=== PATIENT | male | born 1935 | race Caucasian/White ===

== ENCOUNTER → 2016-06-22 | Outpatient (CLI) | payer BC ==
[~2016-06-22] MED LIST: ANT25 PO; ASPI81TA28 PO; CRD200 PO; LEVO50TA6 PO; LPR25 PO; LPT10 PO; LPT40 PO; MOML PO; TPRSR/25 PO; WARF2TAB PO; WARF2TAB8 PO; WARF3TAB6 PO
== END | disposition home or self-care (01) ==
LOC: C.LAB1850 09:39
PROVIDERS: ATTEND Radiology Radiation Oncology
DX: Z85.46 Personal history of malignant neoplasm of prostate (principal)

== ENCOUNTER → 2016-10-23 | Outpatient (CLI) | payer BC ==
[2016-10-23 13:49] LABS: HEMATOCRIT 44.1 % (42-52); MEAN CELL VOLUME 91.9 fL (80-100); MEAN CORPUSCULAR HEMOGLOBIN 30.4 pg (25-34); MEAN CORPUSCULAR HGB CONC 33.1 g/dl (32-36); MEAN PLATELET VOLUME 12.3 fL (7.4-10.4); WHITE BLOOD COUNT 10.38 K/uL (4.8-10.8)
[2016-10-23 14:02] LABS: ALT/SGPT 23 U/L (12-78); AST/SGOT 21 U/L (15-37); BLOOD UREA NITROGEN 22 mg/dl (7-18); BUN/CREATININE RATIO 20.3 (10-20); CALCIUM 8.8 mg/dl (8.5-10.1); CARBON DIOXIDE 23 mmol/L (21-32); CHLORIDE 111 mmol/L (98-107); GLUCOSE 98 mg/dl (70-99); POTASSIUM 4.5 mmol/L (3.5-5.1); SODIUM 143 mmol/L (136-145)
[2016-10-23 14:07] LABS: PLATELET COUNT 68 K/uL (130-400); PLT ESTIMATE DECREASED
== END | disposition home or self-care (01) ==
LOC: C.LAB1850 11:39
PROVIDERS: ATTEND Physician Assistant
DX: I25.10 Atherosclerotic heart disease of native coronary artery without angina pectoris (principal); I82.402 Acute embolism and thrombosis of unspecified deep veins of left lower extremity

== ENCOUNTER → 2016-10-26 | Outpatient (CLI) | payer BC ==
[2016-10-26 09:50] LABS: HEMATOCRIT 47.6 % (42-52); MEAN CELL VOLUME 91.9 fL (80-100); MEAN CORPUSCULAR HEMOGLOBIN 28.2 pg (25-34); MEAN CORPUSCULAR HGB CONC 30.7 g/dl (32-36); RED BLOOD COUNT 5.18 M/uL (4.7-6.1); WHITE BLOOD COUNT 8.95 K/uL (4.8-10.8)
[2016-10-26 10:18] LABS: MEAN PLATELET VOLUME 11.9 fL (7.4-10.4); PLATELET COUNT 83 K/uL (130-400)
[2016-10-26 10:19] LABS: BASO % 0.3 %; BASO ABS # 0.03 K/uL (0-0.2); COMPLETE YES; EOS % 2.1 %; IG% 0.2 %; LYMPH % 25.4 %; LYMPH ABS # 2.27 K/uL (1.2-3.4); MONO % 9.8 %; NEUT % 62.2 %
== END | disposition home or self-care (01) ==
LOC: C.LAB1850 08:18
PROVIDERS: ATTEND Internal Medicine
DX: D69.6 Thrombocytopenia, unspecified (principal)

== ENCOUNTER 2016-11-18 14:08 | Emergency (ER) | payer BC ==
[~2016-11-18] VITALS: Ht 170.2 cm; Wt 80.0 kg
[~2016-11-18 14:08] MED LIST changes: -ASPI81TA28 PO; -LEVO50TA6 PO; -LPT40 PO; -TPRSR/25 PO; -WARF2TAB8 PO; -WARF3TAB6 PO
[2016-11-18 14:10] VITALS: Ht 170.2 cm; Wt 80.0 kg
[2016-11-18 14:57] LABS: HEMATOCRIT 46.3 % (42-52); MEAN CELL VOLUME 90.6 fL (80-100); MEAN CORPUSCULAR HEMOGLOBIN 29.5 pg (25-34); MEAN CORPUSCULAR HGB CONC 32.6 g/dl (32-36); RED BLOOD COUNT 5.11 M/uL (4.7-6.1); WHITE BLOOD COUNT 11.77 K/uL (4.8-10.8)
[2016-11-18 15:05] LABS: INR 2.1 (0.9-1.1); PARTIAL THROMBOPLASTIN RATIO 1.3; PROTHROMBIN TIME (PATIENT) 23.2 SECONDS (9.0-12.0)
[2016-11-18 15:15] LABS: BUN/CREATININE RATIO 22.7 (10-20); CALCIUM 9.2 mg/dl (8.5-10.1); CREATININE 1.2 mg/dl (0.60-1.40); POTASSIUM 4.3 mmol/L (3.5-5.1)
[2016-11-18 15:21] LABS: BASO % 0.1 %; BASO ABS # 0.01 K/uL (0-0.2); COMPLETE YES; EOS % 0.8 %; IG% 0.3 %; LYMPH % 13.4 %; LYMPH ABS # 1.58 K/uL (1.2-3.4); MEAN PLATELET VOLUME 10.8 fL (7.4-10.4); MONO % 5.8 %; NEUT % 79.6 %; PLATELET COUNT 84 K/uL (130-400); PLT ESTIMATE DECREASED
--- NOTE | 2016-11-18 16:11 | EMERGENCY ROOM VISIT NOTE ---
ED Visit Note First contact with patient: 14:14 I have personally evaluated this patient examined her and reviewed the pertinent labs and data. I have discussed the case with William Ward, the physician assistant superintendent and agree with the plan. Please refer to the PA note. This patient suffered mechanical fall he is right flank pain. There is no bruising he is on Coumadin. His INR was 2.1. He looks great and the pain is worse with movement and he has no shortness breath or chest pain. Given the fact he is on Coumadin. A CAT scan of his head as well as abdomen and pelvis. These are pending at this point. He will likely be a little be discharged to home and will see has significant injuries. Trevon will follow-up on these reports.
--- NOTE | 2016-11-18 16:41 | DIAGNOSTIC IMAGING REPORT ---
CT SCAN OF THE BRAIN WITHOUT IV CONTRAST CLINICAL HISTORY: Fall. Head injury. COMPARISON STUDY: CT of the brain dated 09/15/2014. TECHNIQUE: Unenhanced axial CT scan of the brain is performed from the vertex to the skull base. CT DOSE: 614.27 mGy.cm FINDINGS: Brain parenchyma: There are age-related involutional changes noting mild subcortical and periventricular microangiopathic change. There is no hemorrhage, mass effect, or evidence of acute territorial ischemia by CT criteria. Adam-white matter is preserved. No extra-axial fluid collection is seen. Ventricles, sulci, cisterns: Prominent secondary to involutional change. Intracranial vasculature: There is atherosclerotic calcification of the cavernous carotid and vertebral arteries. Calvarium: The skeletal structures are osteopenic. There is no depressed calvarial fracture. Sinuses and mastoids: The visualized paranasal sinuses are clear. The mastoid air cells are well pneumatized. Orbits: The bony orbits are grossly intact. There are bilateral ocular lens implants. IMPRESSION: There is no hemorrhage, mass effect, or evidence of acute territorial ischemia by CT criteria. Electronically signed by: Clark Dawkins M.D. 11/18/2016 4:40 PM Dictated Date/Time: 11/18/2016 4:38 PM
[2016-11-18] MEDS ORDERED: OPTIRAY 320 IV PRN (16:45)
--- NOTE | 2016-11-18 16:51 | DIAGNOSTIC IMAGING REPORT ---
CT SCAN OF THE ABDOMEN AND PELVIS WITH IV CONTRAST CLINICAL HISTORY: Fall. Right flank pain. COMPARISON STUDY: Abdominal ultrasound dated 09/15/2014. TECHNIQUE: Following the IV administration of 115 cc of Optiray 320, CT scan of the abdomen and pelvis is performed from the lung bases to the proximal femora. Images are reviewed in the axial, sagittal, and coronal planes. IV contrast was administered without complication. Automated dose control exposure was utilized. The examination is modestly degraded by motion artifact. CT DOSE: 426.73 mGy.cm FINDINGS: Lung bases: Midline sternotomy wires are noted. The heart is enlarged and without pericardial effusion. The coronary arteries are densely calcified. The lung bases are clear noting dependent atelectasis. There is a moderate hiatal hernia. Liver: The contrast-enhanced liver is normal in size, contour, and attenuation. There is no intrahepatic biliary ductal dilatation. The hepatic veins and portal veins are patent. Gallbladder: Unremarkable. Spleen: Normal in size and attenuation. Pancreas: Moderately atrophic and grossly unremarkable. Adrenal glands: Unremarkable. Kidneys: The contrast enhanced kidneys are atrophic and without hydronephrosis. The kidneys enhance symmetrically. Abdominal vasculature: There is advanced atherosclerotic calcification of the abdominal aorta. An infrarenal abdominal aortic aneurysm measures 3.5 x 3.6 cm (AP times transverse). Bowel: There is no bowel obstruction. The cecum is located in the right upper quadrant. There is moderate colonic diverticulosis without CT evidence of acute diverticulitis. Fecal retention is noted in the right colon. The appendix is well-visualized and normal. Peritoneum/retroperitoneum: There is no intraperitoneal free air or abdominal ascites. No retroperitoneal hemorrhage is seen. Lymphadenopathy: None. Pelvic viscera: The prostate gland is diminutive and heterogeneous. Brachytherapy seeds are noted. The bladder is normal as visualized. Skeletal structures: The skeletal structures are osteopenic. There is moderate to advanced lumbosacral spondylosis. No lytic or blastic lesions are seen. There are acute nondistracted right lateral 9th , 10th, and 11th rib fractures. Minimal overlying soft tissue contusion is noted. IMPRESSION: 1. There are no evidence of solid organ injury in the abdomen or pelvis. 2. There are acute nondistracted right lateral 9th through 11th rib fractures. 3. No acute infectious or inflammatory findings are seen in the abdomen or pelvis. 4. There is a 3.5 x 3.6 cm infrarenal abdominal aortic aneurysm. 5. Cardiomegaly. 6. Moderate colonic diverticulosis without CT evidence of acute diverticulitis. 7. Additional findings as above. Electronically signed by: Clark Dawkins M.D. 11/18/2016 4:49 PM Dictated Date/Time: 11/18/2016 4:40 PM
--- NOTE | 2016-11-18 17:29 | DIAGNOSTIC IMAGING REPORT ---
TWO VIEW CHEST CLINICAL HISTORY: Right-sided rib fractures. Fall. FINDINGS: PA and lateral chest radiographs are compared to study dated 09/15/2014 and correlated with chest CT dated 03/11/2012 as well as abdominal CT dated 11/18/2016. The PA view is degraded by patient rotation. The patient is status post midline sternotomy. The heart is enlarged and there is atherosclerotic calcification of the thoracic aorta. The pulmonary vasculature is noncongested. Chronic interstitial thickening is unchanged. No airspace consolidation or large pleural effusion is identified. There is minimal bibasilar atelectasis. There is no pneumothorax. The skeletal structures are osteopenic. Degenerative changes noted throughout the thoracic spine. The bony thorax is intact as visualized. IMPRESSION: 1. Cardiomegaly with no acute cardiopulmonary abnormality. No pneumothorax is identified. 2. Nondistracted right-sided rib fractures seen by CT were not apparent by chest x-ray. Electronically signed by: Clark Dawkins M.D. 11/18/2016 5:28 PM Dictated Date/Time: 11/18/2016 5:26 PM
[2016-11-18 17:50] VITALS: BP 154/87; PULSE 73; O2SAT 98
--- NOTE | 2016-11-18 17:59 | EMERGENCY ROOM VISIT NOTE ---
History First contact with patient: 14:14 Chief Complaint: BACK PAIN Stated Complaint: BACK PAIN FROM A FALL History of Present Illness The patient is a 81 year old white male who presents to the Emergency Room with his daughter, with complaints of right flank and back pain after falling from a chair today. Patient states he was standing on a chair attempting to get something off of the wall using a broom. He lost his balance and fell backwards , landing on his buttock and back. Since then he has had flank and right-sided back pain. He has been ambulatory. There was no loss of consciousness. He denies striking his head. This was a mechanical fall. He had no weakness at the time of the fall. No treatment yet. He does take Coumadin due to history of PE. He denies any extremity discomfort. Review of Systems REVIEW OF SYSTEM: HEENT: No dizziness, visual problems, hearing loss, or tinnitus. There is no difficulty swallowing and no oral lesions are present. PULMONARY: No cough, shortness of breath, sputum production or hemoptysis. History of PE. CARDIOVASCULAR: No chest pain, palpitations, shortness of breath or peripheral edema. GASTROINTESTINAL: No diarrhea, constipation, nausea, vomiting, or abdominal pain. GENITOURINARY: No dysuria, frequency, urgency or nocturia. NEUROLOGIC: No weakness, muscle tenderness, epilepsy or history of neurological problems. MUSCULOSKELETAL: No history of joint tenderness/swelling. Positive history of arthritis and arthralgias. SKIN: No rashes or lesions. PSYCHIATRIC: No history of depression or mental illness. ENDOCRINE: No history of diabetes, thyroid disorders, or abnormal hair growth. Past Medical/Surgical History Medical Problems: (1) CAD (coronary artery disease) (2) Gout (3) History of - pulmonary embolus (4) Hypothyroid (5) Prostate cancer Surgical Problems: (1) Hx of CABG (2) S/P radiation therapy Family History Heart disease Significant for heart disease, hypertension, gallbladder disease, and lung disease. Parents are . Social History Smoking Status: Former Smoker Smokeless Tobacco Use: No Alcohol Use: none Drug Use: none Marital Status: Housing Status: lives with family Occupation Status: retired Current/Historical Medications Scheduled Aspirin (Aspirin Ec), 81 MG PO DAILY Atorvastatin (Atorvastatin Calcium), 10 MG PO DAILY Levothyroxine Sodium (Levothyroxine Sodium), 50 MCG PO DAILY Metoprolol Tartrate (Lopressor), 12.5 MG PO DAILY Warfarin Sod (Jantoven), 3 MG PO UD Warfarin Sodium (Coumadin), 2 MG PO UD Allergies Coded Allergies: No Known Allergies (Verified , 08/27/14) Physical Exam Vital Signs Date Time Temp Pulse Resp B/P (MAP) Pulse Ox O2 Delivery O2 Flow Rate FiO2 11/18/16 16:05 61 17 127/71 98 Room Air 11/18/16 14:10 71 19 140/76 98 Room Air Physical Exam Gen.: Frail, elderly white male, in no acute distress. Sitting on a bed. Alert and oriented. Skin:Warm and dry with good turgor. No rashes or lesions. No ecchymosis or erythema. The patient is not diaphoretic. No abrasions. HEENT: Normocephalic atraumatic. Eyes PERRLA, EOMI. No conjunctiva or scleral injection. Ears left hearing aid is in place. Nares patent bilaterally without turbinate enlargement. No significant drainage. No epistaxis. Oropharynx without erythema or exudate. Uvula midline, oral mucosa moist. No lesions present.Dentures are present. Heart: Heart RRR. No MGR. Peripheral pulses are 2+. Lungs: Clear to auscultation. No crackles rhonchi or wheezing. Good air movement. The patient is able to take a deep breath but this does cause pain in the right flank. Abdomen: Abdomen was inspected, auscultated, and palpated. Bowel sounds present x 4. Soft, nontender to palpation. No hepato-splenomegaly. No masses noted. He has right-sided CVA tenderness. Musculoskeletal: Intact motor function to the upper and lower extremities. He is able to raise his arms overhead. No pain with internal or external rotation of his hips. Intact motor function to the knees and ankles. Spine evaluation reveals no pain with palpation over the cervical spine, thoracic spine, or lumbar spine. He does have discomfort with palpation over the right ribs laterally. No palpable crepitus or deformity. Neurologic: Gross sensation is intact across the upper and lower extremities by soft touch. Medical Decision & Procedures ER Provider Diagnostic Interpretation: CT scan imaging of his head was obtained today. This was read by radiology as unremarkable. CT scan imaging of the abdomen and pelvis with IV contrast was also obtained. No solid organ injury. No hematoma or blood collection. He does have nondisplaced ninth through 11th rib fractures on the right. Chest x-ray obtained today was read by radiology as negative for pneumothorax. Laboratory Results 11/18/16 14:47 Red Blood Count 5.11, Mean Corpuscular Volume 90.6, Mean Corpuscular Hemoglobin 29.5, Mean Corpuscular Hemoglobin Concent 32.6, Mean Platelet Volume 10.8, Neutrophils (%) (Auto) 79.6, Lymphocytes (%) (Auto) 13.4, Monocytes (%) (Auto) 5.8, Eosinophils (%) (Auto) 0.8, Basophils (%) (Auto) 0.1, Neutrophils # (Auto) 9.37, Lymphocytes # (Auto) 1.58, Monocytes # (Auto) 0.68, Eosinophils # (Auto) 0.10, Basophils # (Auto) 0.01 11/18/16 14:47 Test 11/18/16 14:47 White Blood Count 11.77 K/uL (4.8-10.8) Red Blood Count 5.11 M/uL (4.7-6.1) Hemoglobin 15.1 g/dL (14.0-18.0) Hematocrit 46.3 % (42-52) Mean Corpuscular Volume 90.6 fL (80-100) Mean Corpuscular Hemoglobin 29.5 pg (25-34) Mean Corpuscular Hemoglobin Concent 32.6 g/dl (32-36) Platelet Count 84 K/uL (130-400) Mean Platelet Volume 10.8 fL (7.4-10.4) Neutrophils (%) (Auto) 79.6 % Lymphocytes (%) (Auto) 13.4 % Monocytes (%) (Auto) 5.8 % Eosinophils (%) (Auto) 0.8 % Basophils (%) (Auto) 0.1 % Neutrophils # (Auto) 9.37 K/uL (1.4-6.5) Lymphocytes # (Auto) 1.58 K/uL (1.2-3.4) Monocytes # (Auto) 0.68 K/uL (0.11-0.59) Eosinophils # (Auto) 0.10 K/uL (0-0.5) Basophils # (Auto) 0.01 K/uL (0-0.2) RDW Standard Deviation 44.0 fL (36.4-46.3) RDW Coefficient of Variation 13.4 % (11.5-14.5) Immature Granulocyte % (Auto) 0.3 % Immature Granulocyte # (Auto) 0.03 K/uL (0.00-0.02) Platelet Estimate DECREASED Prothrombin Time 23.2 SECONDS (9.0-12.0) Prothromb Time International Ratio 2.1 (0.9-1.1) Activated Partial Thromboplast Time 34.1 SECONDS (21.0-31.0) Partial Thromboplastin Ratio 1.3 Anion Gap 9.0 mmol/L (3-11) Est Creatinine Clear Calc Drug Dose 47.3 ml/min Estimated GFR () 64.4 Estimated GFR (Non- 55.6 BUN/Creatinine Ratio 22.7 (10-20) Calcium Level 9.2 mg/dl (8.5-10.1) CBC, PRP, and PT/INR were obtained. INR is elevated at 2.1. CBC and PRP are unremarkable. ED Course Patient and his daughter were educated regarding today's findings. Conservative care measures were discussed. IV was established. Labs were obtained. CT scan imaging of the head and abdomen/pelvis were obtained. Chest x-ray was also obtained. He may use Tylenol every 6 hours as needed for discomfort. Ice intermittently to any sore areas as needed. Practice deep breaths several times per day to prevent pneumonia. He may continue on his Coumadin. Follow-up with his PCP or return to the ED for any other concerns. Also return to the ED for any acute changes. Patient was seen in conjunction with Dr. Payne, who also evaluated the patient and concurred with today's diagnosis and treatment plan. Medical Decision Possibility of kidney fracture, retroperitoneal hematoma, intracranial injury, long bone fracture, rib fracture, pneumothorax, and solid organ injury were considered among others. Impression Primary Impression: Fall from chair, initial encounter Additional Impression: Multiple fractures of ribs of right side Departure Information Dispostion Home / Self-Care Forms HOME CARE DOCUMENTATION FORM, TYLENOL USE, IMPORTANT VISIT INFORMATION Patient Instructions My [facility] [employer] Additional Instructions Tylenol every 6 hours as needed for discomfort Ice intermittently to any sore areas as needed, 3 days, then use moist heat Practice deep breaths several times per day to prevent pneumonia Follow-up with your PCP as needed Return to the ED for any acute changes or worsening of symptoms Problem Qualifiers Additional Impression: Multiple fractures of ribs of right side Encounter type: initial encounter Fracture type: closed Qualified Codes: S22.41XA - Multiple fractures of ribs, right side, initial encounter for closed fracture
[2016-12-30] MEDS ORDERED: LEVO50TA6 PO (11:41)
[2016-12-30] MEDS ORDERED: ASPI81TA28 PO (13:59)
[2016-12-30] MEDS ORDERED: WARF3TAB6 PO (16:10)
== END 2016-11-18 17:56 | disposition home or self-care (01) ==
LOC: C.EDB 14:09 → C.EDC 17:56
DX: S22.41XA Multiple fractures of ribs, right side, initial encounter for closed fracture (principal); W07.XXXA Fall from chair, initial encounter; I25.10 Atherosclerotic heart disease of native coronary artery without angina pectoris; E03.9 Hypothyroidism, unspecified; M10.9 Gout, unspecified; Z85.46 Personal history of malignant neoplasm of prostate; Z86.711 Personal history of pulmonary embolism; Z95.1 Presence of aortocoronary bypass graft; Z92.3 Personal history of irradiation; Z79.01 Long term (current) use of anticoagulants; Z79.82 Long term (current) use of aspirin; Z79.899 Other long term (current) drug therapy; Z87.891 Personal history of nicotine dependence; Z82.49 Family history of ischemic heart disease and other diseases of the circulatory system; Z83.79 Family history of other diseases of the digestive system

== ENCOUNTER → 2016-12-21 | Outpatient (CLI) | payer BC ==
[~2016-12-21] MED LIST changes: -ANT25 PO; +ASPI81TA28 PO; -CRD200 PO; +LEVO50TA6 PO; +LPT40 PO; -MOML PO; +TPRSR/25 PO; +WARF2TAB8 PO; +WARF3TAB6 PO
== END | disposition home or self-care (01) ==
LOC: C.LAB1850 13:58
PROVIDERS: ATTEND Radiology Radiation Oncology
DX: Z85.46 Personal history of malignant neoplasm of prostate (principal)

== ENCOUNTER 2016-12-30 16:36 | Emergency (ER) | payer BC ==
[~2016-12-30 16:36] MED LIST changes: -LPT40 PO; -TPRSR/25 PO; -WARF2TAB8 PO
[2016-12-30 16:37] VITALS: BP 98/59; PULSE 82; TEMP 36.5; O2SAT 98; Ht 170.2 cm
[2016-12-30] MEDS ORDERED: ACETAMINOPHEN 500 MG TAB PO STA (16:48)
--- NOTE | 2016-12-30 17:25 | DIAGNOSTIC IMAGING REPORT ---
RIGHT ANKLE MIN 3 VIEWS ROUTINE CLINICAL HISTORY: Right ankle and foot pain following twisting injury. COMPARISON: Right foot radiograph November 02, 2012. FINDINGS: Alignment of the right ankle is anatomic. Talar dome is intact. There is mild lateral ankle soft tissue swelling. Extensive vascular calcification is present. There is mild plantar calcaneal spurring. IMPRESSION: 1. No acute fracture or dislocation of the right ankle. 2. Mild lateral ankle soft tissue swelling. Electronically signed by: Frandy Fenton M.D. 12/30/2016 5:24 PM Dictated Date/Time: 12/30/2016 5:22 PM
--- NOTE | 2016-12-30 17:27 | DIAGNOSTIC IMAGING REPORT ---
RIGHT FOOT MIN 3 VIEWS ROUTINE CLINICAL HISTORY: Right ankle and foot pain following injury. COMPARISON: Right foot radiographs November 02, 2012. FINDINGS: Tarsometatarsal joints are intact. No acute fracture is identified. There is mild plantar calcaneal spurring and extensive vascular calcification. Moderate arthritis is noted within several articulations of the right foot. IMPRESSION: No acute fracture or dislocation of the right foot. Electronically signed by: Frandy Fenton M.D. 12/30/2016 5:26 PM Dictated Date/Time: 12/30/2016 5:24 PM
[2016-12-30] MEDS ORDERED: WARF2TAB8 PO (17:28)
[2016-12-30] MEDS ORDERED: LPT40 PO (17:28)
[2016-12-30] MEDS ORDERED: TPRSR/25 PO (17:28)
--- NOTE | 2016-12-30 17:37 | EMERGENCY ROOM VISIT NOTE ---
ED Visit Note First contact with patient: 16:47 Staff note: I have reviewed the Patients chart and have discussed this case with my PA. I generally agree with the ED note and findings.
--- NOTE | 2016-12-30 17:39 | EMERGENCY ROOM VISIT NOTE ---
History First contact with patient: 16:44 Chief Complaint: ANKLE PAIN Stated Complaint: SORE RT ANKLE, INJURY History of Present Illness The patient is a 81 year old male who presents to the Emergency Room with complaints of right ankle and foot pain after he slipped on a short step and twisted his ankle and foot. This injury happened at approximately 1:30 PM, or 3 -1/2 hours ago. Weightbearing worsens the patient's pain to an 8 out of 10. He denies any other injuries from this fall, including head injury, neck pain, back pain, hip pain or knee pain. The patient denies any paresthesias or numbness of the right foot or toes. Review of Systems 10 system review was performed and was negative except for pertinent positives and negatives as indicated in history of present illness Past Medical/Surgical History Medical Problems: (1) CAD (coronary artery disease) (2) Gout (3) History of - pulmonary embolus (4) Hypothyroid (5) Prostate cancer Surgical Problems: (1) Hx of CABG (2) S/P radiation therapy Family History Heart disease Social History Smoking Status: Former Smoker Alcohol Use: none Drug Use: none Marital Status: Housing Status: lives with family Occupation Status: retired Current/Historical Medications Scheduled Aspirin (Aspirin Ec), 81 MG PO DAILY Atorvastatin (Atorvastatin Calcium), 40 MG PO HS Levothyroxine Sodium (Levothyroxine Sodium), 50 MCG PO DAILY Metoprolol Succinate (Metoprolol Succinate ER), 25 MG PO DAILY Warfarin Sod (Jantoven), 3 MG PO UD Warfarin Sod (Jantoven), 2 MG PO UD Physical Exam Vital Signs Date Time Temp Pulse Resp B/P (MAP) Pulse Ox O2 Delivery O2 Flow Rate FiO2 12/30/16 16:37 36.5 82 17 98/59 98 Room Air Physical Exam CONSTITUTIONAL: Healthy and well nourished. Alert and oriented X 3 with positive affect. She does not appear in any acute distress. HEENT: Normocephalic, atraumatic. Pupils equal, round and reactive. NECK: Full active range of motion without discomfort. MUSCULOSKELETAL: Examination shows edema of the ankle and foot region, with ecchymosis over the medial aspect of the ankle and dorsal forefoot. The patient has tenderness to palpation mostly over the medial malleolus and distal metatarsal region. He has no significant discomfort to palpation over the lateral malleolus, Achilles tendon or calcaneus. Capillary refill is less than 2 seconds. Negative anterior draw. INTEGUMENTARY: No rash or other significant dermatologic conditions noted. NEUROLOGIC: Right foot and toes are sensory intact. Medical Decision & Procedures ER Provider Diagnostic Interpretation: My interpretation of right ankle and foot x-rays does not show any acute fractures or dislocations. Radiologist reports were also reviewed. Medications Administered Medications (Trade) Dose Ordered Sig/Lisa Route Start Time Stop Time Status Last Admin Dose Admin Acetaminophen (Tylenol Tab) 1,000 mg NOW STAT PO 12/30/16 16:48 12/30/16 16:50 DC 12/30/16 16:59 1,000 MG ED Course Patient history and physical exam were performed. Nurse's notes were reviewed. Vital signs were reviewed. Blood pressure is 98/59. The patient is not tachycardic, and O2 saturation is 98% on room air. X-rays of the right ankle and foot were normal. An ankle gel splint was applied. The patient was encouraged to intermittently apply ice and elevate the ankle for swelling and pain. Tylenol as needed for additional pain relief. As encouraged to follow- up with his family doctor if symptoms are not improving within the next week. The patient was happy with plan of care, voiced understanding of all discharge instructions, and rated his pain a 4 out of 10 at the conclusion of my exam. The patient was also seen and examined by Dr. Barrera, ED attending physician, who agrees with workup and plan of care. Medical Decision Medication Reconcilliation Current Medication List: was personally reviewed by in Blood Pressure Screening Patient's blood pressure: Normal blood pressure Impression Primary Impression: Right ankle sprain Departure Information Referrals Pro,Curtis Fagan M.D. (PCP) Patient Instructions My [facility]
== END 2016-12-30 17:56 | disposition home or self-care (01) ==
LOC: C.EDB 16:37 → C.EDD 17:56
DX: S93.401A Sprain of unspecified ligament of right ankle, initial encounter (principal); W01.0XXA Fall on same level from slipping, tripping and stumbling without subsequent striking against object, initial encounter; I25.10 Atherosclerotic heart disease of native coronary artery without angina pectoris; E03.9 Hypothyroidism, unspecified; Z82.49 Family history of ischemic heart disease and other diseases of the circulatory system; Z87.891 Personal history of nicotine dependence; Z79.82 Long term (current) use of aspirin; Z79.01 Long term (current) use of anticoagulants

== ENCOUNTER → 2017-06-05 | Outpatient (CLI) | payer BC ==
[~2017-06-05] MED LIST changes: -LPR25 PO; -LPT10 PO; +LPT40 PO; +TPRSR/25 PO; -WARF2TAB PO; +WARF2TAB8 PO
[2017-06-05 12:44] LABS: INR 2.1 (0.9-1.1)
== END | disposition home or self-care (01) ==
LOC: C.LAB1850 10:40
PROVIDERS: ATTEND Internal Medicine
DX: Z51.81 Encounter for therapeutic drug level monitoring (principal); Z79.01 Long term (current) use of anticoagulants

== ENCOUNTER → 2017-06-24 | Outpatient (CLI) | payer BC ==
--- NOTE | 2017-07-10 16:11 | CODING QUERY NO DIAGNOSIS ---
: 1935 Valid Physician Order Needed A valid physician order must be submitted in order to properly bill for the service(s) provided, including date of service(s), valid diagnosis, and physician signature. If these tests are done on a recurring basis the original physician order must be submitted in order to code and bill for the service(s) provided. Please fax us the original, signed physician order so that we may expedite billing to [phone] DOS 06/24/2017 * Prostate Specific Antigen (no lab order received) Thank you Megan Ha [facility] Information Management
== END | disposition home or self-care (01) ==
LOC: C.LAB1850 10:51
PROVIDERS: ATTEND Radiology Radiation Oncology
DX: Z85.46 Personal history of malignant neoplasm of prostate (principal); Z51.81 Encounter for therapeutic drug level monitoring; Z79.01 Long term (current) use of anticoagulants; D69.6 Thrombocytopenia, unspecified

== ENCOUNTER → 2017-07-02 | Outpatient (CLI) | payer BC ==
--- NOTE | 2017-07-02 18:07 | DIAGNOSTIC IMAGING REPORT ---
L HIP UNILATERAL 2 VIEWS CLINICAL HISTORY: 81 years-old Male presenting with Z91.81 History of fallM25.552 Left hip [id number]. TECHNIQUE: Frontal and frog-leg lateral views of the left hip were obtained. COMPARISON: 04/17/2014. FINDINGS: Left hip joint congruent. No advanced degenerative change. No femoral neck fracture. Visualized portion of the bony pelvis within normal limits. Brachytherapy seeds noted in the prostate. Atherosclerosis. IMPRESSION: No acute osseous injury of the left hip. Electronically signed by: Noah Castillo M.D. 07/02/2017 6:05 PM Dictated Date/Time: 07/02/2017 6:04 PM
== END | disposition home or self-care (01) ==
LOC: C.RAD 17:25
PROVIDERS: ATTEND Internal Medicine
DX: M25.552 Pain in left hip (principal); Z91.81 History of falling

== ENCOUNTER → 2017-07-15 | Outpatient (CLI) | payer BC ==
[2017-07-15 14:39] LABS: INR 1.5 (0.9-1.1)
== END | disposition home or self-care (01) ==
LOC: C.LAB1850 13:48
PROVIDERS: ATTEND Internal Medicine
DX: Z79.01 Long term (current) use of anticoagulants (principal)

== ENCOUNTER 2017-10-25 18:03 | Inpatient (IN) | payer BC, OTHER ==
[~2017-10-25] VITALS: Ht 172.7 cm; Wt 75.6 kg
[~2017-10-25 18:03] MED LIST changes: +MECL-91 PO
[2017-10-25] MEDS ORDERED: SODIUM CHLORIDE 0.9% 1000ML 1,000 ML IV STA (18:20)
[2017-10-25] MEDS ORDERED: SODIUM CHLORIDE 0.9% 500ML 500 ML IV STA (18:20)
[2017-10-25 18:42] LABS: BASO % 0.1 %; BASO ABS # 0.02 K/uL (0-0.2); EOS % 0.1 %; EOS ABS # 0.02 K/uL (0-0.5); HEMATOCRIT 44.3 % (42-52); HEMOGLOBIN 15.2 g/dL (14.0-18.0); IG# 0.08 K/uL (0.00-0.02); LYMPH % 3.5 %; LYMPH ABS # 0.54 K/uL (1.2-3.4); MEAN CORPUSCULAR HEMOGLOBIN 29.2 pg (25-34); MEAN CORPUSCULAR HGB CONC 34.3 g/dl (32-36); MEAN PLATELET VOLUME 11.4 fL (7.4-10.4); MONO % 3.7 %; MONO ABS # 0.56 K/uL (0.11-0.59); NEUT % 92.1 %; NEUT ABS # 14.07 K/uL (1.4-6.5); PLATELET COUNT 147 K/uL (130-400); RED CELL DISTRIBUTION WIDTH CV 13.9 % (11.5-14.5); RED CELL DISTRIBUTION WIDTH SD 43.1 fL (36.4-46.3); WHITE BLOOD COUNT 15.29 K/uL (4.8-10.8)
[2017-10-25] MEDS ORDERED: ANT25 PO (18:46)
[2017-10-25] MEDS ORDERED: TRIA37.5 PO (18:46)
--- NOTE | 2017-10-25 18:58 | DIAGNOSTIC IMAGING REPORT ---
CHEST ONE VIEW PORTABLE HISTORY: 81 years-old Male EVALUATE WEAKNESS acute weakness COMPARISON: Chest radiograph 10/20/2017 TECHNIQUE: Portable AP view of the chest FINDINGS: Prior median sternotomy. Cardiac silhouette is mildly enlarged. Atherosclerosis of the aorta. Surgical clips project over the left lung apex. Improved aeration of the bilateral lungs without pneumothorax. Mild blunting of the costophrenic angles suggests trace effusions. Minimal subsegmental left basilar opacities suggest atelectasis. Degenerative changes of the shoulders and spine. IMPRESSION: 1. Cardiomegaly with improved aeration of the bilateral lungs. 2. Suspected trace pleural effusions with subsegmental left basilar opacities suggesting atelectasis. The above report was generated using voice recognition software. It may contain grammatical, syntax or spelling errors. Electronically signed by: Isaiah Wilks M.D. 10/25/2017 6:57 PM Dictated Date/Time: 10/25/2017 6:55 PM
[2017-10-25 19:02] LABS: INR 2.3 (0.9-1.1)
[2017-10-25 19:12] LABS: ALBUMIN 2.8 gm/dl (3.4-5.0); CALCIUM 9.2 mg/dl (8.5-10.1); CKMB 3.5 ng/ml (0.5-3.6); CREATININE 1.08 mg/dl (0.60-1.40); POTASSIUM 3.9 mmol/L (3.5-5.1); TOTAL PROTEIN 7.4 gm/dl (6.4-8.2)
[2017-10-25 19:14] LABS: PTT PATIENT 45.5 SECONDS (21.0-31.0)
--- NOTE | 2017-10-25 19:16 | DIAGNOSTIC IMAGING REPORT ---
HEAD WITHOUT CONTRAST (CT) CLINICAL HISTORY: 81 years-old Male with EVALUATE WEAKNESS. Acute weakness TECHNIQUE: Multiple axial CT images of the head were obtained without contrast. A dose lowering technique was utilized adhering to the principles of ALARA. CT DOSE: 614.27 mGy.cm COMPARISON: CT head 10/20/2017. FINDINGS: No acute intracranial hemorrhage, midline shift, intracranial mass, hydrocephalus, territorial ischemia or abnormal extra-axial collection. Moderate brain atrophy. Multifocal ill-defined areas of low-attenuation within the periventricular and subcortical white matter suggest chronic microvascular ischemic changes. Cerebral vascular calcifications are seen at the level of the skull base. The calvarium is intact. Mild mucosal thickening of the anterior lateral and inferior frontal sinuses. Mild rightward bowing and spurring of the nasal septum. Prior bilateral cataract repair. Soft tissues and orbits are unremarkable. IMPRESSION: No acute intracranial abnormality. The above report was generated using voice recognition software. It may contain grammatical, syntax or spelling errors. Electronically signed by: Isaiah Wilks M.D. 10/25/2017 7:14 PM Dictated Date/Time: 10/25/2017 7:11 PM
--- NOTE | 2017-10-25 19:44 | EMERGENCY ROOM VISIT NOTE ---
History Report prepared by Yahir: Pat Ortega Under the Supervision of: Dr. Ronnie Cano M.D. First contact with patient: 18:06 Stated Complaint: FALL, LEG WEAKNESS History of Present Illness The patient is a 81 year old male who presents to the Emergency Room with complaints of an episode of a fall occurring just prior to arrival. The patient was in his bathroom when he became weak and slowly fell to the ground. The patient states "I just didn't have the strength to stand up". He reports being too weak to stand up after the fall. He denies any loss of consciousness or injury. The patient reports he has been dizzy over the past couple days. He also notes urinary difficulty over the past three weeks. He reports his right leg has been weaker than his left for the past three years. The patient lived at home with his . The patient has a history of chronic shoulder issues, coronary disease, and is status post coronary bypass surgery. Per , the patient seemed normal prior to his fall today. believes his left sided facial weakness is new. Pt denies LOC, headache, fevers, chills, diaphoresis, neck pain, chest pain, breathing difficulties, nausea, vomiting, abdominal pain , back pain, melena, hematochezia, urinary symptoms, numbness, weakness, lymphadenopathy, rash, vision changes, or other complaints.The patient was seen in the ED five days ago for dizziness. Source of History: patient Onset: just prior to arrival Position: other (generalized) Quality: other (fall) Timing: other (episode) Associated Symptoms: + urinary symptoms, + weakness Review of Systems See HPI for pertinent positives and negatives. A total of ten systems were reviewed and were otherwise negative. Past Medical & Surgical Medical Problems: (1) CAD (coronary artery disease) (2) Elevated liver function tests (3) Gout (4) History of - pulmonary embolus (5) Hypothyroid (6) Prostate cancer Surgical Problems: (1) Hx of CABG (2) S/P radiation therapy Family History Heart disease Social History Smoking Status: Never Smoker Alcohol Use: none Drug Use: none Marital Status: Housing Status: lives with family Occupation Status: retired Current/Historical Medications Scheduled Aspirin (Aspirin Ec), 81 MG PO DAILY Atorvastatin (Lipitor), 40 MG PO HS Levothyroxine Sodium (Levothyroxine Sodium), 50 MCG PO DAILY Metoprolol Succinate (Metoprolol Succinate ER), 25 MG PO DAILY Triamterene/Hctz (Dyazide 37.5MG/25MG), 1 CAP PO DAILY Warfarin Sod ([place]), 3 MG PO WK Warfarin Sod ([place]), 2 MG PO 6XWK Scheduled PRN Meclizine HCl (Meclizine HCl), 25 MG PO TID PRN for Dizziness or Vertigo Allergies Coded Allergies: No Known Allergies (Verified , 08/27/14) Physical Exam Vital Signs Date Time Temp Pulse Resp B/P (MAP) Pulse Ox O2 Delivery O2 Flow Rate FiO2 10/25/17 23:05 59 15 90 10/25/17 23:00 60 19 88/50 93 Room Air 10/25/17 22:45 62 17 94/56 10/25/17 22:31 108/61 10/25/17 22:30 65 17 92 10/25/17 22:15 77 14 126/74 93 10/25/17 22:10 67 21 95 Room Air 10/25/17 22:05 65 20 94 10/25/17 22:00 100/58 10/25/17 21:49 67 18 93 Room Air 10/25/17 21:45 106/62 10/25/17 21:34 70 19 89 10/25/17 21:31 102/66 10/25/17 21:19 74 20 91 10/25/17 21:16 107/57 10/25/17 21:13 71 10/25/17 21:04 72 18 89 10/25/17 20:59 94/55 10/25/17 20:02 120/81 10/25/17 19:50 81 22 92 10/25/17 19:45 82 96 10/25/17 19:43 121/71 10/25/17 18:51 79 20 125/64 94 Room Air 10/25/17 18:45 80 26 94 10/25/17 18:26 94 Room Air 10/25/17 18:09 37.0 95 20 90/65 96 Room Air Physical Exam GENERAL: Awake, alert, well-appearing, in no distress HENT: Normocephalic, atraumatic. Oropharynx unremarkable. EYES: Normal conjunctiva. Sclera non-icteric. NECK: Supple. No nuchal rigidity. FROM. No masses. RESPIRATORY: Clear to auscultation. No wheezes. No rales. Normal respiratory effort. CARDIAC: Normal rate. Normal rhythm. No murmurs. No rubs. Extremities warm and well perfused. Pulses equal. No JVD. GI: Soft, non-distended. No tenderness to palpation. No rebound or guarding. No masses. RECTAL: Deferred. MUSCULOSKELETAL: Atraumatic. Chest examination reveals no tenderness. The back is symmetrical on inspection without obvious abnormality. There is no CVA tenderness to palpation. No joint edema. LOWER EXTREMITIES: Calves are equal size bilaterally and non-tender. No edema. No discoloration. 4/5 strength on the right lower extremity. 5/5 strength on left lower extremity. NEURO: Normal sensorium. Left facial droop noted. No sensory or motor deficits noted. Difficult to assess right arm drift as he states he has chronic problems with his right shoulder. SKIN: No rash or jaundice noted. Medical Decision & Procedures ER Provider Diagnostic Interpretation: Radiology results as stated below per my review and radiologist interpretation: CHEST ONE VIEW PORTABLE FINDINGS: Prior median sternotomy. Cardiac silhouette is mildly enlarged. Atherosclerosis of the aorta. Surgical clips project over the left lung apex. Improved aeration of the bilateral lungs without pneumothorax. Mild blunting of the costophrenic angles suggests trace effusions. Minimal subsegmental left basilar opacities suggest atelectasis. Degenerative changes of the shoulders and spine. IMPRESSION: 1. Cardiomegaly with improved aeration of the bilateral lungs. 2. Suspected trace pleural effusions with subsegmental left basilar opacities suggesting atelectasis. The above report was generated using voice recognition software. It may contain grammatical, syntax or spelling errors. Electronically signed by: Isaiah Wilks M.D. HEAD WITHOUT CONTRAST (CT) FINDINGS: No acute intracranial hemorrhage, midline shift, intracranial mass, hydrocephalus, territorial ischemia or abnormal extra-axial collection. Moderate brain atrophy. Multifocal ill-defined areas of low-attenuation within the periventricular and subcortical white matter suggest chronic microvascular ischemic changes. Cerebral vascular calcifications are seen at the level of the skull base. The calvarium is intact. Mild mucosal thickening of the anterior lateral and inferior frontal sinuses. Mild rightward bowing and spurring of the nasal septum. Prior bilateral cataract repair. Soft tissues and orbits are unremarkable. IMPRESSION: No acute intracranial abnormality. The above report was generated using voice recognition software. It may contain grammatical, syntax or spelling errors. Electronically signed by: Isaiah Wilks M.D. GALLBLADDER-ABD LIMITED FINDINGS: Obscured pancreas secondary to bowel gas. Liver demonstrates homogeneous echogenicity of the parenchyma without marginal nodularity, focal mass or intrahepatic or ductal dilation. Gallbladder is mildly contracted with wall measuring 5 mm. No pericholecystic fluid identified. Echogenicity with ringdown artifact of the fundal gallbladder on image 30 suggests probable adenomyomatosis. 1 cm stone is seen within the gallbladder neck. Sonographic Springer sign reported as negative. Common bile duct is normal, 4 mm. Cortical thinning about the right kidney with increased echogenicity suggests chronic medical renal disease. No hydronephrosis. IMPRESSION: 1. 1.0 cm gallstone of the gallbladder neck. Gallbladder is mildly contracted with wall thickening. No pericholecystic fluid collections. No convincing sonographic evidence of acute cholecystitis. 2. No biliary ductal dilation. 3. Evidence of chronic medical renal disease. The above report was generated using voice recognition software. It may contain grammatical, syntax or spelling errors. Electronically signed by: sIaiah Wilks M.D. Laboratory Results 10/25/17 18:25 Red Blood Count 5.21, Mean Corpuscular Volume 85.0, Mean Corpuscular Hemoglobin 29.2, Mean Corpuscular Hemoglobin Concent 34.3, Mean Platelet Volume 11.4, Neutrophils (%) (Auto) 92.1, Lymphocytes (%) (Auto) 3.5, Monocytes (%) (Auto) 3.7, Eosinophils (%) (Auto) 0.1, Basophils (%) (Auto) 0.1, Neutrophils # (Auto) 14.07, Lymphocytes # (Auto) 0.54, Monocytes # (Auto) 0.56, Eosinophils # (Auto) 0.02, Basophils # (Auto) 0.02 10/25/17 18:25 Test 10/25/17 18:25 10/25/17 19:40 White Blood Count 15.29 K/uL (4.8-10.8) Red Blood Count 5.21 M/uL (4.7-6.1) Hemoglobin 15.2 g/dL (14.0-18.0) Hematocrit 44.3 % (42-52) Mean Corpuscular Volume 85.0 fL (80-100) Mean Corpuscular Hemoglobin 29.2 pg (25-34) Mean Corpuscular Hemoglobin Concent 34.3 g/dl (32-36) Platelet Count 147 K/uL (130-400) Mean Platelet Volume 11.4 fL (7.4-10.4) Neutrophils (%) (Auto) 92.1 % Lymphocytes (%) (Auto) 3.5 % Monocytes (%) (Auto) 3.7 % Eosinophils (%) (Auto) 0.1 % Basophils (%) (Auto) 0.1 % Neutrophils # (Auto) 14.07 K/uL (1.4-6.5) Lymphocytes # (Auto) 0.54 K/uL (1.2-3.4) Monocytes # (Auto) 0.56 K/uL (0.11-0.59) Eosinophils # (Auto) 0.02 K/uL (0-0.5) Basophils # (Auto) 0.02 K/uL (0-0.2) RDW Standard Deviation 43.1 fL (36.4-46.3) RDW Coefficient of Variation 13.9 % (11.5-14.5) Immature Granulocyte % (Auto) 0.5 % Immature Granulocyte # (Auto) 0.08 K/uL (0.00-0.02) Prothrombin Time 24.1 SECONDS (9.0-12.0) Prothromb Time International Ratio 2.3 (0.9-1.1) Activated Partial Thromboplast Time 45.5 SECONDS (21.0-31.0) Partial Thromboplastin Ratio 1.8 Anion Gap 10.0 mmol/L (3-11) Est Creatinine Clear Calc Drug Dose 48.5 ml/min Estimated GFR () 73.2 Estimated GFR (Non- 63.1 BUN/Creatinine Ratio 16.1 (10-20) Calcium Level 9.2 mg/dl (8.5-10.1) Magnesium Level 1.8 mg/dl (1.8-2.4) Total Bilirubin 1.3 mg/dl (0.2-1) Direct Bilirubin 0.5 mg/dl (0-0.2) Aspartate Amino Transf (AST/SGOT) 91 U/L (15-37) Alanine Aminotransferase (ALT/SGPT) 82 U/L (12-78) Alkaline Phosphatase 103 U/L (45-117) Total Creatine Kinase 141 U/L (39-308) Creatine Kinase MB 3.5 ng/ml (0.5-3.6) Creatine Kinase MB Ratio 2.5 (0-3.0) Troponin I 0.025 ng/ml (0-0.045) C-Reactive Protein 16.00 mg/dl (0-0.29) Total Protein 7.4 gm/dl (6.4-8.2) Albumin 2.8 gm/dl (3.4-5.0) Lipase 148 U/L (73-393) Thyroid Stimulating Hormone (TSH) 1.590 uIu/ml (0.300-4.500) Chemistry Specimen Hemolysis Hepatitis C Antibody NEG (NEG) Urine Color YELLOW Urine Appearance CLEAR (CLEAR) Urine pH 7.0 (4.5-7.5) Urine Specific [place] 1.014 (1.000-1.030) Urine Protein TRACE (NEG) Urine Glucose (UA) NEG (NEG) Urine Ketones NEG (NEG) Urine Occult Blood 2+ (NEG) Urine Nitrite NEG (NEG) Urine Bilirubin NEG (NEG) Urine Urobilinogen NEG (NEG) Urine Leukocyte Esterase NEG (NEG) Urine WBC (Auto) 1-5 /hpf (0-5) Urine RBC (Auto) 10-30 /hpf (0-4) Urine Hyaline Casts (Auto) 5-10 /lpf (0-5) Urine Epithelial Cells (Auto) >30 /lpf (0-5) Urine Bacteria (Auto) NEG (NEG) Urine Renal Epithelial Cells 0-5 /lpf (0-5) Laboratory results reviewed by me Medications Administered Medications (Trade) Dose Ordered Sig/Lisa Route Start Time Stop Time Status Last Admin Dose Admin Sodium Chloride 1,000 ml @ 125 mls/hr Q8H STAT IV 10/25/17 18:20 10/25/17 23:54 DC 10/25/17 18:29 125 MLS/HR Sodium Chloride 500 ml @ 999 mls/hr Q31M STAT IV 10/25/17 18:20 10/25/17 18:50 DC 10/25/17 18:29 999 MLS/HR Cefoxitin Sodium (Mefoxin 2000mg/ 60 ml D5W) 2,000 mg NOW STAT IV 10/25/17 21:07 10/25/17 21:08 DC 10/25/17 21:28 2,000 MG ECG Per My Interpretation Indication: weakness Rate (beats per minute): 86 Rhythm: sinus rhythm Findings: Q waves (Inferior), RBBB, no acute ischemic change, no ectopy ED Course 1807: The patient was evaluated in room A10. A complete history and physical exam was performed. 1819: Ordered Sodium Chloride 500 ml @ 999 mls/hr IV, Sodium Chloride 1000 ml @ 125 mls/hr IV. 1824: Review of patients ED visit from five days ago: He was not hypotensive, he had an unremarkable head CT, his lab work was unremarkable, and his urinalysis was negative. 1953: I updated the patient on his test results. When asked about abdominal pain again, he denies any abdominal pain but notes some pain under his right ribs. 2106: Ordered Cefoxitin Sodium 2000 mg IV. 2110: Discussed the patient's case with Lico BRYANT [facility]. He will come evaluate the patient. 2121: Discussed the patient's case with [facility]. The patient will be evaluated for further treatment and disposition. Medical Decision Prior records/ancillary studies reviewed and summarized above. Nursing notes reviewed and agree them. Additional history obtained from EMS through nursing and the patient's . The patient's history was concerning for weakness. Differential diagnosis: Etiologies such as metabolic, infection, hypo/hyperglycemia, electrolyte abnormalities, cardiac sources, intracerebral event, toxicologic, neurologic, as well as others were entertained. Physical examination: As above. ER treatment provided: IV Lock Normal saline bolus and saline hydration On reassessment the patient felt better. Diagnostics interpretation by me: ECG: No acute ischemia. The labs revealed a mild leukocytosis on CBC. LFTs mildly elevated. Chemistry panel was unremarkable. The leukocytosis and elevated LFTs are new compared to prior. Troponin negative. INR therapeutic. Imaging studies: Chest x-ray, CT scan of the head and ultrasound as above. The patient presented with generalized weakness. He had an episode of dizziness and nausea on his prior ER visit and did well during this time in the ER at that point. He had symptoms developed today but did not describe the same type of dizziness. He denied any injury from his fall. Due to his elevated LFTs and leukocytosis gallbladder imaging was performed. He had what he describes his chronic right arm and leg weakness. He did have some left facial droop and his thinks that this is new. CT scan of the head did not reveal any evidence of bleeding or acute CVA. The patient's gallbladder ultrasound did not reveal any evidence of acute cholecystitis but suggested a large stone in the gallbladder neck. The patient was covered with IV Mefoxin. Consultation will be necessary as well as treatment in the hospital. Consultation: Consultation was placed with general surgery. The case was discussed with Dr. Anton Barfield's PA. Medical management was recommended from the surgery team. A consultation was placed with the hospitalist. The case was discussed and diagnostics were reviewed. The patient was evaluated in the ER for further treatment. Medication Reconcilliation Current Medication List: was personally reviewed by me Blood Pressure Screening Patient's blood pressure: Normal blood pressure Consults Time Called: 2104 Consulting Physician: Lico BRYANT with Dr. [facility] Returned Call: 2110 Discussed the patient's case with Lico BRYANT with Dr. [facility]. He will come evaluate the patient. Additional Consults: Time Called: 2116 Consulted Physician: Dr. Adhikari Returned Call: 2121 Additional Comments: Discussed the patient's case with Dr. Adhikari. The patient will be evaluated for further treatment and disposition. Impression Primary Impression: Generalized weakness Additional Impressions: Cholelithiasis Leukocytosis Elevated liver function tests Fall Scribe Attestation The scribe's documentation has been prepared under my direction and personally reviewed by me in its entirety. I confirm that the note above accurately reflects all work, treatment, procedures, and medical decision making performed by me. Departure Information Dispostion Being Evaluated By Hospitalist Referrals Curtis Carrillo M.D. (PCP) Problem Qualifiers
--- NOTE | 2017-10-25 20:57 | DIAGNOSTIC IMAGING REPORT ---
GALLBLADDER-ABD LIMITED HISTORY: 81 years-old Male ELEVATED lfts acutely elevated LFTs COMPARISON: CT abdomen and pelvis 11/18/2014 TECHNIQUE: Multiple real-time sonographic images of the abdominal right upper quadrant were obtained assessing grayscale appearance and color flow FINDINGS: Obscured pancreas secondary to bowel gas. Liver demonstrates homogeneous echogenicity of the parenchyma without marginal nodularity, focal mass or intrahepatic or ductal dilation. Gallbladder is mildly contracted with wall measuring 5 mm. No pericholecystic fluid identified. Echogenicity with ringdown artifact of the fundal gallbladder on image 30 suggests probable adenomyomatosis. 1 cm stone is seen within the gallbladder neck. Sonographic Springer sign reported as negative. Common bile duct is normal, 4 mm. Cortical thinning about the right kidney with increased echogenicity suggests chronic medical renal disease. No hydronephrosis. IMPRESSION: 1. 1.0 cm gallstone of the gallbladder neck. Gallbladder is mildly contracted with wall thickening. No pericholecystic fluid collections. No convincing sonographic evidence of acute cholecystitis. 2. No biliary ductal dilation. 3. Evidence of chronic medical renal disease. The above report was generated using voice recognition software. It may contain grammatical, syntax or spelling errors. Electronically signed by: Isaiah Wilks M.D. 10/25/2017 8:56 PM Dictated Date/Time: 10/25/2017 8:52 PM
[2017-10-25] MEDS ORDERED: CEFOXITIN 2000MG/60 ML D5W IV STA (21:07)
--- NOTE | 2017-10-25 22:24 | Surgery Consultation ---
Consultation Date of Consultation: Oct 25, 2017. Attending Physician: Reason for Consultation: Cholelithiasis History of Present Illness Patient presents to the ed tonight due to a fall in his bathroom earlier this evening. Reports he became weak and slowly fell to the ground and did not have any strength to stand up. Denies LOC or injury. He was seen in the ED approximately 5 days ago due to weakness/dizziness. At this time no acute abnormalities were found and he was discharged after receiving some fluids and anti-emetics. Head CT in the ED tonight was unremarkable and CXR showed cardiomegaly and trace b/l PE. He also reported some right lower rib pain so a RUQ U/S was performed to assess for any gallbladder abnormality. U/S shows cholelithiasis, borderline wall thickening, no evidence of acute cholecystitis, CBD WNL. WBC 15.29. LFTs mildly elevated - T bili 1.3, D bili 0.5, AST 91, ALT 82. Denies fever, chills, nausea, vomiting. Reports he has not had problems moving his bowels but he has had some difficulty urinating. PMHx significant for prostate cancer s/p radiation therapy and CAD s/p triple bypass. Patient currently takes Warfarin and Aspirin and follows with Dr. Arguelles for cardiology. Patient reports he last saw him around June. Denies use of any other blood thinning or anticoagulant medications. Denies history of previous abdominal surgeries. Patient did receive 2g Mefoxin in the ED. Past Medical/Surgical History Medical Problems: (1) Fall from chair, initial encounter Status: Acute (2) Multiple fractures of ribs of right side Status: Acute (3) Right ankle sprain Status: Acute Family History Heart disease Social History Smoking Status: Never Smoker Drug Use: none Marital Status: Housing Status: lives with family Occupation Status: retired Allergies Coded Allergies: No Known Allergies (Verified , 08/27/14) Home Medications Scheduled Aspirin (Aspirin Ec), 81 MG PO DAILY Atorvastatin (Lipitor), 40 MG PO HS Levothyroxine Sodium (Levothyroxine Sodium), 50 MCG PO DAILY Metoprolol Succinate (Metoprolol Succinate ER), 25 MG PO DAILY Triamterene/Hctz (Dyazide 37.5MG/25MG), 1 CAP PO DAILY Warfarin Sod ([place]), 3 MG PO WK Warfarin Sod ([place]), 2 MG PO 6XWK Scheduled PRN Meclizine HCl (Meclizine HCl), 25 MG PO TID PRN for Dizziness or Vertigo Current Inpatient Medications Current Inpatient Medications Medications (Trade) Dose Ordered Sig/Lisa Route Start Time Stop Time Status Last Admin Dose Admin Sodium Chloride 1,000 ml @ 125 mls/hr Q8H STAT IV 10/25/17 18:20 10/26/17 02:19 10/25/17 18:29 125 MLS/HR Review of Systems Constitutional: No fever, No chills Cardiovascular: + chest pain (Right lower rib) Abdomen: No pain, No nausea, No vomiting, No diarrhea, No constipation Genitourinary - Male: + dysuria, No hematuria Integumentary: No new/changing skin lesions, No color change Physical Exam Date Time Temp Pulse Resp B/P (MAP) Pulse Ox O2 Delivery O2 Flow Rate FiO2 10/25/17 22:00 100/58 10/25/17 21:49 67 18 93 Room Air 10/25/17 21:45 106/62 10/25/17 21:34 70 19 89 10/25/17 21:31 102/66 10/25/17 21:19 74 20 91 10/25/17 21:16 107/57 10/25/17 21:13 71 10/25/17 21:04 72 18 89 10/25/17 20:59 94/55 10/25/17 20:02 120/81 10/25/17 19:50 81 22 92 10/25/17 19:45 82 96 10/25/17 19:43 121/71 10/25/17 18:51 79 20 125/64 94 Room Air 10/25/17 18:45 80 26 94 10/25/17 18:26 94 Room Air 10/25/17 18:09 37.0 95 20 90/65 96 Room Air General Appearance: WD/WN, no apparent distress Head: normocephalic, atraumatic Respiratory/Chest: no respiratory distress, no accessory muscle use, + pertinent finding (Right lower rib TTP) Abdomen/GI: non tender, soft, no organomegaly, no pulsatile mass Neurologic/Psych: alert Skin: normal color, warm/dry Laboratory Results Last 24 Hours Test 10/25/17 18:25 10/25/17 19:40 White Blood Count 15.29 K/uL Red Blood Count 5.21 M/uL Hemoglobin 15.2 g/dL Hematocrit 44.3 % Mean Corpuscular Volume 85.0 fL Mean Corpuscular Hemoglobin 29.2 pg Mean Corpuscular Hemoglobin Concent 34.3 g/dl Platelet Count 147 K/uL Mean Platelet Volume 11.4 fL Neutrophils (%) (Auto) 92.1 % Lymphocytes (%) (Auto) 3.5 % Monocytes (%) (Auto) 3.7 % Eosinophils (%) (Auto) 0.1 % Basophils (%) (Auto) 0.1 % Neutrophils # (Auto) 14.07 K/uL Lymphocytes # (Auto) 0.54 K/uL Monocytes # (Auto) 0.56 K/uL Eosinophils # (Auto) 0.02 K/uL Basophils # (Auto) 0.02 K/uL RDW Standard Deviation 43.1 fL RDW Coefficient of Variation 13.9 % Immature Granulocyte % (Auto) 0.5 % Immature Granulocyte # (Auto) 0.08 K/uL Prothrombin Time 24.1 SECONDS Prothromb Time International Ratio 2.3 Activated Partial Thromboplast Time 45.5 SECONDS Partial Thromboplastin Ratio 1.8 Sodium Level 133 mmol/L Potassium Level 3.9 mmol/L Chloride Level 95 mmol/L Carbon Dioxide Level 28 mmol/L Anion Gap 10.0 mmol/L Blood Urea Nitrogen 17 mg/dl Creatinine 1.08 mg/dl Est Creatinine Clear Calc Drug Dose 48.5 ml/min Estimated GFR () 73.2 Estimated GFR (Non- 63.1 BUN/Creatinine Ratio 16.1 Random Glucose 130 mg/dl Calcium Level 9.2 mg/dl Magnesium Level 1.8 mg/dl Total Bilirubin 1.3 mg/dl Direct Bilirubin 0.5 mg/dl Aspartate Amino Transf (AST/SGOT) 91 U/L Alanine Aminotransferase (ALT/SGPT) 82 U/L Alkaline Phosphatase 103 U/L Total Creatine Kinase 141 U/L Creatine Kinase MB 3.5 ng/ml Creatine Kinase MB Ratio 2.5 Troponin I 0.025 ng/ml Total Protein 7.4 gm/dl Albumin 2.8 gm/dl Lipase 148 U/L Thyroid Stimulating Hormone (TSH) 1.590 uIu/ml Chemistry Specimen Hemolysis Urine Color YELLOW Urine Appearance CLEAR Urine pH 7.0 Urine Specific [place] 1.014 Urine Protein TRACE Urine Glucose (UA) NEG Urine Ketones NEG Urine Occult Blood 2+ Urine Nitrite NEG Urine Bilirubin NEG Urine Urobilinogen NEG Urine Leukocyte Esterase NEG Urine WBC (Auto) 1-5 /hpf Urine RBC (Auto) 10-30 /hpf Urine Hyaline Casts (Auto) 5-10 /lpf Urine Epithelial Cells (Auto) >30 /lpf Urine Bacteria (Auto) NEG Urine Renal Epithelial Cells 0-5 /lpf Assessment & Plan Cholelithiasis, borderline wall thickening, no evidence of acute cholecystitis. Findings discussed with Dr. Hogan. No acute surgical intervention indicated at this time. No TTP in RUQ, right lower rib pain unlikely due to gallbladder etiology and more likely due to his recent fall. Unlikely to pursue any surgical intervention during this hospital stay as patient is on warfarin, aspirin and there is no evidence of acute cholecystitis. If patient does develop gallbladder symptoms could consider OP follow-up ideally with patient off Warfarin prior to surgery. Admit per hospitalist service. Keep NPO after midnight, likely advance diet if no changes tomorrow AM. Repeat LFTs in AM and reassess. Will follow. Please contact with questions or concerns.
[2017-10-25] MEDS ORDERED: ONDANSETRON INJ 2 MG/ML 2 ML VIAL IV PRN (22:45)
[2017-10-25] MEDS ORDERED: MAGNESIUM HYDROXIDE SUSP 30 ML UDC PO PRN (22:45)
[2017-10-25] MEDS ORDERED: ZOLPIDEM TARTRATE 5 MG TAB PO PRN (22:45)
[2017-10-25] MEDS ORDERED: ACETAMINOPHEN 325 MG TAB PO PRN (22:45)
[2017-10-25] MEDS ORDERED: PIPERACILL/TAZOBAC CONSULT ACTIVE PRN (22:45)
[2017-10-25] MEDS ORDERED: MECLIZINE HCL 25 MG TAB PO PRN (22:45)
[2017-10-25] MEDS ORDERED: ALUMINUM/MAGNESIUM/SIMETH (MAALOX MAX) 30 ML UDC PO PRN (22:45)
[2017-10-25] MEDS ORDERED: POLYETHYLENE (MIRALAX) 17 GM PACK PO PRN (22:45)
--- NOTE | 2017-10-25 23:27 | History and Physical ---
History & Physical Date & Time of Service: Oct 25, 2017 at 22:14 Chief Complaint: Fall, Leg Weakness Primary Care Physician: Curtis Carrillo M.D. 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 The weakness has been going on for weeks. Patient has had numerous falls in the past 4 months and has been seeing PT in [place] for it. The patient is most concerned about his history of falls. Patient is focused on telling me about his fall in March 2017 where he tripped over a curb that he didn't see while he was leaving the physical therapy facility. When refocused to his current episode pt states that it wasn' t really a fall but he rather slid down the wall to the ground. When asked why this happened he states that he was weak. Denies pain, denies POC. Pt does follow with [facility] cardiology and when he brought up the issue of falls he states that the supervisor nutritional yeast couldn't find an etiology. On admission he was found to have elevated LFTs and a stone in the gallbladder neck. Pt denies any gallbladder history. Surgery was consulted and they do not feel the patient has acute cholecystitis and recommend inpatient observation , following LFTs and advancing diet. On my HPI, the patient states that he has been having RUQ after meals for the past 3 days. He cannot tell me whether he had abdominal pain which caused his fall. SHx: lives with . Uses a walker to ambulate. ROS: no chills, no fevers, no diarrhea, no vomiting, no SOB, no chest pain. Past Medical/Surgical History Medical Problems: (1) Abdominal pain (2) Abnormal EKG (3) Acute cholecystitis (4) CAD (coronary artery disease) (5) Chest pain (6) Dizziness (7) Elevated troponin (8) Elevated troponin (9) Fall from chair, initial encounter (10) Gout (11) Hematoma (12) History of - pulmonary embolus (13) Hypothyroid (14) Multiple fractures of ribs of right side (15) NSTEMI (non-ST elevated myocardial infarction) (16) Pancreatitis (17) Prostate cancer (18) Right ankle sprain (19) Right hip pain (20) Right hip pain Surgical Problems: (1) Hx of CABG (2) S/P radiation therapy Family History Heart disease Social History Smoking Status: Never Smoker Drug Use: none Marital Status: Occupational Status: retired Immunizations History of Influenza Vaccine: No History of Tetanus Vaccine?: Unknown History of Pneumococcal: Yes Pneumococcal Date: Mar 24, 2009 History of Hepatitis B Vaccine: Unknown Allergies Coded Allergies: No Known Allergies (Verified , 08/27/14) Home Medications Scheduled Aspirin (Aspirin Ec), 81 MG PO DAILY Atorvastatin (Lipitor), 40 MG PO HS Levothyroxine Sodium (Levothyroxine Sodium), 50 MCG PO DAILY Metoprolol Succinate (Metoprolol Succinate ER), 25 MG PO DAILY Triamterene/Hctz (Dyazide 37.5MG/25MG), 1 CAP PO DAILY Warfarin Sod (Jantoven), 3 MG PO WK Warfarin Sod (Jantoven), 2 MG PO [id number] Scheduled PRN Meclizine HCl (Meclizine HCl), 25 MG PO TID PRN for Dizziness or Vertigo Review of Systems Constitutional: No fever, No chills, No weight loss ENT: No hearing loss, No unusual epistaxis, No nasal symptoms, No sore throat Respiratory: No cough, No sputum, No shortness of breath Cardiovascular: No chest pain Abdomen: + pain, No nausea, No vomiting, No diarrhea, No constipation Musculoskeletal: No joint pain Genitourinary - Male: No hematuria, No dysuria Neurologic: No memory loss Physical Exam Vital Signs Date Time Temp Pulse Resp B/P (MAP) Pulse Ox O2 Delivery O2 Flow Rate FiO2 10/25/17 22:10 67 21 95 Room Air 10/25/17 22:05 65 20 94 10/25/17 22:00 100/58 10/25/17 21:49 67 18 93 Room Air 10/25/17 21:45 106/62 10/25/17 21:34 70 19 89 10/25/17 21:31 102/66 10/25/17 21:19 74 20 91 10/25/17 21:16 107/57 10/25/17 21:13 71 10/25/17 21:04 72 18 89 10/25/17 20:59 94/55 10/25/17 20:02 120/81 10/25/17 19:50 81 22 92 10/25/17 19:45 82 96 10/25/17 19:43 121/71 10/25/17 18:51 79 20 125/64 94 Room Air 10/25/17 18:45 80 26 94 10/25/17 18:26 94 Room Air 10/25/17 18:09 37.0 95 20 90/65 96 Room Air General Appearance: WD/WN, no apparent distress Head: normocephalic, + pertinent finding (pt does have an older laceration above the left eye - states he doesn't know where it came from ) Eyes: normal inspection, PERRL, EOMI ENT: normal ENT inspection Neck: supple Respiratory/Chest: chest non-tender, lungs clear, normal breath sounds, no respiratory distress, no accessory muscle use Cardiovascular: regular rate, rhythm, no edema, no gallop, no JVD, no murmur, normal peripheral pulses, + pertinent finding (well healed vertical scar over sternum) Abdomen/GI: normal bowel sounds, soft, no pulsatile mass, + pertinent finding ( pain in RUQ on palpation, no gaurding - of note Attending and Surgery PA did not appreciate RUQ pain on palpation) Back: normal inspection, no CVA tenderness, no muscle spasm Extremities/Musculoskelatal: normal inspection, no calf tenderness, normal capillary refill, no pedal edema, normal range of motion Neurologic/Psych: construction representative II-XII nml as tested, no motor/sensory deficits, alert, normal mood/affect, normal reflexes, oriented x 3 Diagnostics Laboratory Results Results Past 24 Hours Test 10/25/17 18:25 10/25/17 19:40 Range/Units White Blood Count 15.29 4.8-10.8 K/uL Red Blood Count 5.21 4.7-6.1 M/uL Hemoglobin 15.2 14.0-18.0 g/dL Hematocrit 44.3 42-52 % Mean Corpuscular Volume 85.0 80-100 fL Mean Corpuscular Hemoglobin 29.2 25-34 pg Mean Corpuscular Hemoglobin Concent 34.3 32-36 g/dl Platelet Count 147 130-400 K/uL Mean Platelet Volume 11.4 7.4-10.4 fL Neutrophils (%) (Auto) 92.1 % Lymphocytes (%) (Auto) 3.5 % Monocytes (%) (Auto) 3.7 % Eosinophils (%) (Auto) 0.1 % Basophils (%) (Auto) 0.1 % Neutrophils # (Auto) 14.07 1.4-6.5 K/uL Lymphocytes # (Auto) 0.54 1.2-3.4 K/uL Monocytes # (Auto) 0.56 0.11-0.59 K/uL Eosinophils # (Auto) 0.02 0-0.5 K/uL Basophils # (Auto) 0.02 0-0.2 K/uL RDW Standard Deviation 43.1 36.4-46.3 fL RDW Coefficient of Variation 13.9 11.5-14.5 % Immature Granulocyte % (Auto) 0.5 % Immature Granulocyte # (Auto) 0.08 0.00-0.02 K/uL Prothrombin Time 24.1 9.0-12.0 SECONDS Prothromb Time International Ratio 2.3 0.9-1.1 Activated Partial Thromboplast Time 45.5 21.0-31.0 SECONDS Partial Thromboplastin Ratio 1.8 Sodium Level 133 136-145 mmol/L Potassium Level 3.9 3.5-5.1 mmol/L Chloride Level 95 98-107 mmol/L Carbon Dioxide Level 28 21-32 mmol/L Anion Gap 10.0 3-11 mmol/L Blood Urea Nitrogen 17 7-18 mg/dl Creatinine 1.08 0.60-1.40 mg/dl Est Creatinine Clear Calc Drug Dose 48.5 ml/min Estimated GFR () 73.2 Estimated GFR (Non- 63.1 BUN/Creatinine Ratio 16.1 10-20 Random Glucose 130 70-99 mg/dl Calcium Level 9.2 8.5-10.1 mg/dl Magnesium Level 1.8 1.8-2.4 mg/dl Total Bilirubin 1.3 0.2-1 mg/dl Direct Bilirubin 0.5 0-0.2 mg/dl Aspartate Amino Transf (AST/SGOT) 91 15-37 U/L Alanine Aminotransferase (ALT/SGPT) 82 12-78 U/L Alkaline Phosphatase 103 45-117 U/L Total Creatine Kinase 141 39-308 U/L Creatine Kinase MB 3.5 0.5-3.6 ng/ml Creatine Kinase MB Ratio 2.5 0-3.0 Troponin I 0.025 0-0.045 ng/ml Total Protein 7.4 6.4-8.2 gm/dl Albumin 2.8 3.4-5.0 gm/dl Lipase 148 73-393 U/L Thyroid Stimulating Hormone (TSH) 1.590 0.300-4.500 uIu/ml Chemistry Specimen Hemolysis Urine Color YELLOW Urine Appearance CLEAR CLEAR Urine pH 7.0 4.5-7.5 Urine Specific [place] 1.014 1.000-1.030 Urine Protein TRACE NEG Urine Glucose (UA) NEG NEG Urine Ketones NEG NEG Urine Occult Blood 2+ NEG Urine Nitrite NEG NEG Urine Bilirubin NEG NEG Urine Urobilinogen NEG NEG Urine Leukocyte Esterase NEG NEG Urine WBC (Auto) 1-5 0-5 /hpf Urine RBC (Auto) 10-30 0-4 /hpf Urine Hyaline Casts (Auto) 5-10 0-5 /lpf Urine Epithelial Cells (Auto) >30 0-5 /lpf Urine Bacteria (Auto) NEG NEG Urine Renal Epithelial Cells 0-5 0-5 /lpf Microbiology Results 10/25/17 Blood Culture, Received Pending 10/25/17 Blood Culture, Received Pending 10/25/17 Urine Culture, Received Pending Diagnostic Radiology CHEST ONE VIEW PORTABLE FINDINGS: Prior median sternotomy. Cardiac silhouette is mildly enlarged. Atherosclerosis of the aorta. Surgical clips project over the left lung apex. Improved aeration of the bilateral lungs without pneumothorax. Mild blunting of the costophrenic angles suggests trace effusions. Minimal subsegmental left basilar opacities suggest atelectasis. Degenerative changes of the shoulders and spine. IMPRESSION: 1. Cardiomegaly with improved aeration of the bilateral lungs. 2. Suspected trace pleural effusions with subsegmental left basilar opacities suggesting atelectasis. The above report was generated using voice recognition software. It may contain grammatical, syntax or spelling errors. HEAD WITHOUT CONTRAST (CT) FINDINGS: No acute intracranial hemorrhage, midline shift, intracranial mass, hydrocephalus, territorial ischemia or abnormal extra-axial collection. Moderate brain atrophy. Multifocal ill-defined areas of low-attenuation within the periventricular and subcortical white matter suggest chronic microvascular ischemic changes. Cerebral vascular calcifications are seen at the level of the skull base. The calvarium is intact. Mild mucosal thickening of the anterior lateral and inferior frontal sinuses. Mild rightward bowing and spurring of the nasal septum. Prior bilateral cataract repair. Soft tissues and orbits are unremarkable. IMPRESSION: No acute intracranial abnormality. GALLBLADDER-ABD LIMITED FINDINGS: Obscured pancreas secondary to bowel gas. Liver demonstrates homogeneous echogenicity of the parenchyma without marginal nodularity, focal mass or intrahepatic or ductal dilation. Gallbladder is mildly contracted with wall measuring 5 mm. No pericholecystic fluid identified. Echogenicity with ringdown artifact of the fundal gallbladder on image 30 suggests probable adenomyomatosis. 1 cm stone is seen within the gallbladder neck. Sonographic Springer sign reported as negative. Common bile duct is normal, 4 mm. Cortical thinning about the right kidney with increased echogenicity suggests chronic medical renal disease. No hydronephrosis. IMPRESSION: 1. 1.0 cm gallstone of the gallbladder neck. Gallbladder is mildly contracted with wall thickening. No pericholecystic fluid collections. No convincing sonographic evidence of acute cholecystitis. 2. No biliary ductal dilation. 3. Evidence of chronic medical renal disease. The above report was generated using voice recognition software. It may contain grammatical, syntax or spelling errors. EKG Normal sinus rhythm Right bundle branch block Possible Inferior infarct (cited on or before 13-AUG-2014) Abnormal ECG When compared with ECG of 20-OCT-2017 11:48, No significant change was found Impression Assessment and Plan 81M with a PMHx of CABG in 2014, Hypothyroidism, gout, 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 Found to have stone in the gallbladder neck. Surgery consulted. At present conservative management. Elevated LFT w stone in the gallbladder neck, w possible cholecystitis Pt reports RUQ pain w meals for past 3 days. Afebrile. Elevated WBC count. US gallbladder showed 1cm stone in gallbladder neck w GB wall thickening. No pericholecystic fluid. Consult Gen Surg - Dr. Hogan. - conservative treatment, will watch. NPO w IVF Repeat LFTs in the AM Starting Empirically on Zosyn. Day #0. Also getting Hep B and Hep C panel. Follow up lactate, ESR. Frequent Falls since March in setting of CABG in 2014 Did not really have a fall, just 'slid down the wall' due to weakness. No EKG Changes. No chest pain. Trop 0.025 Last echo in 2014, will get an echo. Follow up BNP. Trop was 0.025, will trend. Telemetry monitoring. c/w home metoprolol, lipitor and ASA Will get PT and OT on board. Hypotensive, unlikely septic Not altered, HR WNL. Will hold Dyazide IVF at 100mls/hr Follow up lactate. H/o PE and DVT on Coumadin INR was 2.3 Will not reverse because he isn't scheduled for surgery, if taken to surgery will likely need reversal. Will hold the afternoon dose. Hypothyroidism TSH = 1.6 c/w synthroid h/o Vertigo c/w Meclizine PRN Diet: NPO w IVF except meds. Dispo: Tele DVT Proph: On Coumadin FULL CODE Resident Physician Supervision Note: I was present with Dr. Diaz during the history and exam. I discussed the case with the resident and agree with the findings and plan as documented in the note. Any exceptions or clarifications are listed here: 81 /o m Hx CAD - CABG in 2014, hypothyroidism, gout, PE & DVT on Coumadin, prostate CA, ventricular arrhythmias - presents with generalized weakness and a fall - did not suffer significant trauma. He had also c/o RUQ pain on further questioning. This led to an abdominal CT revealing a stone in the gallbladder neck. Initial LFTs are elevated. A troponin is marginal albeit negative. OE AAO x 2 S1,2 R (+) M CTA - poor effort Could not elicit any tenderness in the upper quadrants No CCE P: Pt was evaluated by surgery - note reviewed stating that no intervention is imminent We have placed him on antibiotics empirically as he presented with weakness and imaging finding are equivocal - there has also been a disparity on exam as he has c/o RUQ pain at times - would consider DC of antibiotics if he is asymptomatic the following day We are holding his Coumadin presently as he may need reevaluation for surgery if evidence of cholecystitis becomes clear There is no current evidence of ACS. He is assigned to telemetry and we will cont ASA and Metoprolol - he is fully anticoagulated presently with an INR of 2.4. Documented By: Francisco Javier Alves Resuscitation Status VTE Prophylaxis Will order VTE Prophylaxis: Yes Resident Involvement: Resident Care Provided Care Provided: Adult Hospital Medicine
[2017-10-25 23:53] VITALS: BP 145/85; PULSE 78; TEMP 36.4; O2SAT 96; Ht 172.7 cm; Wt 75.6 kg
[2017-10-26] MEDS ORDERED: PIPERACILL/TAZOBAC IV 3.375 GM in DEXTROSE 5% 100ML 100 ML IV ONE ×2
[2017-10-26] MEDS: NSS + 20MEQ KCL 1000ML 1,000 ML IV SCH ×2 (00:19→16:09)
[2017-10-26] MEDS ORDERED: IV FLUIDS COMPLETED PRN (00:45)
[2017-10-26 03:27] VITALS: BP 134/78; PULSE 76; TEMP 36.4; O2SAT 92
--- NOTE | 2017-10-26 04:25 | Progress Note ---
Progress Note Date of Service Oct 26, 2017. Progress Note Pt arrived to the floor with a red rash, likely from the Cephalosporin given in the ER. Patient did already get the Zosyn ordered. Will change to Cipro/ Flagyl for GI source. Pt examined at bedside, no signs of anaphylaxis. Resting comfortably. 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
[2017-10-26] MEDS: CIPROFLOXACIN / D5W 400 MG in PREMIXED IN D5W 200 ML IV SCH ×3 (05:52→18:13)
[2017-10-26] MEDS: LEVOTHYROXINE 50 MCG TAB PO SCH (05:53)
[2017-10-26 06:52] LABS: BASO ABS # 0.01 K/uL (0-0.2); EOS ABS # 0.01 K/uL (0-0.5); HEMATOCRIT 39.2 % (42-52); HEMOGLOBIN 13.4 g/dL (14.0-18.0); IG# 0.13 K/uL (0.00-0.02); LYMPH ABS # 0.62 K/uL (1.2-3.4); MEAN CELL VOLUME 84.7 fL (80-100); MEAN CORPUSCULAR HEMOGLOBIN 28.9 pg (25-34); MEAN CORPUSCULAR HGB CONC 34.2 g/dl (32-36); MEAN PLATELET VOLUME 11.1 fL (7.4-10.4); MONO % 2.6 %; MONO ABS # 0.53 K/uL (0.11-0.59); NEUT % 93.8 %; NEUT ABS # 19.43 K/uL (1.4-6.5); PLATELET COUNT 159 K/uL (130-400); RED CELL DISTRIBUTION WIDTH CV 14.2 % (11.5-14.5); WHITE BLOOD COUNT 20.73 K/uL (4.8-10.8)
[2017-10-26 07:12] VITALS: BP 100/54; PULSE 73; TEMP 36.4; O2SAT 94
[2017-10-26] MEDS: METRONIDAZOLE / NSS 500 MG in PREMIXED NSS 100 ML IV SCH ×2 (07:27→17:05)
[2017-10-26] MEDS: ASPIRIN 81 MG ECTAB PO SCH (07:27)
[2017-10-26] MEDS: METOPROLOL SUCC 25MG EXT REL TAB PO SCH ×3 (07:27→07:29)
[2017-10-26 07:31] LABS: ALBUMIN 2.1 gm/dl (3.4-5.0); CREATININE 1.01 mg/dl (0.60-1.40); POTASSIUM 3.3 mmol/L (3.5-5.1)
[2017-10-26 07:40] LABS: TOTAL PROTEIN 6.1 gm/dl (6.4-8.2)
[2017-10-26 08:00] VITALS: BP 100/54; PULSE 73; TEMP 36.4; O2SAT 94
[2017-10-26] MEDS ORDERED: PIPERACILL/TAZOBAC IV 3.375 GM in DEXTROSE 5% 100ML 100 ML IV SCH (08:00)
[2017-10-26 10:00] VITALS: BP 100/63; PULSE 63; TEMP 36.5; O2SAT 94
--- NOTE | 2017-10-26 10:39 | Surgery Progress Note ---
Surgery Progress Note Date of Service Oct 26, 2017. Subjective + bowel movement, + flatus, + pain controlled, No nausea, No vomiting Sitting comfortably in bed- concerned about left-sided weakness, left eye droop. Objective Vital Signs: Date Time Temp Pulse Resp B/P (MAP) Pulse Ox O2 Delivery O2 Flow Rate FiO2 10/26/17 08:00 Room Air 10/26/17 08:00 36.4 73 19 94 10/26/17 07:12 36.4 73 19 100/54 (69) 94 Room Air 10/26/17 04:00 Room Air 10/26/17 03:27 36.4 76 18 134/78 (96) 92 Room Air 10/25/17 23:53 36.4 78 20 145/85 96 Room Air 10/25/17 23:20 61 20 92 10/25/17 23:15 120/60 10/25/17 23:05 59 15 90 10/25/17 23:00 60 19 88/50 93 Room Air 10/25/17 22:45 62 17 94/56 10/25/17 22:31 108/61 10/25/17 22:30 65 17 92 10/25/17 22:15 77 14 126/74 93 10/25/17 22:10 67 21 95 Room Air 10/25/17 22:05 65 20 94 10/25/17 22:00 100/58 10/25/17 21:49 67 18 93 Room Air 10/25/17 21:45 106/62 10/25/17 21:34 70 19 89 10/25/17 21:31 102/66 10/25/17 21:19 74 20 91 10/25/17 21:16 107/57 10/25/17 21:13 71 10/25/17 21:04 72 18 89 10/25/17 20:59 94/55 10/25/17 20:02 120/81 10/25/17 19:50 81 22 92 10/25/17 19:45 82 96 10/25/17 19:43 121/71 10/25/17 18:51 79 20 125/64 94 Room Air 10/25/17 18:45 80 26 94 10/25/17 18:26 94 Room Air 10/25/17 18:09 37.0 95 20 90/65 96 Room Air General Appearance: WD/WN, no apparent distress Abdomen: non tender, non distended, soft Laboratory Results: Results Past 24 Hours Test 10/25/17 18:25 10/25/17 18:37 10/25/17 19:40 10/26/17 00:03 Range/Units White Blood Count 15.29 4.8-10.8 K/uL Red Blood Count 5.21 4.7-6.1 M/uL Hemoglobin 15.2 14.0-18.0 g/dL Hematocrit 44.3 42-52 % Mean Corpuscular Volume 85.0 80-100 fL Mean Corpuscular Hemoglobin 29.2 25-34 pg Mean Corpuscular Hemoglobin Concent 34.3 32-36 g/dl Platelet Count 147 130-400 K/uL Mean Platelet Volume 11.4 7.4-10.4 fL Neutrophils (%) (Auto) 92.1 % Lymphocytes (%) (Auto) 3.5 % Monocytes (%) (Auto) 3.7 % Eosinophils (%) (Auto) 0.1 % Basophils (%) (Auto) 0.1 % Neutrophils # (Auto) 14.07 1.4-6.5 K/uL Lymphocytes # (Auto) 0.54 1.2-3.4 K/uL Monocytes # (Auto) 0.56 0.11-0.59 K/uL Eosinophils # (Auto) 0.02 0-0.5 K/uL Basophils # (Auto) 0.02 0-0.2 K/uL RDW Standard Deviation 43.1 36.4-46.3 fL RDW Coefficient of Variation 13.9 11.5-14.5 % Immature Granulocyte % (Auto) 0.5 % Immature Granulocyte # (Auto) 0.08 0.00-0.02 K/uL Prothrombin Time 24.1 9.0-12.0 SECONDS Prothromb Time International Ratio 2.3 0.9-1.1 Activated Partial Thromboplast Time 45.5 21.0-31.0 SECONDS Partial Thromboplastin Ratio 1.8 Sodium Level 133 136-145 mmol/L Potassium Level 3.9 3.5-5.1 mmol/L Chloride Level 95 98-107 mmol/L Carbon Dioxide Level 28 21-32 mmol/L Anion Gap 10.0 3-11 mmol/L Blood Urea Nitrogen 17 7-18 mg/dl Creatinine 1.08 0.60-1.40 mg/dl Est Creatinine Clear Calc Drug Dose 48.5 ml/min Estimated GFR () 73.2 Estimated GFR (Non- 63.1 BUN/Creatinine Ratio 16.1 10-20 Random Glucose 130 70-99 mg/dl Calcium Level 9.2 8.5-10.1 mg/dl Magnesium Level 1.8 1.8-2.4 mg/dl Total Bilirubin 1.3 0.2-1 mg/dl Direct Bilirubin 0.5 0-0.2 mg/dl Aspartate Amino Transf (AST/SGOT) 91 15-37 U/L Alanine Aminotransferase (ALT/SGPT) 82 12-78 U/L Alkaline Phosphatase 103 45-117 U/L Total Creatine Kinase 141 39-308 U/L Creatine Kinase MB 3.5 0.5-3.6 ng/ml Creatine Kinase MB Ratio 2.5 0-3.0 Troponin I 0.025 0-0.045 ng/ml C-Reactive Protein 16.00 0-0.29 mg/dl Total Protein 7.4 6.4-8.2 gm/dl Albumin 2.8 3.4-5.0 gm/dl Lipase 148 73-393 U/L Thyroid Stimulating Hormone (TSH) 1.590 0.300-4.500 uIu/ml Chemistry Specimen Hemolysis Hepatitis C Antibody NEG NEG Bedside Lactic Acid Venous 2.25 0.90-1.70 mmol/L Urine Color YELLOW Urine Appearance CLEAR CLEAR Urine pH 7.0 4.5-7.5 Urine Specific [place] 1.014 1.000-1.030 Urine Protein TRACE NEG Urine Glucose (UA) NEG NEG Urine Ketones NEG NEG Urine Occult Blood 2+ NEG Urine Nitrite NEG NEG Urine Bilirubin NEG NEG Urine Urobilinogen NEG NEG Urine Leukocyte Esterase NEG NEG Urine WBC (Auto) 1-5 0-5 /hpf Urine RBC (Auto) 10-30 0-4 /hpf Urine Hyaline Casts (Auto) 5-10 0-5 /lpf Urine Epithelial Cells (Auto) >30 0-5 /lpf Urine Bacteria (Auto) NEG NEG Urine Renal Epithelial Cells 0-5 0-5 /lpf Lactic Acid Level 1.6 0.4-2.0 mmol/L Test 10/26/17 06:10 Range/Units White Blood Count 20.73 4.8-10.8 K/uL Red Blood Count 4.63 4.7-6.1 M/uL Hemoglobin 13.4 14.0-18.0 g/dL Hematocrit 39.2 42-52 % Mean Corpuscular Volume 84.7 80-100 fL Mean Corpuscular Hemoglobin 28.9 25-34 pg Mean Corpuscular Hemoglobin Concent 34.2 32-36 g/dl Platelet Count 159 130-400 K/uL Mean Platelet Volume 11.1 7.4-10.4 fL Neutrophils (%) (Auto) 93.8 % Lymphocytes (%) (Auto) 3.0 % Monocytes (%) (Auto) 2.6 % Eosinophils (%) (Auto) 0.0 % Basophils (%) (Auto) 0.0 % Neutrophils # (Auto) 19.43 1.4-6.5 K/uL Lymphocytes # (Auto) 0.62 1.2-3.4 K/uL Monocytes # (Auto) 0.53 0.11-0.59 K/uL Eosinophils # (Auto) 0.01 0-0.5 K/uL Basophils # (Auto) 0.01 0-0.2 K/uL RDW Standard Deviation 44.0 36.4-46.3 fL RDW Coefficient of Variation 14.2 11.5-14.5 % Immature Granulocyte % (Auto) 0.6 % Immature Granulocyte # (Auto) 0.13 0.00-0.02 K/uL Sodium Level 134 136-145 mmol/L Potassium Level 3.3 3.5-5.1 mmol/L Chloride Level 101 98-107 mmol/L Carbon Dioxide Level 25 21-32 mmol/L Anion Gap 8.0 3-11 mmol/L Blood Urea Nitrogen 16 7-18 mg/dl Creatinine 1.01 0.60-1.40 mg/dl Est Creatinine Clear Calc Drug Dose 53.6 ml/min Estimated GFR () 79.4 Estimated GFR (Non- 68.5 BUN/Creatinine Ratio 15.8 10-20 Random Glucose 99 70-99 mg/dl Calcium Level 8.0 8.5-10.1 mg/dl Total Bilirubin 1.4 0.2-1 mg/dl Direct Bilirubin 0.5 0-0.2 mg/dl Aspartate Amino Transf (AST/SGOT) 59 15-37 U/L Alanine Aminotransferase (ALT/SGPT) 56 12-78 U/L Alkaline Phosphatase 92 45-117 U/L Troponin I 0.026 0-0.045 ng/ml Pro-B-Type Natriuretic Peptide 2231 0-1800 pg/ml Total Protein 6.1 6.4-8.2 gm/dl Albumin 2.1 3.4-5.0 gm/dl Globulin 4.0 2.5-4.0 gm/dl Albumin/Globulin Ratio 0.5 0.9-2 Microbiology Results 10/25/17 Blood Culture, Received Pending 10/25/17 Blood Culture, Received Pending 10/25/17 Urine Culture, Received Pending Assessment & Plan 10/26/2017 Cholelithiasis, borderline wall thickening, no evidence of acute cholecystitis. Patient seen and examined with Dr. Hogan. Abdominal exam benign. AST and ALT trending down. Tot Bili basically unchanged (1.4) Unlikely to pursue any surgical intervention during this hospital stay as patient is on warfarin, aspirin and there is no evidence of acute cholecystitis. Carotid Doppler ordered. General Surgery will continue to follow. 10/25/2017 Cholelithiasis, borderline wall thickening, no evidence of acute cholecystitis. Findings discussed with Dr. Hogan. No acute surgical intervention indicated at this time. No TTP in RUQ, right lower rib pain unlikely due to gallbladder etiology and more likely due to his recent fall. Unlikely to pursue any surgical intervention during this hospital stay as patient is on warfarin, aspirin and there is no evidence of acute cholecystitis. If patient does develop gallbladder symptoms could consider OP follow-up ideally with patient off Warfarin prior to surgery. Admit per hospitalist service. Keep NPO after midnight, likely advance diet if no changes tomorrow AM. Repeat LFTs in AM and reassess. Will follow. Please contact with questions or concerns.
--- NOTE | 2017-10-26 12:16 | DIAGNOSTIC IMAGING REPORT ---
BILATERAL CAROTID DOPPLER STUDY HISTORY: new left facial weakness COMPARISON: None. TECHNIQUE: Real-time, grayscale, and color Doppler sonography of the carotid arteries was performed. Imaging reviewed in the transverse and longitudinal planes. All measurements were calculated based on NASCET criteria. FINDINGS: Antegrade flow is seen in the bilateral vertebral arteries. The brachial pressures were not obtained. Mild right and moderate left carotid bifurcation calcification. The peak systolic velocity within the right ICA is 78 cm/s. The right systolic ratio is 1.1. The peak systolic velocity within the left ICA is 156 cm/s proximally. The left systolic ratio is 2.3. Elevated velocities within the bilateral external carotid arteries consistent with additional areas of stenosis. IMPRESSION: 1. Approximately 60-70% stenosis within the proximal left internal carotid artery. 2. No significant stenosis within the right internal carotid artery. 3. Bilateral external carotid artery stenosis. Electronically signed by: Mekhi Michael M.D. 10/26/2017 12:15 PM Dictated Date/Time: 10/26/2017 12:13 PM
--- NOTE | 2017-10-26 12:19 | Family Medicine Progress Note ---
Progress Note Date of Service Oct 26, 2017. Subjective Pt evaluation today including: conversation w/ patient Reports he had four falls recently. First, he had turned right when walking v quickly and did not notice the change in level of the street, and fell. Another time [place] and he was laying on his stomach weeding below and fell. He reports both times he hit his head. He denies ever having abdominal pain. He reports he came in because he has been declining significantly. His neighbor reports the pt fell recently while walking w/a walker. Constitutional: No fever, No chills, No sweats, No weakness Eyes: No worsening of vision ENT: No hearing loss Respiratory: No cough, No sputum Cardiovascular: No chest pain Abdomen: No pain All Other Systems: Reviewed and Negative Medications Current Inpatient Medications Medications (Trade) Dose Ordered Sig/Lisa Route Start Time Stop Time Status Last Admin Dose Admin Acetaminophen (Tylenol Tab) 650 mg Q4H PRN PO 10/25/17 22:45 11/24/17 22:44 Al Hydrox/Mg Hydrox/Simethicone (Maalox Max Susp) 15 ml Q4H PRN PO 10/25/17 22:45 11/24/17 22:44 Magnesium Hydroxide (Milk Of Magnesia Susp) 30 ml Q6H PRN PO 10/25/17 22:45 11/24/17 22:44 Polyethylene (Miralax Powder Packet) 17 gm DAILY PRN PO 10/25/17 22:45 11/24/17 22:44 Zolpidem Tartrate (Ambien Tab) 5 mg HSZ PRN PO 10/25/17 22:45 11/24/17 22:44 Ondansetron HCl (Zofran Inj) 4 mg Q6H PRN IV 10/25/17 22:45 11/24/17 22:44 Aspirin (Ecotrin Tab) 81 mg DAILY PO 10/26/17 09:00 11/25/17 08:59 10/26/17 07:27 81 MG Atorvastatin Calcium (Lipitor Tab) 40 mg HS PO 10/26/17 21:00 11/25/17 20:59 Levothyroxine Sodium (Synthroid Tab) 50 mcg DAILYBB PO 10/26/17 06:00 11/25/17 05:59 10/26/17 05:53 50 MCG Meclizine HCl (Antivert Tab) 25 mg TID PRN PO 10/25/17 22:45 11/24/17 22:44 Metoprolol Succinate (Toprol Xl Tab) 25 mg DAILY PO 10/26/17 09:00 11/25/17 08:59 10/26/17 07:28 25 MG Potassium Chloride/Sodium Chloride 1,000 ml @ 100 mls/hr Q10H IV 10/26/17 00:00 11/25/17 00:00 10/26/17 00:19 100 MLS/HR Miscellaneous (Iv Fluids Completed) 1 ea PRN PRN N/A 10/26/17 00:45 10/26/18 00:44 Ciprofloxacin/ Dextrose 400 mg/ Prmx 200 ml @ 100 mls/hr Q12H IV 10/26/17 06:00 11/05/17 05:59 10/26/17 05:52 100 MLS/HR Metronidazole 500 mg/Prmx 100 ml @ 100 mls/hr Q8H IV 10/26/17 08:00 11/05/17 07:59 10/26/17 07:27 100 MLS/HR Objective Vital Signs Date Time Temp Pulse Resp B/P (MAP) Pulse Ox O2 Delivery O2 Flow Rate FiO2 10/26/17 08:00 Room Air 10/26/17 08:00 36.4 73 19 94 10/26/17 07:12 36.4 73 19 100/54 (69) 94 Room Air 10/26/17 04:00 Room Air 10/26/17 03:27 36.4 76 18 134/78 (96) 92 Room Air 10/25/17 23:53 36.4 78 20 145/85 96 Room Air 10/25/17 23:20 61 20 92 10/25/17 23:15 120/60 10/25/17 23:05 59 15 90 10/25/17 23:00 60 19 88/50 93 Room Air 10/25/17 22:45 62 17 94/56 10/25/17 22:31 108/61 10/25/17 22:30 65 17 92 10/25/17 22:15 77 14 126/74 93 10/25/17 22:10 67 21 95 Room Air 10/25/17 22:05 65 20 94 10/25/17 22:00 100/58 10/25/17 21:49 67 18 93 Room Air 10/25/17 21:45 106/62 10/25/17 21:34 70 19 89 10/25/17 21:31 102/66 10/25/17 21:19 74 20 91 10/25/17 21:16 107/57 10/25/17 21:13 71 10/25/17 21:04 72 18 89 10/25/17 20:59 94/55 10/25/17 20:02 120/81 10/25/17 19:50 81 22 92 10/25/17 19:45 82 96 10/25/17 19:43 121/71 10/25/17 18:51 79 20 125/64 94 Room Air 10/25/17 18:45 80 26 94 10/25/17 18:26 94 Room Air 10/25/17 18:09 37.0 95 20 90/65 96 Room Air Physical Exam General Appearance: WD/WN, no apparent distress Eyes: normal inspection, PERRL ENT: hearing grossly normal Neck: supple, no JVD Respiratory/Chest: lungs clear, normal breath sounds, no respiratory distress Cardiovascular: regular rate, rhythm, no murmur Abdomen: non tender, soft Extremities: non-tender, no pedal edema Neurologic/Psychiatric: alert, normal mood/affect, oriented x 3 Skin: no rash Laboratory Results Last 24 Hours Test 10/25/17 18:25 10/25/17 18:37 10/25/17 19:40 10/26/17 00:03 White Blood Count 15.29 K/uL Red Blood Count 5.21 M/uL Hemoglobin 15.2 g/dL Hematocrit 44.3 % Mean Corpuscular Volume 85.0 fL Mean Corpuscular Hemoglobin 29.2 pg Mean Corpuscular Hemoglobin Concent 34.3 g/dl Platelet Count 147 K/uL Mean Platelet Volume 11.4 fL Neutrophils (%) (Auto) 92.1 % Lymphocytes (%) (Auto) 3.5 % Monocytes (%) (Auto) 3.7 % Eosinophils (%) (Auto) 0.1 % Basophils (%) (Auto) 0.1 % Neutrophils # (Auto) 14.07 K/uL Lymphocytes # (Auto) 0.54 K/uL Monocytes # (Auto) 0.56 K/uL Eosinophils # (Auto) 0.02 K/uL Basophils # (Auto) 0.02 K/uL RDW Standard Deviation 43.1 fL RDW Coefficient of Variation 13.9 % Immature Granulocyte % (Auto) 0.5 % Immature Granulocyte # (Auto) 0.08 K/uL Prothrombin Time 24.1 SECONDS Prothromb Time International Ratio 2.3 Activated Partial Thromboplast Time 45.5 SECONDS Partial Thromboplastin Ratio 1.8 Sodium Level 133 mmol/L Potassium Level 3.9 mmol/L Chloride Level 95 mmol/L Carbon Dioxide Level 28 mmol/L Anion Gap 10.0 mmol/L Blood Urea Nitrogen 17 mg/dl Creatinine 1.08 mg/dl Est Creatinine Clear Calc Drug Dose 48.5 ml/min Estimated GFR () 73.2 Estimated GFR (Non- 63.1 BUN/Creatinine Ratio 16.1 Random Glucose 130 mg/dl Calcium Level 9.2 mg/dl Magnesium Level 1.8 mg/dl Total Bilirubin 1.3 mg/dl Direct Bilirubin 0.5 mg/dl Aspartate Amino Transf (AST/SGOT) 91 U/L Alanine Aminotransferase (ALT/SGPT) 82 U/L Alkaline Phosphatase 103 U/L Total Creatine Kinase 141 U/L Creatine Kinase MB 3.5 ng/ml Creatine Kinase MB Ratio 2.5 Troponin I 0.025 ng/ml C-Reactive Protein 16.00 mg/dl Total Protein 7.4 gm/dl Albumin 2.8 gm/dl Lipase 148 U/L Thyroid Stimulating Hormone (TSH) 1.590 uIu/ml Chemistry Specimen Hemolysis Hepatitis C Antibody NEG Bedside Lactic Acid Venous 2.25 mmol/L Urine Color YELLOW Urine Appearance CLEAR Urine pH 7.0 Urine Specific [place] 1.014 Urine Protein TRACE Urine Glucose (UA) NEG Urine Ketones NEG Urine Occult Blood 2+ Urine Nitrite NEG Urine Bilirubin NEG Urine Urobilinogen NEG Urine Leukocyte Esterase NEG Urine WBC (Auto) 1-5 /hpf Urine RBC (Auto) 10-30 /hpf Urine Hyaline Casts (Auto) 5-10 /lpf Urine Epithelial Cells (Auto) >30 /lpf Urine Bacteria (Auto) NEG Urine Renal Epithelial Cells 0-5 /lpf Lactic Acid Level 1.6 mmol/L Test 10/26/17 06:10 White Blood Count 20.73 K/uL Red Blood Count 4.63 M/uL Hemoglobin 13.4 g/dL Hematocrit 39.2 % Mean Corpuscular Volume 84.7 fL Mean Corpuscular Hemoglobin 28.9 pg Mean Corpuscular Hemoglobin Concent 34.2 g/dl Platelet Count 159 K/uL Mean Platelet Volume 11.1 fL Neutrophils (%) (Auto) 93.8 % Lymphocytes (%) (Auto) 3.0 % Monocytes (%) (Auto) 2.6 % Eosinophils (%) (Auto) 0.0 % Basophils (%) (Auto) 0.0 % Neutrophils # (Auto) 19.43 K/uL Lymphocytes # (Auto) 0.62 K/uL Monocytes # (Auto) 0.53 K/uL Eosinophils # (Auto) 0.01 K/uL Basophils # (Auto) 0.01 K/uL RDW Standard Deviation 44.0 fL RDW Coefficient of Variation 14.2 % Immature Granulocyte % (Auto) 0.6 % Immature Granulocyte # (Auto) 0.13 K/uL Sodium Level 134 mmol/L Potassium Level 3.3 mmol/L Chloride Level 101 mmol/L Carbon Dioxide Level 25 mmol/L Anion Gap 8.0 mmol/L Blood Urea Nitrogen 16 mg/dl Creatinine 1.01 mg/dl Est Creatinine Clear Calc Drug Dose 53.6 ml/min Estimated GFR () 79.4 Estimated GFR (Non- 68.5 BUN/Creatinine Ratio 15.8 Random Glucose 99 mg/dl Calcium Level 8.0 mg/dl Total Bilirubin 1.4 mg/dl Direct Bilirubin 0.5 mg/dl Aspartate Amino Transf (AST/SGOT) 59 U/L Alanine Aminotransferase (ALT/SGPT) 56 U/L Alkaline Phosphatase 92 U/L Troponin I 0.026 ng/ml Pro-B-Type Natriuretic Peptide 2231 pg/ml Total Protein 6.1 gm/dl Albumin 2.1 gm/dl Globulin 4.0 gm/dl Albumin/Globulin Ratio 0.5 Assessment and Plan 81M with a PMHx of CABG in 2015, Hypothyroidism, gout, 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 Found to have stone in the gallbladder neck, w/leukocytosis of unclear origin. Probable Sepsis of unclear origin BCx obtained yesterday Remains in Cipro/Flagyl IV CXR on arrival negative for pneumonia Will provide IV fluids, recheck lactic acid Monitor for fevers *Lactate returned at 3, will order CT A/P with IV contrast and expand coverage by adding Vanco Transaminitis Known stone in gallbladder neck, no evidence of cholecystitis Advancing diet per Surgery NPO w/IVF Frequent Falls since March in setting of CABG in 2014 Did not really have a fall, just 'slid down the wall' due to weakness. Has been dizzi off and on. No EKG Changes. No chest pain. Trop 0.025 Last echo in 2014, will get an echo. Follow up BNP. Trop was 0.025, will trend. Telemetry monitoring unremarkable, will move to med/surg. c/w home metoprolol, lipitor and ASA PT/OT Left shoulder pain Check xray H/o PE and DVT on Coumadin INR was 2.3 Will not reverse because he isn't scheduled for surgery, if taken to surgery will likely need reversal. Will hold the afternoon dose. Hypothyroidism TSH = 1.6 c/w synthroid h/o Vertigo c/w Meclizine PRN Diet: NPO w IVF except meds. Dispo: Tele DVT Proph: On Coumadin FULL CODE Resident Tracking Resident Involvement: Resident Care Provided Care Provided: Adult Hospital Medicine Reviewed: Pt Seen/Exam by Me History denies any new complains Constitutional: denies: fever Respiratory: negative: short of breath Cardiovascular: denies chest pain General Appearance: no apparent distress Respiratory: lungs clear, no respiratory distress Cardiovascular: regular rate, rhythm Gastrointestinal: normal bowel sounds, non tender, soft Neurologic/Psychiatric: alert, oriented x 3 Skin Characteristics: warm/dry Assessment/Plan Resident Physician Supervision Note: I independently interviewed and examined the patient and verified the rodas history and physical, reviewed labs and image studies, discussed the case with the resident Dr. Pedro and agree with the findings and care plan.
--- NOTE | 2017-10-26 13:46 | DIAGNOSTIC IMAGING REPORT ---
RIGHT SHOULDER 3 VIEWS HISTORY: fall onto R shoulder COMPARISON: None. FINDINGS: There is no fracture or dislocation. The right clavicle is intact. Superior subluxation of the humeral head in relation to the glenoid with [id number] articulation at the undersurface of the acromion. This is consistent with chronic rotator cuff tear. Moderate degenerative changes within the right shoulder. IMPRESSION: No fracture or dislocation within the right shoulder. Chronic rotator cuff injury is noted. Electronically signed by: Mekhi Michael M.D. 10/26/2017 1:44 PM Dictated Date/Time: 10/26/2017 1:43 PM
[2017-10-26] MEDS ORDERED: VANCOMYCIN IV 1,000 MG in SODIUM CHLORIDE 0.9% 250ML 250 ML IV STA (13:47)
[2017-10-26] MEDS ORDERED: VANCOMYCIN CONSULT ACTIVE PRN ×2 (14:00)
[2017-10-26] MEDS ORDERED: OPTIRAY 320 IV PRN (14:00)
[2017-10-26] MEDS ORDERED: VANCOMYCIN IV 1,750 MG in SODIUM CHLORIDE 0.9% 500ML 500 ML IV STA (14:05)
--- NOTE | 2017-10-26 14:18 | Pharmacy Progress Note ---
Pharmacy Antibiotic Consult Date of Service: Oct 26, 2017. Pharmacy Dosing Scope Pharmacy is consulted to initiate vancomycin IV dosing therapy, order appropriate labs and adjust drug dose/frequency. Subjective The patient is a 81 year old male admitted on Oct 25, 2017 at 23:12. Objective Height (Feet): 5 Height (Inches): 8.00 Weight (Kilograms): 75.600 Lab Results (24hrs): Test 10/25/17 18:25 10/25/17 18:37 10/25/17 19:40 10/26/17 00:03 White Blood Count 15.29 K/uL (4.8-10.8) Red Blood Count 5.21 M/uL (4.7-6.1) Hemoglobin 15.2 g/dL (14.0-18.0) Hematocrit 44.3 % (42-52) Mean Corpuscular Volume 85.0 fL (80-100) Mean Corpuscular Hemoglobin 29.2 pg (25-34) Mean Corpuscular Hemoglobin Concent 34.3 g/dl (32-36) Platelet Count 147 K/uL (130-400) Mean Platelet Volume 11.4 fL (7.4-10.4) Neutrophils (%) (Auto) 92.1 % Lymphocytes (%) (Auto) 3.5 % Monocytes (%) (Auto) 3.7 % Eosinophils (%) (Auto) 0.1 % Basophils (%) (Auto) 0.1 % Neutrophils # (Auto) 14.07 K/uL (1.4-6.5) Lymphocytes # (Auto) 0.54 K/uL (1.2-3.4) Monocytes # (Auto) 0.56 K/uL (0.11-0.59) Eosinophils # (Auto) 0.02 K/uL (0-0.5) Basophils # (Auto) 0.02 K/uL (0-0.2) RDW Standard Deviation 43.1 fL (36.4-46.3) RDW Coefficient of Variation 13.9 % (11.5-14.5) Immature Granulocyte % (Auto) 0.5 % Immature Granulocyte # (Auto) 0.08 K/uL (0.00-0.02) Prothrombin Time 24.1 SECONDS (9.0-12.0) Prothromb Time International Ratio 2.3 (0.9-1.1) Activated Partial Thromboplast Time 45.5 SECONDS (21.0-31.0) Partial Thromboplastin Ratio 1.8 Sodium Level 133 mmol/L (136-145) Potassium Level 3.9 mmol/L (3.5-5.1) Chloride Level 95 mmol/L (98-107) Carbon Dioxide Level 28 mmol/L (21-32) Anion Gap 10.0 mmol/L (3-11) Blood Urea Nitrogen 17 mg/dl (7-18) Creatinine 1.08 mg/dl (0.60-1.40) Est Creatinine Clear Calc Drug Dose 48.5 ml/min Estimated GFR () 73.2 Estimated GFR (Non- 63.1 BUN/Creatinine Ratio 16.1 (10-20) Random Glucose 130 mg/dl (70-99) Calcium Level 9.2 mg/dl (8.5-10.1) Magnesium Level 1.8 mg/dl (1.8-2.4) Total Bilirubin 1.3 mg/dl (0.2-1) Direct Bilirubin 0.5 mg/dl (0-0.2) Aspartate Amino Transf (AST/SGOT) 91 U/L (15-37) Alanine Aminotransferase (ALT/SGPT) 82 U/L (12-78) Alkaline Phosphatase 103 U/L (45-117) Total Creatine Kinase 141 U/L (39-308) Creatine Kinase MB 3.5 ng/ml (0.5-3.6) Creatine Kinase MB Ratio 2.5 (0-3.0) C-Reactive Protein 16.00 mg/dl (0-0.29) Total Protein 7.4 gm/dl (6.4-8.2) Albumin 2.8 gm/dl (3.4-5.0) Lipase 148 U/L (73-393) Thyroid Stimulating Hormone (TSH) 1.590 uIu/ml (0.300-4.500) Chemistry Specimen Hemolysis Hepatitis C Antibody NEG (NEG) Bedside Lactic Acid Venous 2.25 mmol/L (0.90-1.70) Urine Color YELLOW Urine Appearance CLEAR (CLEAR) Urine pH 7.0 (4.5-7.5) Urine Specific [place] 1.014 (1.000-1.030) Urine Protein TRACE (NEG) Urine Glucose (UA) NEG (NEG) Urine Ketones NEG (NEG) Urine Occult Blood 2+ (NEG) Urine Nitrite NEG (NEG) Urine Bilirubin NEG (NEG) Urine Urobilinogen NEG (NEG) Urine Leukocyte Esterase NEG (NEG) Urine WBC (Auto) 1-5 /hpf (0-5) Urine RBC (Auto) 10-30 /hpf (0-4) Urine Hyaline Casts (Auto) 5-10 /lpf (0-5) Urine Epithelial Cells (Auto) >30 /lpf (0-5) Urine Bacteria (Auto) NEG (NEG) Urine Renal Epithelial Cells 0-5 /lpf (0-5) Lactic Acid Level 1.6 mmol/L (0.4-2.0) Test 10/26/17 06:10 10/26/17 12:31 White Blood Count 20.73 K/uL (4.8-10.8) Red Blood Count 4.63 M/uL (4.7-6.1) Hemoglobin 13.4 g/dL (14.0-18.0) Hematocrit 39.2 % (42-52) Mean Corpuscular Volume 84.7 fL (80-100) Mean Corpuscular Hemoglobin 28.9 pg (25-34) Mean Corpuscular Hemoglobin Concent 34.2 g/dl (32-36) Platelet Count 159 K/uL (130-400) Mean Platelet Volume 11.1 fL (7.4-10.4) Neutrophils (%) (Auto) 93.8 % Lymphocytes (%) (Auto) 3.0 % Monocytes (%) (Auto) 2.6 % Eosinophils (%) (Auto) 0.0 % Basophils (%) (Auto) 0.0 % Neutrophils # (Auto) 19.43 K/uL (1.4-6.5) Lymphocytes # (Auto) 0.62 K/uL (1.2-3.4) Monocytes # (Auto) 0.53 K/uL (0.11-0.59) Eosinophils # (Auto) 0.01 K/uL (0-0.5) Basophils # (Auto) 0.01 K/uL (0-0.2) RDW Standard Deviation 44.0 fL (36.4-46.3) RDW Coefficient of Variation 14.2 % (11.5-14.5) Immature Granulocyte % (Auto) 0.6 % Immature Granulocyte # (Auto) 0.13 K/uL (0.00-0.02) Sodium Level 134 mmol/L (136-145) Potassium Level 3.3 mmol/L (3.5-5.1) Chloride Level 101 mmol/L (98-107) Carbon Dioxide Level 25 mmol/L (21-32) Anion Gap 8.0 mmol/L (3-11) Blood Urea Nitrogen 16 mg/dl (7-18) Creatinine 1.01 mg/dl (0.60-1.40) Est Creatinine Clear Calc Drug Dose 53.6 ml/min Estimated GFR () 79.4 Estimated GFR (Non- 68.5 BUN/Creatinine Ratio 15.8 (10-20) Random Glucose 99 mg/dl (70-99) Calcium Level 8.0 mg/dl (8.5-10.1) Total Bilirubin 1.4 mg/dl (0.2-1) Direct Bilirubin 0.5 mg/dl (0-0.2) Aspartate Amino Transf (AST/SGOT) 59 U/L (15-37) Alanine Aminotransferase (ALT/SGPT) 56 U/L (12-78) Alkaline Phosphatase 92 U/L (45-117) Troponin I 0.026 ng/ml (0-0.045) < 0.015 ng/ml (0-0.045) Pro-B-Type Natriuretic Peptide 2231 pg/ml (0-1800) Total Protein 6.1 gm/dl (6.4-8.2) Albumin 2.1 gm/dl (3.4-5.0) Globulin 4.0 gm/dl (2.5-4.0) Albumin/Globulin Ratio 0.5 (0.9-2) Lactic Acid Level 3.2 mmol/L (0.4-2.0) C-Reactive Protein 17.70 mg/dl (0-0.29) Assessment & Plan Assessment * 81 yo M on ciprofloxacin/metronidazole started earlier today for possible cholecystitis. Vancomycin added this afternoon empirically 2nd leukocytosis ( 48 hours empirically) * Will load with 23 mg/kg and continue with 13 mg/kg dosed close to estimated t 1/2 based on eCrCL Plan * Vancomycin 1750 mg IV x1 now * Vancomycin 1000 mg IV q12 (last dose currently scheduled for 10/28 @ 0200) * If therapy extends beyond 48 hours, would suggest obtaining trough 10/28 @ 0130 Pharmacy will continue to follow and will adjust dose/frequency as necessary. Thank you
--- NOTE | 2017-10-26 15:04 | DIAGNOSTIC IMAGING REPORT ---
ABDOMEN AND PELVIS CT WITH IV CONTRAST CT DOSE: 407.61 mGy.cm HISTORY: Increased WBC and Lactate, known gallstone in CBD ?source of ifx TECHNIQUE: Multiaxial CT images of the abdomen and pelvis were performed following the use of intravenous contrast. A dose lowering technique was utilized adhering to the principles of ALARA. COMPARISON STUDY: Abdomen and pelvis CT 11/18/2016. Abdominal ultrasound 10/25/2017. FINDINGS: Mild dependent changes seen within the lung bases posteriorly. No pneumoperitoneum. No pneumatosis. No suspicious lytic or blastic osseous lesions. Healing right lateral rib fractures. Poststernotomy changes. The liver, spleen, adrenal glands, pancreas, and kidneys are unremarkable. The previously described gallstone within the gallbladder neck is not well visualized by CT. No gallbladder wall thickening. There is a 4.0 x 4.0 cm infrarenal abdominal aortic aneurysm. This has increased in size. No retroperitoneal lymphadenopathy. The bladder is unremarkable. 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 Colonic diverticulosis. No evidence for diverticulitis. No bowel wall thickening or obstruction. Mild thickening of the distal esophagus, unchanged. IMPRESSION: 1. Increase in size in the 4 cm infrarenal abdominal aortic aneurysm. 2. Otherwise, no significant change compared to the prior study. 3. No bowel wall thickening or obstruction. 4. Colonic diverticulosis. 5. The previously described gallstone is not identified by CT. 6. Healing right lateral rib fractures. Electronically signed by: Mekhi Michael M.D. 10/26/2017 3:02 PM Dictated Date/Time: 10/26/2017 2:52 PM
[2017-10-26 15:40] VITALS: BP 99/61; PULSE 53; TEMP 36.3; O2SAT 97
--- NOTE | 2017-10-26 17:45 | ECHOCARDIOGRAM REPORT ---
*NOTICE TO RECEIVING CONSTITUTION PARTY AGENCY This information is strictly Confidential and protected under [place] law. [place] law prohibits you from making any further disclosure of this information unless further disclosure is expressly permitted by the written consent of the person to whom it pertains or is authorized by law. A general authorization for the release of medical or other information is not sufficient for this purpose. Hospital accepts no responsibility if the information is made available to any other person, INCLUDING THE PATIENT. Interpretation Summary * Name: CRISTÓBAL ROBBINS Study Date: 10/26/2017 07:06 AM BP: 134/78 mmHg * Patient Location: .2T\S\S236\S\1 HR: 72 * : 1935 (M/d/yyy) Gender: Male Height: 67 in * Age: 81 yrs Ethnicity: [place] Weight: 167 lb * Ordering Physician: Edmund Quan * Referring Physician: Self, Referred * Performed By: Vania Noel [facility] * * Reason For Study: CHF * BSA: 1.9 m2 * -- Conclusions -- * 1. Normal left ventricular size with mildly reduced systolic function. EF 45-50%. RCA wall motion abnormality (akinesis of the basal septum and base to mid inferior wall). Moderate hypertrophy of the basal anteroseptum. Type 1 diastolic dysfunction. Septal motion consistent with bundle-branch block/cardiac surgery. * 2. Moderately dilated right ventricle. Mildly reduced right ventricular systolic function. * 3. Aortic valve sclerosis mild, without significant aortic valvular stenosis. * 4. Mild aortic root dilatation. * 5. Normal estimated right ventricular systolic pressure; 21mmHg. * 6. Compared to prior study on 09/16/2014, left ventricle is better visualized on current study. Procedure Details * A complete two-dimensional transthoracic echocardiogram was performed (2D, M-mode, Doppler and color flow Doppler). Left Ventricle * Normal left ventricular size with mildly reduced systolic function. EF 45-50%. RCA wall motion abnormality (akinesis of the basal septum and base to mid inferior wall). Moderate hypertrophy of the basal anteroseptum. Type 1 diastolic dysfunction. Right Ventricle * Moderately dilated right ventricle. * The right ventricular systolic function is reduced as assessed by tricuspid annular plane systolic excursion (TAPSE) (TAPSE <1.6 cm). Atria * The left atrial size is normal. * Right atrial size is normal. * Chiari network (normal variant) is noted. * There is no evidence of atrial septal defect, but resolution does not allow assessment for a patent foramen ovale. Mitral Valve * The mitral valve is grossly normal. * There is no mitral valve stenosis. * There is trace mitral regurgitation. Tricuspid Valve * The tricuspid valve is not well visualized, but is grossly normal. * There is no tricuspid stenosis. * There is trace tricuspid regurgitation. Aortic Valve * The aortic valve is trileaflet. * Aortic valve sclerosis mild, without significant aortic valvular stenosis. * There is no significant aortic regurgitation. Pulmonic Valve * The pulmonary valve is inadequately visualized, but the Doppler data is adequate for interpretation. * There is no pulmonic valvular stenosis. * Mild pulmonic valvular regurgitation. Great Vessels * Mild aortic root dilatation. * Normal pulmonary venous flow pattern. Pericardium/Pleural * There is no pericardial effusion. Great Vessels * Normal inferior vena cava size and collapsability with sniff indicates a normal right atrial pressure of 3 mmHg MMode 2D Measurements and Calculations IVSd 1.6 cm IVSs 2.0 cm LVIDd 4.4 cm LVIDs 3.0 cm LVPWd 1.1 cm LVPWs 1.5 cm IVS/LVPW 1.5 FS 31.2 % EDV(Teich) 87.4 ml ESV(Teich) 35.7 ml EF(Teich) 59.1 % EDV(cubed) 84.8 ml ESV(cubed) 27.7 ml EF(cubed) 67.4 % % IVS thick 26.1 % % LVPW thick 38.2 % LV mass(C)d 224.8 grams LV mass(C)dI 120.0 grams/m\S\2 LV mass(C)s 210.1 grams LV mass(C)sI 112.2 grams/m\S\2 SV(Teich) 51.7 ml SI(Teich) 27.6 ml/m\S\2 SV(cubed) 57.1 ml SI(cubed) 30.5 ml/m\S\2 Ao root diam 4.2 cm Ao root area 13.7 cm\S\2 LA dimension 3.8 cm asc Aorta Diam 3.1 cm LA/Ao 0.91 LVOT diam 2.2 cm LVOT area 3.7 cm\S\2 LVAd ap4 31.8 cm\S\2 LVLd ap4 7.9 cm EDV(MOD-sp4) 105.6 ml EDV(sp4-el) 108.6 ml LVAs ap4 21.7 cm\S\2 LVLs ap4 7.0 cm ESV(MOD-sp4) 59.3 ml ESV(sp4-el) 56.9 ml EF(MOD-sp4) 43.8 % EF(sp4-el) 47.5 % LVAd ap2 31.1 cm\S\2 LVLd ap2 7.6 cm EDV(MOD-sp2) 106.5 ml EDV(sp2-el) 108.5 ml LVAs ap2 21.9 cm\S\2 LVLs ap2 7.0 cm ESV(MOD-sp2) 60.2 ml ESV(sp2-el) 58.2 ml EF(MOD-sp2) 43.5 % EF(sp2-el) 46.4 % LVLd %diff -6.68 % EDV(MOD-bp) 111.8 ml LVLs %diff 6.8 % ESV(MOD-bp) 59.4 ml EF(MOD-bp) 46.9 % SV(MOD-sp4) 46.3 ml SI(MOD-sp4) 24.7 ml/m\S\2 SV(MOD-sp2) 46.3 ml SI(MOD-sp2) 24.7 ml/m\S\2 SV(MOD-bp) 52.4 ml SI(MOD-bp) 28.0 ml/m\S\2 SV(sp4-el) 51.6 ml SI(sp4-el) 27.6 ml/m\S\2 SV(sp2-el) 50.3 ml SI(sp2-el) 26.9 ml/m\S\2 Doppler Measurements and Calculations MV E max farhana 44.8 cm/sec MV A max farhana 68.5 cm/sec MV E/A 0.65 MV P1/2t max farhana 59.6 cm/sec MV P1/2t 81.8 msec MVA(P1/2t) 2.7 cm\S\2 MV dec slope 213.7 cm/sec\S\2 MV dec time 0.38 sec Ao V2 max 129.1 cm/sec Ao max PG 6.7 mmHg Ao max PG (full) 3.5 mmHg TYRA(V,A) 2.6 cm\S\2 TYRA(V,D) 2.6 cm\S\2 LV V1 max PG 3.2 mmHg LV V1 max 89.5 cm/sec MR max farhana 445.2 cm/sec MR max PG 79.3 mmHg PA V2 max 99.5 cm/sec PA max PG 4.0 mmHg PI max farhana 170.1 cm/sec PI max PG 11.6 mmHg PI dec slope 188.2 cm/sec\S\2 PI P1/2t 264.7 msec TR max farhana 214.6 cm/sec RVSP(TR) 21.4 mmHg RAP systole 3.0 mmHg
[2017-10-26] MEDS: ATORVASTATIN 40 MG TAB PO SCH (20:22)
[2017-10-26] MEDS ORDERED: VANCOMYCIN IV 1,000 MG in SODIUM CHLORIDE 0.9% 250ML 250 ML IV SCH (21:00)
[2017-10-26 23:19] VITALS: BP 113/67; PULSE 57; TEMP 36; O2SAT 93
[2017-10-27] MEDS: METRONIDAZOLE / NSS 500 MG in PREMIXED NSS 100 ML IV SCH ×4 (00:19→23:51)
[2017-10-27] MEDS ORDERED: NURSING VERBAL MED ORDER ONE (00:45)
[2017-10-27] MEDS: NSS + 20MEQ KCL 1000ML 1,000 ML IV SCH ×3 (01:53→23:51)
[2017-10-27] MEDS: VANCOMYCIN IV 1,000 MG in SODIUM CHLORIDE 0.9% 250ML 250 ML IV SCH ×2 (01:53→13:17)
[2017-10-27 05:12] LABS: HEPATITIS B CORE IGM TC51854R NON-REACTIVE (NON-REACTIVE)
[2017-10-27] MEDS: LEVOTHYROXINE 50 MCG TAB PO SCH (06:05)
--- NOTE | 2017-10-27 07:06 | SURGERY PROGRESS NOTE ---
DATE: 10/27/2017 SUBJECTIVE: Félix is moving around without much difficulty, appeared to be more alert this morning. He has some right upper quadrant and right chest pain and discomfort that is pretty much unchanged from yesterday. OBJECTIVE: His last vitals showed a temperature of 36, pulse 57, respirations 20, blood pressure 113/67, O2 sats 93 on room air. I and O, he had 3 bowel movements yesterday. LABORATORY DATA: Laboratory-metzger, his white count is up to 20,000 with a left shift. Lactic acid was up to 3.2 yesterday. ASSESSMENT AND PLAN: At this point, we will keep the patient n.p.o., repeat an ultrasound of the gallbladder to make sure that there is no wall thickening that may suggest a worsening condition. Also get a C. diff toxin on him.
[2017-10-27 07:16] VITALS: BP 115/71; PULSE 55; TEMP 36.4; O2SAT 94
[2017-10-27 07:19] LABS: BASO % 0.1 %; BASO ABS # 0.01 K/uL (0-0.2); EOS % 1.9 %; EOS ABS # 0.21 K/uL (0-0.5); HEMATOCRIT 37.7 % (42-52); HEMOGLOBIN 12.4 g/dL (14.0-18.0); IG# 0.07 K/uL (0.00-0.02); LYMPH % 12.5 %; LYMPH ABS # 1.35 K/uL (1.2-3.4); MEAN CELL VOLUME 86.3 fL (80-100); MEAN CORPUSCULAR HEMOGLOBIN 28.4 pg (25-34); MEAN CORPUSCULAR HGB CONC 32.9 g/dl (32-36); MONO % 5.8 %; MONO ABS # 0.63 K/uL (0.11-0.59); NEUT % 79.1 %; PLATELET COUNT 178 K/uL (130-400); RED CELL DISTRIBUTION WIDTH CV 14.3 % (11.5-14.5); RED CELL DISTRIBUTION WIDTH SD 44.7 fL (36.4-46.3); WHITE BLOOD COUNT 10.77 K/uL (4.8-10.8)
[2017-10-27 07:50] LABS: ALBUMIN 1.9 gm/dl (3.4-5.0); CREATININE 0.73 mg/dl (0.60-1.40); POTASSIUM 3.7 mmol/L (3.5-5.1); TOTAL PROTEIN 5.6 gm/dl (6.4-8.2)
[2017-10-27] MEDS: ASPIRIN 81 MG ECTAB PO SCH (07:56)
[2017-10-27] MEDS: METOPROLOL SUCC 25MG EXT REL TAB PO SCH (07:56)
[2017-10-27 08:00] VITALS: O2SAT 94
--- NOTE | 2017-10-27 11:14 | DIAGNOSTIC IMAGING REPORT ---
GALLBLADDER-ABD LIMITED HISTORY: 81 years-old Male follow up follow-up study in a patient with cholelithiasis. COMPARISON: CT 10/26/2017, gallbladder ultrasound 10/25/2017 TECHNIQUE: Multiple real-time sonographic images of the abdominal right upper quadrant were obtained assessing grayscale appearance and color flow FINDINGS: 1.4 cm mobile stone is again seen within the gallbladder neck. Gallbladder appears mildly contracted with wall measuring in the upper limits of normal at 3 mm. No pericholecystic fluid. Positive sonographic Springer sign was not reported. Clinical Trial Head reports patient confusion. Common bile duct is normal for patient age, 6 mm. IMPRESSION: 1. 1.4 cm mobile stone of the gallbladder neck redemonstrated. Gallbladder wall measures in the limits of normal at 3 cm. No pericholecystic fluid identified and no reported right upper quadrant tenderness. Correlate clinically to assess for signs of acute cholecystitis. 2. No biliary ductal dilation. The above report was generated using voice recognition software. It may contain grammatical, syntax or spelling errors. Electronically signed by: Isaiah Wilks M.D. 10/27/2017 11:13 AM Dictated Date/Time: 10/27/2017 11:04 AM
--- NOTE | 2017-10-27 13:24 | Family Medicine Progress Note ---
Progress Note Date of Service Oct 27, 2017. Subjective Pt evaluation today including: conversation w/ patient, conversation w/ family Patient somnolent this morning but easily awakened. Denied any pain. WBC had improved. Dr Mcwilliams had a long discussion w/the family and patient about further steps - pt will be getting a lap yuni tomorrow AM and then dizziness and BP issues will be further addressed. Additional Comments: Unable to obtain ROS from patient Medications Current Inpatient Medications Medications (Trade) Dose Ordered Sig/Lisa Route Start Time Stop Time Status Last Admin Dose Admin Acetaminophen (Tylenol Tab) 650 mg Q4H PRN PO 10/25/17 22:45 11/24/17 22:44 Al Hydrox/Mg Hydrox/Simethicone (Maalox Max Susp) 15 ml Q4H PRN PO 10/25/17 22:45 11/24/17 22:44 Magnesium Hydroxide (Milk Of Magnesia Susp) 30 ml Q6H PRN PO 10/25/17 22:45 11/24/17 22:44 Polyethylene (Miralax Powder Packet) 17 gm DAILY PRN PO 10/25/17 22:45 11/24/17 22:44 Zolpidem Tartrate (Ambien Tab) 5 mg HSZ PRN PO 10/25/17 22:45 11/24/17 22:44 Ondansetron HCl (Zofran Inj) 4 mg Q6H PRN IV 10/25/17 22:45 11/24/17 22:44 Aspirin (Ecotrin Tab) 81 mg DAILY PO 10/26/17 09:00 11/25/17 08:59 10/27/17 07:56 81 MG Atorvastatin Calcium (Lipitor Tab) 40 mg HS PO 10/26/17 21:00 11/25/17 20:59 10/26/17 20:22 40 MG Levothyroxine Sodium (Synthroid Tab) 50 mcg DAILYBB PO 10/26/17 06:00 11/25/17 05:59 10/27/17 06:05 50 MCG Meclizine HCl (Antivert Tab) 25 mg TID PRN PO 10/25/17 22:45 11/24/17 22:44 Metoprolol Succinate (Toprol Xl Tab) 25 mg DAILY PO 10/26/17 09:00 11/25/17 08:59 10/26/17 07:28 25 MG Potassium Chloride/Sodium Chloride 1,000 ml @ 100 mls/hr Q10H IV 10/26/17 00:00 11/25/17 00:00 10/27/17 11:38 100 MLS/HR Miscellaneous (Iv Fluids Completed) 1 ea PRN PRN N/A 10/26/17 00:45 10/26/18 00:44 Ciprofloxacin/ Dextrose 400 mg/ Prmx 200 ml @ 100 mls/hr Q12H IV 10/26/17 06:00 11/05/17 05:59 10/26/17 18:13 100 MLS/HR Metronidazole 500 mg/Prmx 100 ml @ 100 mls/hr Q8H IV 10/26/17 08:00 11/05/17 07:59 10/27/17 07:55 100 MLS/HR Miscellaneous Information (Consult) 1 ea UD PRN N/A 10/26/17 14:00 11/25/17 13:59 Ioversol (Optiray 320) 111 ml UD PRN IV 10/26/17 14:00 10/30/17 13:59 Vancomycin HCl 1000 mg/Sodium Chloride 270 ml @ 125 mls/hr Q12@0200,1400 IV 10/27/17 02:00 10/28/17 13:59 10/27/17 13:17 125 MLS/HR Objective Vital Signs Date Time Temp Pulse Resp B/P (MAP) Pulse Ox O2 Delivery O2 Flow Rate FiO2 10/27/17 08:00 94 Room Air 10/27/17 07:16 36.4 55 18 115/71 (86) 94 Room Air 10/27/17 00:10 Room Air 10/26/17 23:19 36.0 57 20 113/67 (82) 93 Room Air 10/26/17 19:45 Room Air 10/26/17 16:00 Room Air 10/26/17 15:40 36.3 53 20 99/61 (74) 97 Room Air Physical Exam General Appearance: WD/WN, no apparent distress Eyes: normal inspection, PERRL ENT: hearing grossly normal Neck: supple, no JVD Respiratory/Chest: lungs clear, normal breath sounds, no respiratory distress Cardiovascular: regular rate, rhythm, no murmur Abdomen: normal bowel sounds, non tender, soft Extremities: non-tender, no pedal edema Neurologic/Psychiatric: alert, normal mood/affect Skin: no rash Laboratory Results Last 24 Hours Test 10/27/17 06:58 White Blood Count 10.77 K/uL Red Blood Count 4.37 M/uL Hemoglobin 12.4 g/dL Hematocrit 37.7 % Mean Corpuscular Volume 86.3 fL Mean Corpuscular Hemoglobin 28.4 pg Mean Corpuscular Hemoglobin Concent 32.9 g/dl Platelet Count 178 K/uL Mean Platelet Volume 11.0 fL Neutrophils (%) (Auto) 79.1 % Lymphocytes (%) (Auto) 12.5 % Monocytes (%) (Auto) 5.8 % Eosinophils (%) (Auto) 1.9 % Basophils (%) (Auto) 0.1 % Neutrophils # (Auto) 8.50 K/uL Lymphocytes # (Auto) 1.35 K/uL Monocytes # (Auto) 0.63 K/uL Eosinophils # (Auto) 0.21 K/uL Basophils # (Auto) 0.01 K/uL RDW Standard Deviation 44.7 fL RDW Coefficient of Variation 14.3 % Immature Granulocyte % (Auto) 0.6 % Immature Granulocyte # (Auto) 0.07 K/uL Sodium Level 141 mmol/L Potassium Level 3.7 mmol/L Chloride Level 112 mmol/L Carbon Dioxide Level 26 mmol/L Anion Gap 3.0 mmol/L Blood Urea Nitrogen 15 mg/dl Creatinine 0.73 mg/dl Est Creatinine Clear Calc Drug Dose 74.2 ml/min Estimated GFR () 99.4 Estimated GFR (Non- 85.8 BUN/Creatinine Ratio 20.5 Random Glucose 86 mg/dl Calcium Level 8.0 mg/dl Total Bilirubin 0.9 mg/dl Aspartate Amino Transf (AST/SGOT) 53 U/L Alanine Aminotransferase (ALT/SGPT) 51 U/L Alkaline Phosphatase 87 U/L Total Protein 5.6 gm/dl Albumin 1.9 gm/dl Globulin 3.7 gm/dl Albumin/Globulin Ratio 0.5 Assessment and Plan 81M with a PMHx of CABG in 2014, Hypothyroidism, gout, 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 Found to have stone in the gallbladder neck - will have lap yuni tomorrow AM Probable Sepsis of unclear origin BCx obtained yesterday Remains on Cipro/Flagyl and Vanco as well CXR on arrival negative for pneumonia Will provide IV fluids, recheck lactic acid Monitor for fevers Transaminitis Known stone in gallbladder neck, Appreciate recommendations by Surgery - pt for lap yuni tomorrow NPO w/IVF Frequent Falls since March in setting of CABG in 2014 Did not really have a fall, just 'slid down the wall' due to weakness. Has been dizzy off and on - unclear etiology Recent hospital visit - added meclizine and given IVF for dehydration. dyzide added by PCP. BP running low here. No EKG Changes. No chest pain. Trop 0.025 Last echo in 2014, will get an echo. Follow up BNP. Trop was 0.025, will trend. Telemetry monitoring unremarkable, will move to med/surg. c/w home metoprolol, lipitor and ASA PT/OT Left shoulder pain Xray negative for fx H/o PE and DVT on Coumadin Warfarin on hold, restart post-op INR tomorrow Hypothyroidism TSH = 1.6 c/w synthroid h/o Vertigo c/w Meclizine PRN Diet: NPO w IVF after midnight Dispo: Tele DVT Proph: SCDs FULL CODE Resident Tracking Resident Involvement: Resident Care Provided Care Provided: Adult Hospital Medicine Reviewed: Pt Seen/Exam by Me History worried about the dizziness Constitutional: denies: fever Respiratory: negative: short of breath Cardiovascular: denies chest pain Gastrointestinal/Abdominal: negative: abdominal pain General Appearance: no apparent distress Ears, Nose, Throat: other (very hard of hearing) Respiratory: lungs clear, no respiratory distress Cardiovascular: regular rate, rhythm Gastrointestinal: normal bowel sounds, non tender, soft Neurologic/Psychiatric: alert, oriented x 3 Skin Characteristics: warm/dry Assessment/Plan Resident Physician Supervision Note: I independently interviewed and examined the patient and verified the rodas history and physical, reviewed labs and image studies, discussed the case with the resident Dr. Pedro and agree with the findings and care plan.
--- NOTE | 2017-10-27 14:08 | DIAGNOSTIC IMAGING REPORT ---
L SHOULDER MIN 2 VIEWS ROUTINE HISTORY: 81 years-old Male shoulder pain, fall acute left shoulder pain status post fall COMPARISON: None available TECHNIQUE: 3 views of the left shoulder FINDINGS: Moderate glenohumeral and moderate to severe acromioclavicular osteoarthritis. Bones appear mildly demineralized. There is no acute fracture or dislocation. Humeral head is high riding within the glenoid fossa with decreased coracohumeral interval of 3 mm. Prior median sternotomy. Imaged lung collier appear clear. IMPRESSION: 1. Moderate glenohumeral osteoarthritis without acute fracture or dislocation. 2. High riding humeral head with decreased coracohumeral interval suggests underlying chronic rotator cuff tear. The above report was generated using voice recognition software. It may contain grammatical, syntax or spelling errors. Electronically signed by: Isaiah Wilks M.D. 10/27/2017 2:06 PM Dictated Date/Time: 10/27/2017 2:04 PM
[2017-10-27 15:17] VITALS: BP 133/74; PULSE 54; TEMP 36; O2SAT 97
[2017-10-27] MEDS: CIPROFLOXACIN / D5W 400 MG in PREMIXED IN D5W 200 ML IV SCH (17:51)
[2017-10-27 17:56] LABS: INR 8.8 (0.9-1.1)
[2017-10-27 18:49] LABS: INR 3.9 (0.9-1.1)
--- NOTE | 2017-10-27 19:01 | Progress Note ---
Progress Note Date of Service Oct 27, 2017. Progress Note Received a page the pt's INR was 8.8, advised a recheck, which just returned at 3. Discussed with Shawna, pharmacist, who said both Cipro and Flagyl are likely interacting with his INR causing it to be elevated. She recommended 5mg Vit K IV now and recheck INR in 4 hours. On chart r/v the patients PE (for which he on Coumadin for) was in 2008. As his surgery was said to be tomorrow AM, will hold off on heparin drip for now unless surgery is postponed for any reason. Night resident Dr Quan informed.
[2017-10-27] MEDS ORDERED: PHYTONADIONE INJ 5 MG in SODIUM CHLORIDE 0.9% 50ML 50 ML IV ONE (19:30)
[2017-10-27] MEDS: ATORVASTATIN 40 MG TAB PO SCH (21:11)
[2017-10-27 23:11] LABS: INR 2.5 (0.9-1.1)
[2017-10-27 23:24] VITALS: BP 164/84; PULSE 72; TEMP 36.6; O2SAT 94
[2017-10-28] VITALS (8 sets, daily range): BP systolic 148–198; BP diastolic 68–86; PULSE 50–113; TEMP 36.2–36.6; O2SAT 94–96
[2017-10-28] MEDS ORDERED: PHYTONADIONE INJ 2.5 MG in SODIUM CHLORIDE 0.9% 50ML 50 ML IV ONE (00:15)
[2017-10-28] MEDS: VANCOMYCIN IV 1,000 MG in SODIUM CHLORIDE 0.9% 250ML 250 ML IV SCH (01:57)
[2017-10-28 06:05] LABS: BASO % 0.1 %; BASO ABS # 0.01 K/uL (0-0.2); EOS % 3.1 %; EOS ABS # 0.25 K/uL (0-0.5); HEMATOCRIT 39.2 % (42-52); HEMOGLOBIN 13.1 g/dL (14.0-18.0); IG# 0.13 K/uL (0.00-0.02); LYMPH % 17.7 %; LYMPH ABS # 1.41 K/uL (1.2-3.4); MEAN CELL VOLUME 86.5 fL (80-100); MEAN CORPUSCULAR HEMOGLOBIN 28.9 pg (25-34); MEAN CORPUSCULAR HGB CONC 33.4 g/dl (32-36); MONO % 8.2 %; MONO ABS # 0.65 K/uL (0.11-0.59); NEUT % 69.3 %; NEUT ABS # 5.51 K/uL (1.4-6.5); PLATELET COUNT 229 K/uL (130-400); RED CELL DISTRIBUTION WIDTH CV 14.5 % (11.5-14.5); RED CELL DISTRIBUTION WIDTH SD 46.4 fL (36.4-46.3); WHITE BLOOD COUNT 7.96 K/uL (4.8-10.8)
[2017-10-28 06:10] LABS: INR 1.6 (0.9-1.1)
[2017-10-28] MEDS: LEVOTHYROXINE 50 MCG TAB PO SCH (06:23)
[2017-10-28] MEDS: CIPROFLOXACIN / D5W 400 MG in PREMIXED IN D5W 200 ML IV SCH ×2 (06:23→17:18)
--- NOTE | 2017-10-28 06:34 | History & Physical Bridge Note ---
H&P Re-Evaluation Bridge Note: I have examined the patient, reviewed the History & Physical and in the interval since the performance of the History & Physical I have noted the following changes of clinical significance: No changes noted discussed with primary service yesterday will proceed with joel miller today r and c explained to pt INR 1.6 this am
[2017-10-28 06:41] LABS: CREATININE 0.7 mg/dl (0.60-1.40); POTASSIUM 3.8 mmol/L (3.5-5.1); TOTAL PROTEIN 5.7 gm/dl (6.4-8.2)
[2017-10-28] MEDS ORDERED: LIDOCAINE/EPINEPHRINE 1% 20 ML VIAL ONE (07:02)
[2017-10-28] MEDS ORDERED: CONRAY 60% 50 ML VIAL ONE (07:02)
[2017-10-28] MEDS ORDERED: ONDANSETRON INJ 2 MG/ML 2 ML VIAL ONE (07:03)
[2017-10-28] MEDS ORDERED: PROPOFOL IV EMULSION 10 MG/ML 20 ML VIAL ONE (07:03)
[2017-10-28] MEDS ORDERED: NEOSTIGMINE METHYLSULFATE 5 MG/5 ML SYR ONE (07:03)
[2017-10-28] MEDS ORDERED: DEXAMETHASONE SOD INJ 4 MG/ML VIAL ONE (07:03)
[2017-10-28] MEDS ORDERED: GLYCOPYRROLATE INJ 0.2 MG/ML VIAL ONE (07:03)
[2017-10-28] MEDS ORDERED: LIDOCAINE HCL 2% 2 ML VIAL (20MG/ML) ONE (07:03)
[2017-10-28] MEDS ORDERED: FENTANYL CITRATE INJ 50 MCG/1 ML 2 ML VIAL ONE ×2 (07:04→09:00)
[2017-10-28] MEDS ORDERED: MIDAZOLAM HCL 1 MG/ML 2ML VIAL ONE (07:04)
[2017-10-28] MEDS ORDERED: SUCCINYLCHOLINE CHLORIDE 20 MG/ML 10 ML VIAL IV ONE (08:34)
[2017-10-28] MEDS ORDERED: LABETALOL HCL IV 5 MG/ML 20ML ONE (08:34)
[2017-10-28] MEDS ORDERED: CISATRACURIUM BESYLATE IV SOLN 2 MG/ML 10 ML VIAL ONE (08:34)
--- NOTE | 2017-10-28 08:34 | [facility] Post Operative Brief Note ---
Immediate Operative Summary Operative Date Oct 28, 2017. Pre-Operative Diagnosis [facility] Post-Operative Diagnosis SAME Procedure(s) Performed SAHRA KING Mangle Operator Garments Surgeon(s) Dennis HE Estimated Blood Loss 10CC Findings See Below POST OP Specimens GALLBLADDER AND CONTENTS Drains None
[2017-10-28] MEDS ORDERED: PROMETHAZINE HCL INJ 12.5 MG in SODIUM CHLORIDE 0.9% 50ML 50 ML IV PRN (09:00)
[2017-10-28] MEDS ORDERED: OXYCODONE/ACETAMINOPHEN 5-325 TAB PO PRN ×2 (09:00)
[2017-10-28] MEDS ORDERED: LABETALOL HCL IV 5 MG/ML 20ML IV PRN (09:00)
[2017-10-28] MEDS ORDERED: EpHEDrine SULFATE INJ 50 MG/ML AMP IV PRN (09:00)
[2017-10-28] MEDS ORDERED: ATROPINE SULFATE 0.1 MG/ML 5ML SYR IV PRN (09:00)
[2017-10-28] MEDS ORDERED: ONDANSETRON INJ 2 MG/ML 2 ML VIAL IV PRN ×2 (09:00)
[2017-10-28] MEDS ORDERED: NALOXONE HCL 0.4 MG/1 ML VIAL/CARP IV PRN (09:00)
[2017-10-28] MEDS ORDERED: MoRPHine SULFATE 4 MG/ML 1 ML CARP\\VIAL IV PRN ×3 (09:00)
[2017-10-28] MEDS ORDERED: FENTANYL CITRATE INJ 50 MCG/1 ML 2 ML VIAL IV PRN (09:00)
--- NOTE | 2017-10-28 09:40 | OPERATIVE REPORT ---
DATE OF OPERATION: 10/28/2017 SURGEON: Anton Hogan MD ORNAMENTER HAND: Saira Cochran PA-C. PREOPERATIVE DIAGNOSES: Acute and chronic cholecystitis, cholelithiasis. POSTOPERATIVE DIAGNOSES: Acute and chronic cholecystitis, cholelithiasis. OPERATIVE PROCEDURE: Laparoscopic cholecystectomy, intraoperative cholangiogram. SUMMARY: The patient was brought into the operating room theater. The abdomen was prepped with Betadine solution and properly draped. The patient was on systemic antibiotics. We made a small incision supraumbilically sufficient enough to place a Veress needle followed by CO2 followed by a 5-mm trocar. Point of entry was inspected and no injury identified. Under direct visualization, we placed a 5-mm epigastric and two 5 mm subcostal ports with preemptive local analgesia 1% Xylocaine. The gallbladder was identified, it was redundant falling on itself, appeared to be thick with some edema, we placed under traction. The kaveh hepatis was dissected out. We identified the cystic duct and taken off the gallbladder. We clipped it proximally. A small opening in the cystic duct was made. A #4 urethral catheter transversing abdominal wall was positioned in the cystic duct. Serial x-rays were taken, free flow into the duodenum, no obstruction. Cholangiocath was then removed. The cystic duct was doubly clipped securely and divided. The artery was similarly identified, doubly clipped and divided. Gallbladder was removed in antegrade fashion leaving as much posterior peritoneum as possible. There was some minor bleeding from the liver, but very little superficial, that controlled with electrocautery. The gallbladder once freed from the liver was placed in an Endopouch and taken out intact through the epigastric port. The patient had a large stone identified in the specimen. We sent it for cultures for aerobes and anaerobes. Subhepatic and suprahepatic area was then checked for hemostasis and appeared satisfactory. I placed a camera in the right subcostal port to visualize the umbilical entry, no injury identified. The individual trocars were removed, the last umbilical trocar. The wounds were closed with 4-0 Monocryl. Steri-Strips were applied. The procedure was tolerated well by the patient and was taken to recovery room in good condition. I attest to the content of the Intraoperative Record and any orders documented therein. Any exception s are noted below.
--- NOTE | 2017-10-28 09:55 | Anesthesiology Progress Note ---
Anesthesia Post Op Note Date & Time Oct 28, 2017 at 09:54 Vital Signs Pain Intensity: 4 Vital Signs Past 12 Hours Date Time Temp Pulse Resp B/P (MAP) Pulse Ox O2 Delivery O2 Flow Rate FiO2 10/28/17 09:35 36.6 89 18 163/81 94 Nasal Cannula 5 10/28/17 09:25 70 18 161/94 94 Nasal Cannula 5 10/28/17 09:10 55 18 172/89 94 Nasal Cannula 5 10/28/17 09:00 65 16 170/91 96 Oxymask 10 10/28/17 08:53 36.5 67 16 154/97 96 Oxymask 10 10/28/17 00:00 Room Air 10/27/17 23:24 36.6 72 18 164/84 (110) 94 Room Air Notes Mental Status: alert / awake / arousable, participated in evaluation Pt Amnestic to Procedure: Yes Nausea / Vomiting: adequately controlled Pain: adequately controlled Airway Patency, RR, SpO2: stable & adequate BP & HR: stable & adequate Hydration State: stable & adequate Anesthetic Complications: no major complications apparent
--- NOTE | 2017-10-28 09:55 | DIAGNOSTIC IMAGING REPORT ---
CHOLANGIOGRAM O.R. CLINICAL HISTORY: Cholelithiasis. Intraoperative imaging during cholecystectomy. COMPARISON STUDY: Gallbladder ultrasound dated 10/27/2017 FLUOROSCOPY TIME: 5 seconds. NUMBER OF FLUOROSCOPIC IMAGES: 1 FINDINGS: There is opacification of the common bile duct and common hepatic duct. There is opacification of the right hepatic lobe into biliary tree. There are no filling defects to indicate retained calculi. There is free flow into the duodenum. IMPRESSION: No retained calculi identified Electronically signed by: Romie Burdick M.D. 10/28/2017 9:54 AM Dictated Date/Time: 10/28/2017 9:53 AM
[2017-10-28] MEDS: METRONIDAZOLE / NSS 500 MG in PREMIXED NSS 100 ML IV SCH ×3 (11:21→23:59)
[2017-10-28] MEDS: NSS + 20MEQ KCL 1000ML 1,000 ML IV SCH ×2 (11:21→18:00)
[2017-10-28] MEDS: ASPIRIN 81 MG ECTAB PO SCH (11:41)
[2017-10-28] MEDS: METOPROLOL SUCC 25MG EXT REL TAB PO SCH (11:41)
--- NOTE | 2017-10-28 13:17 | Family Medicine Progress Note ---
Progress Note Date of Service Oct 28, 2017. Subjective Pt evaluation today including: conversation w/ patient, physical exam, chart review, lab review, review of studies, review of inpatient medication list Pain: denies PO Intake: NPO Voiding: no voiding problems Patient is s/p Lap Cholecystectomy. He tolerated procedure well. He has no physical complaints at this time and denies pain, n/v Constitutional: No fever, No chills Respiratory: No cough, No shortness of breath Cardiovascular: No chest pain, No edema, No palpitations Abdomen: No pain, No nausea, No vomiting Male : No dysuria, No urinary frequency Medications Current Inpatient Medications Medications (Trade) Dose Ordered Sig/Lisa Route Start Time Stop Time Status Last Admin Dose Admin Acetaminophen (Tylenol Tab) 650 mg Q4H PRN PO 10/25/17 22:45 11/24/17 22:44 Al Hydrox/Mg Hydrox/Simethicone (Maalox Max Susp) 15 ml Q4H PRN PO 10/25/17 22:45 11/24/17 22:44 Magnesium Hydroxide (Milk Of Magnesia Susp) 30 ml Q6H PRN PO 10/25/17 22:45 11/24/17 22:44 Polyethylene (Miralax Powder Packet) 17 gm DAILY PRN PO 10/25/17 22:45 11/24/17 22:44 Zolpidem Tartrate (Ambien Tab) 5 mg HSZ PRN PO 10/25/17 22:45 11/24/17 22:44 10/27/17 21:23 5 MG Ondansetron HCl (Zofran Inj) 4 mg Q6H PRN IV 10/25/17 22:45 11/24/17 22:44 Aspirin (Ecotrin Tab) 81 mg DAILY PO 10/26/17 09:00 11/25/17 08:59 10/28/17 11:41 81 MG Atorvastatin Calcium (Lipitor Tab) 40 mg HS PO 10/26/17 21:00 11/25/17 20:59 10/27/17 21:11 40 MG Levothyroxine Sodium (Synthroid Tab) 50 mcg DAILYBB PO 10/26/17 06:00 11/25/17 05:59 10/27/17 06:05 50 MCG Meclizine HCl (Antivert Tab) 25 mg TID PRN PO 10/25/17 22:45 7/8/18 22:44 Metoprolol Succinate (Toprol Xl Tab) 25 mg DAILY PO 10/26/17 09:00 11/25/17 08:59 10/28/17 11:41 25 MG Potassium Chloride/Sodium Chloride 1,000 ml @ 100 mls/hr Q10H IV 10/26/17 00:00 11/25/17 00:00 10/28/17 11:21 100 MLS/HR Miscellaneous (Iv Fluids Completed) 1 ea PRN PRN N/A 10/26/17 00:45 10/26/18 00:44 Ciprofloxacin/ Dextrose 400 mg/ Prmx 200 ml @ 100 mls/hr Q12H IV 10/26/17 06:00 11/05/17 05:59 10/28/17 06:23 100 MLS/HR Metronidazole 500 mg/Prmx 100 ml @ 100 mls/hr Q8H IV 10/26/17 08:00 11/05/17 07:59 10/28/17 11:21 100 MLS/HR Miscellaneous Information (Consult) 1 ea UD PRN N/A 10/26/17 14:00 11/25/17 13:59 Ioversol (Optiray 320) 111 ml UD PRN IV 10/26/17 14:00 10/30/17 13:59 Vancomycin HCl 1000 mg/Sodium Chloride 270 ml @ 125 mls/hr Q12@0200,1400 IV 10/27/17 02:00 10/28/17 13:59 10/28/17 01:57 125 MLS/HR Fentanyl Citrate (Fentanyl Inj) 25 mcg Q5M PRN IV 10/28/17 09:00 10/28/17 14:00 Naloxone HCl (Narcan Inj) 0.2 mg Q2M PRN IV 10/28/17 09:00 10/28/17 14:00 Ondansetron HCl (Zofran Inj) 4 mg ONE PRN IV 10/28/17 09:00 10/28/17 14:00 Promethazine HCl 12.5 mg/Sodium Chloride 50.5 ml @ 202 mls/hr ONE PRN IV 10/28/17 09:00 10/28/17 14:00 Labetalol HCl (Normodyne IV) 5 mg Q5M PRN IV 10/28/17 09:00 10/28/17 14:00 Ephedrine Sulfate (EpHEDrine SULFATE INJ) 5 mg Q5M PRN IV 10/28/17 09:00 10/28/17 14:00 Atropine Sulfate (Atropine Sulfate 0.1mg/ml Inj) 0.5 mg Q1M PRN IV 10/28/17 09:00 10/28/17 14:00 Morphine Sulfate (MoRPHine SULFATE INJ) 1 mg Q3H PRN IV 10/28/17 09:00 11/11/17 08:59 10/28/17 11:45 1 MG Oxycodone/ Acetaminophen (Percocet 5-325mg Tab) 1 tab Q4H PRN PO 10/28/17 09:00 11/11/17 08:59 Morphine Sulfate (MoRPHine SULFATE INJ) 2 mg Q3H PRN IV 10/28/17 09:00 11/11/17 08:59 Oxycodone/ Acetaminophen (Percocet 5-325mg Tab) 2 tab Q4H PRN PO 10/28/17 09:00 11/11/17 08:59 Morphine Sulfate (MoRPHine SULFATE INJ) 3 mg Q3H PRN IV 10/28/17 09:00 11/11/17 08:59 Ondansetron HCl (Zofran Inj) 4 mg Q6H PRN IV 10/28/17 09:00 10/29/17 08:59 Warfarin Sodium (Coumadin Tab) 5 mg DAILY@16 PO 10/28/17 16:00 11/27/17 15:59 Objective Vital Signs Date Time Temp Pulse Resp B/P (MAP) Pulse Ox O2 Delivery O2 Flow Rate FiO2 10/28/17 10:00 36.2 64 18 198/86 (123) 96 Nasal Cannula 2.0 10/28/17 10:00 94 Nasal Cannula 2.0 10/28/17 09:35 36.6 89 18 163/81 94 Nasal Cannula 5 10/28/17 09:25 70 18 161/94 94 Nasal Cannula 5 10/28/17 09:10 55 18 172/89 94 Nasal Cannula 5 10/28/17 09:00 65 16 170/91 96 Oxymask 10 10/28/17 08:53 36.5 67 16 154/97 96 Oxymask 10 10/28/17 00:00 Room Air 10/27/17 23:24 36.6 72 18 164/84 (110) 94 Room Air 10/27/17 19:00 Room Air 10/27/17 15:17 36.0 54 18 133/74 (93) 97 Room Air Physical Exam Notes: GENERAL: alert, no distress, EYE EXAM: normal conjunctiva, PERRL and EOM's grossly intact OROPHARYNX: no exudate, no erythema, lips, buccal mucosa, and tongue normal and mucous membranes are moist NECK: supple, no adenopathy LUNGS: Clear to auscultation. Normal chest wall mechanics HEART: no murmurs, S1 normal and S2 normal ABDOMEN: abdomen soft, laparoscopic wounds clean dry, steri-strips in place, normo-active bowel sounds, no masses, no rebound or guarding. BACK: Back is symmetrical on inspection and there is no deformity SKIN: no rashes UPPER EXTREMITIES: upper extremities are grossly normal. LOWER EXTREMITIES: No pitting edema. NEURO EXAM: Normal sensorium, cranial nerves II-XII grossly intact, normal speech Laboratory Results Results Past 24 Hours Test 10/27/17 15:51 10/27/17 18:05 10/27/17 22:53 10/28/17 05:42 Range/Units Prothrombin Time 88.4 40.0 25.6 16.8 9.0-12.0 SECONDS Prothromb Time International Ratio 8.8 3.9 2.5 1.6 0.9-1.1 White Blood Count 7.96 4.8-10.8 K/uL Red Blood Count 4.53 4.7-6.1 M/uL Hemoglobin 13.1 14.0-18.0 g/dL Hematocrit 39.2 42-52 % Mean Corpuscular Volume 86.5 80-100 fL Mean Corpuscular Hemoglobin 28.9 25-34 pg Mean Corpuscular Hemoglobin Concent 33.4 32-36 g/dl Platelet Count 229 130-400 K/uL Mean Platelet Volume 11.0 7.4-10.4 fL Neutrophils (%) (Auto) 69.3 % Lymphocytes (%) (Auto) 17.7 % Monocytes (%) (Auto) 8.2 % Eosinophils (%) (Auto) 3.1 % Basophils (%) (Auto) 0.1 % Neutrophils # (Auto) 5.51 1.4-6.5 K/uL Lymphocytes # (Auto) 1.41 1.2-3.4 K/uL Monocytes # (Auto) 0.65 0.11-0.59 K/uL Eosinophils # (Auto) 0.25 0-0.5 K/uL Basophils # (Auto) 0.01 0-0.2 K/uL RDW Standard Deviation 46.4 36.4-46.3 fL RDW Coefficient of Variation 14.5 11.5-14.5 % Immature Granulocyte % (Auto) 1.6 % Immature Granulocyte # (Auto) 0.13 0.00-0.02 K/uL Sodium Level 141 136-145 mmol/L Potassium Level 3.8 3.5-5.1 mmol/L Chloride Level 111 98-107 mmol/L Carbon Dioxide Level 24 21-32 mmol/L Anion Gap 6.0 3-11 mmol/L Blood Urea Nitrogen 11 7-18 mg/dl Creatinine 0.70 0.60-1.40 mg/dl Est Creatinine Clear Calc Drug Dose 77.3 ml/min Estimated GFR () 101.2 Estimated GFR (Non- 87.3 BUN/Creatinine Ratio 16.4 10-20 Random Glucose 90 70-99 mg/dl Calcium Level 8.0 8.5-10.1 mg/dl Total Bilirubin 1.0 0.2-1 mg/dl Aspartate Amino Transf (AST/SGOT) 65 15-37 U/L Alanine Aminotransferase (ALT/SGPT) 56 12-78 U/L Alkaline Phosphatase 69 45-117 U/L Total Protein 5.7 6.4-8.2 gm/dl Albumin 2.0 3.4-5.0 gm/dl Globulin 3.7 2.5-4.0 gm/dl Albumin/Globulin Ratio 0.5 0.9-2 Microbiology Results 10/28/17 Gram Stain - Final, Resulted 10/28/17 Bacterial Culture, Resulted Pending Assessment and Plan 81M with a PMHx of CABG in 2014, Hypothyroidism, gout, 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 EF 45-50%. mild Aortic Sclerosis No EKG Changes. No chest pain. Trop neg. c/w home metoprolol, Lipitor and ASA PT/OT Left shoulder pain Xray negative for fx H/o PE and DVT on Coumadin Warfarin on hold, restart post-op INR tomorrow Hypothyroidism TSH = 1.6 c/w Synthroid h/o Vertigo c/w Meclizine PRN Diet: NPO w IVF after midnight Dispo: Tele DVT Proph: SCDs FULL CODE Resident Physician Supervision Note: I interviewed and examined the patient. Discussed with Dr. Clemente and agree with findings and plan as documented in the note. Any exceptions or clarifications are listed here: None Documented By: Kash Gonzalez seen post op - seems to be feeling reasonably well - mostly concerned about his family telling him he shouldn't be driving. loosely relates to dizziness, but then when asked to describe dizziness further, he goes back to being upset that htey're telling him not to drive. denies discrete injur to shoulder but thinks it got overused about 5 days ago. vitals noted nad breathing unlabored abd soft nd nt, mental status difficult to assess sepsis likley from cholecystitis -improved, post op, abx, supportive care dizziness -after extesnive questioning and redirection, appears to be a lightheadedness, often with standing, that makes him feel wobbly, occassionally blurred vision. seems compounded by leg strength discrepency -follow BP and orthostatics -f/u PT/OT questionable mental status -?post op vs baseline vs delirious - continue to follow, glean baseline better from family otherwise as above Continued [facility] stay due to: multiple IV medications needed Discharge planning: uncertain Resident Tracking Resident Involvement: Resident Care Provided Care Provided: Adult Hospital Medicine
[2017-10-28] MEDS ORDERED: VANCOMYCIN IV 1,000 MG in SODIUM CHLORIDE 0.9% 250ML 250 ML IV ONE (14:45)
--- NOTE | 2017-10-28 14:56 | Pharmacy Progress Note ---
Pharmacy Abx Dose Short Note Date of Service Oct 28, 2017. Assessment & Plan Assessment 81 year old male receiving Vancomycin for empiric treatment of probable sepsis of unclear origin. Day # 3 of antimicrobial therapy. * Therapy extended beyond [address] Clemente. * Blood Cultures remain NGTD * s/p cholecystectomy today. * Renal function at baseline. * Leukocytosis resolved. * Pt also being treated with iv cipro, iv flagyl. Plan Vancomycin * Trough level of 15.2 mcg/mL is therapeutic. * Actual trough is likely a little higher as trough was drawn 15minutes late. * Continue dose of 1000 mg IV every 12 hours * Goal trough level: 15 to 20 mcg/mL * No further levels ordered at this time. Consider ordering additional level if therapy extended. Pharmacy will continue to follow and will adjust dose/frequency as necessary. Thank you.
[2017-10-28] MEDS: WARFARIN SOD 5 MG TAB PO SCH (17:14)
[2017-10-28] MEDS: ATORVASTATIN 40 MG TAB PO SCH (21:48)
[2017-10-29] MEDS: NSS + 20MEQ KCL 1000ML 1,000 ML IV SCH ×2 (01:32→14:28)
[2017-10-29] MEDS ORDERED: VANCOMYCIN IV 1,000 MG in SODIUM CHLORIDE 0.9% 250ML 250 ML IV SCH (02:00)
[2017-10-29] MEDS: LEVOTHYROXINE 50 MCG TAB PO SCH (04:57)
[2017-10-29] MEDS: CIPROFLOXACIN / D5W 400 MG in PREMIXED IN D5W 200 ML IV SCH (06:01)
--- NOTE | 2017-10-29 06:56 | Surgery Progress Note ---
Surgery Progress Note Date of Service Oct 29, 2017. Subjective Post OP Day: 1 + feeling well, + bowel movement, + flatus, + pain controlled, + diet ( Tolerating clears), No complaints, No nausea, No vomiting Objective Vital Signs: Date Time Temp Pulse Resp B/P (MAP) Pulse Ox O2 Delivery O2 Flow Rate FiO2 10/29/17 00:00 Room Air 10/28/17 23:43 36.6 50 18 154/68 (96) 94 Room Air 10/28/17 20:00 36.4 64 18 163/81 (108) 95 Room Air 10/28/17 16:00 96 Room Air 10/28/17 15:01 36.4 113 20 170/85 (113) 95 10/28/17 13:00 36.4 59 18 149/74 (99) 94 Room Air 10/28/17 12:00 36.5 54 18 148/76 (100) 95 Room Air 10/28/17 11:00 36.3 54 18 152/76 (101) 94 Room Air 10/28/17 10:00 36.2 64 18 198/86 (123) 96 Nasal Cannula 2.0 10/28/17 10:00 94 Nasal Cannula 2.0 10/28/17 09:35 36.6 89 18 163/81 94 Nasal Cannula 5 10/28/17 09:25 70 18 161/94 94 Nasal Cannula 5 10/28/17 09:10 55 18 172/89 94 Nasal Cannula 5 10/28/17 09:00 65 16 170/91 96 Oxymask 10 10/28/17 08:53 36.5 67 16 154/97 96 Oxymask 10 General Appearance: WD/WN, no apparent distress Head: normocephalic, atraumatic Respiratory/Chest: no respiratory distress Abdomen: + distended (mild), + tenderness (mild incisional tenderness) Incision(s): clean, dry, intact, no erythema, no drainage Laboratory Results: Results Past 24 Hours Test 10/28/17 13:45 10/29/17 04:44 Range/Units Vancomycin Level Trough 15.2 SEE COMMENT mcg/ml Microbiology Results 10/28/17 Gram Stain - Final, Resulted 10/28/17 Bacterial Culture, Resulted Pending Assessment & Plan POD #1 s/p lap yuni w/ cholangiogram Patient seen and examined with Dr. Hogan. Abdomen soft, mildly distended, some incisional tenderness (expected). Tolerating clears, no N/V. Urinating okay. cholangiogram showed no CBD stones. Regular diet today. Coumadin restarted yesterday. AM labs pending. Okay to d/c from surgical standpoint - D/C per medical team. Please contact with questions or concerns.
[2017-10-29 07:01] VITALS: BP 182/88; PULSE 82; TEMP 36.4; O2SAT 94
[2017-10-29 07:04] LABS: BASO % 0.2 %; BASO ABS # 0.02 K/uL (0-0.2); EOS % 0.7 %; EOS ABS # 0.09 K/uL (0-0.5); HEMATOCRIT 38.5 % (42-52); IG# 0.16 K/uL (0.00-0.02); LYMPH % 12.7 %; LYMPH ABS # 1.59 K/uL (1.2-3.4); MEAN CELL VOLUME 85.4 fL (80-100); MEAN CORPUSCULAR HEMOGLOBIN 28.8 pg (25-34); MEAN CORPUSCULAR HGB CONC 33.8 g/dl (32-36); MEAN PLATELET VOLUME 10.4 fL (7.4-10.4); MONO % 8.3 %; MONO ABS # 1.03 K/uL (0.11-0.59); NEUT % 76.8 %; NEUT ABS # 9.59 K/uL (1.4-6.5); PLATELET COUNT 257 K/uL (130-400); RED CELL DISTRIBUTION WIDTH CV 14.5 % (11.5-14.5); RED CELL DISTRIBUTION WIDTH SD 45.3 fL (36.4-46.3); WHITE BLOOD COUNT 12.48 K/uL (4.8-10.8)
[2017-10-29 07:14] LABS: INR 1.3 (0.9-1.1)
[2017-10-29 07:38] LABS: CREATININE 0.73 mg/dl (0.60-1.40); POTASSIUM 3.9 mmol/L (3.5-5.1); TOTAL PROTEIN 5.6 gm/dl (6.4-8.2)
[2017-10-29] MEDS: ASPIRIN 81 MG ECTAB PO SCH (08:12)
[2017-10-29] MEDS: METOPROLOL SUCC 25MG EXT REL TAB PO SCH (08:12)
[2017-10-29] MEDS: METRONIDAZOLE / NSS 500 MG in PREMIXED NSS 100 ML IV SCH ×2 (08:12→16:30)
--- NOTE | 2017-10-29 08:25 | Family Medicine Progress Note ---
Progress Note Date of Service Oct 29, 2017.
--- NOTE | 2017-10-29 08:51 | Discharge Instructions ---
Discharge Instructions Date of Service Oct 29, 2017. Admission Reason for Admission: Elevated Liver Function Tests,Fall,Generalized Wea Discharge Discharge Diagnosis / Problem: laparoscopic cholecystectomy Discharge Goals Goal(s): Decrease discomfort Activity Recommendations Activity Limitations: as noted below Lifting Limitations: no more than 10 pounds Shower/Bathe: no limitations Driving or Machine Use: 1 week . Instructions / Follow-Up Instructions / Follow-Up Dr. Hogan in 1 week, call [phone] to schedule Current Hospital Diet Patient's current hospital diet: Regular Diet Discharge Diet Recommended Diet: Regular Diet Procedures Procedures Performed: LAP MAGDIEL,C'GRAM Pending Studies Studies pending at discharge: no Medical Emergencies . Who to Call and When: Medical Emergencies: If at any time you feel your situation is an emergency, please call 911 immediately. . Non-Emergent Contact Non-Emergency issues call your: Surgeon Call Non-Emergent contact if: you have a fever, temperature is above 101.5, your pain is not controlled, wound has increased redness, wound has increased pain, you have any medication questions . "Provider Documentation" section prepared by Félix Chery. .
[2017-10-29] MEDS ORDERED: DOXY100C76 PO (15:19)
[2017-10-29] MEDS ORDERED: DOXYCYCLINE IV 100 MG in DEXTROSE 5% 100ML 100 ML IV ONE (15:30)
--- NOTE | 2017-10-29 15:30 | Discharge Instructions ---
Discharge Instructions Date of Service Oct 29, 2017. Admission Reason for Admission: Elevated Liver Function Tests,Fall,Generalized Wea Discharge Discharge Diagnosis / Problem: Lyme, Acute on chronic Cholecystitis Discharge Goals Goal(s): Diagnostic testing, Therapeutic intervention Activity Recommendations Activity Limitations: resume your previous activity Advance diet as tolerated . Instructions / Follow-Up Instructions / Follow-Up You were admitted to the hospital for the evaluation of your dizziness, generalized weakness which was concerning for a severe infection. There was no source of infection found in your lungs or in your urine however on examination of your liver enzymes it was found that these were elevated. When imaging the gallbladder you were found to have a stone which even though on exam there was no pain was concerning as the source of your elevated liver enzymes. It was decided that removal of the gallbladder called a cholecystectomy would be completed and this was done by Dr Hogan. Your INR ( the level indicating how thin your blood was) was reversed for the surgery and you were restarted on your medication. warfarin the night after surgery. You were also checked for lyme as a possible source of your infection. This indeed was positive and confirmed with a special test called a western blot. You will be placed on Doxycycline for 21 days. Please refrain from extensive sun exposure as this can make you very sensitive to the sun as well as taking the food with medicine. 1. Please recheck INR in 2 days, adjust with your PCP accordingly 2. Continue Doxycycline for 21 days, remember to wear sunblock and take with food 3. If you develop worsening symptoms, chest pain, shortness of breath or fever please contact your PCP or return to the ED. Current Hospital Diet Patient's current hospital diet: Regular Diet Discharge Diet Recommended Diet: Regular Diet, Low Fat Diet Procedures Procedures Performed: SAHRA KING Pending Studies Studies pending at discharge: no Laboratory Results Results Past 24 Hours Test 10/29/17 06:57 Range/Units White Blood Count 12.48 4.8-10.8 K/uL Red Blood Count 4.51 4.7-6.1 M/uL Hemoglobin 13.0 14.0-18.0 g/dL Hematocrit 38.5 42-52 % Mean Corpuscular Volume 85.4 80-100 fL Mean Corpuscular Hemoglobin 28.8 25-34 pg Mean Corpuscular Hemoglobin Concent 33.8 32-36 g/dl Platelet Count 257 130-400 K/uL Mean Platelet Volume 10.4 7.4-10.4 fL Neutrophils (%) (Auto) 76.8 % Lymphocytes (%) (Auto) 12.7 % Monocytes (%) (Auto) 8.3 % Eosinophils (%) (Auto) 0.7 % Basophils (%) (Auto) 0.2 % Neutrophils # (Auto) 9.59 1.4-6.5 K/uL Lymphocytes # (Auto) 1.59 1.2-3.4 K/uL Monocytes # (Auto) 1.03 0.11-0.59 K/uL Eosinophils # (Auto) 0.09 0-0.5 K/uL Basophils # (Auto) 0.02 0-0.2 K/uL RDW Standard Deviation 45.3 36.4-46.3 fL RDW Coefficient of Variation 14.5 11.5-14.5 % Immature Granulocyte % (Auto) 1.3 % Immature Granulocyte # (Auto) 0.16 0.00-0.02 K/uL Prothrombin Time 13.4 9.0-12.0 SECONDS Prothromb Time International Ratio 1.3 0.9-1.1 Sodium Level 142 136-145 mmol/L Potassium Level 3.9 3.5-5.1 mmol/L Chloride Level 112 98-107 mmol/L Carbon Dioxide Level 24 21-32 mmol/L Anion Gap 6.0 3-11 mmol/L Blood Urea Nitrogen 9 7-18 mg/dl Creatinine 0.73 0.60-1.40 mg/dl Est Creatinine Clear Calc Drug Dose 74.2 ml/min Estimated GFR () 99.4 Estimated GFR (Non- 85.8 BUN/Creatinine Ratio 11.9 10-20 Random Glucose 120 70-99 mg/dl Lactic Acid Level 1.4 0.4-2.0 mmol/L Calcium Level 8.0 8.5-10.1 mg/dl Total Bilirubin 0.9 0.2-1 mg/dl Direct Bilirubin 0.3 0-0.2 mg/dl Aspartate Amino Transf (AST/SGOT) 58 15-37 U/L Alanine Aminotransferase (ALT/SGPT) 53 12-78 U/L Alkaline Phosphatase 63 45-117 U/L Total Protein 5.6 6.4-8.2 gm/dl Albumin 2.0 3.4-5.0 gm/dl Globulin 3.6 2.5-4.0 gm/dl Albumin/Globulin Ratio 0.6 0.9-2 Medical Emergencies . Who to Call and When: Medical Emergencies: If at any time you feel your situation is an emergency, please call 911 immediately. . Non-Emergent Contact Non-Emergency issues call your: Primary Care Provider . . "Provider Documentation" section prepared by Rika Cuevas. .
[2017-10-29 15:41] VITALS: BP_SYST 148; BP_SYST 152; BP_SYST 155; BP_DIAS 80; BP_DIAS 86; BP_DIAS 89; PULSE 62; PULSE 63; PULSE 72; TEMP 36.4; O2SAT 95
[2017-10-29] MEDS: WARFARIN SOD 5 MG TAB PO SCH (16:31)
[2017-10-29 16:44] VITALS: BP 155/89; PULSE 72; TEMP 36.4; O2SAT 95
[2017-10-29] MEDS ORDERED: NURSING VERBAL MED ORDER ONE (16:45)
[2017-10-29] MEDS ORDERED: DOXYCYCLINE HYCLATE 100 MG CAP PO ONE (17:00)
--- NOTE | 2017-10-29 17:15 | Discharge Summary ---
Discharge Summary Date of Service Oct 29, 2017. Discharge Summary Admission Date: Oct 27, 2017 at 13:01 Discharge Date: Oct 29, 2017 Discharge Disposition: Home Principal Diagnosis: Acute on chronic Cholecystitis Problems/Secondary Diagnoses: Lyme disease Immunizations: Have You Had Influenza Vaccine: No History of Tetanus Vaccine?: Unknown History of Pneumococcal: Yes Pneumococcal Date: Mar 24, 2009 History of Hepatitis B Vaccine: Unknown Consultations: HEAD WITHOUT CONTRAST (CT) CLINICAL HISTORY: 81 years-old Male with EVALUATE WEAKNESS. Acute weakness TECHNIQUE: Multiple axial CT images of the head were obtained without contrast. A dose lowering technique was utilized adhering to the principles of ALARA. CT DOSE: 614.27 mGy.cm COMPARISON: CT head 10/20/2017. FINDINGS: No acute intracranial hemorrhage, midline shift, intracranial mass, hydrocephalus, territorial ischemia or abnormal extra-axial collection. Moderate brain atrophy. Multifocal ill-defined areas of low-attenuation within the periventricular and subcortical white matter suggest chronic microvascular ischemic changes. Cerebral vascular calcifications are seen at the level of the skull base. The calvarium is intact. Mild mucosal thickening of the anterior lateral and inferior frontal sinuses. Mild rightward bowing and spurring of the nasal septum. Prior bilateral cataract repair. Soft tissues and orbits are unremarkable. IMPRESSION: No acute intracranial abnormality. The above report was generated using voice recognition software. It may contain grammatical, syntax or spelling errors. Electronically signed by: Isaiah Wilks M.D. 10/25/2017 7:14 PM CHEST ONE VIEW PORTABLE HISTORY: 81 years-old Male EVALUATE WEAKNESS acute weakness COMPARISON: Chest radiograph 10/20/2017 TECHNIQUE: Portable AP view of the chest FINDINGS: Prior median sternotomy. Cardiac silhouette is mildly enlarged. Atherosclerosis of the aorta. Surgical clips project over the left lung apex. Improved aeration of the bilateral lungs without pneumothorax. Mild blunting of the costophrenic angles suggests trace effusions. Minimal subsegmental left basilar opacities suggest atelectasis. Degenerative changes of the shoulders and spine. IMPRESSION: 1. Cardiomegaly with improved aeration of the bilateral lungs. 2. Suspected trace pleural effusions with subsegmental left basilar opacities suggesting atelectasis. The above report was generated using voice recognition software. It may contain grammatical, syntax or spelling errors. Electronically signed by: Isaiah Wilks M.D. 10/25/2017 6:57 PM Dictated Date/Time: 10/25/2017 6:55 PM GALLBLADDER-ABD LIMITED HISTORY: 81 years-old Male ELEVATED lfts acutely elevated LFTs COMPARISON: CT abdomen and pelvis 11/18/2014 TECHNIQUE: Multiple real-time sonographic images of the abdominal right upper quadrant were obtained assessing grayscale appearance and color flow FINDINGS: Obscured pancreas secondary to bowel gas. Liver demonstrates homogeneous echogenicity of the parenchyma without marginal nodularity, focal mass or intrahepatic or ductal dilation. Gallbladder is mildly contracted with wall measuring 5 mm. No pericholecystic fluid identified. Echogenicity with ringdown artifact of the fundal gallbladder on image 30 suggests probable adenomyomatosis. 1 cm stone is seen within the gallbladder neck. Sonographic Springer sign reported as negative. Common bile duct is normal, 4 mm. Cortical thinning about the right kidney with increased echogenicity suggests chronic medical renal disease. No hydronephrosis. IMPRESSION: 1. 1.0 cm gallstone of the gallbladder neck. Gallbladder is mildly contracted with wall thickening. No pericholecystic fluid collections. No convincing sonographic evidence of acute cholecystitis. 2. No biliary ductal dilation. 3. Evidence of chronic medical renal disease. The above report was generated using voice recognition software. It may contain grammatical, syntax or spelling errors. Electronically signed by: Isaiah Wilks M.D. 10/25/2017 8:56 PM Dictated Date/Time: 10/25/2017 8:52 PM ] BILATERAL CAROTID DOPPLER STUDY HISTORY: new left facial weakness COMPARISON: None. TECHNIQUE: Real-time, grayscale, and color Doppler sonography of the carotid arteries was performed. Imaging reviewed in the transverse and longitudinal planes. All measurements were calculated based on NASCET criteria. FINDINGS: Antegrade flow is seen in the bilateral vertebral arteries. The brachial pressures were not obtained. Mild right and moderate left carotid bifurcation calcification. The peak systolic velocity within the right ICA is 78 cm/s. The right systolic ratio is 1.1. The peak systolic velocity within the left ICA is 156 cm/s proximally. The left systolic ratio is 2.3. Elevated velocities within the bilateral external carotid arteries consistent with additional areas of stenosis. IMPRESSION: 1. Approximately 60-70% stenosis within the proximal left internal carotid artery. 2. No significant stenosis within the right internal carotid artery. 3. Bilateral external carotid artery stenosis. Electronically signed by: Mekhi Michael M.D. 10/26/2017 12:15 PM Dictated Date/Time: 10/26/2017 12:13 PM RIGHT SHOULDER 3 VIEWS HISTORY: fall onto R shoulder COMPARISON: None. FINDINGS: There is no fracture or dislocation. The right clavicle is intact. Superior subluxation of the humeral head in relation to the glenoid with [id number] articulation at the undersurface of the acromion. This is consistent with chronic rotator cuff tear. Moderate degenerative changes within the right shoulder. IMPRESSION: No fracture or dislocation within the right shoulder. Chronic rotator cuff injury is noted. Electronically signed by: Mekhi Michael M.D. 10/26/2017 1:44 PM Dictated Date/Time: 10/26/2017 1:43 PM ] ABDOMEN AND PELVIS CT WITH IV CONTRAST CT DOSE: 407.61 mGy.cm HISTORY: Increased WBC and Lactate, known gallstone in CBD ?source of ifx TECHNIQUE: Multiaxial CT images of the abdomen and pelvis were performed following the use of intravenous contrast. A dose lowering technique was utilized adhering to the principles of ALARA. COMPARISON STUDY: Abdomen and pelvis CT 11/18/2016. Abdominal ultrasound 10/25/2017. FINDINGS: Mild dependent changes seen within the lung bases posteriorly. No pneumoperitoneum. No pneumatosis. No suspicious lytic or blastic osseous lesions. Healing right lateral rib fractures. Poststernotomy changes. The liver, spleen, adrenal glands, pancreas, and kidneys are unremarkable. The previously described gallstone within the gallbladder neck is not well visualized by CT. No gallbladder wall thickening. There is a 4.0 x 4.0 cm infrarenal abdominal aortic aneurysm. This has increased in size. No retroperitoneal lymphadenopathy. The bladder is unremarkable. 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 Colonic diverticulosis. No evidence for diverticulitis. No bowel wall thickening or obstruction. Mild thickening of the distal esophagus, unchanged. IMPRESSION: 1. Increase in size in the 4 cm infrarenal abdominal aortic aneurysm. 2. Otherwise, no significant change compared to the prior study. 3. No bowel wall thickening or obstruction. 4. Colonic diverticulosis. 5. The previously described gallstone is not identified by CT. 6. Healing right lateral rib fractures. Electronically signed by: Mekhi Michael M.D. 10/26/2017 3:02 PM Dictated Date/Time: 10/26/2017 2:52 PM ] GALLBLADDER-ABD LIMITED HISTORY: 81 years-old Male follow up follow-up study in a patient with cholelithiasis. COMPARISON: CT 10/26/2017, gallbladder ultrasound 10/25/2017 TECHNIQUE: Multiple real-time sonographic images of the abdominal right upper quadrant were obtained assessing grayscale appearance and color flow FINDINGS: 1.4 cm mobile stone is again seen within the gallbladder neck. Gallbladder appears mildly contracted with wall measuring in the upper limits of normal at 3 mm. No pericholecystic fluid. Positive sonographic Springer sign was not reported. Pattern Weaver reports patient confusion. Common bile duct is normal for patient age, 6 mm. IMPRESSION: 1. 1.4 cm mobile stone of the gallbladder neck redemonstrated. Gallbladder wall measures in the limits of normal at 3 cm. No pericholecystic fluid identified and no reported right upper quadrant tenderness. Correlate clinically to assess for signs of acute cholecystitis. 2. No biliary ductal dilation. The above report was generated using voice recognition software. It may contain grammatical, syntax or spelling errors. Electronically signed by: Isaiah Wilks M.D. 10/27/2017 11:13 AM Dictated Date/Time: 10/27/2017 11:04 AM L SHOULDER MIN 2 VIEWS ROUTINE HISTORY: 81 years-old Male shoulder pain, fall acute left shoulder pain status post fall COMPARISON: None available TECHNIQUE: 3 views of the left shoulder FINDINGS: Moderate glenohumeral and moderate to severe acromioclavicular osteoarthritis. Bones appear mildly demineralized. There is no acute fracture or dislocation. Humeral head is high riding within the glenoid fossa with decreased coracohumeral interval of 3 mm. Prior median sternotomy. Imaged lung collier appear clear. IMPRESSION: 1. Moderate glenohumeral osteoarthritis without acute fracture or dislocation. 2. High riding humeral head with decreased coracohumeral interval suggests underlying chronic rotator cuff tear. The above report was generated using voice recognition software. It may contain grammatical, syntax or spelling errors. Electronically signed by: Isaiah Wilks M.D. 10/27/2017 2:06 PM Dictated Date/Time: 10/27/2017 2:04 PM ] CHOLANGIOGRAM O.R. CLINICAL HISTORY: Cholelithiasis. Intraoperative imaging during cholecystectomy. COMPARISON STUDY: Gallbladder ultrasound dated 10/27/2017 FLUOROSCOPY TIME: 5 seconds. NUMBER OF FLUOROSCOPIC IMAGES: 1 FINDINGS: There is opacification of the common bile duct and common hepatic duct. There is opacification of the right hepatic lobe into biliary tree. There are no filling defects to indicate retained calculi. There is free flow into the duodenum. IMPRESSION: No retained calculi identified Electronically signed by: Romie Burdick M.D. 10/28/2017 9:54 AM Dictated Date/Time: 10/28/2017 9:53 AM Medication Reconciliation New Medications: Doxycycline Monohydrate (Monodox) 100 Mg Cap 100 MG PO BID for 21 Days, #42 CAP Continued Medications: Aspirin (Aspirin Ec) 81 Mg Tab 81 MG PO DAILY Atorvastatin (Lipitor) 40 Mg Tab 40 MG PO HS Levothyroxine Sodium (Levothyroxine Sodium) 50 Mcg Tab 50 MCG PO DAILY Metoprolol Succinate (Metoprolol Succinate ER) 25 Mg Tabcr 25 MG PO DAILY Warfarin Sod (Jantoven) 3 Mg Tab 3 MG PO WK TAKE 3 MG EVERY SATURDAY OR OTHERWISE DIRECTED TO TAKE BY ANTICOAGULATION CLINIC/MD Warfarin Sod (Jantoven) 2 Mg Tab 2 MG PO 6XWK TAKE 2 MG EVERY SATURDAY,SATURDAY,SATURDAY,SATURDAY,SATURDAY AND SATURDAY OR OTHERWISE DIRECTED TO TAKE BY ANTICOAGULATION CLINIC/MD Discontinued Medications: Meclizine HCl (Meclizine HCl) 25 Mg Tab 25 MG PO TID PRN for Dizziness or Vertigo Triamterene/Hctz (Dyazide 37.5MG/25MG) Cap 1 CAP PO DAILY, CAP Discharge Exam Constitutional: No fever, No chills Respiratory: No cough, No shortness of breath Cardiovascular: No chest pain, No edema, No palpitations Abdomen: No pain, No nausea, No vomiting Male : No dysuria, No urinary frequency GENERAL: alert, no distress, EYE EXAM: normal conjunctiva, PERRL and EOM's grossly intact OROPHARYNX: no exudate, no erythema, lips, buccal mucosa, and tongue normal and mucous membranes are moist NECK: supple, no adenopathy LUNGS: Clear to auscultation. Normal chest wall mechanics HEART: no murmurs, S1 normal and S2 normal ABDOMEN: abdomen soft, laparoscopic wounds clean dry, steri-strips in place, normo-active bowel sounds, no masses, no rebound or guarding. BACK: Back is symmetrical on inspection and there is no deformity SKIN: no rashes UPPER EXTREMITIES: upper extremities are grossly normal. LOWER EXTREMITIES: No pitting edema. 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 The weakness has been going on for weeks. Patient has had numerous falls in the past 4 months and has been seeing PT in [place] for it. The patient is most concerned about his history of falls. Patient is focused on telling me about his fall in March 2017 where he tripped over a curb that he didn't see while he was leaving the physical therapy facility. When refocused to his current episode pt states that it wasn' t really a fall but he rather slid down the wall to the ground. When asked why this happened he states that he was weak. Denies pain, denies POC. Pt does follow with [facility] cardiology and when he brought up the issue of falls he states that the manager medicare couldn't find an etiology. On admission he was found to have elevated LFTs and a stone in the gallbladder neck. Pt denies any gallbladder history. Surgery was consulted and they do not feel the patient has acute cholecystitis and recommend inpatient observation , following LFTs and advancing diet. Probable Sepsis in the setting of cholecystitis afebrile, leukocytosis on arrival, BCx NGTD Placed on Cipro/Flagyl and Vancomycin CXR on arrival negative for pneumonia clinically improved with abx, surgery lactate 1.6--> 3.2-->1.6 discharged on Doxycycline RUQ pain, Transaminitis : likely secondary cholelithiasis US gallbladder showed 1cm stone in gallbladder neck w GB wall thickening. No pericholecystic fluid. s/p Lap Cholecystectomy 10/28, tolerated well Gallbladder content culture positive for gram positive cocci, final cx pending Discharged on Doxy as aboce Frequent Falls since March in setting of CABG in 2014 likely secondary to weakness Echo (10/26) mildly reduced systolic function. EF 45-50%. mild Aortic Sclerosis No EKG Changes. No chest pain. Trop neg. c/w home metoprolol, Lipitor and ASA Left shoulder pain Xray negative for fx possibly Lyme disease related Lyme disease - positive Lyme disease panel - Started Doxycycline 10/29 and continued on discharge H/o PE and DVT on Coumadin Warfarin held prior to surgery restarted prior to discharge Hypothyroidism Synthroid h/o Vertigo c/w Meclizine PRN Diet: NPO w IVF after midnight Dispo: Tele DVT Proph: SCDs FULL CODE Resident Physician Supervision Note: I interviewed and examined the patient. Discussed with Dr. Clemente and agree with findings and plan as documented in the note. Any exceptions or clarifications are listed here: None Documented By: Kash Gonzalez feeling better. extensive discussion with pt, then reiterated discussion with family who arrived ( and stepson), then called dtr davy and 20+ minute conversation as well metnal status appearing to clear. did well w PT and OT. discussed that with cholecystitis now improved, and lyme being treated, no other clear nidus for weakness (thought BP related but no orthostatics and 2 alternate explainations with the GB and lyme) pt quite comfortable with going home - just had to remind him ~3 times no [address] until seen by PCP/until improved more. family present in the room quite comfortable with him going home - noted that [facility] would stay with them at least until tomorrow and then anticipated davy staying. davy (not present, so hadn't seen pt's progress) quite nervous - i offered empathy wtih this but stepwise discussed how he appears much better and as a pleasant surprise on all counts he appears stable for home. home nursing, home PT. cholecystitis - home, surgery f/u lyme - doxy shoulder pain - suspect rotator cuff injury - ortho as outpt, PT for now stable for home with family support well over an hour spent on his care today Total Time Spent: Greater than 30 minutes This includes examination of the patient, discharge planning, medication reconciliation, and communication with other providers. Discharge Instructions Please refer to the electronic Patient Visit Report (Discharge Instructions) for additional information. Additional Copies To Curtis Carrillo M.D. Resident Tracking Resident Involvement: Resident Care Provided Care Provided: Adult [facility]
--- NOTE | 2017-11-04 13:06 | EDITING REQUIRED CODING QUERY ---
PRESENT ON ADMISSION QUERY To promote full compliance with coding requirements relating to patient care, physician participation is requested in all cases of food processing chemist uncertainty. Please assist us with the question(s) below: Please place an X within the parenthesis (x). The following diagnosis listed in this patient's medical record requires physician assistance to determine if they were present on admission (POA) or not. Please advise for each diagnosis whether it was present on admission, not present on admission, or if it was clinically undetermined. 1. Sepsis, first documented in 10/26 PN ( ) Present On Admission ( ) Not Present On Admission (x ) Clinically Undetermined -- strongly suspicious for sepsis on admission based on presentation, but didn't truly meet SIRS criteria Thank you! Winifred Amato *Definition of the present on admission (POA)-Present on admission is defined as present at the time the order for inpatient admission occurs. Conditions that develop during an outpatient encounter prior to a written order for inpatient admission (including emergency department, observation, or outpatient surgery) are considered present on admission.
[2017-11-25] MEDS ORDERED: OXYC-737 PO (04:44)
== END 2017-10-29 17:56 | disposition home health service (06) | DRG 417 ==
LOC: EDBD 18:03 → C.EDA 18:04 → EDBEDREQSVC 23:11 → C.2T 23:12 → ENRESERV 23:16 → C.MS2W 10-26 10:05 → OBSVTOIN 10-27 13:01
PROVIDERS: ADMIT Internal Medicine; ATTEND Family Medicine
PROC: 0FT44ZZ Resection of Gallbladder, Percutaneous Endoscopic Approach (ICD-10-PCS; principal; 2017-10-28 07:30)
DX: K80.00 Calculus of gallbladder with acute cholecystitis without obstruction (principal); A41.9 Sepsis, unspecified organism; A69.20 Lyme disease, unspecified; R42 Dizziness and giddiness; I25.10 Atherosclerotic heart disease of native coronary artery without angina pectoris; E03.9 Hypothyroidism, unspecified; M10.9 Gout, unspecified; R29.6 Repeated falls; R21 Rash and other nonspecific skin eruption; M25.512 Pain in left shoulder; T36.1X5A Adverse effect of cephalosporins and other beta-lactam antibiotics, initial encounter; Z79.01 Long term (current) use of anticoagulants; Z79.82 Long term (current) use of aspirin; Z79.899 Other long term (current) drug therapy; Z86.711 Personal history of pulmonary embolism; Z86.718 Personal history of other venous thrombosis and embolism; Z92.3 Personal history of irradiation; Z95.1 Presence of aortocoronary bypass graft; Z91.81 History of falling

== ENCOUNTER 2017-12-09 12:38 | Inpatient (IN) | payer BC, OTHER ==
[2017-12-06 14:13] VITALS: BMI 23.0
[~2017-12-09] VITALS: Ht 172.7 cm; Wt 68.5 kg
[~2017-12-09 12:38] MED LIST changes: -MECL-91 PO; +OXYC-737 PO; -WARF3TAB6 PO
[2017-12-09] MEDS ORDERED: SODIUM CHLORIDE 0.9% 500ML 500 ML IV ONE (13:07)
--- NOTE | 2017-12-09 13:09 | Endo History and Physical ---
History & Physical Date of Service: Dec 09, 2017. Chief Complaint: Abnormal CT scan esophagus Referring Physician: Dr. Carrillo History of Present Illness 82 yo CM who presents for EGD secondary to abnormal CT scan of the esophagus. Past Medical History Cancer, [place] Past Surgical History Hx Cardiac Surgery: Yes (CABG) Hx Internal Defibrillator: No Hx Pacemaker: No Hx Abdominal Surgery: Yes (LAP MAGDIEL) Hx of Implantable Prosthesis: No Hx Post-Op Nausea and Vomiting: No Hx Cancer Surgery: Yes (PROSTATECTOMY) Hx Thoracic Surgery: No Hx Orthopedic: No Hx Urinary Tract Surgery: No Family History None Social History Smoking Status: Former Smoker Hx Substance Use: No Hx Alcohol Use: No Allergies Coded Allergies: Cephalosporins (Verified Allergy, Severe, RASH, 12/06/17) Current Medications Reported Home Medications Medications Dose Route/Sig Max Daily Dose Days Date Category Dose Instructions Roxicodone Ir (Oxycodone HCl) 5 Mg Tab 0.5-1 Tab PO Q4H PRN 11/25/17 Rx initial treatment Jantoven (Warfarin Sodium) 2 Mg Tab 2 Mg PO DAILY 12/30/16 Reported TAKE 2 MG EVERY DAY OR OTHERWISE DIRECTED TO TAKE BY ANTICOAGULATION CLINIC/ Lipitor (Atorvastatin Calcium) 40 Mg Tab 40 Mg PO HS 12/30/16 Reported Metoprolol Succinate ER (Metoprolol Succinate) 25 Mg Tabcr 25 Mg PO DAILY 12/30/16 Reported Aspirin Ec (Aspirin) 81 Mg Tab 81 Mg PO DAILY 09/15/14 Reported Levothyroxine Sodium 50 Mcg Tab 50 Mcg PO DAILY 08/27/14 Reported Vital Signs Weight (Kilograms): 68.18 Height (Feet): 5 Height (Inches): 7.5 Physical Exam General Appearance: WD/WN, no apparent distress Respiratory/Chest: Auscultation: breath sounds normal Cardiovascular: Heart Auscultation: RRR Abdomen: Bowel Sounds: normal Inspection & Palpation: soft, non-distended, no tenderness, guarding & rebound Assessment and Plan Assessment: 82 yo CM who presents for EGD secondary to abnormal CT scan of the esophagus. Plan: Proceed with EGD
[2017-12-09] MEDS ORDERED: PROPOFOL IV EMULSION 10 MG/ML 20 ML VIAL ONE (14:12)
[2017-12-09] MEDS ORDERED: LIDOCAINE HCL 2% 2 ML VIAL (20MG/ML) ONE (14:12)
--- NOTE | 2017-12-09 14:16 | GI REPORT ---
Patient Name: Félix Garza Procedure Date: 12/09/2017 1:53 PM Date of : 1935 Admit Type: Outpatient Age: 82 Gender: Male Attending MD: Kobe Whitney DO Procedure: Upper GI endoscopy Providers: Kobe Whitney DO Referring MD: Curtis Carrillo Indications: Abnormal CT of the GI tract Medicines: Monitored Anesthesia Care Complications: No immediate complications. Estimated Blood Loss: Estimated blood loss: none. Procedure: Pre-Anesthesia Assessment: - Prior to the procedure, a History and Physical was performed, and patient medications and allergies were reviewed. The patient's tolerance of previous anesthesia was also reviewed. The risks and benefits of the procedure and the sedation options and risks were discussed with the patient. All questions were answered, and informed consent was obtained. Prior Anticoagulants: The patient last took aspirin 1 day and Coumadin (warfarin) 5 days prior to the procedure. ASA Grade Assessment: III - A patient with severe systemic disease. After reviewing the risks and benefits, the patient was deemed in satisfactory condition to undergo the procedure. After obtaining informed consent, the endoscope was passed under direct vision. Throughout the procedure, the patient's blood pressure, pulse, and oxygen saturations were monitored continuously. The scope was introduced through the mouth, and advanced to the second part of duodenum. The upper GI endoscopy was accomplished without difficulty. The patient tolerated the procedure well. Findings: A mild Schatzki ring (acquired) was found at the gastroesophageal junction. A TTS dilator was passed through the scope. Dilation with a 15-16.5-18 mm balloon dilator was performed to 18 mm. A medium-sized hiatal hernia was present. Localized moderate inflammation characterized by erosions and erythema was found in the gastric antrum. Biopsies were taken with a cold forceps for histology. The examined duodenum was normal. Impression: - Mild Schatzki ring. Dilated. - Medium-sized hiatal hernia. - Gastritis. Biopsied. - Normal examined duodenum. Recommendation: - Resume previous diet. - Use Protonix (pantoprazole) 40 mg PO daily. - Await pathology results. - Return to primary care physician as previously scheduled. - Resume aspirin tomorrow and Coumadin (warfarin) in 3 days at prior doses. Kobe Whitney DO 12/09/2017 2:16:37 PM This report has been signed electronically. Note Initiated On: 12/09/2017 1:53 PM Number of Addenda: 1 I attest to the content of the Intraoperative Record and orders documented therein, exceptions below Addendum Number: 1 Addendum Date: 12/09/2017 4:57:45 PM Patient had significant bilateral chest pain post-EGD with dilation. CT Chest was ordered stat and showed pneumomediastinum. I contacted Dr. Barnett immediately and he saw patient at bedside. Patient was given Protonix gtt and Zosyn 3.375 g IV Discussed case with Dr. Barone who admitted patient. He will be kept strict NPO and observed. Kobe G. Devonte, DO 12/09/2017 4:59:44 PM This report has been signed electronically. {[id number]}
--- NOTE | 2017-12-09 14:18 | Discharge Instructions ---
Endoscopy Patient Instructions Date / Procedure(s) Performed Dec 09, 2017. EGD Allergy Information Coded Allergies: Cephalosporins (Verified Allergy, Severe, RASH, 12/06/17) Discharge Date / Findings Dec 09, 2017. Schatzki's ring s/p dilation Hiatal hernia Gastritis s/p biopsies Medication Instructions Stopped Medication(s): COUMADIN 5 DAYS AGO, ASPIRIN YESTERDAY Reported Home Medications Medications Dose Route/Sig Max Daily Dose Days Date Category Dose Instructions Roxicodone Ir (Oxycodone HCl) 5 Mg Tab 0.5-1 Tab PO Q4H PRN 11/25/17 Rx initial treatment Jantoven (Warfarin Sodium) 2 Mg Tab 2 Mg PO DAILY 12/30/16 Reported TAKE 2 MG EVERY DAY OR OTHERWISE DIRECTED TO TAKE BY ANTICOAGULATION CLINIC/ Lipitor (Atorvastatin Calcium) 40 Mg Tab 40 Mg PO HS 12/30/16 Reported Metoprolol Succinate ER (Metoprolol Succinate) 25 Mg Tabcr 25 Mg PO DAILY 12/30/16 Reported Aspirin Ec (Aspirin) 81 Mg Tab 81 Mg PO DAILY 09/15/14 Reported Levothyroxine Sodium 50 Mcg Tab 50 Mcg PO DAILY 08/27/14 Reported 1) Restart Aspirin today 2) Restart Coumadin in 3 days 3) Start Pantoprazole 40mg by mouth each morning 1/2 hour prior to breakfast. 4) OK to restart all other medications today as prescribed Provider Instructions Activity Restrictions - No exercising or heavy lifting for 24 hours. - Do not drink alcohol the day of the procedure. - Do not drive a car or operate machinery until the day after the procedure. - Do not make any important decisions or sign important papers in 24 hours after the procedure. Following Day: - Return to full activity which may include returning to work/school. Diet Start your diet with liquids and light foods (jello, soup, juice, toast). Then eat your usual diet if not nauseated. Treatment For Common After Affects For mild abdominal pain, bloating, or excessive gas: - Rest - Eat lightly - Lie on right side Follow-Up Information Follow-up with VÍCTOR MEEK PA-C as scheduled Anesthesia Information What You Should Know You have had a procedure that required some medicine to reduce anxiety and discomfort. This treatment is called moderate sedation. After receiving the treatment, you may be sleepy, but you will be able to breathe on your own. The effects of the treatment may last for several hours. Follow these instructions along with Activity/Diet recommendations noted above: * Do NOT do anything where dizziness or clumsiness would be dangerous. * Rest quietly at home today, then you can be up and about tomorrow. * Have a responsible person stay with you the rest of today. * You may have had an I.V. today. If so, you may take the dressing off later today. Recommendations Call your doctor if: * Trouble breathing * Continuous vomiting for more than 24 hours * Temperature above 101 degrees * Severe abdominal pain or bloating * Pain not relieved by pain medicine ordered * There is increased drainage or redness from any incision * A large amount of rectal bleeding greater than 2-3 tablespoons. (If you had a polyp/s removed or have hemorrhoids, a small amount of blood - from the rectum is to be expected.) * You have any unanswered questions or concerns. IN THE EVENT OF A SERIOUS EMERGENCY, GO TO THE NEAREST EMERGENCY ROOM Your discharge instructions were prepared by provider Kobe Whitney. Patient Instructions Signature Page Félix Garza Patient (or Guardian) Signature/Date: I have read and understand the instructions given to me by my caregivers. Caregiver/RN/Doctor Signature/Date: The above-named patient and/or guardian has received patient instructions on this date. + Original Patient Signature Page (only) stays with chart. Please make copy for patient.
--- NOTE | 2017-12-09 15:30 | DIAGNOSTIC IMAGING REPORT ---
CT OF THE CHEST WITHOUT IV CONTRAST CLINICAL HISTORY: EGD s/p dilation. COMPARISON STUDY: Chest CT November 25, 2017 and chest radiograph November 26, 2017. CT DOSE: 362.03 mGycm TECHNIQUE: Axial images of the chest were obtained without IV contrast. Images were reviewed in the axial, sagittal, and coronal planes. IV contrast was not administered for this examination. A dose lowering technique was utilized adhering to the principles of ALARA. FINDINGS: No enlarged axillary, mediastinal or hilar lymph nodes are present. There are median sternotomy wires. Extensive coronary artery calcification is present. Mild cardiomegaly is noted. A small amount of pneumomediastinum is noted. There is moderate circumferential wall thickening of the esophagus with a small hiatal hernia. Note is made of moderate pneumoperitoneum within the upper abdomen which appears to arise from the posterior aspect of the gastric cardia, shown on axial image 273 of 321. Gas extends across the gastric wall on this image. There is no consolidation to suggest pneumonia. Subpleural reticulation with lucencies is noted with a basilar predominance. This may reflect early honeycombing. There are multiple subacute to acute right-sided rib fractures with no pneumothorax. IMPRESSION: 1. Moderate pneumoperitoneum and small amount of pneumomediastinum consistent with a perforated hollow viscus. The posteromedial wall of the gastric cardia is favored as the source for the perforation. Discussed with Dr. Whitney at time of dictation. 2. Small hiatal hernia with esophageal wall thickening which favors esophagitis. 3. Interstitial lung disease, as described above. Electronically signed by: Frandy Fenton M.D. 12/09/2017 3:28 PM Dictated Date/Time: 12/09/2017 3:18 PM
[2017-12-09] MEDS ORDERED: PIPERACILL/TAZOBAC CONSULT ACTIVE PRN ×2 (15:45)
[2017-12-09] MEDS ORDERED: PANTOprazole INJ 80 MG in DEXTROSE 5% 100ML IV ONE (16:00)
[2017-12-09] MEDS ORDERED: PIPERACILL/TAZOBAC IV 3.375 GM in DEXTROSE 5% 100ML 100 ML IV ONE (16:00)
[2017-12-09] MEDS ORDERED: PANTOprazole INJ 40 MG in DEXTROSE 5% 100ML IV SCH (16:15)
[2017-12-09] MEDS ORDERED: MoRPHine SULFATE 2 MG/ML CARP IV PRN (16:30)
[2017-12-09] MEDS ORDERED: ONDANSETRON INJ 2 MG/ML 2 ML VIAL IV PRN (16:30)
--- NOTE | 2017-12-09 16:33 | Anesthesiology Progress Note ---
Anesthesia Post Op Note Date & Time Dec 09, 2017 at 16:28 Vital Signs Pain Intensity: 7 Vital Signs Past 12 Hours Date Time Temp Pulse Resp B/P (MAP) Pulse Ox O2 Delivery O2 Flow Rate FiO2 12/09/17 16:15 60 20 148/80 (102) 99 Nasal Cannula 2 12/09/17 16:00 58 20 152/82 (105) 100 Nasal Cannula 2 12/09/17 15:45 59 20 156/75 (102) 100 Nasal Cannula 2 12/09/17 15:15 60 20 170/89 (116) 100 Nasal Cannula 2 12/09/17 15:00 36.5 66 24 166/106 (126) 98 Nasal Cannula 2 12/09/17 14:30 69 20 187/97 (127) 100 Room Air 12/09/17 14:18 53 20 179/84 (115) 97 Room Air 12/09/17 13:34 36.5 53 20 115/60 (78) 97 Room Air Notes Mental Status: alert / awake / arousable, participated in evaluation Pt Amnestic to Procedure: Yes Nausea / Vomiting: adequately controlled Pain: adequately controlled Airway Patency, RR, SpO2: stable & adequate BP & HR: stable & adequate Hydration State: stable & adequate Anesthetic Complications: no major complications apparent Upon awakening, patient had sharp chest pain radiating to shoulders. This was minimally responsive to treatment. He was hypertensive, but otherwise vital signs were unremarkable. Dr Wihtney and Dr Aburto discussed the case and did order a CT scan to rule out an esophageal perforation. CT did show a small amount of free air indicating a perforation. Internal medicine was consulted by Dr Whitney and the hospitalist has been by to the recovery room to see and admit the patient. By the time I received signout from Dr Aburto and performed an initial evaluation, the patient's diastolic blood pressure had decreased to the 80s and he was no longer symptomatic from a chest pain standpoint. ECG showed no acute concerns and he had no subjective dyspnea. I feel he is appropriate for transfer out of the PACU for continued medical management.
--- NOTE | 2017-12-09 16:44 | History and Physical ---
History & Physical Date & Time of Service: Dec 09, 2017 at 16:41 Chief Complaint: Abd Discomfort Pager [phone] Primary Care Physician: Curtis Carrillo M.D. History of Present Illness Source: patient, family Mr. Garza is an 82 y/o male with PMHx of CAD with CABG (2014), NSTEMI, Hypothyroidism, PE/DVT on Coumadin (2011), Acute/Chronic R Rib Fx, Interstitial Lung Disease, and Recent Lyme who had an EGD for Schatzki Ring dilation with perforation. Patient developed sharp chest pain with radiation into the shoulders bilaterally upon awakening. CT shows moderate pneumoperitoneum and a small pneumomediastinum suggesting perforated viscus. Pain improved after return from CT scanner. Rating discomfort as a 2/10 at this time. Vitals remain stable. Intermittently bradycardic but asymptomatic and likely related to his BB therapy. He states he didn't take his BB this AM. He reports his Coumadin has been on hold for this scope. He reports his Coumadin is for a H/O DVT/PE in 2011. He also reports acute/chronic R sided rib fractures. Patient was evaluated by Dr. Barnett and plan is for monitoring a strict NPO at this time. Patient will be started on Protonix gtt and Zosyn. EGD shows mild schatzki ring which was dilated, medium hiatal hernia, and gastritis. Past Medical/Surgical History 1. CAD with CABG x 3 (2014) 2. Hypothyroidism 3. PE/DVT on Coumadin 4. Prostate CA S/P Radiation 5. Mixed Systolic/Diastolic CHF 6. NSTEMI 7. S/P Cholecystectomy Family History Heart disease Social History Smoking Status: Former Smoker Drug Use: none Marital Status: Occupational Status: retired Immunizations History of Influenza Vaccine: No History of Tetanus Vaccine?: Unknown History of Pneumococcal: Yes Pneumococcal Date: Mar 24, 2009 History of Hepatitis B Vaccine: Unknown Allergies Coded Allergies: Cephalosporins (Verified Allergy, Severe, RASH, 12/06/17) Home Medications Scheduled Aspirin (Aspirin Ec), 81 MG PO DAILY Atorvastatin (Lipitor), 40 MG PO HS Levothyroxine Sodium (Levothyroxine Sodium), 50 MCG PO DAILY Metoprolol Succinate (Metoprolol Succinate ER), 25 MG PO DAILY Warfarin Sod (Jantoven), 2 MG PO DAILY Scheduled PRN Oxycodone Immediate Rel Tab (Roxicodone Ir), 0.5-1 TAB PO Q4H PRN for Severe Pain Review of Systems Constitutional: + chills, No fever ENT: No nasal symptoms, No sore throat, No trouble swallowing Respiratory: + cough, No sputum, No shortness of breath Cardiovascular: + chest pain (initially present - currently resolved), No orthopnea Abdomen: No pain, No nausea, No vomiting, No diarrhea, No constipation Musculoskeletal: No swelling, No calf pain Genitourinary - Male: No dysuria Hematologic / Lymphatic: No abnormal bleeding/bruising Integumentary: No rash Physical Exam Vital Signs Date Time Temp Pulse Resp B/P (MAP) Pulse Ox O2 Delivery O2 Flow Rate FiO2 12/09/17 16:30 56 20 170/93 (118) 98 Nasal Cannula 2 12/09/17 16:15 60 20 148/80 (102) 99 Nasal Cannula 2 12/09/17 16:00 58 20 152/82 (105) 100 Nasal Cannula 2 12/09/17 15:45 59 20 156/75 (102) 100 Nasal Cannula 2 12/09/17 15:15 60 20 170/89 (116) 100 Nasal Cannula 2 12/09/17 15:00 36.5 66 24 166/106 (126) 98 Nasal Cannula 2 12/09/17 14:30 69 20 187/97 (127) 100 Room Air 12/09/17 14:18 53 20 179/84 (115) 97 Room Air 12/09/17 13:34 36.5 53 20 115/60 (78) 97 Room Air General Appearance: WD/WN, no apparent distress Head: normocephalic, atraumatic Eyes: sclerae normal ENT: hearing grossly normal Neck: supple, no JVD, trachea midline Respiratory/Chest: lungs clear, normal breath sounds, no respiratory distress, no accessory muscle use Cardiovascular: regular rate, rhythm, + systolic murmur Abdomen/GI: normal bowel sounds, non tender, soft Extremities/Musculoskelatal: no calf tenderness, no pedal edema Neurologic/Psych: alert, oriented x 3 Skin: normal color, warm/dry Diagnostics Diagnostic Radiology CT OF THE CHEST WITHOUT IV CONTRAST FINDINGS: No enlarged axillary, mediastinal or hilar lymph nodes are present. There are median sternotomy wires. Extensive coronary artery calcification is present. Mild cardiomegaly is noted. A small amount of pneumomediastinum is noted. There is moderate circumferential wall thickening of the esophagus with a small hiatal hernia. Note is made of moderate pneumoperitoneum within the upper abdomen which appears to arise from the posterior aspect of the gastric cardia, shown on axial image 273 of 321. Gas extends across the gastric wall on this image. There is no consolidation to suggest pneumonia. Subpleural reticulation with lucencies is noted with a basilar predominance. This may reflect early honeycombing. There are multiple subacute to acute right-sided rib fractures with no pneumothorax. IMPRESSION: 1. Moderate pneumoperitoneum and small amount of pneumomediastinum consistent with a perforated hollow viscus. The posteromedial wall of the gastric cardia is favored as the source for the perforation. Discussed with Dr. Whitney at time of dictation. 2. Small hiatal hernia with esophageal wall thickening which favors esophagitis. 3. Interstitial lung disease, as described above. EKG Poor data quality, interpretation may be adversely affected Normal sinus rhythm Right bundle branch block Cannot rule out Inferior infarct (cited on or before 13-AUG-2014) Abnormal ECG When compared with ECG of 26-NOV-2017 13:07, Premature atrial complexes are no longer Present Questionable change in initial forces of Inferior leads Nonspecific T wave abnormality no longer evident in Inferior leads Impression Assessment and Plan Mr. Garza is an 82 y/o male with PMHx of CAD with CABG x 3 (2014), NSTEMI, Hypothyroidism, PE/DVT on Coumadin (2011), Acute/Chronic R Rib Fx, Interstitial Lung Disease, and Recent Lyme who had an EGD for Schatzki Ring dilation with perforation. Schatzki Ring Dilation with Perforation/Pneumoperitoneum/Pneumomediastinum: - STRICT NPO - Gentle hydration with NSS at 75 mL/hr - Initiate Protonix gtt and Zosyn Q8H - Consult CT Surg - discussed with Dr. Barnett - conservative measures at this time - Consult Gen Surg - updated Dr. Hogan on patient CAD with CABG x 3/NSTEMI/Ischemic Cardiomyopathy and Chronic Mixed Systolic/ Diastolic CHF: - Hold ASA and Atorvastatin at this time - Echo (October 2017) - EF 45-50% with grade I diastolic dysfunction; RCA wall motion abnormality; septal motion consistent with BBB/cardiac surgery - Appears euvolemic at this time but will need to monitor fluid status - review of outpatient records suggest he doesn't normally have issues with heart failure Hypothyroidism: - Convert to Levothyroxine 25 mcg IV H/O DVT/PE (2011): - Coumadin has been on hold prior to scope and will remain on hold given possible surgical intervention Acute on Chronic R-Sided Rib Fx: Noted Interstitial Lung Disease/Emphysema: - Does have a h/o tobacco use - will monitor - no exacerbation Recent Lyme: - Reports finishing treatment for Lyme disease over the past month DVT Prophylaxis: SCDs Code Status: FULL RESUSCITATION Disposition: Monitoring - possible surgical intervention pending clinical course Resuscitation Status VTE Prophylaxis Will order VTE Prophylaxis: Yes
[2017-12-09] MEDS ORDERED: METOPROLOL TARTRATE 1 MG/ML VIAL IV PRN (17:30)
[2017-12-09 17:33] VITALS: BP 129/76; PULSE 62; TEMP 36.8; O2SAT 98
[2017-12-09 17:41] LABS: BASO % 0.1 %; BASO ABS # 0.02 K/uL (0-0.2); EOS % 0.6 %; EOS ABS # 0.08 K/uL (0-0.5); HEMOGLOBIN 12.9 g/dL (14.0-18.0); IG# 0.03 K/uL (0.00-0.02); LYMPH % 11.6 %; MEAN CELL VOLUME 89.9 fL (80-100); MEAN CORPUSCULAR HGB CONC 32.3 g/dl (32-36); MEAN PLATELET VOLUME 10.9 fL (7.4-10.4); MONO % 6.4 %; MONO ABS # 0.88 K/uL (0.11-0.59); NEUT % 81.1 %; NEUT ABS # 11.15 K/uL (1.4-6.5); PLATELET COUNT 198 K/uL (130-400); RED CELL DISTRIBUTION WIDTH SD 52.5 fL (36.4-46.3); WHITE BLOOD COUNT 13.76 K/uL (4.8-10.8)
[2017-12-09] MEDS: SODIUM CHLORIDE 0.9% 1000ML 1,000 ML IV SCH (17:48)
[2017-12-09 17:49] LABS: INR 1.1 (0.9-1.1); PTT PATIENT 26.6 SECONDS (21.0-31.0)
[2017-12-09 18:06] LABS: ALBUMIN 3.1 gm/dl (3.4-5.0); CALCIUM 8.5 mg/dl (8.5-10.1); CREATININE 0.88 mg/dl (0.60-1.40); POTASSIUM 4.6 mmol/L (3.5-5.1); TOTAL PROTEIN 6.4 gm/dl (6.4-8.2)
[2017-12-09 18:13] VITALS: O2SAT 98; BMI 22.9
[2017-12-09 19:45] VITALS: BP 127/75; PULSE 57; TEMP 36.5; O2SAT 99
--- NOTE | 2017-12-09 20:13 | SURGICAL CONSULTATION ---
DATE OF CONSULTATION: 12/09/2017 REASON FOR CONSULTATION: Possible perforated esophagus. 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 About 5 weeks ago, he underwent a laparoscopic cholecystectomy by Dr. Hogan. He did well with this; however, presented back to the Emergency Room a couple of weeks later complaining of right-sided chest pain and right-sided abdominal pain. He also has been weaker and "collapsed" on his steps. They could not get him up after this and they brought him into the Emergency Room. He was discharged home and then presented back. It was felt that he was stable 6 days later. He then was constipated as he had some pain medications. He also has had a long history of problems with swallowing and has what appears to be achalasia. He presented for today and Dr. Kobe Whitney performed an esophagogastroduodenoscopy and did a dilatation. The patient had onset of bilateral shoulder pain, underwent an x-ray which shows that he has a pneumoperitoneum. Of interest is that he has apparent achalasia with very thick esophagus going down distally into his stomach. There is a small amount of air at the gastroesophageal junction, but Dr. Mekhi Michael feels that there may well be a small perforation in the stomach. The patient is hemodynamically stable. He is really not complaining of pain now. I have seen him 3 separate times this afternoon and he appears stable to me. I have been asked to comment from a thoracic surgery standpoint about this possible esophageal perforation. PAST MEDICAL HISTORY: 1. Cholelithiasis in the past. 2. Coronary artery disease. 3. Hypothyroidism. 4. Probable achalasia. 5. History of pulmonary embolism. 6. Gout. 7. History of questionable pancreatitis. 8. History of prostate cancer. 9. Lyme disease. PAST SURGICAL HISTORY: 1. Laparoscopic cholecystectomy. 2. Coronary artery bypass grafting. 3. Radiation therapy for his prostate carcinoma. 4. Upper endoscopy with esophageal dilatation. MEDICATIONS (AT HOME): 1. Aspirin. 2. Lipitor. 3. Synthroid. 4. Coumadin. 5. Metoprolol. ALLERGIES: CEPHALOSPORINS. UNCLEAR IF THIS IS A RASH. He does not really recall this nor does his daughter who was at the bedside. SOCIAL HISTORY: The patient is to his for 38 years. He did smoke many years ago. The patient exercises regularly but has been ill recently with "Lyme disease." He has been treated with 3 weeks of antibiotics. His daughter states he is much better. He worked out at the [employer] religiously; however, he has not worked out in the last few weeks due to his Lyme disease, although he was feeling better. REVIEW OF SYSTEMS: He has had some chills but has no fevers. He has difficulty swallowing. He denies pharyngeal symptoms or nasal congestion. He has had no visual abnormalities, although he wears glasses. He is quite hard of hearing, but has had no change in his hearing. He wears hearing aids. He had some upper shoulder pain, but this is resolved. He really has no abdominal pain on palpation. He has no nausea or vomiting and currently has no diarrhea, although he has been constipated recently. He has no peripheral edema. He denies any urinary symptoms such as hematuria or dysuria. He has had no skin breakdown. He does have some bruising where he fell on his elbows. The patient states that he has lost about 20 pounds in the last 2 months. PHYSICAL EXAMINATION: GENERAL: This is a well-developed, well-nourished male who stands 5 feet 7-1/2 inches tall and weighs 150 pounds. He wears glasses. HEENT: His extraocular movements are intact. His pupils are equal, round and reactive. His teeth are in fair repair. NECK: Supple. I feel no crepitus. He has no carotid bruits or neck vein distention. LUNGS: He does have a well-healed sternotomy incision with no click. I detect no subcutaneous emphysema in his abdominal area or in his lower sternal area. He is moving air well without evidence of wheezing or rales. ABDOMEN: Soft. He has good bowel sounds. He is not really complaining of any pain at this point. He has good femoral pulses, good pedal pulses. No peripheral edema. No joint effusions. NEUROLOGIC: He is awake, alert and oriented and other than his decreased hearing acuity, he has no focal deficits or other neurologic findings. DATA: I reviewed his CT scan quite carefully with Dr. Mekhi Michael. I am concerned about the amount of pneumoperitoneum with very little air around the esophagus. I have asked Dr. Hogan to also evaluate the patient. At this point, I doubt we would have to do anything such as drain his mediastinum or going to repair any esophageal defects. We are going to keep him n.p.o. and put him on a Protonix drip and give him antibiotics, especially with anaerobic coverage. We will admit him and monitor him and will check labs in the morning to see how it looks. MITCH
[2017-12-09] MEDS: PANTOprazole INJ 40 MG in DEXTROSE 5% 100ML IV SCH (20:55)
[2017-12-09] MEDS: PIPERACILL/TAZOBAC IV 3.375 GM in DEXTROSE 5% 100ML 100 ML IV SCH (21:58)
[2017-12-09] MEDS ORDERED: PNEUMOCOCCAL ADMINISTRATION CHARGE ONE (22:15)
[2017-12-09] MEDS ORDERED: PNEUMOCOCCAL POLYSACCHARIDES 25 MCG/0.5 ML VIAL/SYR IM. ONE (22:15)
--- NOTE | 2017-12-09 22:19 | GASTROINTESTINAL CONSULTATION ---
DATE OF CONSULTATION: 12/09/2017 AGE: 82. SEX: Male RACE: . I had the pleasure of seeing Félix Garza today in the outpatient GI lab. He presented for an upper endoscopy secondary to abdominal pain, which was generalized as well as an abnormal CT imaging from earlier in the month with a thickened esophagus. He subsequently presented for outpatient upper endoscopy. The patient underwent upper endoscopy and was noted to have a hiatal hernia as well as a Schatzki's ring and gastritis. Biopsies were performed of the gastric antrum secondary to his gastritis. A 15-18 multi-sized esophageal dilating balloon was passed and was inflated to 15-16.5 and to 18 mm. A small amount of disruption was noted at the distal esophagus at the site of the Schatzki's ring. He also was noted to have some bleeding in the stomach in the cardia though no bleeding source was identified. The scope was withdrawn. The patient was taken to the recovery area. He developed bilateral chest pain in recovery and was subsequently sent for a stat CT scan of the chest at which time he was noted to have moderate pneumoperitoneum and a small amount of pneumomediastinum consistent with a perforation. I immediately discussed the case with Dr. Barnett of thoracic surgery and he saw the patient at the bedside. The patient was given a dose of Zosyn therapy and was started on a Protonix drip immediately and subsequently I contacted Dr. Juan Barone of the hospitalist team for admission. At the time, the patient was admitted, his bilateral chest pain had improved to 1/10 in intensity, down from 7/10 initially and decision was made to keep the patient n.p.o. and follow his clinical course. He will remain on Zosyn 3.375 grams IV q. 8 hours as well as a Protonix drip at 8 mg per hour and will be kept strictly n.p.o. Dr. Hogan was also consulted on the case and I did discuss this in detail with him as well and I will make further recommendations in response to the patient's clinical course. Once again, thanks for allowing me to participate in the care of this patient. If you have any further questions, please do not hesitate in contacting me. MITCH
[2017-12-10] VITALS (7 sets, daily range): BP systolic 96–123; BP diastolic 45–73; PULSE 45–58; TEMP 36.3–36.7; O2SAT 92–97
[2017-12-10] MEDS: PANTOprazole INJ 40 MG in DEXTROSE 5% 100ML IV SCH ×4 (03:03→21:34)
[2017-12-10] MEDS: PIPERACILL/TAZOBAC IV 3.375 GM in DEXTROSE 5% 100ML 100 ML IV SCH ×3 (05:55→21:34)
[2017-12-10 06:18] LABS: CREATININE 0.95 mg/dl (0.60-1.40)
[2017-12-10 06:24] LABS: BASO % 0.2 %; BASO ABS # 0.02 K/uL (0-0.2); EOS % 2.3 %; EOS ABS # 0.25 K/uL (0-0.5); HEMATOCRIT 36.3 % (42-52); IG# 0.01 K/uL (0.00-0.02); LYMPH % 14.9 %; LYMPH ABS # 1.59 K/uL (1.2-3.4); MEAN CELL VOLUME 89.9 fL (80-100); MEAN CORPUSCULAR HEMOGLOBIN 29.7 pg (25-34); MEAN CORPUSCULAR HGB CONC 33.1 g/dl (32-36); MEAN PLATELET VOLUME 11.1 fL (7.4-10.4); MONO % 8.6 %; MONO ABS # 0.92 K/uL (0.11-0.59); NEUT % 73.9 %; NEUT ABS # 7.85 K/uL (1.4-6.5); PLATELET COUNT 180 K/uL (130-400); RED CELL DISTRIBUTION WIDTH CV 16.2 % (11.5-14.5); RED CELL DISTRIBUTION WIDTH SD 53.5 fL (36.4-46.3); WHITE BLOOD COUNT 10.64 K/uL (4.8-10.8)
--- NOTE | 2017-12-10 07:48 | SURGERY PROGRESS NOTE ---
DATE: 12/10/2017 I had the pleasure of seeing Félxi last evening at the request of Dr. Barnett who had seen the patient yesterday in the endoscopy suite after being consulted by GI for a pneumomediastinum/pneumoperitoneum secondary to an EGD and balloon dilatation of a Schatzki's ring. I saw Félix last evening in his room 202 where he was resting comfortably. He has had no abdominal pain. He is pretty much back to baseline. I have known this gentleman as I operated on him approximately a month or so ago for laparoscopic cholecystectomy. He had done very well from that. He apparently was referred to GI for an abnormal distal esophageal area for endoscopic evaluation. Of note, the distal esophageal area was present approximately a year ago. Regarding his present symptomatology, when I saw the patient in the beginning of November, postoperative laparoscopic cholecystectomy, he was stating that he was feeling fine, he was pretty much back to all activities, he was eating well. I made a note that this gentleman is very hard to read and may be a little relapse in his overall recall status. On evaluation last evening, CAT scan showed pneumomediastinum and a small pneumoperitoneum around the EG junction. On exam, the patient had no abdominal findings. I reevaluated the patient this morning where his temperature was 36.5, his pulse was 52, respirations 16, blood pressure 116/50, and O2 saturations 92% on room air. Again is lying in bed comfortably, in no acute distress. He is really anxious to go home. The abdomen is completely benign. I do not feel any thoracic subcutaneous emphysema. Will reorder the lab. I have ordered a chest x-ray to follow up with a pneumomediastinum and pneumoperitoneum, but I would certainly keep him n.p.o. today before starting a diet. We will reevaluate her later today and in the morning. Dr. Barnett is also following the patient.
--- NOTE | 2017-12-10 08:27 | DIAGNOSTIC IMAGING REPORT ---
CHEST 2 VIEWS ROUTINE CLINICAL HISTORY: Pneumoperitoneum. COMPARISON STUDY: 11/26/2017, chest CT dated 12/09/2017 FINDINGS: There are postsurgical changes of midline sternotomy. The patient is hyperinflated. There is a persistent pneumoperitoneum. There is no focal pulmonary consolidation. There is a small pneumomediastinum. There is mild interstitial thickening. There are no significant pleural effusions.[ IMPRESSION: Small pneumomediastinum and pneumoperitoneum. No evidence of focal pulmonary consolidation. Electronically signed by: Romie Burdick M.D. 12/10/2017 8:26 AM Dictated Date/Time: 12/10/2017 8:24 AM
--- NOTE | 2017-12-10 09:07 | Gastroenterology Progress Note ---
Progress Note Date of Service: Dec 10, 2017 Subjective Pt evaluation today including: conversation w/ patient, physical exam, lab review, review of studies Patient is an 82 yo male with pneumoperitoneum/pneumomediastinum s/p EGD on . The patient is currently NPO, on IV antibiotics, and on a Protonix drip. He is being followed by general surgery as well as CT surgery. At the time of our visit, he is resting comfortably. He denies chest pain, shortness of breath, abdominal pain, fever, or discomfort of any kind. He has had no further symptom development since 12/09. Review of Systems Constitutional: No fever Respiratory: No cough, No shortness of breath Cardiac: No chest pain Abdomen: No pain, No nausea, No vomiting Musculoskeletal: No joint pain Skin: No problem reported Medications Current Inpatient Medications Medications (Trade) Dose Ordered Sig/Lisa Route Start Time Stop Time Status Last Admin Dose Admin Piperacillin Sod/ Tazobactam Sod 3.375 gm/Dextrose 115 ml @ 28.75 mls/ hr Q8H IV 12/09/17 22:00 12/19/17 21:59 12/10/17 05:55 28.75 MLS/HR Miscellaneous Information (Consult) 1 ea UD PRN N/A 12/09/17 15:45 01/08/18 15:44 Sodium Chloride 1,000 ml @ 75 mls/hr [id number] IV 12/09/17 17:30 01/08/18 17:29 12/09/17 17:48 75 MLS/HR Ondansetron HCl (Zofran Inj) 4 mg Q6H PRN IV 12/09/17 16:30 01/08/18 16:29 Levothyroxine Sodium 25 mcg/ Syringe 1.25 ml @ 2 mls/min DAILY@09 IV 12/10/17 09:00 01/09/18 08:59 Morphine Sulfate (MoRPHine SULFATE INJ) 2 mg Q4H PRN IV 12/09/17 16:30 12/23/17 16:29 Metoprolol Tartrate (Lopressor Iv) 5 mg Q4H PRN IV 12/09/17 17:30 01/08/18 17:29 Pantoprazole Sodium 40 mg/ Dextrose 100 ml @ 20 mls/hr Q5H IV 12/09/17 21:30 01/08/18 21:29 12/10/17 03:03 20 MLS/HR Objective Vital Signs Date Time Temp Pulse Resp B/P (MAP) Pulse Ox O2 Delivery O2 Flow Rate FiO2 12/10/17 07:05 36.5 48 18 108/58 (75) 97 12/10/17 04:03 36.5 52 16 116/52 (73) 92 Room Air 12/10/17 00:01 36.4 58 16 122/73 (89) 97 2.0 12/09/17 20:00 Nasal Cannula 2.0 12/09/17 19:45 36.5 57 18 127/75 (92) 99 Nasal Cannula 2.0 12/09/17 18:13 98 Nasal Cannula 2.0 12/09/17 17:33 36.8 62 18 129/76 (93) 98 Nasal Cannula 2.0 12/09/17 16:45 48 20 154/84 (107) 98 Nasal Cannula 2 12/09/17 16:30 56 20 170/93 (118) 98 Nasal Cannula 2 12/09/17 16:15 60 20 148/80 (102) 99 Nasal Cannula 2 12/09/17 16:00 58 20 152/82 (105) 100 Nasal Cannula 2 12/09/17 15:45 59 20 156/75 (102) 100 Nasal Cannula 2 12/09/17 15:15 60 20 170/89 (116) 100 Nasal Cannula 2 12/09/17 15:00 36.5 66 24 166/106 (126) 98 Nasal Cannula 2 12/09/17 14:30 69 20 187/97 (127) 100 Room Air 12/09/17 14:18 53 20 179/84 (115) 97 Room Air 12/09/17 13:34 36.5 53 20 115/60 (78) 97 Room Air Physical Exam General Appearance: WD/WN, no apparent distress Eyes: normal inspection, PERRL Respiratory/Chest: lungs clear, normal breath sounds Cardiovascular: regular rate, rhythm Abdomen: normal bowel sounds Extremities: normal range of motion, non-tender Neurologic/Psych: alert, oriented x 3 Skin: normal color Laboratory Results Last 24 Hours Test 12/09/17 17:33 12/10/17 05:19 White Blood Count 13.76 K/uL 10.64 K/uL Red Blood Count 4.45 M/uL 4.04 M/uL Hemoglobin 12.9 g/dL 12.0 g/dL Hematocrit 40.0 % 36.3 % Mean Corpuscular Volume 89.9 fL 89.9 fL Mean Corpuscular Hemoglobin 29.0 pg 29.7 pg Mean Corpuscular Hemoglobin Concent 32.3 g/dl 33.1 g/dl Platelet Count 198 K/uL 180 K/uL Mean Platelet Volume 10.9 fL 11.1 fL Neutrophils (%) (Auto) 81.1 % 73.9 % Lymphocytes (%) (Auto) 11.6 % 14.9 % Monocytes (%) (Auto) 6.4 % 8.6 % Eosinophils (%) (Auto) 0.6 % 2.3 % Basophils (%) (Auto) 0.1 % 0.2 % Neutrophils # (Auto) 11.15 K/uL 7.85 K/uL Lymphocytes # (Auto) 1.60 K/uL 1.59 K/uL Monocytes # (Auto) 0.88 K/uL 0.92 K/uL Eosinophils # (Auto) 0.08 K/uL 0.25 K/uL Basophils # (Auto) 0.02 K/uL 0.02 K/uL RDW Standard Deviation 52.5 fL 53.5 fL RDW Coefficient of Variation 16.0 % 16.2 % Immature Granulocyte % (Auto) 0.2 % 0.1 % Immature Granulocyte # (Auto) 0.03 K/uL 0.01 K/uL Prothrombin Time 11.9 SECONDS Prothromb Time International Ratio 1.1 Activated Partial Thromboplast Time 26.6 SECONDS Partial Thromboplastin Ratio 1.0 Sodium Level 140 mmol/L Potassium Level 4.6 mmol/L Chloride Level 110 mmol/L Carbon Dioxide Level 24 mmol/L Anion Gap 7.0 mmol/L Blood Urea Nitrogen 21 mg/dl Creatinine 0.88 mg/dl 0.95 mg/dl Est Creatinine Clear Calc Drug Dose 59.5 ml/min 56.0 ml/min Estimated GFR () 91.4 84.9 Estimated GFR (Non- 78.9 73.2 BUN/Creatinine Ratio 24.2 Random Glucose 134 mg/dl Lactic Acid Level 1.0 mmol/L Calcium Level 8.5 mg/dl Total Bilirubin 1.0 mg/dl Aspartate Amino Transf (AST/SGOT) 24 U/L Alanine Aminotransferase (ALT/SGPT) 21 U/L Alkaline Phosphatase 76 U/L Total Protein 6.4 gm/dl Albumin 3.1 gm/dl Globulin 3.3 gm/dl Albumin/Globulin Ratio 0.9 Assessment and Plan Patient is an 82 yo male with pneumomediastinum/pneumoperitoneum s/p EGD with dilatation of Schatzki ring to 18 mm on 12/09. 1) Continue NPO status for now. 2) Continue IV Zosyn. 3) Continue Protonix gtt. 4) Appreciate CT surgery & general surgery recommendations. We will continue to monitor patient for further issues. Thank you for allowing us to participate in the care of this patient. If you should have any questions or concerns, do not hesitate to contact us. Agree with IOANA Fagan as above Abd: Soft, NT, ND, +BS Continue current therapy Strict NPO
[2017-12-10] MEDS: SODIUM CHLORIDE 0.9% 1000ML 1,000 ML IV SCH ×2 (09:12→23:21)
--- NOTE | 2017-12-10 09:21 | Anesthesiology Progress Note ---
Anesthesia Post Op Note Date & Time Dec 10, 2017 at 09:20 Vital Signs Pain Intensity: 0.0 Vital Signs Past 12 Hours Date Time Temp Pulse Resp B/P (MAP) Pulse Ox O2 Delivery O2 Flow Rate FiO2 12/10/17 07:05 36.5 48 18 108/58 (75) 97 12/10/17 04:03 36.5 52 16 116/52 (73) 92 Room Air 12/10/17 00:01 36.4 58 16 122/73 (89) 97 2.0 Notes Mental Status: alert / awake / arousable, participated in evaluation Pt Amnestic to Procedure: Yes Nausea / Vomiting: adequately controlled Pain: adequately controlled Airway Patency, RR, SpO2: stable & adequate BP & HR: stable & adequate Hydration State: stable & adequate Anesthetic Complications: no major complications apparent
--- NOTE | 2017-12-10 10:28 | Hospitalist Progress Note ---
Hospitalist Progress Note Date of Service Dec 10, 2017. Subjective Pt evaluation today including: conversation w/ patient, physical exam, chart review, lab review, review of studies, review of inpatient medication list Patient seen and evaluated. No acute events overnight. Patient has no complaints today. No further chest pain. Vitals are stable. Does have bradycardia with some lows around 37. Patient reports that he does frequently get dizziness/lightheadedness at home and reports that he sometimes has to stop doing things until it goes away. Possibly could be his bradycardia chepe given he is on Metoprolol as well. Hasn't required any Lopressor during admission, no rebound noted at this time. May need to consider Holter/Event monitor to see if some of these episodes correlate with his more significant bradycardia. He follows with [facility]. CXR performed this AM with continued pneumomediastinum/peritoneum. Will remain NPO at this time. Discussed findings suggesting emphysema. Reports he has never required inhalers. Stopped smoking in 1986. No wheezing and appropriately oxygenating. Constitutional: No fever, No chills Respiratory: No cough, No shortness of breath Cardiovascular: No chest pain Abdomen: No pain, No nausea, No vomiting, No diarrhea, No constipation Musculoskeletal: No swelling, No calf pain Male : No dysuria Heme: No abnormal bleeding/bruising Skin: No rash Medications Current Inpatient Medications Medications (Trade) Dose Ordered Sig/Lisa Route Start Time Stop Time Status Last Admin Dose Admin Piperacillin Sod/ Tazobactam Sod 3.375 gm/Dextrose 115 ml @ 28.75 mls/ hr Q8H IV 12/09/17 22:00 12/19/17 21:59 12/10/17 05:55 28.75 MLS/HR Miscellaneous Information (Consult) 1 ea UD PRN N/A 12/09/17 15:45 01/08/18 15:44 Sodium Chloride 1,000 ml @ 75 mls/hr [id number] IV 12/09/17 17:30 01/08/18 17:29 12/10/17 09:12 75 MLS/HR Ondansetron HCl (Zofran Inj) 4 mg Q6H PRN IV 12/09/17 16:30 01/08/18 16:29 Levothyroxine Sodium 25 mcg/ Syringe 1.25 ml @ 2 mls/min DAILY@09 IV 12/10/17 09:00 01/09/18 08:59 Morphine Sulfate (MoRPHine SULFATE INJ) 2 mg Q4H PRN IV 12/09/17 16:30 12/23/17 16:29 Metoprolol Tartrate (Lopressor Iv) 5 mg Q4H PRN IV 12/09/17 17:30 01/08/18 17:29 Pantoprazole Sodium 40 mg/ Dextrose 100 ml @ 20 mls/hr Q5H IV 12/09/17 21:30 01/08/18 21:29 12/10/17 09:12 20 MLS/HR Objective Vital Signs Date Time Temp Pulse Resp B/P (MAP) Pulse Ox O2 Delivery O2 Flow Rate FiO2 12/10/17 07:05 36.5 48 18 108/58 (75) 97 12/10/17 04:03 36.5 52 16 116/52 (73) 92 Room Air 12/10/17 00:01 36.4 58 16 122/73 (89) 97 2.0 12/09/17 20:00 Nasal Cannula 2.0 12/09/17 19:45 36.5 57 18 127/75 (92) 99 Nasal Cannula 2.0 12/09/17 18:13 98 Nasal Cannula 2.0 12/09/17 17:33 36.8 62 18 129/76 (93) 98 Nasal Cannula 2.0 12/09/17 16:45 48 20 154/84 (107) 98 Nasal Cannula 2 12/09/17 16:30 56 20 170/93 (118) 98 Nasal Cannula 2 12/09/17 16:15 60 20 148/80 (102) 99 Nasal Cannula 2 12/09/17 16:00 58 20 152/82 (105) 100 Nasal Cannula 2 12/09/17 15:45 59 20 156/75 (102) 100 Nasal Cannula 2 12/09/17 15:15 60 20 170/89 (116) 100 Nasal Cannula 2 12/09/17 15:00 36.5 66 24 166/106 (126) 98 Nasal Cannula 2 12/09/17 14:30 69 20 187/97 (127) 100 Room Air 12/09/17 14:18 53 20 179/84 (115) 97 Room Air 12/09/17 13:34 36.5 53 20 115/60 (78) 97 Room Air Physical Exam General Appearance: WD/WN, no apparent distress Eyes: sclerae normal ENT: hearing grossly normal Neck: supple, no JVD, trachea midline Respiratory/Chest: lungs clear, no respiratory distress, no accessory muscle use Cardiovascular: regular rate, rhythm, + systolic murmur Abdomen: normal bowel sounds, non tender, soft Extremities: no pedal edema Neurologic/Psychiatric: alert, oriented x 3 Skin: normal color, warm/dry Laboratory Results Last 24 Hours Test 12/09/17 17:33 12/10/17 05:19 White Blood Count 13.76 K/uL 10.64 K/uL Red Blood Count 4.45 M/uL 4.04 M/uL Hemoglobin 12.9 g/dL 12.0 g/dL Hematocrit 40.0 % 36.3 % Mean Corpuscular Volume 89.9 fL 89.9 fL Mean Corpuscular Hemoglobin 29.0 pg 29.7 pg Mean Corpuscular Hemoglobin Concent 32.3 g/dl 33.1 g/dl Platelet Count 198 K/uL 180 K/uL Mean Platelet Volume 10.9 fL 11.1 fL Neutrophils (%) (Auto) 81.1 % 73.9 % Lymphocytes (%) (Auto) 11.6 % 14.9 % Monocytes (%) (Auto) 6.4 % 8.6 % Eosinophils (%) (Auto) 0.6 % 2.3 % Basophils (%) (Auto) 0.1 % 0.2 % Neutrophils # (Auto) 11.15 K/uL 7.85 K/uL Lymphocytes # (Auto) 1.60 K/uL 1.59 K/uL Monocytes # (Auto) 0.88 K/uL 0.92 K/uL Eosinophils # (Auto) 0.08 K/uL 0.25 K/uL Basophils # (Auto) 0.02 K/uL 0.02 K/uL RDW Standard Deviation 52.5 fL 53.5 fL RDW Coefficient of Variation 16.0 % 16.2 % Immature Granulocyte % (Auto) 0.2 % 0.1 % Immature Granulocyte # (Auto) 0.03 K/uL 0.01 K/uL Prothrombin Time 11.9 SECONDS Prothromb Time International Ratio 1.1 Activated Partial Thromboplast Time 26.6 SECONDS Partial Thromboplastin Ratio 1.0 Sodium Level 140 mmol/L Potassium Level 4.6 mmol/L Chloride Level 110 mmol/L Carbon Dioxide Level 24 mmol/L Anion Gap 7.0 mmol/L Blood Urea Nitrogen 21 mg/dl Creatinine 0.88 mg/dl 0.95 mg/dl Est Creatinine Clear Calc Drug Dose 59.5 ml/min 56.0 ml/min Estimated GFR () 91.4 84.9 Estimated GFR (Non- 78.9 73.2 BUN/Creatinine Ratio 24.2 Random Glucose 134 mg/dl Lactic Acid Level 1.0 mmol/L Calcium Level 8.5 mg/dl Total Bilirubin 1.0 mg/dl Aspartate Amino Transf (AST/SGOT) 24 U/L Alanine Aminotransferase (ALT/SGPT) 21 U/L Alkaline Phosphatase 76 U/L Total Protein 6.4 gm/dl Albumin 3.1 gm/dl Globulin 3.3 gm/dl Albumin/Globulin Ratio 0.9 Assessment and Plan Mr. Garza is an 82 y/o male with PMHx of CAD with CABG x 3 (2014), NSTEMI, Hypothyroidism, PE/DVT on Coumadin (2011), Acute/Chronic R Rib Fx, Interstitial Lung Disease, and Recent Lyme who had an EGD for Schatzki Ring dilation with perforation. Schatzki Ring Dilation with Perforation/Pneumoperitoneum/Pneumomediastinum: STABLE - Continue STRICT NPO - CXR this AM supports above diagnosis; No evidence of decompensation at this time - Gentle hydration with NSS at 75 mL/hr - Continue Protonix gtt and Zosyn Q8H - CT Surg and Gen Surg following - continue conservative measures at this time CAD with CABG x 3/NSTEMI/Ischemic Cardiomyopathy and Chronic Mixed Systolic/ Diastolic CHF: - Hold ASA and Atorvastatin at this time due to NPO - Echo (October 2017) - EF 45-50% with grade I diastolic dysfunction; RCA wall motion abnormality; septal motion consistent with BBB/cardiac surgery - Remains euvolemic at this time but will need to monitor fluid status - outpatient records suggest he doesn't normally have issues with heart failure Hypothyroidism: - Continue Levothyroxine 25 mcg IV H/O DVT/PE (2011): - Coumadin has been on hold prior to scope and will remain on hold given possible surgical intervention Acute on Chronic R-Sided Rib Fx: Noted Interstitial Lung Disease/Emphysema: - Does have a h/o tobacco use (quit 1986) - will monitor - no exacerbation - has not required inhalers in the past Recent Lyme: October 2017 - STABLE - Reports finishing treatment for Lyme disease over the past month DVT Prophylaxis: SCDs Code Status: FULL RESUSCITATION Disposition: Remain NPO and continue to monitor Continued [facility] stay due to: multiple IV medications needed Discharge planning: home
[2017-12-10] MEDS: LEVOTHYROXINE SODIUM INJ 25 MCG in SYRINGE 0 ML IV SCH (13:27)
--- NOTE | 2017-12-10 15:26 | SURGERY PROGRESS NOTE ---
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 He looked quite good and had been held n.p.o. We continued on him n.p.o. and put him on antibiotics with good anaerobic coverage. Today, Mr. Garza denies any pain whatsoever. Of note, he is not particularly hungry. He has been ambulating in the hallway. He has been on room air with excellent saturations. X-ray showed decrease in the amount of pneumoperitoneum. He really did not have much air around the esophagus except right at the GE junction, but this was a minor amount compared to the amount of air. At any rate, his abdomen is benign. He has good bowel sounds. He does not have any laboratory evidence of any ongoing infection. His white count is normal at 10,640, with a hemoglobin of 12.0. Platelet count stable 180,000. We are going to continue to keep him n.p.o. and keep him on IV fluids and antibiotics as well as a proton pump inhibitor infusion. We will continue to periodically evaluate him.
[2017-12-11] VITALS (7 sets, daily range): BP systolic 111–135; BP diastolic 63–74; PULSE 48–96; TEMP 36.4–36.6; O2SAT 94–100; Ht 172.7 cm; Wt 68.5 kg
[2017-12-11] MEDS: PANTOprazole INJ 40 MG in DEXTROSE 5% 100ML IV SCH ×3 (03:16→15:10)
[2017-12-11] MEDS: PIPERACILL/TAZOBAC IV 3.375 GM in DEXTROSE 5% 100ML 100 ML IV SCH ×3 (05:44→21:41)
[2017-12-11 05:54] LABS: HEMATOCRIT 35.9 % (42-52); HEMOGLOBIN 11.7 g/dL (14.0-18.0); MEAN CELL VOLUME 89.5 fL (80-100); MEAN CORPUSCULAR HEMOGLOBIN 29.2 pg (25-34); MEAN CORPUSCULAR HGB CONC 32.6 g/dl (32-36); MEAN PLATELET VOLUME 10.9 fL (7.4-10.4); PLATELET COUNT 182 K/uL (130-400); RED CELL DISTRIBUTION WIDTH CV 16.2 % (11.5-14.5); WHITE BLOOD COUNT 8.63 K/uL (4.8-10.8)
[2017-12-11 06:22] LABS: CREATININE 0.94 mg/dl (0.60-1.40); POTASSIUM 3.5 mmol/L (3.5-5.1)
--- NOTE | 2017-12-11 08:09 | SURGERY PROGRESS NOTE ---
DATE: 12/11/2017 Félix is resting comfortably. He denies any abdominal or chest pain. His last vitals showed a temperature of 36.5, pulse 48, respirations 18, blood pressure 125/63, O2 sats 97 on room air. Urine output had 850 overnight. His abdomen is completely benign. He has been kept n.p.o. since the procedure 48 hours ago. At this point, I will check with radiology, try to get an upper GI possible using Gastrografin. I explained the situation to him before we start a diet on the patient clinically I suspect that he has sealed off but would like to look at that area prior to instituting any oral intake.
[2017-12-11] MEDS: LEVOTHYROXINE SODIUM INJ 25 MCG in SYRINGE 0 ML IV SCH (08:39)
[2017-12-11] MEDS: SODIUM CHLORIDE 0.9% 1000ML 1,000 ML IV SCH (08:39)
--- NOTE | 2017-12-11 09:54 | Gastroenterology Progress Note ---
Progress Note Date of Service: Dec 11, 2017 Subjective Pt evaluation today including: conversation w/ patient, physical exam Patient is an 82 yo male currently hospitalized with pneumomediastinum & pneumoperitoneum after recent EGD during which a Schatzki ring was dilated. The patient is pain free. He denies any complaints. He is NPO and on an IV Protonix gtt. He is awaiting an upper GI study with gastrografin to be performed. General surgery & CT surgery are following. He is afebrile and is on antibiotic therapy. Review of Systems Constitutional: No fever, No chills Eyes: No problem reported Respiratory: No cough, No sputum Cardiac: No chest pain Abdomen: No pain, No nausea, No vomiting, No diarrhea Musculoskeletal: No joint pain Neuro: No problem reported Psych: No problem reported Heme: No problem reported Skin: No problem reported Medications Current Inpatient Medications Medications (Trade) Dose Ordered Sig/Lisa Route Start Time Stop Time Status Last Admin Dose Admin Piperacillin Sod/ Tazobactam Sod 3.375 gm/Dextrose 115 ml @ 28.75 mls/ hr Q8H IV 12/09/17 22:00 12/19/17 21:59 12/11/17 05:44 28.75 MLS/HR Miscellaneous Information (Consult) 1 ea UD PRN N/A 12/09/17 15:45 01/08/18 15:44 Sodium Chloride 1,000 ml @ 75 mls/hr [id number] IV 12/09/17 17:30 01/08/18 17:29 12/11/17 08:39 75 MLS/HR Ondansetron HCl (Zofran Inj) 4 mg Q6H PRN IV 12/09/17 16:30 01/08/18 16:29 Levothyroxine Sodium 25 mcg/ Syringe 1.25 ml @ 2 mls/min DAILY@09 IV 12/10/17 09:00 01/09/18 08:59 12/11/17 08:39 2 MLS/MIN Morphine Sulfate (MoRPHine SULFATE INJ) 2 mg Q4H PRN IV 12/09/17 16:30 12/23/17 16:29 Metoprolol Tartrate (Lopressor Iv) 5 mg Q4H PRN IV 12/09/17 17:30 01/08/18 17:29 Pantoprazole Sodium 40 mg/ Dextrose 100 ml @ 20 mls/hr Q5H IV 12/09/17 21:30 01/08/18 21:29 12/11/17 08:39 20 MLS/HR Objective Vital Signs Date Time Temp Pulse Resp B/P (MAP) Pulse Ox O2 Delivery O2 Flow Rate FiO2 12/11/17 08:15 Room Air 12/11/17 07:53 36.4 52 16 135/64 (87) 96 Room Air 12/11/17 04:24 36.5 48 18 125/63 (83) 97 Room Air 12/10/17 23:59 36.6 52 16 123/54 (77) 97 Room Air 12/10/17 20:00 Room Air 12/10/17 18:52 36.7 45 19 111/53 (72) 93 Room Air 12/10/17 16:00 Room Air 12/10/17 15:09 36.6 51 18 123/53 (76) 96 Room Air 12/10/17 12:19 36.3 51 19 96/45 (62) 96 Room Air Physical Exam General Appearance: WD/WN, no apparent distress Eyes: normal inspection, PERRL Respiratory/Chest: lungs clear, normal breath sounds Cardiovascular: regular rate, rhythm Abdomen: normal bowel sounds Extremities: normal range of motion Neurologic/Psych: alert, oriented x 3 Skin: normal color Laboratory Results Last 24 Hours Test 12/11/17 05:23 White Blood Count 8.63 K/uL Red Blood Count 4.01 M/uL Hemoglobin 11.7 g/dL Hematocrit 35.9 % Mean Corpuscular Volume 89.5 fL Mean Corpuscular Hemoglobin 29.2 pg Mean Corpuscular Hemoglobin Concent 32.6 g/dl RDW Standard Deviation 53.0 fL RDW Coefficient of Variation 16.2 % Platelet Count 182 K/uL Mean Platelet Volume 10.9 fL Sodium Level 144 mmol/L Potassium Level 3.5 mmol/L Chloride Level 113 mmol/L Carbon Dioxide Level 24 mmol/L Anion Gap 7.0 mmol/L Blood Urea Nitrogen 12 mg/dl Creatinine 0.94 mg/dl Est Creatinine Clear Calc Drug Dose 56.6 ml/min Estimated GFR () 85.9 Estimated GFR (Non- 74.2 BUN/Creatinine Ratio 13.2 Random Glucose 83 mg/dl Calcium Level 8.0 mg/dl Assessment and Plan Patient is an 82 yo male with pneumomediastinum/pneumoperitoneum s/p EGD with dilatation of Schatzki ring to 18 mm on 12/09. 1) Continue NPO status for now. 2) Upper GI as per surgery's recommendations. 3) Continue Protonix gtt. 4) Continue IV Zosyn. 5) Appreciate CT surgery & general surgery recommendations. We will continue to monitor patient for further issues. Thank you for allowing us to participate in the care of this patient. If you should have any questions or concerns, do not hesitate to contact us. Agree with Hermelinda Desouza PAC as above Abd: Soft, NT, ND, +BS Patient remains asymptomatic Gastrografin swallow results reviewed and discussed with Richard Aviles, PAC with Thoracic surgery. Current plan is TPN and continue current therapy. Continue Protonix gtt.
--- NOTE | 2017-12-11 11:49 | DIAGNOSTIC IMAGING REPORT ---
SINGLE CONTRAST UPPER GI SERIES UTILIZING OPTIRAY CLINICAL HISTORY: Recent EG junction perforation. COMPARISON STUDY: Chest CT December 09, 2017. FLUOROSCOPY TIME: 1 minute. 25 fluoroscopic images were obtained. TECHNIQUE: The patient ingested Optiray and fluoroscopic images were obtained. FINDINGS: A corkscrew appearance of the esophagus is noted. The findings suggest severe esophageal dysmotility or spasm. Contrast passed freely into the stomach. No extravasation from the esophagus was noted. Mucosal detail is diminished on this exam. The final several images demonstrate probable extraluminal contrast extending from the posterior aspect of the proximal stomach. This suggests a gastric perforation. Extraluminal gas is noted on these images. IMPRESSION: 1. Findings suggestive of a posterior proximal gastric perforation with extraluminal contrast. 2. Persistent pneumoperitoneum. 3. Corkscrew appearance of the esophagus which may reflect severe esophageal dysmotility or esophageal spasm. Electronically signed by: Frandy Fenton M.D. 12/11/2017 11:28 AM Dictated Date/Time: 12/11/2017 11:03 AM
--- NOTE | 2017-12-11 13:04 | Surgery Progress Note ---
Surgery Progress Note Date of Service Dec 11, 2017. Objective Vital Signs: Date Time Temp Pulse Resp B/P (MAP) Pulse Ox O2 Delivery O2 Flow Rate FiO2 12/11/17 12:26 36.6 51 16 111/71 (84) 94 12/11/17 08:15 Room Air 12/11/17 07:53 36.4 52 16 135/64 (87) 96 Room Air 12/11/17 04:24 36.5 48 18 125/63 (83) 97 Room Air 12/10/17 23:59 36.6 52 16 123/54 (77) 97 Room Air 12/10/17 20:00 Room Air 12/10/17 18:52 36.7 45 19 111/53 (72) 93 Room Air 12/10/17 16:00 Room Air 12/10/17 15:09 36.6 51 18 123/53 (76) 96 Room Air Laboratory Results: Results Past 24 Hours Test 12/11/17 05:23 Range/Units White Blood Count 8.63 4.8-10.8 K/uL Red Blood Count 4.01 4.7-6.1 M/uL Hemoglobin 11.7 14.0-18.0 g/dL Hematocrit 35.9 42-52 % Mean Corpuscular Volume 89.5 80-100 fL Mean Corpuscular Hemoglobin 29.2 25-34 pg Mean Corpuscular Hemoglobin Concent 32.6 32-36 g/dl RDW Standard Deviation 53.0 36.4-46.3 fL RDW Coefficient of Variation 16.2 11.5-14.5 % Platelet Count 182 130-400 K/uL Mean Platelet Volume 10.9 7.4-10.4 fL Sodium Level 144 136-145 mmol/L Potassium Level 3.5 3.5-5.1 mmol/L Chloride Level 113 98-107 mmol/L Carbon Dioxide Level 24 21-32 mmol/L Anion Gap 7.0 3-11 mmol/L Blood Urea Nitrogen 12 7-18 mg/dl Creatinine 0.94 0.60-1.40 mg/dl Est Creatinine Clear Calc Drug Dose 56.6 ml/min Estimated GFR () 85.9 Estimated GFR (Non- 74.2 BUN/Creatinine Ratio 13.2 10-20 Random Glucose 83 70-99 mg/dl Calcium Level 8.0 8.5-10.1 mg/dl Diagnostic Interpretation: SINGLE CONTRAST UPPER GI SERIES UTILIZING OPTIRAY CLINICAL HISTORY: Recent EG junction perforation. COMPARISON STUDY: Chest CT December 09, 2017. FLUOROSCOPY TIME: 1 minute. 25 fluoroscopic images were obtained. TECHNIQUE: The patient ingested Optiray and fluoroscopic images were obtained. FINDINGS: A corkscrew appearance of the esophagus is noted. The findings suggest severe esophageal dysmotility or spasm. Contrast passed freely into the stomach. No extravasation from the esophagus was noted. Mucosal detail is diminished on this exam. The final several images demonstrate probable extraluminal contrast extending from the posterior aspect of the proximal stomach. This suggests a gastric perforation. Extraluminal gas is noted on these images. IMPRESSION: 1. Findings suggestive of a posterior proximal gastric perforation with extraluminal contrast. 2. Persistent pneumoperitoneum. 3. Corkscrew appearance of the esophagus which may reflect severe esophageal dysmotility or esophageal spasm. Electronically signed by: Frandy Fenton M.D. 12/11/2017 11:28 AM Dictated Date/Time: 12/11/2017 11:03 AM Assessment & Plan Dr. Hogan reviewed UGI has small persistent leak however continues to do well clinically will continue to manage conservatively, keep NPO for a few more days consider PPN/TPN
[2017-12-11] MEDS ORDERED: TPN/PPN CONSULT PHARMACY PRN (13:11)
--- NOTE | 2017-12-11 13:52 | Hospitalist Progress Note ---
Hospitalist Progress Note Date of Service Dec 11, 2017. Subjective Pt evaluation today including: conversation w/ patient, physical exam, chart review, lab review, review of studies, review of inpatient medication list Patient seen and evaluated prior to GI series today. Denies pain but is a little more irritable today. Hoping for food and is eager to return home. Review of GI series supports continued perforation suggestive in the posterior proximal stomach. Patient has been consistently bradycardic but does have intermittent HRs as low as 32 but no signs of block on monitor. Discussed with cardiology as he is established. Discussed possibility of vagal component given GI perforation. Discussed possible Holter/Event monitor has he does report ongoing dizziness and maybe when he is having low HRs especially when he is more active? Constitutional: No fever, No chills Respiratory: No cough, No shortness of breath Cardiovascular: No chest pain Abdomen: No pain, No nausea, No vomiting Heme: No abnormal bleeding/bruising Medications Current Inpatient Medications Medications (Trade) Dose Ordered Sig/Lisa Route Start Time Stop Time Status Last Admin Dose Admin Piperacillin Sod/ Tazobactam Sod 3.375 gm/Dextrose 115 ml @ 28.75 mls/ hr Q8H IV 12/09/17 22:00 12/19/17 21:59 12/11/17 05:44 28.75 MLS/HR Miscellaneous Information (Consult) 1 ea UD PRN N/A 12/09/17 15:45 01/08/18 15:44 Ondansetron HCl (Zofran Inj) 4 mg Q6H PRN IV 12/09/17 16:30 01/08/18 16:29 Levothyroxine Sodium 25 mcg/ Syringe 1.25 ml @ 2 mls/min DAILY@09 IV 12/10/17 09:00 01/09/18 08:59 12/11/17 08:39 2 MLS/MIN Morphine Sulfate (MoRPHine SULFATE INJ) 2 mg Q4H PRN IV 12/09/17 16:30 12/23/17 16:29 Metoprolol Tartrate (Lopressor Iv) 5 mg Q4H PRN IV 12/09/17 17:30 01/08/18 17:29 Pantoprazole Sodium 40 mg/ Dextrose 100 ml @ 20 mls/hr Q5H IV 12/09/17 21:30 8/22/18 21:29 12/11/17 08:39 20 MLS/HR Miscellaneous Information (Pharmacy Tpn/ Ppn Consult Active) 1 ea UD PRN N/A 12/11/17 13:11 01/10/18 13:10 Potassium Chloride/Dextrose/ Sod Cl 1,000 ml @ 75 mls/hr [id number] IV 12/11/17 14:00 01/10/18 13:59 Objective Vital Signs Date Time Temp Pulse Resp B/P (MAP) Pulse Ox O2 Delivery O2 Flow Rate FiO2 12/11/17 12:26 36.6 51 16 111/71 (84) 94 12/11/17 08:15 Room Air 12/11/17 07:53 36.4 52 16 135/64 (87) 96 Room Air 12/11/17 04:24 36.5 48 18 125/63 (83) 97 Room Air 12/10/17 23:59 36.6 52 16 123/54 (77) 97 Room Air 12/10/17 20:00 Room Air 12/10/17 18:52 36.7 45 19 111/53 (72) 93 Room Air 12/10/17 16:00 Room Air 12/10/17 15:09 36.6 51 18 123/53 (76) 96 Room Air Physical Exam General Appearance: no apparent distress Eyes: sclerae normal ENT: hearing grossly normal Neck: supple, no JVD, trachea midline Respiratory/Chest: lungs clear, normal breath sounds, no respiratory distress, no accessory muscle use Cardiovascular: + bradycardia Abdomen: normal bowel sounds, non tender, soft Extremities: no pedal edema Neurologic/Psychiatric: alert Skin: normal color, warm/dry Laboratory Results Last 24 Hours Test 12/11/17 05:23 White Blood Count 8.63 K/uL Red Blood Count 4.01 M/uL Hemoglobin 11.7 g/dL Hematocrit 35.9 % Mean Corpuscular Volume 89.5 fL Mean Corpuscular Hemoglobin 29.2 pg Mean Corpuscular Hemoglobin Concent 32.6 g/dl RDW Standard Deviation 53.0 fL RDW Coefficient of Variation 16.2 % Platelet Count 182 K/uL Mean Platelet Volume 10.9 fL Sodium Level 144 mmol/L Potassium Level 3.5 mmol/L Chloride Level 113 mmol/L Carbon Dioxide Level 24 mmol/L Anion Gap 7.0 mmol/L Blood Urea Nitrogen 12 mg/dl Creatinine 0.94 mg/dl Est Creatinine Clear Calc Drug Dose 56.6 ml/min Estimated GFR () 85.9 Estimated GFR (Non- 74.2 BUN/Creatinine Ratio 13.2 Random Glucose 83 mg/dl Calcium Level 8.0 mg/dl Assessment and Plan Mr. Garza is an 82 y/o male with PMHx of CAD with CABG x 3 (2014), NSTEMI, Hypothyroidism, PE/DVT on Coumadin (2011), Acute/Chronic R Rib Fx, Interstitial Lung Disease, and Recent Lyme who had an EGD for Schatzki Ring dilation with perforation. Schatzki Ring Dilation with Perforation/Pneumoperitoneum/Pneumomediastinum: STABLE - GI series suggests posterior proximal gastric perforation - will remain NPO with PICC and TPN initiated at this time; will continue IVF for now until TPN started - Continue Protonix gtt and Zosyn Q8H - CT Surg and Gen Surg following - maintaining conservative measures at this time CAD with CABG x 3/NSTEMI/Ischemic Cardiomyopathy and Chronic Mixed Systolic/ Diastolic CHF: - Hold ASA and Atorvastatin at this time due to NPO - Echo (October 2017) - EF 45-50% with grade I diastolic dysfunction; RCA wall motion abnormality; septal motion consistent with BBB/cardiac surgery - Remains euvolemic at this time but will need to monitor fluid status - outpatient records suggest he doesn't normally have issues with heart failure Bradycardia and H/O Ongoing Lightheadedness/Dizziness: - Patient has a H/O ongoing issues with lightheadedness - possibly having low HRs at home? Does have intermittent HRs down into 30s. May benefit from Holter/ Event Monitor to correlate - Discussed with cardiology and suggestion of possible vagal stimulus given perforation/events - definitely possible? Will watch Hypothyroidism: - Continue Levothyroxine 25 mcg IV H/O DVT/PE (2011): - Coumadin has been on hold prior to scope and will remain on hold given possible surgical intervention - Appears he may have had an isolated episode of A Fib in the past but nothing here - given the chronicity of his DVT should me ok to monitor - Can use SCDs at this time Acute on Chronic R-Sided Rib Fx: Noted Interstitial Lung Disease/Emphysema: - Does have a h/o tobacco use (quit 1986) - will monitor - no exacerbation - has not required inhalers in the past Recent Lyme: October 2017 - STABLE - Reports finishing treatment for Lyme disease over the past month DVT Prophylaxis: SCDs Code Status: FULL RESUSCITATION Disposition: Initiate PICC with TPN Continued [facility] stay due to: inadequate po fluid intake, multiple IV medications needed Discharge planning: home
--- NOTE | 2017-12-11 14:07 | SURGERY PROGRESS NOTE ---
DATE: 12/11/2017 Mr. Garza was seen today. He looks fine. His abdomen feels fine. He has no pain and no complaints and is feeling hungry. We ordered a Gastrografin swallow and indeed he does have evidence of achalasia with a corkscrew saw at the distal esophagus. However, he also has an area of small perforation about 3 cm from the GE junction. For this reason, we are going to keep him n.p.o. I have discussed this with the patient as well as Dr. Hogan. We are going to start him on TPN and he is going to be n.p.o. for a few days.
[2017-12-11] MEDS: D5W AND 1/2NSS + 20MEQ KCL 1000 ML IV SCH (15:16)
[2017-12-11] MEDS ORDERED: PANTOprazole INJ 40 MG in SYRINGE 0 ML IV SCH (21:00)
[2017-12-12] MEDS ORDERED: DiphenhydrAMINE HCL 50 MG/ML VIAL IV STA (00:31)
[2017-12-12] MEDS ORDERED: VANCOMYCIN IV 1,000 MG in SODIUM CHLORIDE 0.9% 250ML 250 ML IV ONE (00:40)
[2017-12-12] MEDS ORDERED: AZTREONAM IV 2,000 MG in DEXTROSE 5% 100ML 100 ML IV STA (00:40)
[2017-12-12] MEDS ORDERED: VANCOMYCIN CONSULT ACTIVE PRN ×2 (00:45)
[2017-12-12] MEDS: AZTREONAM IV 2,000 MG in DEXTROSE 5% 100ML 100 ML IV SCH ×2 (01:37→09:07)
[2017-12-12] MEDS ORDERED: VANCOMYCIN IV 1,750 MG in SODIUM CHLORIDE 0.9% 500ML 500 ML IV SCH (02:00)
[2017-12-12] MEDS: D5W AND 1/2NSS + 20MEQ KCL 1000 ML IV SCH (04:33)
[2017-12-12 06:41] LABS: CALCIUM 8.1 mg/dl (8.5-10.1); CREATININE 0.85 mg/dl (0.60-1.40); PHOSPHORUS 2.4 mg/dl (2.5-4.9); POTASSIUM 3.4 mmol/L (3.5-5.1)
--- NOTE | 2017-12-12 06:43 | SURGERY PROGRESS NOTE ---
DATE: 12/12/2017 Félix is resting comfortably. I did wake him and he responded appropriately. He denies any abdominal pain. Abdominal exam is benign. His last vitals showed temperature of 36.6, pulse 58, respirations 20, blood pressure 133/68, O2 sats 97% on room air. The lab from yesterday did not reveal any white count and hemoglobin was 11.7. We did get a Gastrografin upper GI yesterday that showed a leak ( possibly confined)was about 3 cm distal to the EG junction, I am not sure exactly the etiology of that and appears to be probably a small leak that could be probably from biopsy or wire prior to dilatation. Since clinically the patient is not having any abdominal discomfort, we elected to start him on hyperalimentation, and hopefully, it will seal on its own. This was discussed in detail with the patient. MITCH
[2017-12-12 07:59] VITALS: BP 139/68; PULSE 69; TEMP 36.6; O2SAT 94
[2017-12-12 08:45] VITALS: O2SAT 94
[2017-12-12] MEDS: LEVOTHYROXINE SODIUM INJ 25 MCG in SYRINGE 0 ML IV SCH (09:25)
--- NOTE | 2017-12-12 09:38 | Gastroenterology Progress Note ---
Progress Note Date of Service: Dec 12, 2017 Subjective Pt evaluation today including: conversation w/ patient, physical exam, lab review, review of studies Patient is an 82 yo hospitalized with pneumomediastinum/pneumoperitoneum s/p EGD with dilatation for a Schatzki ring. The patient denies any physical complaints at present. His upper GI study from 12/11/17 indicated posterior proximal gastric perforation and persistent pneumoperitoneum. He is afebrile without leukocytosis. He continues to be NPO. General surgery & cardiothoracic surgery are following as well. Review of Systems Constitutional: No fever, No chills Respiratory: No cough Cardiac: No chest pain Abdomen: No pain, No nausea, No vomiting Musculoskeletal: No joint pain Medications Current Inpatient Medications Medications (Trade) Dose Ordered Sig/Lisa Route Start Time Stop Time Status Last Admin Dose Admin Ondansetron HCl (Zofran Inj) 4 mg Q6H PRN IV 12/09/17 16:30 01/08/18 16:29 Levothyroxine Sodium 25 mcg/ Syringe 1.25 ml @ 2 mls/min DAILY@09 IV 12/10/17 09:00 01/09/18 08:59 12/12/17 09:25 2 MLS/MIN Morphine Sulfate (MoRPHine SULFATE INJ) 2 mg Q4H PRN IV 12/09/17 16:30 12/23/17 16:29 Metoprolol Tartrate (Lopressor Iv) 5 mg Q4H PRN IV 12/09/17 17:30 01/08/18 17:29 Miscellaneous Information (Pharmacy Tpn/ Ppn Consult Active) 1 ea UD PRN N/A 12/11/17 13:11 01/10/18 13:10 Potassium Chloride/Dextrose/ Sod Cl 1,000 ml @ 75 mls/hr [id number] IV 12/11/17 14:00 12/12/17 15:59 12/12/17 04:33 75 MLS/HR Miscellaneous (Stop Order) 1 ea ONE ONCE N/A 12/12/17 16:00 12/12/17 16:01 Heparin Sodium (Porcine) (Heparin 10 Unit/ ml 5 ml Flush) 5 ml PRN PRN FLUSH 12/11/17 16:30 01/10/18 16:29 Vancomycin HCl 1000 mg/Sodium Chloride 270 ml @ 125 mls/hr Q12H IV 12/12/17 14:00 12/22/17 13:59 Vancomycin HCl (Consult) 1 ea UD PRN N/A 12/12/17 00:45 01/11/18 00:44 Aztreonam 2000 mg/ Dextrose 110 ml @ 100 mls/hr Q8H IV 12/12/17 01:00 12/22/17 00:59 12/12/17 09:07 100 MLS/HR Objective Vital Signs Date Time Temp Pulse Resp B/P (MAP) Pulse Ox O2 Delivery O2 Flow Rate FiO2 12/12/17 07:59 36.6 69 18 139/68 (91) 94 Room Air 12/12/17 00:00 Room Air 12/11/17 23:49 36.6 58 20 135/68 (90) 97 Room Air 12/11/17 19:15 Room Air 12/11/17 19:10 36.5 96 18 134/74 (94) 100 Room Air 12/11/17 18:30 36.4 53 17 94 12/11/17 16:01 36.4 53 17 128/74 (92) 94 Room Air 12/11/17 12:26 36.6 51 16 111/71 (84) 94 Physical Exam General Appearance: WD/WN, no apparent distress Eyes: normal inspection, PERRL Respiratory/Chest: chest non-tender, lungs clear Cardiovascular: regular rate, rhythm Abdomen: normal bowel sounds, non tender, soft Extremities: non-tender Neurologic/Psych: alert, oriented x 3 Skin: normal color Laboratory Results Last 24 Hours Test 12/12/17 00:24 12/12/17 05:44 Bedside Glucose 103 mg/dl Sodium Level 143 mmol/L Potassium Level 3.4 mmol/L Chloride Level 113 mmol/L Carbon Dioxide Level 23 mmol/L Anion Gap 7.0 mmol/L Blood Urea Nitrogen 11 mg/dl Creatinine 0.85 mg/dl Est Creatinine Clear Calc Drug Dose 62.6 ml/min Estimated GFR () 92.7 Estimated GFR (Non- 80.0 BUN/Creatinine Ratio 12.9 Random Glucose 93 mg/dl Calcium Level 8.1 mg/dl Phosphorus Level 2.4 mg/dl Magnesium Level 2.0 mg/dl Triglycerides Level 76 mg/dl Assessment and Plan Patient is an 82 yo male with pneumomediastinum/pneumoperitoneum s/p EGD with dilatation of Schatzki ring to 18 mm on 12/09. An upper GI study on 12/11 indicated a posterior proximal gastric perforation and persistent pneumoperitoneum. 1) Continue NPO status for now. TPN will be continued. 2) Continue Protonix gtt. 3) Appreciate CT surgery & general surgery recommendations and will continue to proceed with conservative management at this time. We will continue to monitor patient for further issues. Thank you for allowing us to participate in the care of this patient. If you should have any questions or concerns, do not hesitate to contact us. Agree with IOANA Fagan as above Abd: Soft, NT, ND, +BS Continue supportive care, Abx as per ID, and PPI gtt Results of UGI reviewed
--- NOTE | 2017-12-12 09:45 | Pharmacy Progress Note ---
Pharmacy Antibiotic Consult Date of Service: Dec 12, 2017. Pharmacy Dosing Scope Pharmacy is consulted to initiate vancomycin IV dosing therapy, order appropriate labs and adjust drug dose/frequency. Subjective The patient is a 82 year old male admitted on Dec 09, 2017 at 16:27. Objective Height (Feet): 5 Height (Inches): 8.00 Weight (Kilograms): 68.800 Lab Results (24hrs): Test 12/12/17 00:24 12/12/17 05:44 Bedside Glucose 103 mg/dl (70-99) Sodium Level 143 mmol/L (136-145) Potassium Level 3.4 mmol/L (3.5-5.1) Chloride Level 113 mmol/L (98-107) Carbon Dioxide Level 23 mmol/L (21-32) Anion Gap 7.0 mmol/L (3-11) Blood Urea Nitrogen 11 mg/dl (7-18) Creatinine 0.85 mg/dl (0.60-1.40) Est Creatinine Clear Calc Drug Dose 62.6 ml/min Estimated GFR () 92.7 Estimated GFR (Non- 80.0 BUN/Creatinine Ratio 12.9 (10-20) Random Glucose 93 mg/dl (70-99) Calcium Level 8.1 mg/dl (8.5-10.1) Phosphorus Level 2.4 mg/dl (2.5-4.9) Magnesium Level 2.0 mg/dl (1.8-2.4) Triglycerides Level 76 mg/dl (0-150) Assessment & Plan Patient currently on vancomycin and aztreonam (not consult) for GI perforation. Had been on zosyn prior 12/09-12/12. Vancomycin: * 1750 mg (~25 mg/kg) iv load given this am * Will start maintenance dose of vancomycin 1000 mg (~15 mg/kg) iv q 12 hrs to achieve an estimated trough ~15 mcg/ml (previous pharmacokinetic data suggest this dosing appropriate, produced therapeutic trough in past). Of note, weight slightly lower on this admission * Estimated kinetics: t1/2~12 hrs, ke~0.05 hr-1, CrCl ~62 * Will plan to obtain a trough prior to the 0200 dose on 12/14 if vancomycin is to be continued. Pharmacy will continue to follow and will adjust dose/frequency as necessary. Thank you
--- NOTE | 2017-12-12 10:21 | SURGERY PROGRESS NOTE ---
DATE: 12/12/2017 Mr. Garza is seen today. Dr. Barone and I have discussed the case and we are going to be starting hyperalimentation. He is going to need to be n.p.o. for the immediate future. He actually looks quite good. This is going to be very important for him to walk in the hallway today. I had discussed this case with Dr. Hogan yesterday. He needs to be on antibiotics and needs to be kept n.p.o.
--- NOTE | 2017-12-12 10:32 | Medical Consult ---
Consultation Date of Consultation: Dec 12, 2017. Attending Physician: Juan Barone D.O. Reason for Consultation: Esophageal perforation History of Present Illness 82-year-old male with history of coronary artery, prostate cancer, hypothyroidism, status post laparoscopic cholecystectomy approximately 5 weeks ago, who underwent EGD with subsequent development of chest and upper abdominal pain, and found to have pneumoperitoneum and pneumomediastinum consistent with perforation. Patient was admitted to the hospital, started on broad-spectrum antibiotics, and made n.p.o. He has been improving slowly, no fever, plans for TPN noted. He has remained afebrile. White blood cell count was mildly elevated on admission, now normalized. Past Medical/Surgical History Medical Problems: (1) Chest congestion Status: Acute (2) Cholelithiasis Status: Acute (3) Constipation Status: Acute (4) Elbow abrasion Status: Acute (5) Facial contusion Status: Acute (6) Fall Status: Acute (7) Fall Status: Acute (8) Fall from chair, initial encounter Status: Acute (9) Generalized weakness Status: Acute (10) Leukocytosis Status: Acute (11) Multiple fractures of ribs of right side Status: Acute (12) Right ankle sprain Status: Acute (13) Upper back pain on right side Status: Acute Medical Problems: (1) CAD (coronary artery disease) (2) Elevated liver function tests (3) Gout (4) History of - pulmonary embolus (5) Hypothyroid (6) Pneumomediastinum (7) Prostate cancer Surgical Problems: (1) Hx of CABG (2) S/P radiation therapy Family History Heart disease Social History Smoking Status: Former Smoker Drug Use: none Marital Status: Housing Status: lives with family Occupation Status: retired Allergies Coded Allergies: Cephalosporins (Verified Allergy, Severe, RASH, 12/06/17) Current Inpatient Medications Current Inpatient Medications Medications (Trade) Dose Ordered Sig/Lisa Route Start Time Stop Time Status Last Admin Dose Admin Ondansetron HCl (Zofran Inj) 4 mg Q6H PRN IV 12/09/17 16:30 01/08/18 16:29 Levothyroxine Sodium 25 mcg/ Syringe 1.25 ml @ 2 mls/min DAILY@09 IV 12/10/17 09:00 01/09/18 08:59 12/12/17 09:25 2 MLS/MIN Morphine Sulfate (MoRPHine SULFATE INJ) 2 mg Q4H PRN IV 12/09/17 16:30 12/23/17 16:29 Metoprolol Tartrate (Lopressor Iv) 5 mg Q4H PRN IV 12/09/17 17:30 01/08/18 17:29 Miscellaneous Information (Pharmacy Tpn/ Ppn Consult Active) 1 ea UD PRN N/A 12/11/17 13:11 01/10/18 13:10 Potassium Chloride/Dextrose/ Sod Cl 1,000 ml @ 75 mls/hr [id number] IV 12/11/17 14:00 12/12/17 15:59 12/12/17 04:33 75 MLS/HR Miscellaneous (Stop Order) 1 ea ONE ONCE N/A 12/12/17 16:00 12/12/17 16:01 Heparin Sodium (Porcine) (Heparin 10 Unit/ ml 5 ml Flush) 5 ml PRN PRN FLUSH 12/11/17 16:30 01/10/18 16:29 12/12/17 10:11 5 ML Vancomycin HCl 1000 mg/Sodium Chloride 270 ml @ 125 mls/hr Q12H IV 12/12/17 14:00 12/22/17 13:59 Vancomycin HCl (Consult) 1 ea UD PRN N/A 12/12/17 00:45 01/11/18 00:44 Aztreonam 2000 mg/ Dextrose 110 ml @ 100 mls/hr Q8H IV 12/12/17 01:00 12/22/17 00:59 12/12/17 09:07 100 MLS/HR Review of Systems All systems were reviewed and are negative except as per HPI Physical Exam Date Time Temp Pulse Resp B/P (MAP) Pulse Ox O2 Delivery O2 Flow Rate FiO2 12/12/17 07:59 36.6 69 18 139/68 (91) 94 Room Air 12/12/17 00:00 Room Air 12/11/17 23:49 36.6 58 20 135/68 (90) 97 Room Air 12/11/17 19:15 Room Air 12/11/17 19:10 36.5 96 18 134/74 (94) 100 Room Air 12/11/17 18:30 36.4 53 17 94 12/11/17 16:01 36.4 53 17 128/74 (92) 94 Room Air 12/11/17 12:26 36.6 51 16 111/71 (84) 94 General Appearance: WD/WN, no apparent distress Head: normocephalic, atraumatic Eyes: normal inspection, EOMI, sclerae normal ENT: normal ENT inspection, pharynx normal Neck: supple, no adenopathy, thyroid normal, trachea midline Respiratory/Chest: chest non-tender, lungs clear, normal breath sounds, no respiratory distress Cardiovascular: regular rate, rhythm, no gallop, no murmur Abdomen/GI: normal bowel sounds, non tender, soft, no organomegaly Back: normal inspection, no CVA tenderness Extremities/Musculoskelatal: no calf tenderness, no pedal edema, non-tender Neurologic/Psych: alert, oriented x 3 Skin: normal color, warm/dry, no rash Lymphatic: no adenopathy Laboratory Results Last 24 Hours Test 12/12/17 00:24 12/12/17 05:44 Bedside Glucose 103 mg/dl Sodium Level 143 mmol/L Potassium Level 3.4 mmol/L Chloride Level 113 mmol/L Carbon Dioxide Level 23 mmol/L Anion Gap 7.0 mmol/L Blood Urea Nitrogen 11 mg/dl Creatinine 0.85 mg/dl Est Creatinine Clear Calc Drug Dose 62.6 ml/min Estimated GFR () 92.7 Estimated GFR (Non- 80.0 BUN/Creatinine Ratio 12.9 Random Glucose 93 mg/dl Calcium Level 8.1 mg/dl Phosphorus Level 2.4 mg/dl Magnesium Level 2.0 mg/dl Triglycerides Level 76 mg/dl Patient Name: CRISTÓBAL ROBBINS Unit Number: [id number] Dictated: 12/11/171102 Transcribed: 12/11/171102 HERNAN Printed Date/Time: [~ rep prt dt]/[~ rep prt tm] [~ rep ct labl] - [~ rep ct ivnm] [facility] [place] [place] [address] Dictated: 12/11/171102 Transcribed: 12/11/171102 JA Printed Date/Time: [~ rep prt dt]/[~ rep prt tm] [~ rep ct labl] - [~ rep ct ivnm] SINGLE CONTRAST UPPER GI SERIES UTILIZING OPTIRAY CLINICAL HISTORY: Recent EG junction perforation. COMPARISON STUDY: Chest CT December 09, 2017. FLUOROSCOPY TIME: 1 minute. 25 fluoroscopic images were obtained. TECHNIQUE: The patient ingested Optiray and fluoroscopic images were obtained. FINDINGS: A corkscrew appearance of the esophagus is noted. The findings suggest severe esophageal dysmotility or spasm. Contrast passed freely into the stomach. No extravasation from the esophagus was noted. Mucosal detail is diminished on this exam. The final several images demonstrate probable extraluminal contrast extending from the posterior aspect of the proximal stomach. This suggests a gastric perforation. Extraluminal gas is noted on these images. IMPRESSION: 1. Findings suggestive of a posterior proximal gastric perforation with extraluminal contrast. 2. Persistent pneumoperitoneum. 3. Corkscrew appearance of the esophagus which may reflect severe esophageal dysmotility or esophageal spasm. Electronically signed by: Frandy Fenton M.D. 12/11/2017 11:28 AM Dictated Date/Time: 12/11/2017 11:03 AM The status of this report is Signed. Draft = Not yet reviewed or approved by Radiologist. Signed = Reviewed and approved by Radiologist. <AttendingPhy>Juan Barone D.O.</AttendingPhy> <FamilyPhy>Curtis Carrillo M.D.</FamilyPhy> <PrimaryPhy>Curtis Carrillo M.D.</PrimaryPhy> <UnitNumber> [id number]</UnitNumber> <VisitNumber>[id number]</VisitNumber> <PatientName> CRISTÓBAL ROBBINS</PatientName> <DateOfBirth>1935</DateOfBirth> <Location >[facility]</Location> <ServiceDate>12/09/17</ServiceDate> <MNE>ESINDI</MNE> < OrderingPhy>Anton Hogan M.D.</OrderingPhy> <OrderingPhyMNE>f rep ord dr mckeon</OrderingPhyMNE> <DictatingPhyMNE>f rep dict dr mckeon</DictatingPhyMNE> < CCListMNE>f rep ct mne</CCListMNE> <AdmittingPhyMNE>f pt admit dr mckeon</ AdmittingPhyMNE> <AttendingPhyMNE>f pt attend dr mckeon</AttendingPhyMNE> <ConsultingPhyMNE>f pt consult dr mckeon</ConsultingPhyMNE> <FamilyPhyMNE>f pt fam dr mckeon</FamilyPhyMNE> <OtherPhyMNE>f pt other dr mckeon</OtherPhyMNE> < PrimaryPhyMNE>f pt prim care dr mckeon</PrimaryPhyMNE> <ReferringPhyMNE>f pt referring dr mckeon</ReferringPhyMNE> Assessment & Plan Patient with what appears to be posterior gastric perforation following EGD for dilatation of Schatzki's ring, improving with antibiotics and n.p.o. Given the patient likely has low-grade peritonitis/mediastinitis, would continue patient on antibiotics for now. Will simplify regimen to ertapenem 1 g daily. Will follow.
[2017-12-12] MEDS ORDERED: DEXTROSE 10% 1,000 ML IV PRN (10:44)
[2017-12-12] MEDS ORDERED: CONSULT PHARMACY STA (10:44)
[2017-12-12] MEDS: ERTAPENEM IV 1 GM in SODIUM CHLOR 0.9% AD-VAN 50ML 50 ML IV SCH (11:35)
[2017-12-12] MEDS ORDERED: VANCOMYCIN IV 1,000 MG in SODIUM CHLORIDE 0.9% 250ML 250 ML IV SCH (14:00)
[2017-12-12 15:15] VITALS: BP 117/68; PULSE 55; TEMP 36.1; O2SAT 94
--- NOTE | 2017-12-12 15:53 | Hospitalist Progress Note ---
Hospitalist Progress Note Date of Service Dec 12, 2017. Subjective Pt evaluation today including: conversation w/ patient, physical exam, chart review, lab review, review of inpatient medication list Patient seen and evaluated. Had an itchy red rash on his back last night. Patient reports is much better and only mildly itchy. He was initiated on TPN yesterday. Only concern is that he doesn't lose weight has he states he has lost about 20 lbs in just a couple months. Would like deserts but largely doesn't ask about food. Is a little forgetful. States he would just like this hole to be plugged up. Maintaining conservative measures at this point. Remains asymptomatic. Constitutional: No fever, No chills Respiratory: No cough, No shortness of breath Cardiovascular: No chest pain Abdomen: No pain, No nausea, No vomiting, No diarrhea, No constipation Male : No dysuria Heme: No abnormal bleeding/bruising Skin: + rash (improving) Medications Current Inpatient Medications Medications (Trade) Dose Ordered Sig/Lisa Route Start Time Stop Time Status Last Admin Dose Admin Ondansetron HCl (Zofran Inj) 4 mg Q6H PRN IV 12/09/17 16:30 01/08/18 16:29 Levothyroxine Sodium 25 mcg/ Syringe 1.25 ml @ 2 mls/min DAILY@09 IV 12/10/17 09:00 01/09/18 08:59 12/12/17 09:25 2 MLS/MIN Morphine Sulfate (MoRPHine SULFATE INJ) 2 mg Q4H PRN IV 12/09/17 16:30 12/23/17 16:29 Metoprolol Tartrate (Lopressor Iv) 5 mg Q4H PRN IV 12/09/17 17:30 01/08/18 17:29 Miscellaneous Information (Pharmacy Tpn/ Ppn Consult Active) 1 ea UD PRN N/A 12/11/17 13:11 01/10/18 13:10 Potassium Chloride/Dextrose/ Sod Cl 1,000 ml @ 75 mls/hr [id number] IV 12/11/17 14:00 12/12/17 15:59 12/12/17 04:33 75 MLS/HR Miscellaneous (Stop Order) 1 ea ONE ONCE N/A 12/12/17 16:00 12/12/17 16:01 Heparin Sodium (Porcine) (Heparin 10 Unit/ ml 5 ml Flush) 5 ml PRN PRN FLUSH 12/11/17 16:30 01/10/18 16:29 12/12/17 10:11 5 ML Ertapenem 1 gm/ Sodium Chloride 50 ml @ 120 mls/hr Q24H IV 12/12/17 11:00 12/22/17 10:59 12/12/17 11:35 120 MLS/HR Nutrition (Parenteral) 0 ml @ 0 mls/hr TODAY@1600 IV 12/12/17 16:00 12/13/17 15:59 Dextrose 1,000 ml @ 0 mls/hr Q0M PRN IV 12/12/17 10:44 01/11/18 10:43 Objective Vital Signs Date Time Temp Pulse Resp B/P (MAP) Pulse Ox O2 Delivery O2 Flow Rate FiO2 12/12/17 15:15 36.1 55 18 117/68 (84) 94 Room Air 12/12/17 14:53 Room Air 12/12/17 08:45 94 Room Air 12/12/17 07:59 36.6 69 18 139/68 (91) 94 Room Air 12/12/17 00:00 Room Air 12/11/17 23:49 36.6 58 20 135/68 (90) 97 Room Air 12/11/17 19:15 Room Air 12/11/17 19:10 36.5 96 18 134/74 (94) 100 Room Air 12/11/17 18:30 36.4 53 17 94 12/11/17 16:01 36.4 53 17 128/74 (92) 94 Room Air Physical Exam General Appearance: WD/WN, no apparent distress Eyes: sclerae normal ENT: hearing grossly normal Neck: supple, no JVD, trachea midline Respiratory/Chest: lungs clear, normal breath sounds, no respiratory distress, no accessory muscle use Cardiovascular: + bradycardia Abdomen: normal bowel sounds, non tender, soft Extremities: no pedal edema Neurologic/Psychiatric: alert, oriented x 3 Skin: normal color, warm/dry Laboratory Results Last 24 Hours Test 12/12/17 00:24 12/12/17 05:44 12/12/17 12:36 Bedside Glucose 103 mg/dl 93 mg/dl Sodium Level 143 mmol/L Potassium Level 3.4 mmol/L Chloride Level 113 mmol/L Carbon Dioxide Level 23 mmol/L Anion Gap 7.0 mmol/L Blood Urea Nitrogen 11 mg/dl Creatinine 0.85 mg/dl Est Creatinine Clear Calc Drug Dose 62.6 ml/min Estimated GFR () 92.7 Estimated GFR (Non- 80.0 BUN/Creatinine Ratio 12.9 Random Glucose 93 mg/dl Calcium Level 8.1 mg/dl Phosphorus Level 2.4 mg/dl Magnesium Level 2.0 mg/dl Triglycerides Level 76 mg/dl Assessment and Plan Mr. Garza is an 82 y/o male with PMHx of CAD with CABG x 3 (2014), NSTEMI, Hypothyroidism, PE/DVT on Coumadin (2011), Acute/Chronic R Rib Fx, Interstitial Lung Disease, and Recent Lyme who had an EGD for Schatzki Ring dilation with perforation. Schatzki Ring Dilation with Perforation/Pneumoperitoneum/Pneumomediastinum: STABLE - Maintain TPN at this time - PICC line in RUE - Continue Protonix push BID; Converted to Invanz 1 g IV daily - CT Surg and Gen Surg following - maintaining conservative measures at this time CAD with CABG x 3/NSTEMI/Ischemic Cardiomyopathy and Chronic Mixed Systolic/ Diastolic CHF: STABLE - Hold ASA and Atorvastatin at this time due to NPO - Echo (October 2017) - EF 45-50% with grade I diastolic dysfunction; RCA wall motion abnormality; septal motion consistent with BBB/cardiac surgery - Remains euvolemic - continue to monitor fluid status - outpatient records suggest he doesn't normally have issues with heart failure Bradycardia and H/O Ongoing Lightheadedness/Dizziness: - Patient has a H/O ongoing issues with lightheadedness - possibly having low HRs at home? Does have intermittent HRs down into 30s. May benefit from Holter/ Event Monitor to correlate if lightheadedness is related to his intermittent lower HRs - possible some vagal elements given perforation? Hypothyroidism: - Continue Levothyroxine 25 mcg IV H/O DVT/PE (2011): - Coumadin has been on hold prior to scope and will remain on hold given possible surgical intervention - Appears he may have had an isolated episode of A Fib in the past but nothing here - given the chronicity of his DVT should me ok to monitor - Can use SCDs at this time Acute on Chronic R-Sided Rib Fx: Noted Interstitial Lung Disease/Emphysema: - Does have a h/o tobacco use (quit 1986) - will monitor - no exacerbation - has not required inhalers in the past Recent Lyme: October 2017 - STABLE - Reports finishing treatment for Lyme disease over the past month DVT Prophylaxis: SCDs Code Status: FULL RESUSCITATION Disposition: Maintain NPO and TPN Continued [facility] stay due to: inadequate po fluid intake Discharge planning: home
[2017-12-12] MEDS ORDERED: CUSTOM CENTRAL PN 1 BAG IV SCH (16:00)
[2017-12-12] MEDS ORDERED: IV FLUIDS: STOP ORDER ONE (16:00)
[2017-12-12 23:51] VITALS: BP 127/66; PULSE 49; TEMP 36.4; O2SAT 95
[2017-12-13 05:05] VITALS: PULSE 52
[2017-12-13 07:30] VITALS: O2SAT 94
[2017-12-13 07:34] VITALS: BP 132/74; PULSE 70; TEMP 36.6; O2SAT 94
--- NOTE | 2017-12-13 07:49 | Surgery Progress Note ---
Surgery Progress Note Date of Service Dec 13, 2017. Subjective + feeling well, + bowel movement, + flatus, + pain controlled, + diet (NPO, TPN) , No complaints, No nausea, No vomiting Objective Vital Signs: Date Time Temp Pulse Resp B/P (MAP) Pulse Ox O2 Delivery O2 Flow Rate FiO2 12/13/17 07:34 36.6 70 18 132/74 (93) 94 Room Air 12/13/17 05:05 52 12/12/17 23:51 36.4 49 18 127/66 (86) 95 Room Air 12/12/17 20:00 Room Air 12/12/17 15:15 36.1 55 18 117/68 (84) 94 Room Air 12/12/17 14:53 Room Air 12/12/17 08:45 94 Room Air 12/12/17 07:59 36.6 69 18 139/68 (91) 94 Room Air General Appearance: WD/WN, no apparent distress Head: normocephalic, atraumatic Respiratory/Chest: no respiratory distress Abdomen: non tender, non distended, soft, no organomegaly, no pulsatile mass Laboratory Results: Results Past 24 Hours Test 12/12/17 12:36 12/13/17 00:11 12/13/17 04:44 12/13/17 07:16 Range/Units Bedside Glucose 93 113 108 70-99 mg/dl Assessment & Plan Continues to do well. Abdomen soft, nontender. Keep NPO, TPN, IV Abx. Likely repeat UGI Saturday to assess for resolution.
[2017-12-13 08:36] LABS: HEMATOCRIT 36.7 % (42-52); HEMOGLOBIN 12.1 g/dL (14.0-18.0); MEAN CELL VOLUME 89.3 fL (80-100); MEAN CORPUSCULAR HEMOGLOBIN 29.4 pg (25-34); MEAN PLATELET VOLUME 11.2 fL (7.4-10.4); PLATELET COUNT 171 K/uL (130-400); RED CELL DISTRIBUTION WIDTH CV 15.9 % (11.5-14.5); RED CELL DISTRIBUTION WIDTH SD 52.3 fL (36.4-46.3); WHITE BLOOD COUNT 7.41 K/uL (4.8-10.8)
[2017-12-13] MEDS: HEPARIN SOD 5000 UNIT/0.5 ML CARP SQ SCH ×2 (09:00→20:43)
[2017-12-13 09:12] LABS: ALBUMIN 2.7 gm/dl (3.4-5.0); CALCIUM 8.4 mg/dl (8.5-10.1); CREATININE 0.67 mg/dl (0.60-1.40); PHOSPHORUS 2.4 mg/dl (2.5-4.9)
--- NOTE | 2017-12-13 10:00 | DIAGNOSTIC IMAGING REPORT ---
CHEST 2 VIEWS ROUTINE HISTORY: gastric perforation COMPARISON: Chest 12/06/2013. FINDINGS: Small amount of pneumoperitoneum which has slightly improved. No significant pneumomediastinum. No pneumothorax. The heart is normal in size. Post sternotomy changes. The right PICC terminates in the expected location of the SVC. IMPRESSION: 1. Small amount of pneumoperitoneum which has slightly improved. 2. The right PICC terminates in the SVC. Electronically signed by: Mekhi Michael M.D. 12/13/2017 9:59 AM Dictated Date/Time: 12/13/2017 9:57 AM
[2017-12-13] MEDS: LEVOTHYROXINE SODIUM INJ 25 MCG in SYRINGE 0 ML IV SCH (10:22)
--- NOTE | 2017-12-13 13:13 | Gastroenterology Progress Note ---
Progress Note Date of Service: Dec 13, 2017 Subjective Pt evaluation today including: conversation w/ patient, physical exam, lab review, review of studies Patient is a 82 yo male hospitalized with pneumomediastinum/pneumoperitoneum after an EGD with esophageal dilatation. An upper GI demonstrates a leak from the posterior stomach. The patient denies any complaints. He denies abdominal pain, nausea, vomiting, diarrhea, heartburn, or acid reflux. He denies chest pain. He is presently on Ertapenem per ID recommendations. An abdominal xray on 12/12 indicated some improvement. He is being followed by CT surgery and general surgery as well. Review of Systems Constitutional: No fever, No chills Eyes: No problem reported ENT: No problem reported Respiratory: No cough Abdomen: No pain, No nausea, No vomiting, No diarrhea Musculoskeletal: No problem reported Neuro: No problem reported Skin: No problem reported Medications Current Inpatient Medications Medications (Trade) Dose Ordered Sig/Lisa Route Start Time Stop Time Status Last Admin Dose Admin Ondansetron HCl (Zofran Inj) 4 mg Q6H PRN IV 12/09/17 16:30 01/08/18 16:29 Levothyroxine Sodium 25 mcg/ Syringe 1.25 ml @ 2 mls/min DAILY@09 IV 12/10/17 09:00 01/09/18 08:59 12/13/17 10:22 2 MLS/MIN Morphine Sulfate (MoRPHine SULFATE INJ) 2 mg Q4H PRN IV 12/09/17 16:30 12/23/17 16:29 Metoprolol Tartrate (Lopressor Iv) 5 mg Q4H PRN IV 12/09/17 17:30 01/08/18 17:29 Miscellaneous Information (Pharmacy Tpn/ Ppn Consult Active) 1 ea UD PRN N/A 12/11/17 13:11 01/10/18 13:10 Heparin Sodium (Porcine) (Heparin 10 Unit/ ml 5 ml Flush) 5 ml PRN PRN FLUSH 12/11/17 16:30 01/10/18 16:29 12/13/17 10:28 5 ML Ertapenem 1 gm/ Sodium Chloride 50 ml @ 120 mls/hr Q24H IV 12/12/17 11:00 12/22/17 10:59 12/12/17 11:35 120 MLS/HR Nutrition (Parenteral) 0 ml @ 0 mls/hr TODAY@1600 IV 12/12/17 16:00 12/13/17 15:59 12/12/17 16:08 0 MLS/HR Dextrose 1,000 ml @ 0 mls/hr Q0M PRN IV 12/12/17 10:44 01/11/18 10:43 Heparin Sodium (Porcine) (Heparin Sq 5000 Unit/0.5ml) 5,000 unit Q12 SQ 12/13/17 09:00 01/12/18 08:59 Nutrition (Parenteral) 0 ml @ 0 mls/hr TODAY@1600 IV 12/13/17 16:00 12/14/17 15:59 Objective Vital Signs Date Time Temp Pulse Resp B/P (MAP) Pulse Ox O2 Delivery O2 Flow Rate FiO2 12/13/17 07:34 36.6 70 18 132/74 (93) 94 Room Air 12/13/17 07:30 94 Room Air 12/13/17 05:05 52 12/12/17 23:51 36.4 49 18 127/66 (86) 95 Room Air 12/12/17 20:00 Room Air 12/12/17 15:15 36.1 55 18 117/68 (84) 94 Room Air 12/12/17 14:53 Room Air Physical Exam General Appearance: WD/WN, no apparent distress Eyes: normal inspection, PERRL ENT: hearing grossly normal Respiratory/Chest: lungs clear Cardiovascular: regular rate, rhythm Abdomen: normal bowel sounds, non tender, soft Neurologic/Psych: alert, oriented x 3 Skin: normal color Laboratory Results Last 24 Hours Test 12/13/17 00:11 12/13/17 07:16 12/13/17 08:02 12/13/17 12:06 Bedside Glucose 113 mg/dl 108 mg/dl 96 mg/dl White Blood Count 7.41 K/uL Red Blood Count 4.11 M/uL Hemoglobin 12.1 g/dL Hematocrit 36.7 % Mean Corpuscular Volume 89.3 fL Mean Corpuscular Hemoglobin 29.4 pg Mean Corpuscular Hemoglobin Concent 33.0 g/dl RDW Standard Deviation 52.3 fL RDW Coefficient of Variation 15.9 % Platelet Count 171 K/uL Mean Platelet Volume 11.2 fL Sodium Level 141 mmol/L Potassium Level 4.0 mmol/L Chloride Level 111 mmol/L Carbon Dioxide Level 24 mmol/L Anion Gap 6.0 mmol/L Blood Urea Nitrogen 17 mg/dl Creatinine 0.67 mg/dl Est Creatinine Clear Calc Drug Dose 78.4 ml/min Estimated GFR () 102.3 Estimated GFR (Non- 88.2 BUN/Creatinine Ratio 24.8 Random Glucose 96 mg/dl Calcium Level 8.4 mg/dl Phosphorus Level 2.4 mg/dl Magnesium Level 1.8 mg/dl C-Reactive Protein 0.67 mg/dl Albumin 2.7 gm/dl Triglycerides Level 122 mg/dl Assessment and Plan Patient is an 82 yo male with pneumomediastinum/pneumoperitoneum s/p EGD with dilatation of Schatzki ring to 18 mm on 12/09. An upper GI study on 12/11 indicated a posterior proximal gastric perforation and persistent pneumoperitoneum. A Chest xray on 12/12 indicated some improvement of this finding. 1) Continue NPO status. TPN has been initiated. 2) Continue Protonix gtt. 3) Appreciate CT surgery & general surgery recommendations and will continue to proceed with conservative management at this time. An upper GI is planned for Saturday for reevaluation. 4) ID following for antibiotic selection. Thank you for allowing us to participate in the care of this patient. If you should have any questions or concerns, do not hesitate to contact us. Agree with IOANA Fagan as above Abd: Soft, NT, ND, +BS Continue NPO and supportive care Continue Abx as per ID Continue PPI gtt
--- NOTE | 2017-12-13 13:42 | Clinical Documentation Query ---
CLINICAL DOCUMENTATION QUERY Dr. CORNEJO, In your clinical opinion is this patient being managed for: ( x ) Severe protein-calorie malnutrition ( ) Not Agree ( ) Other explanation of clinical findings (No explanation is considered a No Response) ( ) Unable to determine ( ) Need to Discuss (Phone CDS or qliq) (No discussion is considered a No Response) The medical record reflects the following clinical findings, treatment, and risk factors. Clinical Indicators: 82 yo male presenting with pneunomediastinum. Per dietary evaluation: pt has had a wt loss of 9.4% in a 1.5 month period and has been NPO since admission on 12/09. Treatment: PICC insertion for TPN Risk Factors: age, hx of schatzki ring with dilation and perforation, NSTEMI, CAD, chronic mixed CHF, emphysema and interstitial lung disease. Severe Malnutrition Criteria: (2 criteria needed) Energy intake: <50% of estimated energy requirement for > 5 days Wt loss: 1-2% in 1 wk, 5% in 1 month, or 7.5% in 3 months Body fat: moderate loss of SQ fat from the orbits, triceps or fat overlying the ribs Muscle mass: moderate muscle wasting at the temples, clavicles, shoulders, interosseous spaces, scapula, thigh, calf Fluid accumulation: moderate to severe localized or generalized edema of the extremities, vulva, scrotum-wt loss may be masked by edema Cigar Inspector strength: measurably decreased per the devices standards Please clarify and document your clinical opinion in the progress notes and discharge summary. Terms such as "probable", "suspected", "likely", "questionable", "possible", or "still to be ruled out" are acceptable. IF IN AGREEMENT, YOU MUST DOCUMENT ABOVE DIAGNOSTIC STATEMENT IN DAILY PROGRESS NOTES AND DISCHARGE SUMMARY. This document is not part of the patient's record. Thank You, Alberta Hyman RN [phone]
[2017-12-13] MEDS: ERTAPENEM IV 1 GM in SODIUM CHLOR 0.9% AD-VAN 50ML 50 ML IV SCH (14:36)
[2017-12-13 15:17] VITALS: BP 135/80; PULSE 61; TEMP 35.9; O2SAT 98
--- NOTE | 2017-12-13 15:34 | Hospitalist Progress Note ---
Hospitalist Progress Note Date of Service Dec 13, 2017. Subjective Pt evaluation today including: conversation w/ patient, conversation w/ family , physical exam, lab review, review of studies, review of inpatient medication list Patient seen and evaluated. No acute events overnight. Visited patient twice today. Didn't seem to remember that I was in this morning. Discussed with patient and daughter Velvet at bedside. He is a little more emotional today but reports great concern about his being home alone as she is forgetful. Velvet is driving in from out-of-town. Case management notified and [facility] notified to see if respite care can be arranged. Ran into Velvet in the hallway and they are trying to get a son to come in but he is from [place]. He remains pain free and ambulating the hallways. Planning on UGI series again on Saturday. Is being maintained on TPN. Weight stable. Patient is hoping to get ice cream soon but otherwise doesn't ask for food. Constitutional: No fever, No chills Respiratory: No cough, No shortness of breath Cardiovascular: No chest pain Abdomen: No pain, No nausea, No vomiting, No diarrhea, No constipation Musculoskeletal: No swelling, No calf pain Male : No dysuria Skin: No itch Medications Current Inpatient Medications Medications (Trade) Dose Ordered Sig/Lisa Route Start Time Stop Time Status Last Admin Dose Admin Ondansetron HCl (Zofran Inj) 4 mg Q6H PRN IV 12/09/17 16:30 01/08/18 16:29 Levothyroxine Sodium 25 mcg/ Syringe 1.25 ml @ 2 mls/min DAILY@09 IV 12/10/17 09:00 01/09/18 08:59 12/13/17 10:22 2 MLS/MIN Morphine Sulfate (MoRPHine SULFATE INJ) 2 mg Q4H PRN IV 12/09/17 16:30 12/23/17 16:29 Metoprolol Tartrate (Lopressor Iv) 5 mg Q4H PRN IV 12/09/17 17:30 01/08/18 17:29 Miscellaneous Information (Pharmacy Tpn/ Ppn Consult Active) 1 ea UD PRN N/A 12/11/17 13:11 01/10/18 13:10 Heparin Sodium (Porcine) (Heparin 10 Unit/ ml 5 ml Flush) 5 ml PRN PRN FLUSH 12/11/17 16:30 01/10/18 16:29 12/13/17 15:37 5 ML Ertapenem 1 gm/ Sodium Chloride 50 ml @ 120 mls/hr Q24H IV 12/12/17 11:00 12/22/17 10:59 12/13/17 14:36 120 MLS/HR Dextrose 1,000 ml @ 0 mls/hr Q0M PRN IV 12/12/17 10:44 01/11/18 10:43 Heparin Sodium (Porcine) (Heparin Sq 5000 Unit/0.5ml) 5,000 unit Q12 SQ 12/13/17 09:00 01/12/18 08:59 Nutrition (Parenteral) 0 ml @ 0 mls/hr TODAY@1600 IV 12/13/17 16:00 12/14/17 15:59 12/13/17 16:14 0 MLS/HR Objective Vital Signs Date Time Temp Pulse Resp B/P (MAP) Pulse Ox O2 Delivery O2 Flow Rate FiO2 12/13/17 15:17 35.9 61 18 135/80 (98) 98 Room Air 12/13/17 07:34 36.6 70 18 132/74 (93) 94 Room Air 12/13/17 07:30 94 Room Air 12/13/17 05:05 52 12/12/17 23:51 36.4 49 18 127/66 (86) 95 Room Air 12/12/17 20:00 Room Air Physical Exam General Appearance: no apparent distress Eyes: sclerae normal ENT: hearing grossly normal Neck: supple, no JVD, trachea midline Respiratory/Chest: lungs clear, normal breath sounds, no respiratory distress, no accessory muscle use Cardiovascular: regular rate, rhythm Abdomen: normal bowel sounds, non tender, soft Extremities: no pedal edema Neurologic/Psychiatric: alert, oriented x 3, + pertinent finding (moments of confusion) Skin: normal color, warm/dry Laboratory Results Last 24 Hours Test 12/13/17 00:11 12/13/17 07:16 12/13/17 08:02 12/13/17 12:06 Bedside Glucose 113 mg/dl 108 mg/dl 96 mg/dl White Blood Count 7.41 K/uL Red Blood Count 4.11 M/uL Hemoglobin 12.1 g/dL Hematocrit 36.7 % Mean Corpuscular Volume 89.3 fL Mean Corpuscular Hemoglobin 29.4 pg Mean Corpuscular Hemoglobin Concent 33.0 g/dl RDW Standard Deviation 52.3 fL RDW Coefficient of Variation 15.9 % Platelet Count 171 K/uL Mean Platelet Volume 11.2 fL Sodium Level 141 mmol/L Potassium Level 4.0 mmol/L Chloride Level 111 mmol/L Carbon Dioxide Level 24 mmol/L Anion Gap 6.0 mmol/L Blood Urea Nitrogen 17 mg/dl Creatinine 0.67 mg/dl Est Creatinine Clear Calc Drug Dose 78.4 ml/min Estimated GFR () 102.3 Estimated GFR (Non- 88.2 BUN/Creatinine Ratio 24.8 Random Glucose 96 mg/dl Calcium Level 8.4 mg/dl Phosphorus Level 2.4 mg/dl Magnesium Level 1.8 mg/dl C-Reactive Protein 0.67 mg/dl Albumin 2.7 gm/dl Triglycerides Level 122 mg/dl Assessment and Plan Mr. Garza is an 82 y/o male with PMHx of CAD with CABG x 3 (2014), NSTEMI, Hypothyroidism, PE/DVT on Coumadin (2011), Acute/Chronic R Rib Fx, Interstitial Lung Disease, and Recent Lyme who had an EGD for Schatzki Ring dilation with perforation. Schatzki Ring Dilation with Perforation/Pneumoperitoneum/Pneumomediastinum: STABLE - Maintain TPN at this time - PICC line in RUE - Continue Protonix push BID; Converted to Invanz 1 g IV daily - CT Surg and Gen Surg following - maintaining conservative measures at this time - planning on UGI series on Saturday CAD with CABG x 3/NSTEMI/Ischemic Cardiomyopathy and Chronic Mixed Systolic/ Diastolic CHF: STABLE - Hold ASA and Atorvastatin at this time due to NPO - Echo (October 2017) - EF 45-50% with grade I diastolic dysfunction; RCA wall motion abnormality; septal motion consistent with BBB/cardiac surgery - Remains euvolemic - continue to monitor fluid status - outpatient records suggest he doesn't normally have issues with heart failure Bradycardia and H/O Ongoing Lightheadedness/Dizziness: - Patient has a H/O ongoing issues with lightheadedness - possibly having low HRs at home? Does have intermittent HRs down into 30s. May benefit from Holter/ Event Monitor to correlate if lightheadedness is related to his intermittent lower HRs - possible some vagal elements given perforation? Hypothyroidism: - Continue Levothyroxine 25 mcg IV H/O DVT/PE (2011): - Coumadin has been on hold prior to scope and will remain on hold given possible surgical intervention - Heparin SC for DVT prophylaxis (has refused it and will continue to educate on this and in the meantime encourage ambulation) - Appears he may have had an isolated episode of A Fib but Coumadin was for H/O PE/DVT Acute on Chronic R-Sided Rib Fx: Noted Interstitial Lung Disease/Emphysema: - Does have a h/o tobacco use (quit 1986) - will monitor - no exacerbation - has not required inhalers in the past Recent Lyme: October 2017 - STABLE - Reports finishing treatment for Lyme disease over the past month Severe Protein-Calorie Malnutrition: Continue TPN DVT Prophylaxis: SCDs Code Status: FULL RESUSCITATION Disposition: Maintain NPO and TPN; UGI on Saturday - possible D/C /Sat but again dependent on study - Patient expresses concern for his at home who is forgetful - all family members are not local - [facility]OA notified to look into possible respite care -- Velvet (daughter) states the 's son may be coming in but he is from [place] Continued [facility] stay due to: inadequate po fluid intake Discharge planning: home
[2017-12-13] MEDS ORDERED: CUSTOM CENTRAL PN 1 BAG IV SCH (16:00)
--- NOTE | 2017-12-13 17:05 | SURGERY PROGRESS NOTE ---
DATE: 12/13/2017 Mr. Woods is seen today on 12/13/2017. This patient has an iatrogenic perforation of his stomach with a pneumoperitoneum, which is improving. His white count today is still normal at 7410. Hemoglobin is normal. He has no fevers. His saturations are 98% on room air. His carbon dioxide remains normal, 24. At this point, I would continue on his hyperalimentation and I would keep him n.p.o. until we are satisfied that he is not leaking. I explained this quite carefully to the patient. He does look better to me.
[2017-12-13 23:08] VITALS: BP 137/74; PULSE 57; TEMP 36.3; O2SAT 94
[2017-12-14 05:56] LABS: HEMATOCRIT 39.9 % (42-52); HEMOGLOBIN 12.9 g/dL (14.0-18.0); MEAN CELL VOLUME 89.5 fL (80-100); MEAN CORPUSCULAR HEMOGLOBIN 28.9 pg (25-34); MEAN CORPUSCULAR HGB CONC 32.3 g/dl (32-36); MEAN PLATELET VOLUME 11.1 fL (7.4-10.4); PLATELET COUNT 170 K/uL (130-400); RED CELL DISTRIBUTION WIDTH CV 15.9 % (11.5-14.5); RED CELL DISTRIBUTION WIDTH SD 52.3 fL (36.4-46.3); WHITE BLOOD COUNT 7.54 K/uL (4.8-10.8)
[2017-12-14 06:21] LABS: CALCIUM 8.8 mg/dl (8.5-10.1); CREATININE 0.67 mg/dl (0.60-1.40); PHOSPHORUS 2.7 mg/dl (2.5-4.9)
--- NOTE | 2017-12-14 08:03 | Surgery Progress Note ---
Subjective Date of Service: Dec 14, 2017. Pt. denies N/V or worsening abdominal pain. No fevers, shakes, chills. Objective Vitals Date Time Temp Pulse Resp B/P (MAP) Pulse Ox O2 Delivery O2 Flow Rate FiO2 12/14/17 00:05 Room Air 12/13/17 23:08 36.3 57 18 137/74 (95) 94 Room Air 12/13/17 16:20 Room Air 12/13/17 15:17 35.9 61 18 135/80 (98) 98 Room Air Physical Exam General: + well developed, No distress CV: + RRR Pulmonary: + lungs clear, No accessory muscle use, No respiratory distress Abdomen: + non-distended, + non tender, + soft Extremities: No calf tenderness Assessment & Plan 82 year old male with iatrogenic gastric perforation -repeat imaging showed improvement of pneumoperitoneum -Gastrografin swallow study 12/11/17 showed contrast extravasation -pt. has been kept npo and parenteral nutrition provided -continue antibiotics--zosyn -repeat swallow to be dome in several days (timimg will be determined by general surgery)
[2017-12-14] MEDS: HEPARIN SOD 5000 UNIT/0.5 ML CARP SQ SCH ×2 (09:00→20:39)
[2017-12-14 09:15] VITALS: BP 110/58; PULSE 54; TEMP 36.3; O2SAT 97
[2017-12-14] MEDS: LEVOTHYROXINE SODIUM INJ 25 MCG in SYRINGE 0 ML IV SCH (09:20)
--- NOTE | 2017-12-14 10:29 | Surgery Progress Note ---
Surgery Progress Note Date of Service Dec 14, 2017. Subjective Denies abdominal pain Objective Vital Signs: Date Time Temp Pulse Resp B/P (MAP) Pulse Ox O2 Delivery O2 Flow Rate FiO2 12/14/17 09:15 36.3 54 21 110/58 (75) 97 Room Air 12/14/17 00:05 Room Air 12/13/17 23:08 36.3 57 18 137/74 (95) 94 Room Air 12/13/17 16:20 Room Air 12/13/17 15:17 35.9 61 18 135/80 (98) 98 Room Air Abdomen: non tender, non distended, soft Laboratory Results: Results Past 24 Hours Test 12/13/17 12:06 12/13/17 18:13 12/14/17 00:31 12/14/17 05:21 Range/Units Bedside Glucose 96 100 117 70-99 mg/dl White Blood Count 7.54 4.8-10.8 K/uL Red Blood Count 4.46 4.7-6.1 M/uL Hemoglobin 12.9 14.0-18.0 g/dL Hematocrit 39.9 42-52 % Mean Corpuscular Volume 89.5 80-100 fL Mean Corpuscular Hemoglobin 28.9 25-34 pg Mean Corpuscular Hemoglobin Concent 32.3 32-36 g/dl RDW Standard Deviation 52.3 36.4-46.3 fL RDW Coefficient of Variation 15.9 11.5-14.5 % Platelet Count 170 130-400 K/uL Mean Platelet Volume 11.1 7.4-10.4 fL Sodium Level 141 136-145 mmol/L Potassium Level 4.0 3.5-5.1 mmol/L Chloride Level 110 98-107 mmol/L Carbon Dioxide Level 27 21-32 mmol/L Anion Gap 4.0 3-11 mmol/L Blood Urea Nitrogen 24 7-18 mg/dl Creatinine 0.67 0.60-1.40 mg/dl Est Creatinine Clear Calc Drug Dose 78.4 ml/min Estimated GFR () 102.3 Estimated GFR (Non- 88.2 BUN/Creatinine Ratio 36.0 10-20 Random Glucose 92 70-99 mg/dl Calcium Level 8.8 8.5-10.1 mg/dl Phosphorus Level 2.7 2.5-4.9 mg/dl Magnesium Level 1.8 1.8-2.4 mg/dl Assessment & Plan S/P gastric perforation On TPN, cont NPO WBC normal No evidence of acute infection
[2017-12-14] MEDS: ERTAPENEM IV 1 GM in SODIUM CHLOR 0.9% AD-VAN 50ML 50 ML IV SCH (11:10)
--- NOTE | 2017-12-14 12:39 | GASTROENTEROLOGY PROGRESS NOTE ---
DATE: 12/14/2017 AGE: 82 SEX: Male. RACE: . SUBJECTIVE: I had the pleasure of seeing Félix Garza at bedside today. He is without complaints. He states that he is having no fevers, chills, nausea, vomiting, hematemesis, melena, hematochezia, abdominal pain or other complaints. He does state that he is "board being in the hospital." PHYSICAL EXAMINATION: VITAL SIGNS: Temp 36.3, pulse 54, respirations 21, blood pressure 110/58, pulse ox 97% on room air. GENERAL: Awake, cooperative, in no acute distress. CHEST: Clear to auscultation bilaterally. CARDIOVASCULAR SYSTEM: Regular rate and rhythm. ABDOMEN: Soft, nontender, nondistended. Positive bowel sounds. LABORATORY STUDIES: From this morning include a white blood cell count of 7.54, hemoglobin 12.9, hematocrit 39.9, platelet count 170. Sodium 141, potassium 4.0, chloride 110, bicarbonate 27, BUN 24, creatinine 0.67, and a blood glucose of 92. IMPRESSION: An 82-year-old male status post EGD on 12/09/2017 with dilation of a Schatzki's ring, who subsequently developed post-procedural pain and was found to have pneumoperitoneum and pneumomediastinum from a presumed gastric perforation. PLAN: Currently, the patient remains asymptomatic. He has done quite well during his hospitalization. He has not had any fevers, white count or pain. He did have a continued leak on an upper GI small bowel series on 12/11. He is currently on TPN therapy and will remain on this as well as antibiotic therapy as per ID and will have a repeat upper GI series on Saturday to further evaluate the prior perforation. I will follow his clinical course and make further recommendations as needed. Once again, thanks for allowing me to participate in the care of this patient. If you have any further questions, please do not hesitate in contacting me.
[2017-12-14 15:41] VITALS: BP 110/62; PULSE 57; TEMP 36.2; O2SAT 100
--- NOTE | 2017-12-14 15:50 | Hospitalist Progress Note ---
Hospitalist Progress Note Date of Service Dec 14, 2017. Subjective Pt evaluation today including: conversation w/ patient, conversation w/ family , physical exam, chart review, lab review, review of inpatient medication list Patient without acute events overnight. Updated patient and daughter at bedside. Patient with intermittent moments of increased confusion/agitation but suspect this is rather baseline. Yesterday he was concerned about his at home alone while he is hospitalized. OOA was contacted to see if they can assist. Family reports a son is coming from [place] to stay awhile with patient's . Awaiting UGI study. Patient really wants icecream but not demanding food. Tolerating TPN without issue. Weight stable. Reports some intermittent pain in the L back of the shoulder. No tenderness to palpation. Good range of motion. Has a chronic L ruptured bicep and daughter reports he tore his rotator cuff around October time frame. Pain does seem to correlate with perforation. No SC emphysema. Constitutional: No fever, No chills Respiratory: No cough, No shortness of breath Abdomen: No pain, No nausea, No vomiting, No diarrhea, No constipation Musculoskeletal: + joint pain (L posterior shoulder) Male : No dysuria Heme: No abnormal bleeding/bruising Medications Current Inpatient Medications Medications (Trade) Dose Ordered Sig/Lisa Route Start Time Stop Time Status Last Admin Dose Admin Ondansetron HCl (Zofran Inj) 4 mg Q6H PRN IV 12/09/17 16:30 01/08/18 16:29 Levothyroxine Sodium 25 mcg/ Syringe 1.25 ml @ 2 mls/min DAILY@09 IV 12/10/17 09:00 01/09/18 08:59 12/14/17 09:20 2 MLS/MIN Morphine Sulfate (MoRPHine SULFATE INJ) 2 mg Q4H PRN IV 12/09/17 16:30 12/23/17 16:29 Metoprolol Tartrate (Lopressor Iv) 5 mg Q4H PRN IV 12/09/17 17:30 01/08/18 17:29 Miscellaneous Information (Pharmacy Tpn/ Ppn Consult Active) 1 ea UD PRN N/A 12/11/17 13:11 01/10/18 13:10 Heparin Sodium (Porcine) (Heparin 10 Unit/ ml 5 ml Flush) 5 ml PRN PRN FLUSH 12/11/17 16:30 8/24/18 16:29 12/14/17 05:19 5 ML Ertapenem 1 gm/ Sodium Chloride 50 ml @ 120 mls/hr Q24H IV 12/12/17 11:00 12/22/17 10:59 12/14/17 11:10 120 MLS/HR Dextrose 1,000 ml @ 0 mls/hr Q0M PRN IV 12/12/17 10:44 01/11/18 10:43 Heparin Sodium (Porcine) (Heparin Sq 5000 Unit/0.5ml) 5,000 unit Q12 SQ 12/13/17 09:00 01/12/18 08:59 Nutrition (Parenteral) 0 ml @ 0 mls/hr TODAY@1600 IV 12/13/17 16:00 12/14/17 15:59 12/13/17 16:14 0 MLS/HR Nutrition (Parenteral) 0 ml @ 0 mls/hr TODAY@1600 IV 12/14/17 16:00 12/15/17 15:59 Objective Vital Signs Date Time Temp Pulse Resp B/P (MAP) Pulse Ox O2 Delivery O2 Flow Rate FiO2 12/14/17 09:15 36.3 54 21 110/58 (75) 97 Room Air 12/14/17 09:00 Room Air 12/14/17 00:05 Room Air 12/13/17 23:08 36.3 57 18 137/74 (95) 94 Room Air 12/13/17 16:20 Room Air Physical Exam General Appearance: no apparent distress Eyes: sclerae normal ENT: hearing grossly normal Neck: supple, no JVD, trachea midline Respiratory/Chest: lungs clear, normal breath sounds, no respiratory distress, no accessory muscle use Cardiovascular: regular rate, rhythm Abdomen: normal bowel sounds, non tender, soft Extremities: no pedal edema, + pertinent finding (no SC emphysema around L shoulder; chronic L bicep rupture; good AROM to shoulder; no tenderness to palp or erythema of joint) Neurologic/Psychiatric: alert, oriented x 3 Skin: normal color, warm/dry Laboratory Results Last 24 Hours Test 12/13/17 18:13 12/14/17 00:31 12/14/17 05:21 12/14/17 12:15 Bedside Glucose 100 mg/dl 117 mg/dl 101 mg/dl White Blood Count 7.54 K/uL Red Blood Count 4.46 M/uL Hemoglobin 12.9 g/dL Hematocrit 39.9 % Mean Corpuscular Volume 89.5 fL Mean Corpuscular Hemoglobin 28.9 pg Mean Corpuscular Hemoglobin Concent 32.3 g/dl RDW Standard Deviation 52.3 fL RDW Coefficient of Variation 15.9 % Platelet Count 170 K/uL Mean Platelet Volume 11.1 fL Sodium Level 141 mmol/L Potassium Level 4.0 mmol/L Chloride Level 110 mmol/L Carbon Dioxide Level 27 mmol/L Anion Gap 4.0 mmol/L Blood Urea Nitrogen 24 mg/dl Creatinine 0.67 mg/dl Est Creatinine Clear Calc Drug Dose 78.4 ml/min Estimated GFR () 102.3 Estimated GFR (Non- 88.2 BUN/Creatinine Ratio 36.0 Random Glucose 92 mg/dl Calcium Level 8.8 mg/dl Phosphorus Level 2.7 mg/dl Magnesium Level 1.8 mg/dl Assessment and Plan Mr. Garza is an 82 y/o male with PMHx of CAD with CABG x 3 (2014), NSTEMI, Hypothyroidism, PE/DVT on Coumadin (2011), Acute/Chronic R Rib Fx, Interstitial Lung Disease, and Recent Lyme who had an EGD for Schatzki Ring dilation with perforation. Schatzki Ring Dilation with Perforation/Pneumoperitoneum/Pneumomediastinum: STABLE - Maintain TPN at this time - PICC line in RUE - Continue Protonix push BID; Invanz 1 g IV daily - CT Surg and Gen Surg following - maintaining conservative measures at this time - planning on UGI series on Saturday CAD with CABG x 3/NSTEMI/Ischemic Cardiomyopathy and Chronic Mixed Systolic/ Diastolic CHF: STABLE - Hold ASA and Atorvastatin at this time due to NPO - Echo (October 2017) - EF 45-50% with grade I diastolic dysfunction; RCA wall motion abnormality; septal motion consistent with BBB/cardiac surgery - Remains euvolemic - continue to monitor fluid status - outpatient records suggest he doesn't normally have issues with heart failure - currently +7 L but no signs of decompensation and maintaining adequate UO Bradycardia and H/O Ongoing Lightheadedness/Dizziness: STABLE - Patient has a H/O ongoing issues with lightheadedness - possibly having low HRs at home? Does have intermittent HRs down into 30s. May benefit from Holter/ Event Monitor to correlate if lightheadedness is related to his intermittent lower HRs - possible some vagal elements given perforation? Hypothyroidism: - Continue Levothyroxine 25 mcg IV H/O DVT/PE (2011): - Coumadin has been on hold prior to scope and will remain on hold given possible surgical intervention - Heparin SC for DVT prophylaxis (has refused it and will continue to educate on this and in the meantime encourage ambulation) - Appears he may have had an isolated episode of A Fib but Coumadin was for H/O PE/DVT Acute on Chronic R-Sided Rib Fx: Noted Interstitial Lung Disease/Emphysema: - Does have a h/o tobacco use (quit 1986) - will monitor - no exacerbation - has not required inhalers in the past Recent Lyme: October 2017 - STABLE - Reports finishing treatment for Lyme disease over the past month Severe Protein-Calorie Malnutrition: Continue TPN DVT Prophylaxis: SCDs Code Status: FULL RESUSCITATION Disposition: Maintain NPO and TPN; UGI on Saturday - possible D/C /Sat but again dependent on study Continued [facility] stay due to: inadequate po fluid intake, multiple IV medications needed Discharge planning: home
[2017-12-14] MEDS ORDERED: CUSTOM CENTRAL PN 1 BAG IV SCH (16:00)
[2017-12-15] MEDS ORDERED: DiphenhydrAMINE HCL 50 MG/ML VIAL IV STA (00:09)
[2017-12-15 00:25] VITALS: BP 131/72; PULSE 78; TEMP 36.4; O2SAT 96
[2017-12-15 07:04] LABS: CALCIUM 8.7 mg/dl (8.5-10.1); CREATININE 0.66 mg/dl (0.60-1.40); PHOSPHORUS 3.1 mg/dl (2.5-4.9); POTASSIUM 3.9 mmol/L (3.5-5.1)
[2017-12-15 07:16] LABS: HEMATOCRIT 38.9 % (42-52); HEMOGLOBIN 12.6 g/dL (14.0-18.0); MEAN CELL VOLUME 90.3 fL (80-100); MEAN CORPUSCULAR HEMOGLOBIN 29.2 pg (25-34); MEAN CORPUSCULAR HGB CONC 32.4 g/dl (32-36); MEAN PLATELET VOLUME 11.7 fL (7.4-10.4); PLATELET COUNT 167 K/uL (130-400); RED CELL DISTRIBUTION WIDTH CV 16.3 % (11.5-14.5); RED CELL DISTRIBUTION WIDTH SD 53.7 fL (36.4-46.3); WHITE BLOOD COUNT 7.55 K/uL (4.8-10.8)
[2017-12-15 07:22] VITALS: BP 127/72; PULSE 48; TEMP 36.5; O2SAT 99
--- NOTE | 2017-12-15 08:18 | Hospitalist Progress Note ---
Hospitalist Progress Note Date of Service Dec 15, 2017. Subjective Pt evaluation today including: conversation w/ patient, conversation w/ family (friend - neighbor), physical exam, chart review, lab review, review of inpatient medication list Patient seen and evaluated. No acute events overnight. Ambulating in the hallway. Due for swallow study tomorrow per surgical recommendation. No new complaints. Tolerating TPN. Weight staying stable. Further disposition will be based on results of UGI Constitutional: No fever, No chills Respiratory: No cough, No shortness of breath Cardiovascular: No chest pain Abdomen: No pain, No nausea, No vomiting, No diarrhea, No constipation Musculoskeletal: No swelling, No calf pain Heme: No abnormal bleeding/bruising Medications Current Inpatient Medications Medications (Trade) Dose Ordered Sig/Lisa Route Start Time Stop Time Status Last Admin Dose Admin Ondansetron HCl (Zofran Inj) 4 mg Q6H PRN IV 12/09/17 16:30 01/08/18 16:29 Levothyroxine Sodium 25 mcg/ Syringe 1.25 ml @ 2 mls/min DAILY@09 IV 12/10/17 09:00 01/09/18 08:59 12/15/17 09:41 2 MLS/MIN Morphine Sulfate (MoRPHine SULFATE INJ) 2 mg Q4H PRN IV 12/09/17 16:30 12/23/17 16:29 Metoprolol Tartrate (Lopressor Iv) 5 mg Q4H PRN IV 12/09/17 17:30 01/08/18 17:29 Miscellaneous Information (Pharmacy Tpn/ Ppn Consult Active) 1 ea UD PRN N/A 12/11/17 13:11 01/10/18 13:10 Heparin Sodium (Porcine) (Heparin 10 Unit/ ml 5 ml Flush) 5 ml PRN PRN FLUSH 12/11/17 16:30 01/10/18 16:29 12/15/17 12:02 5 ML Ertapenem 1 gm/ Sodium Chloride 50 ml @ 120 mls/hr Q24H IV 12/12/17 11:00 12/22/17 10:59 12/15/17 11:02 120 MLS/HR Dextrose 1,000 ml @ 0 mls/hr Q0M PRN IV 12/12/17 10:44 01/11/18 10:43 Heparin Sodium (Porcine) (Heparin Sq 5000 Unit/0.5ml) 5,000 unit Q12 SQ 12/13/17 09:00 01/12/18 08:59 Nutrition (Parenteral) 0 ml @ 0 mls/hr TODAY@1600 IV 12/15/17 16:00 12/16/17 15:59 12/15/17 16:24 0 MLS/HR Objective Vital Signs Date Time Temp Pulse Resp B/P (MAP) Pulse Ox O2 Delivery O2 Flow Rate FiO2 12/15/17 07:22 36.5 48 16 127/72 (90) 99 Room Air 12/15/17 00:25 36.4 78 18 131/72 (91) 96 Room Air 12/15/17 00:00 Room Air 12/14/17 16:15 Room Air 12/14/17 15:41 36.2 57 20 110/62 (78) 100 Room Air 12/14/17 09:15 36.3 54 21 110/58 (75) 97 Room Air 12/14/17 09:00 Room Air Physical Exam General Appearance: no apparent distress Eyes: sclerae normal ENT: hearing grossly normal Neck: supple, no JVD, trachea midline Respiratory/Chest: lungs clear, no respiratory distress, no accessory muscle use Cardiovascular: regular rate, rhythm Abdomen: normal bowel sounds, non tender, soft Extremities: no pedal edema Neurologic/Psychiatric: alert, oriented x 3 Skin: normal color, warm/dry Laboratory Results Last 24 Hours Test 12/14/17 12:15 12/14/17 18:00 12/14/17 23:58 12/15/17 05:53 Bedside Glucose 101 mg/dl 122 mg/dl 107 mg/dl White Blood Count 7.55 K/uL Red Blood Count 4.31 M/uL Hemoglobin 12.6 g/dL Hematocrit 38.9 % Mean Corpuscular Volume 90.3 fL Mean Corpuscular Hemoglobin 29.2 pg Mean Corpuscular Hemoglobin Concent 32.4 g/dl RDW Standard Deviation 53.7 fL RDW Coefficient of Variation 16.3 % Platelet Count 167 K/uL Mean Platelet Volume 11.7 fL Sodium Level 143 mmol/L Potassium Level 3.9 mmol/L Chloride Level 108 mmol/L Carbon Dioxide Level 28 mmol/L Anion Gap 7.0 mmol/L Blood Urea Nitrogen 30 mg/dl Creatinine 0.66 mg/dl Est Creatinine Clear Calc Drug Dose 79.0 ml/min Estimated GFR () 102.9 Estimated GFR (Non- 88.8 BUN/Creatinine Ratio 45.6 Random Glucose 91 mg/dl Calcium Level 8.7 mg/dl Phosphorus Level 3.1 mg/dl Magnesium Level 1.8 mg/dl Test 12/15/17 07:03 Bedside Glucose 103 mg/dl Assessment and Plan Mr. Garza is an 82 y/o male with PMHx of CAD with CABG x 3 (2014), NSTEMI, Hypothyroidism, PE/DVT on Coumadin (2011), Acute/Chronic R Rib Fx, Interstitial Lung Disease, and Recent Lyme who had an EGD for Schatzki Ring dilation with perforation. Schatzki Ring Dilation with Perforation/Pneumoperitoneum/Pneumomediastinum: STABLE - Maintain TPN at this time - PICC line in RUE - Continue Protonix push BID; Invanz 1 g IV daily - CT Surg and Gen Surg following - maintaining conservative measures at this time - planning on UGI series on Saturday CAD with CABG x 3/NSTEMI/Ischemic Cardiomyopathy and Chronic Mixed Systolic/ Diastolic CHF: STABLE - Hold ASA and Atorvastatin at this time due to NPO - Echo (October 2017) - EF 45-50% with grade I diastolic dysfunction; RCA wall motion abnormality; septal motion consistent with BBB/cardiac surgery - Remains euvolemic - continue to monitor fluid status - outpatient records suggest he doesn't normally have issues with heart failure - currently +9 L but no signs of decompensation and maintaining adequate UO - likely some element of inaccurate outputs as some days have nothing recorded Bradycardia and H/O Ongoing Lightheadedness/Dizziness: STABLE - Patient has a H/O ongoing issues with lightheadedness - possibly having low HRs at home? Does have intermittent HRs down into 30s. May benefit from Holter/ Event Monitor to correlate if lightheadedness is related to his intermittent lower HRs - possible some vagal elements given perforation? Hypothyroidism: - Continue Levothyroxine 25 mcg IV H/O DVT/PE (2011): - Coumadin has been on hold prior to scope and will remain on hold given possible surgical intervention - Heparin SC for DVT prophylaxis (has refused it and will continue to educate on this and in the meantime encourage ambulation) - Appears he may have had an isolated episode of A Fib but Coumadin was for H/O PE/DVT Acute on Chronic R-Sided Rib Fx: Noted Interstitial Lung Disease/Emphysema: - Does have a h/o tobacco use (quit 1986) - will monitor - no exacerbation - has not required inhalers in the past Recent Lyme: October 2017 - STABLE - Reports finishing treatment for Lyme disease over the past month Severe Protein-Calorie Malnutrition: Continue TPN DVT Prophylaxis: SCDs Code Status: FULL RESUSCITATION Disposition: Maintain NPO and TPN; UGI on Saturday - possible D/C /Sat but again dependent on study and perforation closure Continued [facility] stay due to: inadequate po fluid intake, multiple IV medications needed Discharge planning: home
--- NOTE | 2017-12-15 08:44 | Surgery Progress Note ---
Subjective Date of Service: Dec 15, 2017. Pt. does not report any fever, shakes, chills, abdominal pain or N/V. Objective Vitals Date Time Temp Pulse Resp B/P (MAP) Pulse Ox O2 Delivery O2 Flow Rate FiO2 12/15/17 07:22 36.5 48 16 127/72 (90) 99 Room Air 12/15/17 00:25 36.4 78 18 131/72 (91) 96 Room Air 12/15/17 00:00 Room Air 12/14/17 16:15 Room Air 12/14/17 15:41 36.2 57 20 110/62 (78) 100 Room Air 12/14/17 09:15 36.3 54 21 110/58 (75) 97 Room Air 12/14/17 09:00 Room Air Physical Exam General: + well developed, + well nourished, No distress CV: + RRR Pulmonary: + lungs clear, No accessory muscle use, No respiratory distress Abdomen: + non-distended, + non tender, + soft Extremities: No calf tenderness Assessment & Plan 82 year old male with iatrogenic gastric perforation (12/09/17) -repeat imaging showed improvement of pneumoperitoneum -Gastrografin swallow study 12/11/17 showed contrast extravasation -pt. to remain npo and parenteral nutrition to be continued: -TPN has been in place since (12/11/17) -continue antibiotics -repeat swallow to be done in several days (timing will be determined by general surgery)
[2017-12-15] MEDS: LEVOTHYROXINE SODIUM INJ 25 MCG in SYRINGE 0 ML IV SCH (09:41)
[2017-12-15] MEDS: HEPARIN SOD 5000 UNIT/0.5 ML CARP SQ SCH ×2 (09:42→21:00)
--- NOTE | 2017-12-15 10:27 | Surgery Progress Note ---
Surgery Progress Note Date of Service Dec 15, 2017. Subjective No complaints, No nausea, No vomiting Denies abdominal and chest pain Objective Vital Signs: Date Time Temp Pulse Resp B/P (MAP) Pulse Ox O2 Delivery O2 Flow Rate FiO2 12/15/17 08:30 Room Air 12/15/17 07:22 36.5 48 16 127/72 (90) 99 Room Air 12/15/17 00:25 36.4 78 18 131/72 (91) 96 Room Air 12/15/17 00:00 Room Air 12/14/17 16:15 Room Air 12/14/17 15:41 36.2 57 20 110/62 (78) 100 Room Air Abdomen: non tender, non distended, soft Laboratory Results: Results Past 24 Hours Test 12/14/17 12:15 12/14/17 18:00 12/14/17 23:58 12/15/17 05:53 Range/Units Bedside Glucose 101 122 107 70-99 mg/dl White Blood Count 7.55 4.8-10.8 K/uL Red Blood Count 4.31 4.7-6.1 M/uL Hemoglobin 12.6 14.0-18.0 g/dL Hematocrit 38.9 42-52 % Mean Corpuscular Volume 90.3 80-100 fL Mean Corpuscular Hemoglobin 29.2 25-34 pg Mean Corpuscular Hemoglobin Concent 32.4 32-36 g/dl RDW Standard Deviation 53.7 36.4-46.3 fL RDW Coefficient of Variation 16.3 11.5-14.5 % Platelet Count 167 130-400 K/uL Mean Platelet Volume 11.7 7.4-10.4 fL Sodium Level 143 136-145 mmol/L Potassium Level 3.9 3.5-5.1 mmol/L Chloride Level 108 98-107 mmol/L Carbon Dioxide Level 28 21-32 mmol/L Anion Gap 7.0 3-11 mmol/L Blood Urea Nitrogen 30 7-18 mg/dl Creatinine 0.66 0.60-1.40 mg/dl Est Creatinine Clear Calc Drug Dose 79.0 ml/min Estimated GFR () 102.9 Estimated GFR (Non- 88.8 BUN/Creatinine Ratio 45.6 10-20 Random Glucose 91 70-99 mg/dl Calcium Level 8.7 8.5-10.1 mg/dl Phosphorus Level 3.1 2.5-4.9 mg/dl Magnesium Level 1.8 1.8-2.4 mg/dl Test 12/15/17 07:03 Range/Units Bedside Glucose 103 70-99 mg/dl Assessment & Plan S/P gastric perforation On TPN, cont NPO WBC normal No evidence of acute infection
[2017-12-15] MEDS: ERTAPENEM IV 1 GM in SODIUM CHLOR 0.9% AD-VAN 50ML 50 ML IV SCH (11:02)
--- NOTE | 2017-12-15 14:26 | GASTROENTEROLOGY PROGRESS NOTE ---
DATE: 12/15/2017 PATIENT'S AGE: 82. SEX: Male. RACE: . SUBJECTIVE: I had the pleasure of seeing Félix today at his bedside. He is feeling well. He denies any abdominal pain, fevers, chills, nausea, vomiting, hematemesis, melena or hematochezia. He has been walking in the rosas without difficulty and states that he is getting "rosalie to get out of here." PHYSICAL EXAMINATION: VITAL SIGNS: Temp 36.5, pulse 48, respirations 16, blood pressure 127/72, pulse ox 99% on room air. GENERAL: He is awake, cooperative, in no acute distress. CHEST: Clear to auscultation bilaterally. CARDIOVASCULAR SYSTEM: Regular rate and rhythm. ABDOMEN: Soft, nontender, nondistended. Positive bowel sounds. LABORATORY STUDIES: From today include a white blood cell count of 7.55, hemoglobin 12.6, hematocrit 38.9 and a platelet count of 167. Sodium 143, potassium 3.9, chloride 108, bicarbonate 28, BUN 30, creatinine 0.66 and a blood glucose of 103. IMPRESSION: An 82-year-old male status post EGD on 12/09/2017 with dilation of a Schatzki's ring and a subsequent gastric perforation. PLAN: He is responding currently to conservative measures and has done quite well. He will remain on TPN. He will also remain on IV antibiotics as per the primary team and will remain on a Protonix drip. Recommendations for repeat upper GI series on Saturday. Will evaluate the gastric perforation and recommendations following this study will be made in regards to his disposition. Once again, thanks for allowing me to participate in the care of this patient. If you have any further questions, please do not hesitate in contacting me.
[2017-12-15 15:02] VITALS: BP 110/64; PULSE 45; TEMP 36.8; O2SAT 98
[2017-12-15] MEDS ORDERED: CUSTOM CENTRAL PN 1 BAG IV SCH (16:00)
[2017-12-15 22:41] VITALS: BP 150/80; PULSE 55; TEMP 36.7; O2SAT 94
[2017-12-16 06:57] LABS: CALCIUM 8.5 mg/dl (8.5-10.1); CREATININE 0.66 mg/dl (0.60-1.40); PHOSPHORUS 3.4 mg/dl (2.5-4.9); POTASSIUM 4.1 mmol/L (3.5-5.1)
[2017-12-16 07:37] VITALS: BP 112/59; PULSE 50; TEMP 36.3; O2SAT 97
[2017-12-16] MEDS: HEPARIN SOD 5000 UNIT/0.5 ML CARP SQ SCH ×2 (09:00→15:10)
--- NOTE | 2017-12-16 09:03 | Surgery Progress Note ---
Subjective Date of Service: Dec 16, 2017. No abdominal pain reported. No N/V reported. No chest or shoulder pain reported. Objective Vitals Date Time Temp Pulse Resp B/P (MAP) Pulse Ox O2 Delivery O2 Flow Rate FiO2 12/16/17 07:37 36.3 50 16 112/59 (76) 97 12/16/17 00:10 Room Air 12/15/17 22:41 36.7 55 18 150/80 (103) 94 Room Air 12/15/17 16:30 Room Air 12/15/17 15:02 36.8 45 20 110/64 (79) 98 Physical Exam General: + well developed, + well nourished, No distress CV: + RRR Pulmonary: + lungs clear, + accessory muscle use, + respiratory distress Abdomen: + non-distended, + non tender, + soft Extremities: No calf tenderness Neurologic: + alert & oriented x 3 Assessment & Plan 82 year old male with iatrogenic gastric perforation (12/09/17) -repeat imaging showed improvement of pneumoperitoneum -Gastrografin swallow study 12/11/17 showed contrast extravasation -pt. to remain npo and parenteral nutrition to be continued: -TPN has been in place since (12/11/17) -continue antibiotics -repeat swallow to be done on 12/18/17
[2017-12-16] MEDS: LEVOTHYROXINE SODIUM INJ 25 MCG in SYRINGE 0 ML IV SCH (09:13)
--- NOTE | 2017-12-16 09:25 | SURGERY PROGRESS NOTE ---
DATE: 12/16/2017 Félix is resting comfortably. He is having no abdominal discomfort. He is not nauseated. His abdomen is completely benign. His last vitals showed temperature of 36.7, pulse 50, respirations 16, blood pressure 112/59, O2 sats 97 on room air. His I and O, he has had no bowel movement for approximately 3 days. He is on TPN and he is voiding without any problem. His last laboratory yesterday showed a white count of 7.55, hemoglobin 12.6. This morning, his BUN is 31, creatinine 0.66. At this point, he is 1 week post-iatrogenic perforation of the stomach. We had an upper GI on him that confirmed the leak which was about 3 cm away from the GE junction. This was done on the . At this point, I have discussed with the patient, we will wait until Saturday and repeat the upper GI with Gastrografin, if the leak is sealed then we will start him on clear liquids. Pending those results, further recommendations will be made. For the time being, we will continue him on hyperalimentation.
[2017-12-16] MEDS ORDERED: METHYLPREDNISOLONE IV 20 MG in SYRINGE 0 ML IV ONE (13:15)
[2017-12-16] MEDS: ERTAPENEM IV 1 GM in SODIUM CHLOR 0.9% AD-VAN 50ML 50 ML IV SCH (13:34)
[2017-12-16] MEDS ORDERED: CUSTOM CENTRAL PN 1 BAG IV SCH (16:00)
[2017-12-16] MEDS ORDERED: VANCOMYCIN IV 1,000 MG in SODIUM CHLORIDE 0.9% 250ML 250 ML IV STA (16:07)
[2017-12-16] MEDS ORDERED: VANCOMYCIN CONSULT ACTIVE PRN ×2 (16:15)
[2017-12-16] MEDS ORDERED: VANCOMYCIN IV 1,750 MG in SODIUM CHLORIDE 0.9% 500ML 500 ML IV SCH (16:30)
--- NOTE | 2017-12-16 17:08 | Pharmacy Progress Note ---
Pharmacy Abx Initial Consult Date of Service Dec 16, 2017. Pharmacy Dosing Scope Date of Consult: 12/16/17 Consultation requested by: Dr. Rodriguez Pharmacy is consulted to initiate Vancomycin IV dosing therapy, order appropriate labs and adjust drug dose/frequency. Subjective The patient is a 82 year old male admitted on Dec 09, 2017 at 16:27. Objective Height (Feet): 5 Height (Inches): 8.00 Weight (Kilograms): 67.000 (BMI 22.5) Vital Signs (Past 12Hrs) Vital Signs Past 12 Hours Date Time Temp Pulse Resp B/P (MAP) Pulse Ox O2 Delivery O2 Flow Rate FiO2 12/16/17 16:20 Room Air 12/16/17 09:15 Room Air 12/16/17 07:37 36.3 50 16 112/59 (76) 97 Risk Factors for Resistance * Current hospitalization > 5 days * Antimicrobial use within the last 90 days zosyn Assessment & Plan Assessment 82 year old male admitted 12/09/17 for gastric perforation after EGD with esophageal dilation Patient is on TPN. Plan Vancomycin IV * Estimated Pkinetics: Vd 0.7L/kg; Varun ~0.07 hr-1; T1/2 9.9 hr; CrCl 79 * Loading dose: 1750 mg (~26 mg/kg) * Maintenance dose: 1000 mg IV (~15 mg/kg) every 12 hours * Goal trough level : 15 to 20 mcg/mL * Trough level ordered for 12/18/17 Also on Aztreonam 2gm q8h. Pharmacy will continue to follow and will adjust dose/frequency as necessary. Thank you.
[2017-12-16] MEDS: AZTREONAM IV 2,000 MG in DEXTROSE 5% 100ML 100 ML IV SCH (17:15)
--- NOTE | 2017-12-16 17:38 | Infectious Disease Progress Nt ---
Progress Note Date of Service Dec 16, 2017. Subjective Pt evaluation today including: conversation w/ patient, physical exam, chart review, lab review, review of studies, conversation w/ customer experience consultant, review of inpatient medication list The patient has developed rash consistent with drug eruption, otherwise feeling better, no worsening pain, remains afebrile. All Other Systems: Reviewed and Negative Medications Current Inpatient Medications Medications (Trade) Dose Ordered Sig/Lisa Route Start Time Stop Time Status Last Admin Dose Admin Ondansetron HCl (Zofran Inj) 4 mg Q6H PRN IV 12/09/17 16:30 01/08/18 16:29 Levothyroxine Sodium 25 mcg/ Syringe 1.25 ml @ 2 mls/min DAILY@09 IV 12/10/17 09:00 01/09/18 08:59 12/16/17 09:13 2 MLS/MIN Morphine Sulfate (MoRPHine SULFATE INJ) 2 mg Q4H PRN IV 12/09/17 16:30 12/23/17 16:29 Metoprolol Tartrate (Lopressor Iv) 5 mg Q4H PRN IV 12/09/17 17:30 01/08/18 17:29 Miscellaneous Information (Pharmacy Tpn/ Ppn Consult Active) 1 ea UD PRN N/A 12/11/17 13:11 01/10/18 13:10 Heparin Sodium (Porcine) (Heparin 10 Unit/ ml 5 ml Flush) 5 ml PRN PRN FLUSH 12/11/17 16:30 01/10/18 16:29 12/16/17 14:00 5 ML Dextrose 1,000 ml @ 0 mls/hr Q0M PRN IV 12/12/17 10:44 01/11/18 10:43 Heparin Sodium (Porcine) (Heparin Sq 5000 Unit/0.5ml) 5,000 unit Q12 SQ 12/13/17 09:00 01/12/18 08:59 Nutrition (Parenteral) 0 ml @ 0 mls/hr TODAY@1600 IV 12/16/17 16:00 12/17/17 15:59 12/16/17 16:06 0 MLS/HR Vancomycin HCl 1000 mg/Sodium Chloride 270 ml @ 125 mls/hr Q12H IV 12/17/17 04:00 12/27/17 03:59 Vancomycin HCl (Consult) 1 ea UD PRN N/A 12/16/17 16:15 01/15/18 16:14 Aztreonam 2000 mg/ Dextrose 110 ml @ 100 mls/hr Q8H IV 12/16/17 17:00 12/26/17 16:59 12/16/17 17:15 100 MLS/HR Vancomycin HCl 1750 mg/Sodium Chloride 535 ml @ 200 mls/hr UD IV 12/16/17 16:30 12/26/17 16:29 12/16/17 17:15 200 MLS/HR Objective Vital Signs Date Time Temp Pulse Resp B/P (MAP) Pulse Ox O2 Delivery O2 Flow Rate FiO2 12/16/17 16:20 Room Air 12/16/17 09:15 Room Air 12/16/17 07:37 36.3 50 16 112/59 (76) 97 12/16/17 00:10 Room Air 12/15/17 22:41 36.7 55 18 150/80 (103) 94 Room Air Physical Exam General Appearance: WD/WN, no apparent distress Eyes: normal inspection, EOMI, sclerae normal ENT: normal ENT inspection, pharynx normal Neck: supple, no adenopathy, thyroid normal, trachea midline Respiratory/Chest: chest non-tender, lungs clear, normal breath sounds, no respiratory distress Cardiovascular: regular rate, rhythm, no gallop, no murmur Abdomen: normal bowel sounds, non tender, soft, no organomegaly Extremities: non-tender, no calf tenderness, normal capillary refill Neurologic/Psychiatric: alert, oriented x 3 Skin: normal color, + rash Lymphatic: no adenopathy Laboratory Results Last 24 Hours Test 12/15/17 20:53 12/16/17 00:19 12/16/17 05:55 12/16/17 07:00 Bedside Glucose 97 mg/dl 98 mg/dl 96 mg/dl Sodium Level 140 mmol/L Potassium Level 4.1 mmol/L Chloride Level 107 mmol/L Carbon Dioxide Level 26 mmol/L Anion Gap 7.0 mmol/L Blood Urea Nitrogen 31 mg/dl Creatinine 0.66 mg/dl Est Creatinine Clear Calc Drug Dose 79.0 ml/min Estimated GFR () 102.9 Estimated GFR (Non- 88.8 BUN/Creatinine Ratio 46.2 Random Glucose 91 mg/dl Calcium Level 8.5 mg/dl Phosphorus Level 3.4 mg/dl Magnesium Level 1.9 mg/dl Test 12/16/17 11:38 Bedside Glucose 95 mg/dl Assessment and Plan Patient with what appears to be posterior gastric perforation following EGD for dilatation of Schatzki's ring, improving with antibiotics and n.p.o. now with possible allergic reaction to ertapenem. Patient to be treated with vancomycin and aztreonam until repeat swallowing study available. Will follow.
[2017-12-16 18:38] VITALS: BP 152/69; PULSE 62; TEMP 36.4; O2SAT 97
--- NOTE | 2017-12-16 22:31 | Progress Note ---
Subjective Date of Service: Dec 16, 2017. Subjective Pt evaluation today including: conversation w/ patient, physical exam 82 yo male reports feeling well. He currently has no complaints. 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 His questions were answered to the best of my ability while also stating that we do not know at this time if he requires any surgery as we are awaiting imaging on Saturday Problem List Medical Problems: (1) Chest congestion Status: Acute (2) Cholelithiasis Status: Acute (3) Constipation Status: Acute (4) Elbow abrasion Status: Acute (5) Facial contusion Status: Acute (6) Fall Status: Acute (7) Fall Status: Acute (8) Fall from chair, initial encounter Status: Acute (9) Generalized weakness Status: Acute (10) Leukocytosis Status: Acute (11) Multiple fractures of ribs of right side Status: Acute (12) Right ankle sprain Status: Acute (13) Upper back pain on right side Status: Acute Review of Systems Constitutional: No fever Eyes: No worsening of vision ENT: No hearing loss Respiratory: No cough Cardiac: No chest pain Abdomen: No pain Musculoskeletal: No joint pain Neurologic: No memory loss Endo: No fatigue Skin: No rash Objective Vital Signs Date Time Temp Pulse Resp B/P (MAP) Pulse Ox O2 Delivery O2 Flow Rate FiO2 12/16/17 18:38 36.4 62 16 152/69 (96) 97 Room Air 12/16/17 16:20 Room Air 12/16/17 09:15 Room Air 12/16/17 07:37 36.3 50 16 112/59 (76) 97 12/16/17 00:10 Room Air 12/15/17 22:41 36.7 55 18 150/80 (103) 94 Room Air Physical Exam Comments: General Appearance: no apparent distress Eyes: sclerae normal ENT: hearing grossly normal Neck: supple, no JVD, trachea midline Respiratory/Chest: lungs clear, no respiratory distress, no accessory muscle use Cardiovascular: regular rate, rhythm Abdomen: normal bowel sounds, non tender, soft Extremities: no pedal edema Neurologic/Psychiatric: alert, oriented x 3 Skin: normal color, warm/dry Laboratory Results Last 24 Hours Test 12/16/17 00:19 12/16/17 05:55 12/16/17 07:00 12/16/17 11:38 Bedside Glucose 98 mg/dl 96 mg/dl 95 mg/dl Sodium Level 140 mmol/L Potassium Level 4.1 mmol/L Chloride Level 107 mmol/L Carbon Dioxide Level 26 mmol/L Anion Gap 7.0 mmol/L Blood Urea Nitrogen 31 mg/dl Creatinine 0.66 mg/dl Est Creatinine Clear Calc Drug Dose 79.0 ml/min Estimated GFR () 102.9 Estimated GFR (Non- 88.8 BUN/Creatinine Ratio 46.2 Random Glucose 91 mg/dl Calcium Level 8.5 mg/dl Phosphorus Level 3.4 mg/dl Magnesium Level 1.9 mg/dl Test 12/16/17 20:33 Bedside Glucose 137 mg/dl Assessment and Plan Mr. Garza is an 82 y/o male with PMHx of CAD with CABG x 3 (2014), NSTEMI, Hypothyroidism, PE/DVT on Coumadin (2011), Acute/Chronic R Rib Fx, Interstitial Lung Disease, and Recent Lyme who had an EGD for Schatzki Ring dilation with perforation. Schatzki Ring Dilation with Perforation/Pneumoperitoneum/Pneumomediastinum: STABLE - Maintain TPN at this time - PICC line in RUE - Continue Protonix push BID; Invanz 1 g IV daily - CT Surg and Gen Surg following - maintaining conservative measures at this time -. At this point, he is 1 week post-iatrogenic perforation of the stomach. - Had an upper GI on him that confirmed the leak which was about 3 cm away from the GE junction.(12/11/17). -will wait until Saturday and repeat the upper GI with Gastrografin, if the leak is sealed then we will start him on clear liquids. CAD with CABG x 3/NSTEMI/Ischemic Cardiomyopathy and Chronic Mixed Systolic/ Diastolic CHF: STABLE - Hold ASA and Atorvastatin at this time due to NPO - Echo (October 2017) - EF 45-50% with grade I diastolic dysfunction; RCA wall motion abnormality; septal motion consistent with BBB/cardiac surgery - Remains euvolemic - continue to monitor fluid status - outpatient records suggest he doesn't normally have issues with heart failure - currently +9 L but no signs of decompensation and maintaining adequate UO - likely some element of inaccurate outputs as some days have nothing recorded Bradycardia and H/O Ongoing Lightheadedness/Dizziness: STABLE - Patient has a H/O ongoing issues with lightheadedness - possibly having low HRs at home? Does have intermittent HRs down into 30s. May benefit from Holter/ Event Monitor to correlate if lightheadedness is related to his intermittent lower HRs - possible some vagal elements given perforation? - Patient has been ambulating the halls with no issues. Hypothyroidism: - Continue Levothyroxine 25 mcg IV H/O DVT/PE (2011): - Coumadin has been on hold prior to scope and will remain on hold given possible surgical intervention - Heparin SC for DVT prophylaxis (has refused it and will continue to educate on this and in the meantime encourage ambulation) - Appears he may have had an isolated episode of A Fib but Coumadin was for H/O PE/DVT Acute on Chronic R-Sided Rib Fx: Noted Interstitial Lung Disease/Emphysema: - Does have a h/o tobacco use (quit 1986) - will monitor - no exacerbation - has not required inhalers in the past Recent Lyme: October 2017 - STABLE - Reports finishing treatment for Lyme disease over the past month Severe Protein-Calorie Malnutrition: Continue TPN DVT Prophylaxis: SCDs Code Status: FULL RESUSCITATION Continued [facility] stay due to: inadequate po fluid intake, multiple IV medications needed Discharge planning: home
[2017-12-17 00:06] VITALS: BP 133/65; PULSE 57; TEMP 36.2; O2SAT 95
[2017-12-17] MEDS: AZTREONAM IV 2,000 MG in DEXTROSE 5% 100ML 100 ML IV SCH ×3 (01:25→16:52)
[2017-12-17] MEDS: VANCOMYCIN IV 1,000 MG in SODIUM CHLORIDE 0.9% 250ML 250 ML IV SCH ×2 (04:00→15:34)
[2017-12-17 06:39] LABS: ALBUMIN 2.7 gm/dl (3.4-5.0); CALCIUM 8.8 mg/dl (8.5-10.1); CREATININE 0.61 mg/dl (0.60-1.40)
[2017-12-17] MEDS: HEPARIN SOD 5000 UNIT/0.5 ML CARP SQ SCH ×2 (06:55→20:24)
[2017-12-17 07:50] VITALS: BP 144/66; PULSE 56; TEMP 36.4; O2SAT 98
--- NOTE | 2017-12-17 08:21 | Surgery Progress Note ---
Subjective Date of Service: Dec 17, 2017. No abdominal pain, fevers, shakes, chills, N/V noted. Objective Vitals Date Time Temp Pulse Resp B/P (MAP) Pulse Ox O2 Delivery O2 Flow Rate FiO2 12/17/17 07:50 36.4 56 16 144/66 (92) 98 Room Air 12/17/17 00:06 36.2 57 18 133/65 (87) 95 Room Air 12/16/17 21:00 Room Air 12/16/17 18:38 36.4 62 16 152/69 (96) 97 Room Air 12/16/17 16:20 Room Air 12/16/17 09:15 Room Air Physical Exam General: + well developed, + well nourished, No distress CV: + RRR Pulmonary: + lungs clear, No accessory muscle use, No respiratory distress Abdomen: + non-distended, + non tender, + soft Neurologic: + alert & oriented x 3 Assessment & Plan 82 year old male with iatrogenic gastric perforation (12/09/17) -repeat imaging showed improvement of pneumoperitoneum -Gastrografin swallow study 12/11/17 showed contrast extravasation -pt. to remain npo and parenteral nutrition to be continued: -TPN has been in place since (12/11/17) -continue antibiotics -repeat swallow to be done tomorrow (12/18/17)
[2017-12-17] MEDS: LEVOTHYROXINE SODIUM INJ 25 MCG in SYRINGE 0 ML IV SCH (08:28)
--- NOTE | 2017-12-17 11:43 | Surgery Progress Note ---
Surgery Progress Note Date of Service Dec 17, 2017. Subjective + feeling well, + flatus, + pain controlled, + diet (TPN), No complaints, No nausea, No vomiting Objective Vital Signs: Date Time Temp Pulse Resp B/P (MAP) Pulse Ox O2 Delivery O2 Flow Rate FiO2 12/17/17 08:40 Room Air 12/17/17 07:50 36.4 56 16 144/66 (92) 98 Room Air 12/17/17 00:06 36.2 57 18 133/65 (87) 95 Room Air 12/16/17 21:00 Room Air 12/16/17 18:38 36.4 62 16 152/69 (96) 97 Room Air 12/16/17 16:20 Room Air General Appearance: WD/WN, no apparent distress Head: normocephalic, atraumatic Respiratory/Chest: no respiratory distress Abdomen: non tender, non distended, soft, no organomegaly Laboratory Results: Results Past 24 Hours Test 12/16/17 20:33 12/17/17 00:40 12/17/17 05:35 12/17/17 06:39 Range/Units Bedside Glucose 137 141 98 70-99 mg/dl Sodium Level 141 136-145 mmol/L Potassium Level 4.0 3.5-5.1 mmol/L Chloride Level 108 98-107 mmol/L Carbon Dioxide Level 26 21-32 mmol/L Anion Gap 7.0 3-11 mmol/L Blood Urea Nitrogen 31 7-18 mg/dl Creatinine 0.61 0.60-1.40 mg/dl Est Creatinine Clear Calc Drug Dose 85.4 ml/min Estimated GFR () 106.3 Estimated GFR (Non- 91.7 BUN/Creatinine Ratio 51.3 10-20 Random Glucose 106 70-99 mg/dl Calcium Level 8.8 8.5-10.1 mg/dl Phosphorus Level 3.0 2.5-4.9 mg/dl Magnesium Level 1.9 1.8-2.4 mg/dl Albumin 2.7 3.4-5.0 gm/dl Test 12/17/17 11:37 Range/Units Bedside Glucose 110 70-99 mg/dl Assessment & Plan Abdomen soft, non-tender. No N/V. No complaints at this time. Continue NPO, TPN, IV Abx. Repeat gastrografin swallow study tomorrow to reassess perforation. Please contact with questions or concerns. Continues to do well. Abdomen soft, nontender. Keep NPO, TPN, IV Abx. Likely repeat UGI Saturday to assess for resolution.
--- NOTE | 2017-12-17 14:40 | Infectious Disease Progress Nt ---
Progress Note Date of Service Dec 17, 2017. Subjective Pt evaluation today including: conversation w/ patient, physical exam, chart review, lab review, review of studies, conversation w/ wardrobe image consultant, review of inpatient medication list Patient offering no new complaints today. Remains afebrile. Rash better off ertapenem. Tolerating vancomycin and aztreonam All Other Systems: Reviewed and Negative Medications Reported Home Medications Medications Dose Route/Sig Max Daily Dose Days Date Category Dose Instructions Roxicodone Ir (Oxycodone HCl) 5 Mg Tab 0.5-1 Tab PO Q4H PRN 11/25/17 Rx initial treatment Jantoven (Warfarin Sodium) 2 Mg Tab 2 Mg PO DAILY 12/30/16 Reported TAKE 2 MG EVERY DAY OR OTHERWISE DIRECTED TO TAKE BY ANTICOAGULATION CLINIC/ Lipitor (Atorvastatin Calcium) 40 Mg Tab 40 Mg PO HS 12/30/16 Reported Metoprolol Succinate ER (Metoprolol Succinate) 25 Mg Tabcr 25 Mg PO DAILY 12/30/16 Reported Aspirin Ec (Aspirin) 81 Mg Tab 81 Mg PO DAILY 09/15/14 Reported Levothyroxine Sodium 50 Mcg Tab 50 Mcg PO DAILY 08/27/14 Reported Objective Vital Signs Date Time Temp Pulse Resp B/P (MAP) Pulse Ox O2 Delivery O2 Flow Rate FiO2 12/17/17 08:40 Room Air 12/17/17 07:50 36.4 56 16 144/66 (92) 98 Room Air 12/17/17 00:06 36.2 57 18 133/65 (87) 95 Room Air 12/16/17 21:00 Room Air 12/16/17 18:38 36.4 62 16 152/69 (96) 97 Room Air 12/16/17 16:20 Room Air Physical Exam General Appearance: WD/WN, no apparent distress Eyes: normal inspection, EOMI, funduscopic exam normal ENT: normal ENT inspection, pharynx normal Neck: supple, no adenopathy, thyroid normal, trachea midline Respiratory/Chest: chest non-tender, lungs clear, normal breath sounds, no respiratory distress Cardiovascular: regular rate, rhythm, no gallop, no murmur Abdomen: normal bowel sounds, non tender, soft, no organomegaly Extremities: non-tender, no calf tenderness Neurologic/Psychiatric: alert, oriented x 3 Skin: normal color, warm/dry, + pertinent finding (Rash improving) Lymphatic: no adenopathy Laboratory Results Last 24 Hours Test 7/30/18 20:33 12/17/17 00:40 12/17/17 05:35 12/17/17 06:39 Bedside Glucose 137 mg/dl 141 mg/dl 98 mg/dl Sodium Level 141 mmol/L Potassium Level 4.0 mmol/L Chloride Level 108 mmol/L Carbon Dioxide Level 26 mmol/L Anion Gap 7.0 mmol/L Blood Urea Nitrogen 31 mg/dl Creatinine 0.61 mg/dl Est Creatinine Clear Calc Drug Dose 85.4 ml/min Estimated GFR () 106.3 Estimated GFR (Non- 91.7 BUN/Creatinine Ratio 51.3 Random Glucose 106 mg/dl Calcium Level 8.8 mg/dl Phosphorus Level 3.0 mg/dl Magnesium Level 1.9 mg/dl Albumin 2.7 gm/dl Test 12/17/17 11:37 Bedside Glucose 110 mg/dl Assessment and Plan Patient with what appears to be posterior gastric perforation following EGD for dilatation of Schatzki's ring, improving with antibiotics and n.p.o. now with possible allergic reaction to ertapenem. Patient to be treated with vancomycin and aztreonam until repeat swallowing study available. Will follow.
[2017-12-17 15:10] VITALS: BP 159/71; PULSE 55; TEMP 35.8; O2SAT 97
[2017-12-17] MEDS ORDERED: CUSTOM CENTRAL PN 1 BAG IV SCH (16:00)
--- NOTE | 2017-12-17 23:06 | Progress Note ---
Subjective Date of Service: Dec 17, 2017. Subjective Pt evaluation today including: conversation w/ patient, physical exam Patient reports no new complaints today. He has been ambulating the halls. No abdominal pain today. Problem List Medical Problems: (1) Chest congestion Status: Acute (2) Cholelithiasis Status: Acute (3) Constipation Status: Acute (4) Elbow abrasion Status: Acute (5) Facial contusion Status: Acute (6) Fall Status: Acute (7) Fall Status: Acute (8) Fall from chair, initial encounter Status: Acute (9) Generalized weakness Status: Acute (10) Leukocytosis Status: Acute (11) Multiple fractures of ribs of right side Status: Acute (12) Right ankle sprain Status: Acute (13) Upper back pain on right side Status: Acute Review of Systems Constitutional: No fever Eyes: No worsening of vision ENT: No hearing loss Respiratory: No cough Cardiac: No chest pain Abdomen: No pain Musculoskeletal: No joint pain Neurologic: No memory loss Endo: No fatigue Skin: No rash All Other Systems: Reviewed and Negative Objective Vital Signs Date Time Temp Pulse Resp B/P (MAP) Pulse Ox O2 Delivery O2 Flow Rate FiO2 12/17/17 21:00 Room Air 12/17/17 15:10 35.8 55 16 159/71 (100) 97 Room Air 12/17/17 08:40 Room Air 12/17/17 07:50 36.4 56 16 144/66 (92) 98 Room Air 12/17/17 00:06 36.2 57 18 133/65 (87) 95 Room Air Physical Exam Comments: General Appearance: no apparent distress Eyes: sclerae normal ENT: hearing grossly normal Neck: supple, no JVD, trachea midline Respiratory/Chest: lungs clear, no respiratory distress, no accessory muscle use Cardiovascular: regular rate, rhythm Abdomen: normal bowel sounds, non tender, soft Extremities: no pedal edema Neurologic/Psychiatric: alert, oriented x 3 Skin: normal color, warm/dry Laboratory Results Last 24 Hours Test 12/17/17 00:40 12/17/17 05:35 12/17/17 06:39 12/17/17 11:37 Bedside Glucose 141 mg/dl 98 mg/dl 110 mg/dl Sodium Level 141 mmol/L Potassium Level 4.0 mmol/L Chloride Level 108 mmol/L Carbon Dioxide Level 26 mmol/L Anion Gap 7.0 mmol/L Blood Urea Nitrogen 31 mg/dl Creatinine 0.61 mg/dl Est Creatinine Clear Calc Drug Dose 85.4 ml/min Estimated GFR () 106.3 Estimated GFR (Non- 91.7 BUN/Creatinine Ratio 51.3 Random Glucose 106 mg/dl Calcium Level 8.8 mg/dl Phosphorus Level 3.0 mg/dl Magnesium Level 1.9 mg/dl Albumin 2.7 gm/dl Test 12/17/17 18:08 Bedside Glucose 98 mg/dl Assessment and Plan Mr. Garza is an 82 y/o male with PMHx of CAD with CABG x 3 (2014), NSTEMI, Hypothyroidism, PE/DVT on Coumadin (2011), Acute/Chronic R Rib Fx, Interstitial Lung Disease, and Recent Lyme who had an EGD for Schatzki Ring dilation with perforation. Schatzki Ring Dilation with Perforation/Pneumoperitoneum/Pneumomediastinum: STABLE - Maintain TPN at this time - PICC line in RUE - Continue Protonix push BID; Invanz 1 g IV daily - CT Surg and Gen Surg following - maintaining conservative measures at this time -. At this point, he is 1 week post-iatrogenic perforation of the stomach. - Had an upper GI on him that confirmed the leak which was about 3 cm away from the GE junction.(12/11/17). -will wait until Saturday (tomorrow) and repeat the upper GI with Gastrografin , if the leak is sealed then we will start him on clear liquids. -On antibiotics, will continue azactam and anco as patient had allergic reaction to ertapenem. CAD with CABG x 3/NSTEMI/Ischemic Cardiomyopathy and Chronic Mixed Systolic/ Diastolic CHF: STABLE - Hold ASA and Atorvastatin at this time due to NPO - Echo (October 2017) - EF 45-50% with grade I diastolic dysfunction; RCA wall motion abnormality; septal motion consistent with BBB/cardiac surgery - Remains euvolemic - continue to monitor fluid status - outpatient records suggest he doesn't normally have issues with heart failure - currently +9 L but no signs of decompensation and maintaining adequate UO - likely some element of inaccurate outputs as some days have nothing recorded Bradycardia and H/O Ongoing Lightheadedness/Dizziness: STABLE - Patient has a H/O ongoing issues with lightheadedness - possibly having low HRs at home? Does have intermittent HRs down into 30s. May benefit from Holter/ Event Monitor to correlate if lightheadedness is related to his intermittent lower HRs - possible some vagal elements given perforation? - Patient has been ambulating the halls with no issues. Hypothyroidism: - Continue Levothyroxine 25 mcg IV H/O DVT/PE (2011): - Coumadin has been on hold prior to scope and will remain on hold given possible surgical intervention - Heparin SC for DVT prophylaxis (has refused it and will continue to educate on this and in the meantime encourage ambulation) - Appears he may have had an isolated episode of A Fib but Coumadin was for H/O PE/DVT Acute on Chronic R-Sided Rib Fx: Noted Interstitial Lung Disease/Emphysema: - Does have a h/o tobacco use (quit 1986) - will monitor - no exacerbation - has not required inhalers in the past Recent Lyme: October 2017 - STABLE - Reports finishing treatment for Lyme disease over the past month Severe Protein-Calorie Malnutrition: Continue TPN DVT Prophylaxis: SCDs Code Status: FULL RESUSCITATION Continued [facility] stay due to: inadequate po fluid intake, multiple IV medications needed Discharge planning: home
[2017-12-17 23:17] VITALS: BP 142/60; PULSE 53; TEMP 36.3; O2SAT 100
[2017-12-18] MEDS: AZTREONAM IV 2,000 MG in DEXTROSE 5% 100ML 100 ML IV SCH ×3 (00:47→17:14)
[2017-12-18] MEDS ORDERED: VANCOMYCIN TROUGH ONE (03:30)
[2017-12-18 04:08] LABS: CALCIUM 8.3 mg/dl (8.5-10.1); CREATININE 0.67 mg/dl (0.60-1.40); PHOSPHORUS 3.3 mg/dl (2.5-4.9); POTASSIUM 3.9 mmol/L (3.5-5.1)
[2017-12-18] MEDS: VANCOMYCIN IV 1,000 MG in SODIUM CHLORIDE 0.9% 250ML 250 ML IV SCH ×2 (04:28→16:07)
[2017-12-18] MEDS: HEPARIN SOD 5000 UNIT/0.5 ML CARP SQ SCH ×2 (06:55→20:54)
[2017-12-18 07:37] VITALS: BP 137/67; PULSE 50; TEMP 36.3; O2SAT 100
--- NOTE | 2017-12-18 07:37 | SURGERY PROGRESS NOTE ---
DATE: 12/18/2017 Félix is resting comfortably in no distress. This morning, he is scheduled to undergo an upper GI again to see and followup on a gastric perforation. His last vitals showed a temperature of 36.3, pulse 53, respirations 18, blood pressure 142/60, O2 sats 100 on room air. I and O is pretty much unremarkable. He has had one bowel movement. His abdomen is unchanged. Laboratory metzger has been pretty much stable with a white count of 755, hemoglobin 12.6. Pending the results of the upper GI further recommendations will be made, but then he is maintained on hyperalimentation for approximately a week and he had last upper GI that showed the perforation about a week ago.
--- NOTE | 2017-12-18 08:16 | DIAGNOSTIC IMAGING REPORT ---
GI SERIES W/O KUB CLINICAL HISTORY: Follow-up gastric perforation. COMPARISON STUDY: Upper GI series 12/11/2017. FLUOROSCOPY TIME: 2.2 minutes. 19 images submitted. FINDINGS: [employer] images showed no evidence for pneumoperitoneum. The patient swallowed water-soluble contrast. Trace aspiration was identified. The esophagus demonstrates mild to moderate dysmotility. There appears to be trace extraluminal contrast extending from the gastric cardia medially. This has improved compared to the prior study and suggests trace residual perforation. This is best seen on images 13, 15, and 16. IMPRESSION: Trace extraluminal contrast extending medially from the gastric cardia. This has improved compared to the prior study and is consistent with a resolving gastric perforation. No pneumoperitoneum identified at this time. Electronically signed by: Mekhi Michael M.D. 12/18/2017 8:15 AM Dictated Date/Time: 12/18/2017 8:04 AM
[2017-12-18] MEDS: LEVOTHYROXINE SODIUM INJ 25 MCG in SYRINGE 0 ML IV SCH (09:11)
[2017-12-18] MEDS ORDERED: LIDOCAINE HCL 2% 2 ML VIAL (20MG/ML) ONE ×2 (11:55→12:11)
[2017-12-18] MEDS ORDERED: PROPOFOL IV EMULSION 10 MG/ML 20 ML VIAL ONE ×2 (11:55→12:11)
--- NOTE | 2017-12-18 12:17 | PROGRESS NOTE ---
DATE: 12/18/2017 AGE: 82. SEX: Male. RACE: . SUBJECTIVE: I had the pleasure of seeing Félix Garza at his bedside today. He remains asymptomatic. He denies any abdominal pain, fevers, chills, nausea, vomiting, hematemesis, melena, or hematochezia. Nursing staff reports no difficulty overnight. He remains on TPN. He underwent an upper GI series today for further evaluation of a gastric perforation. Findings showed trace extraluminal contrast extending medially from the gastric cardia, which is improved since the prior study and consistent with resolving gastric perforation. There was no pneumoperitoneum identified. I discussed the case in detail with Dr. Easton Luciano of 's advanced endoscopy team following the results of the x-ray studies. PHYSICAL EXAMINATION: VITAL SIGNS: Temperature was 36.3, pulse 50, respirations 18, blood pressure 137/67, pulse ox 100% on room air. GENERAL: He is awake, cooperative, in no acute distress. ABDOMEN: Soft, nontender, nondistended. Positive bowel sounds. LABORATORY STUDIES: From today include a sodium of 140, potassium 3.9, chloride 109, bicarbonate 29, BUN 31, creatinine 0.67, and a blood glucose of 100. Imaging studies were reviewed in the HPI. IMPRESSION: An 82-year-old male with a gastric perforation following upper endoscopy with dilation on 12/09/2017, who has remained asymptomatic on TPN with continued extraluminal contrast on imaging. PLAN: As noted in the HPI, I did discuss this case in detail with [facility]. His recommendation was to perform an upper endoscopy with CO2 insufflation to try to identify the perforation site. I will attempt to do that today and we will attempt to either clip the defect, use endoclip therapy on the defect if found or make further recommendations following the above noted testing. I will also recommend that he remain on IV antibiotics and PPI therapy and we will discuss the case further with Dr. Luciano following the EGD. Once again, thanks for allowing me to participate in the care of this patient. If you have any further questions, please do not hesitate in contacting me.
--- NOTE | 2017-12-18 13:36 | GI REPORT ---
Patient Name: Félix Garza Procedure Date: 12/18/2017 11:59 AM Date of : 1935 Admit Type: Inpatient Age: 82 Gender: Male Attending MD: Kobe Whitney DO Procedure: Upper GI endoscopy Providers: Kobe Whitney DO Referring MD: Charleen Valencia Indications: Follow-up of gastric perforation Medicines: Monitored Anesthesia Care Complications: No immediate complications. Estimated Blood Loss: Estimated blood loss: none. Procedure: Pre-Anesthesia Assessment: - Prior to the procedure, a History and Physical was performed, and patient medications and allergies were reviewed. The patient's tolerance of previous anesthesia was also reviewed. The risks and benefits of the procedure and the sedation options and risks were discussed with the patient. All questions were answered, and informed consent was obtained. Prior Anticoagulants: The patient has taken Coumadin (warfarin), last dose was 14 days prior to procedure. ASA Grade Assessment: III - A patient with severe systemic disease. After reviewing the risks and benefits, the patient was deemed in satisfactory condition to undergo the procedure. After obtaining informed consent, the endoscope was passed under direct vision. Throughout the procedure, the patient's blood pressure, pulse, and oxygen saturations were monitored continuously. The Scope was introduced through the mouth, and advanced to the antrum of the stomach. The upper GI endoscopy was accomplished without difficulty. The patient tolerated the procedure well. Findings: The esophagus was normal. A medium-sized hiatal hernia was present. A non-bleeding mucosal defect suspicious for perforation was found in the cardia. This defect was small. Adjacent mucosal findings include hemorrhagic appearance. To repair the defect, the tissue edges were approximated and five hemostatic clips were successfully placed (MR conditional). Closure of the defect was successful. There was no bleeding at the end of the procedure. Impression: - Normal esophagus. - Medium-sized hiatal hernia. - A non-bleeding mucosal defect suspicious for perforation was found in the stomach. The adjacent mucosa showed a hemorrhagic appearance. Clips (MR conditional) were placed. - No specimens collected. Recommendation: - Continue present medications. - NPO. - Perform a CT scan (computed tomography) of chest with contrast, abdomen with contrast and pelvis with contrast tomorrow. Kobe Whitney DO 12/18/2017 1:35:37 PM This report has been signed electronically. Note Initiated On: 12/18/2017 11:59 AM Number of Addenda: 0 I attest to the content of the Intraoperative Record and orders documented therein, exceptions below {[id number]}
--- NOTE | 2017-12-18 14:24 | Pharmacy Progress Note ---
Pharmacy Abx Dose Short Note Date of Service Dec 18, 2017. Assessment & Plan Assessment 82 year old male receiving empiric vancomycin and aztreonam IV for treatment of gastric perforation following EGD for dilatation of Schatzki's ring. Patient was initially improving on ertapenem IV (12/12-12/15). He was switched to vancomycin and aztreonam due to possible allergic reaction to ertapenem. He is on day # 7 of antimicrobial therapy. Discussed case with ID service today; continue gram positive coverage with vancomycin to cover for Enterococcus species. Anaerobic coverage not needed at this time. Plan Vancomycin * Trough level of 14.9 mcg/mL is near therapeutic. Trough level drawn prior to steady state, therefore I anticipate true trough level to be > 15 mcg/mL. * Continue dose of 1000 mg IV every 12 hours * Goal trough level for GI infection : >/= 15 mcg/mL * Repeat trough level ordered for: 12/20/17 Pharmacy will continue to follow and will adjust dose/frequency as necessary. Thank you.
[2017-12-18 14:30] VITALS: BP 179/64; PULSE 49; TEMP 35.7; O2SAT 99
[2017-12-18 16:00] VITALS: O2SAT 99
[2017-12-18] MEDS ORDERED: CUSTOM CENTRAL PN 1 BAG IV SCH (16:00)
--- NOTE | 2017-12-18 18:52 | Infectious Disease Progress Nt ---
Progress Note Date of Service Dec 18, 2017. Subjective Pt evaluation today including: conversation w/ patient, physical exam, chart review, lab review, review of studies, conversation w/ regulatory affairs consultant, review of inpatient medication list Patient underwent Gastrografin study with finding of improved leak. Underwent endoscopy and area was clipped. Remains afebrile. Pain controlled. All Other Systems: Reviewed and Negative Medications Current Inpatient Medications Medications (Trade) Dose Ordered Sig/Lisa Route Start Time Stop Time Status Last Admin Dose Admin Ondansetron HCl (Zofran Inj) 4 mg Q6H PRN IV 12/09/17 16:30 01/08/18 16:29 Levothyroxine Sodium 25 mcg/ Syringe 1.25 ml @ 2 mls/min DAILY@09 IV 12/10/17 09:00 01/09/18 08:59 12/18/17 09:11 2 MLS/MIN Morphine Sulfate (MoRPHine SULFATE INJ) 2 mg Q4H PRN IV 12/09/17 16:30 12/23/17 16:29 Metoprolol Tartrate (Lopressor Iv) 5 mg Q4H PRN IV 12/09/17 17:30 01/08/18 17:29 Miscellaneous Information (Pharmacy Tpn/ Ppn Consult Active) 1 ea UD PRN N/A 12/11/17 13:11 01/10/18 13:10 Heparin Sodium (Porcine) (Heparin 10 Unit/ ml 5 ml Flush) 5 ml PRN PRN FLUSH 12/11/17 16:30 01/10/18 16:29 12/18/17 07:32 5 ML Dextrose 1,000 ml @ 0 mls/hr Q0M PRN IV 12/12/17 10:44 01/11/18 10:43 Heparin Sodium (Porcine) (Heparin Sq 5000 Unit/0.5ml) 5,000 unit Q12 SQ 12/13/17 09:00 01/12/18 08:59 Vancomycin HCl 1000 mg/Sodium Chloride 270 ml @ 125 mls/hr Q12H IV 12/17/17 04:00 12/27/17 03:59 12/18/17 16:07 125 MLS/HR Vancomycin HCl (Consult) 1 ea UD PRN N/A 12/16/17 16:15 01/15/18 16:14 Aztreonam 2000 mg/ Dextrose 110 ml @ 100 mls/hr Q8H IV 12/16/17 17:00 12/26/17 16:59 12/18/17 17:14 100 MLS/HR Nutrition (Parenteral) 0 ml @ 0 mls/hr TODAY@1600 IV 12/18/17 16:00 12/19/17 15:59 12/18/17 15:59 0 MLS/HR Objective Vital Signs Date Time Temp Pulse Resp B/P (MAP) Pulse Ox O2 Delivery O2 Flow Rate FiO2 12/18/17 16:00 99 Room Air 12/18/17 14:30 35.7 49 16 179/64 (102) 99 Room Air 12/18/17 13:53 45 20 171/84 (113) 100 Room Air 12/18/17 13:38 47 20 169/84 (112) 100 Room Air 12/18/17 13:23 45 16 151/71 (97) 100 Room Air 12/18/17 11:44 36.4 50 20 136/72 (93) 100 Room Air 12/18/17 08:28 Room Air 12/18/17 07:37 36.3 50 18 137/67 (90) 100 12/18/17 01:00 Room Air 12/17/17 23:17 36.3 53 18 142/60 (87) 100 Room Air 12/17/17 21:00 Room Air Physical Exam General Appearance: WD/WN, no apparent distress Eyes: normal inspection, EOMI, sclerae normal ENT: normal ENT inspection, hearing grossly normal, pharynx normal Neck: supple, no adenopathy, thyroid normal, trachea midline Respiratory/Chest: chest non-tender, lungs clear, normal breath sounds, no respiratory distress Cardiovascular: regular rate, rhythm, no gallop, no murmur Abdomen: normal bowel sounds, non tender, soft, no organomegaly Extremities: non-tender, no calf tenderness Neurologic/Psychiatric: alert, oriented x 3 Skin: normal color, warm/dry, no rash Lymphatic: no adenopathy Laboratory Results Last 24 Hours Test 12/18/17 00:02 12/18/17 03:32 12/18/17 06:14 12/18/17 18:43 Bedside Glucose 103 mg/dl 99 mg/dl 96 mg/dl Sodium Level 140 mmol/L Potassium Level 3.9 mmol/L Chloride Level 109 mmol/L Carbon Dioxide Level 29 mmol/L Anion Gap 2.0 mmol/L Blood Urea Nitrogen 31 mg/dl Creatinine 0.67 mg/dl Est Creatinine Clear Calc Drug Dose 78.6 ml/min Estimated GFR () 102.3 Estimated GFR (Non- 88.2 BUN/Creatinine Ratio 46.0 Random Glucose 100 mg/dl Calcium Level 8.3 mg/dl Phosphorus Level 3.3 mg/dl Magnesium Level 2.0 mg/dl Vancomycin Level Trough 14.9 mcg/ml Assessment and Plan Patient with posterior gastric perforation following EGD for dilatation of Schatzki's ring, improving with antibiotics and n.p.o. now with possible allergic reaction to ertapenem. Patient to be treated with vancomycin and aztreonam for now, hopefully can d/c in near future if continues to improve. Will follow.
--- NOTE | 2017-12-18 22:53 | Progress Note ---
Subjective Date of Service: Dec 18, 2017. Subjective Pt evaluation today including: conversation w/ patient, physical exam 82 yo male reports no symptoms. Patient reports tolerating procedure well Problem List Medical Problems: (1) Chest congestion Status: Acute (2) Cholelithiasis Status: Acute (3) Constipation Status: Acute (4) Elbow abrasion Status: Acute (5) Facial contusion Status: Acute (6) Fall Status: Acute (7) Fall Status: Acute (8) Fall from chair, initial encounter Status: Acute (9) Generalized weakness Status: Acute (10) Leukocytosis Status: Acute (11) Multiple fractures of ribs of right side Status: Acute (12) Right ankle sprain Status: Acute (13) Upper back pain on right side Status: Acute Review of Systems Constitutional: No fever Eyes: No worsening of vision ENT: No hearing loss Respiratory: No cough Cardiac: No chest pain Abdomen: No pain Musculoskeletal: No joint pain Neurologic: No memory loss Endo: No fatigue Skin: No rash All Other Systems: Reviewed and Negative Objective Vital Signs Date Time Temp Pulse Resp B/P (MAP) Pulse Ox O2 Delivery O2 Flow Rate FiO2 12/18/17 16:00 99 Room Air 12/18/17 14:30 35.7 49 16 179/64 (102) 99 Room Air 12/18/17 13:53 45 20 171/84 (113) 100 Room Air 12/18/17 13:38 47 20 169/84 (112) 100 Room Air 12/18/17 13:23 45 16 151/71 (97) 100 Room Air 12/18/17 11:44 36.4 50 20 136/72 (93) 100 Room Air 12/18/17 08:28 Room Air 12/18/17 07:37 36.3 50 18 137/67 (90) 100 12/18/17 01:00 Room Air 12/17/17 23:17 36.3 53 18 142/60 (87) 100 Room Air Physical Exam Comments: General Appearance: no apparent distress Eyes: sclerae normal ENT: hearing grossly normal Neck: supple, no JVD, trachea midline Respiratory/Chest: lungs clear, no respiratory distress, no accessory muscle use Cardiovascular: regular rate, rhythm Abdomen: normal bowel sounds, non tender, soft Extremities: no pedal edema Neurologic/Psychiatric: alert, oriented x 3 Skin: normal color, warm/dry Laboratory Results Last 24 Hours Test 12/18/17 00:02 12/18/17 03:32 12/18/17 06:14 12/18/17 18:43 Bedside Glucose 103 mg/dl 99 mg/dl 96 mg/dl Sodium Level 140 mmol/L Potassium Level 3.9 mmol/L Chloride Level 109 mmol/L Carbon Dioxide Level 29 mmol/L Anion Gap 2.0 mmol/L Blood Urea Nitrogen 31 mg/dl Creatinine 0.67 mg/dl Est Creatinine Clear Calc Drug Dose 78.6 ml/min Estimated GFR () 102.3 Estimated GFR (Non- 88.2 BUN/Creatinine Ratio 46.0 Random Glucose 100 mg/dl Calcium Level 8.3 mg/dl Phosphorus Level 3.3 mg/dl Magnesium Level 2.0 mg/dl Vancomycin Level Trough 14.9 mcg/ml Assessment and Plan Mr. Garza is an 82 y/o male with PMHx of CAD with CABG x 3 (2014), NSTEMI, Hypothyroidism, PE/DVT on Coumadin (2011), Acute/Chronic R Rib Fx, Interstitial Lung Disease, and Recent Lyme who had an EGD for Schatzki Ring dilation with perforation. Schatzki Ring Dilation with Perforation/Pneumoperitoneum/Pneumomediastinum: STABLE - Maintain TPN at this time - PICC line in RUE - Continue Protonix push BID; Invanz 1 g IV daily - CT Surg and Gen Surg following - maintaining conservative measures at this time -. At this point, he is 1 week post-iatrogenic perforation of the stomach. - Had an upper GI on him that confirmed the leak which was about 3 cm away from the GE junction.(12/11/17). -Repeat imaging was done and showed a smaller leak. -GI did upper endoscopy and used 5 clips to close the small opening. Will keep patient NPO for today with possibly starting clear liquids tomorrow. -On antibiotics, will continue azactam and anco as patient had allergic reaction to ertapenem. CAD with CABG x 3/NSTEMI/Ischemic Cardiomyopathy and Chronic Mixed Systolic/ Diastolic CHF: STABLE - Hold ASA and Atorvastatin at this time due to NPO - Echo (October 2017) - EF 45-50% with grade I diastolic dysfunction; RCA wall motion abnormality; septal motion consistent with BBB/cardiac surgery - Remains euvolemic - continue to monitor fluid status - outpatient records suggest he doesn't normally have issues with heart failure - currently +9 L but no signs of decompensation and maintaining adequate UO - likely some element of inaccurate outputs as some days have nothing recorded Bradycardia and H/O Ongoing Lightheadedness/Dizziness: STABLE - Patient has a H/O ongoing issues with lightheadedness - possibly having low HRs at home? Does have intermittent HRs down into 30s. May benefit from Holter/ Event Monitor to correlate if lightheadedness is related to his intermittent lower HRs - possible some vagal elements given perforation? - Patient has been ambulating the halls with no issues. Hypothyroidism: - Continue Levothyroxine 25 mcg IV H/O DVT/PE (2011): - Coumadin has been on hold prior to scope and will remain on hold given possible surgical intervention - Heparin SC for DVT prophylaxis (has refused it and will continue to educate on this and in the meantime encourage ambulation) - Appears he may have had an isolated episode of A Fib but Coumadin was for H/O PE/DVT Acute on Chronic R-Sided Rib Fx: Noted Interstitial Lung Disease/Emphysema: - Does have a h/o tobacco use (quit 1986) - will monitor - no exacerbation - has not required inhalers in the past Recent Lyme: October 2017 - STABLE - Reports finishing treatment for Lyme disease over the past month Severe Protein-Calorie Malnutrition: Continue TPN DVT Prophylaxis: SCDs Code Status: FULL RESUSCITATION Continued [facility] stay due to: inadequate po fluid intake, multiple IV medications needed Discharge planning: home
[2017-12-18 22:57] VITALS: BP 124/62; PULSE 54; TEMP 36.3; O2SAT 100
[2017-12-19] MEDS: AZTREONAM IV 2,000 MG in DEXTROSE 5% 100ML 100 ML IV SCH ×3 (00:47→17:51)
[2017-12-19] MEDS: VANCOMYCIN IV 1,000 MG in SODIUM CHLORIDE 0.9% 250ML 250 ML IV SCH ×2 (03:36→15:59)
[2017-12-19 06:36] LABS: CALCIUM 8.1 mg/dl (8.5-10.1); CREATININE 0.62 mg/dl (0.60-1.40); PHOSPHORUS 3.3 mg/dl (2.5-4.9); POTASSIUM 3.8 mmol/L (3.5-5.1)
[2017-12-19 07:08] VITALS: BP 133/63; PULSE 52; TEMP 36.5; O2SAT 99
[2017-12-19 08:00] VITALS: O2SAT 99
--- NOTE | 2017-12-19 08:21 | SURGERY PROGRESS NOTE ---
DATE: 12/19/2017 Félix underwent a repeat upper GI with Gastrografin to follow up on the gastric perforation. I reviewed the x-rays yesterday the leak, although the radiologist thought that the leak was still present, was small. I discussed the situation with the medical service last evening and thought that continue keeping him n.p.o. This morning I had the chance to review with the radiologist the most recent upper GI and compared to the past. It is not 100% clear whether or not the patient at this time has a persistent leak, although clinically he has never had any abdominal discomfort and no evidence of any ongoing leakage. At this point, we will keep him n.p.o. today and then most likely we are going to start him on some oral intake tomorrow. He is to continue on hyperalimentation at this time. This was discussed with the patient. Félix, again this morning, there was no abdominal discomfort and he was resting comfortably. [facility]
[2017-12-19] MEDS: HEPARIN SOD 5000 UNIT/0.5 ML CARP SQ SCH ×2 (09:00→20:44)
[2017-12-19] MEDS: LEVOTHYROXINE SODIUM INJ 25 MCG in SYRINGE 0 ML IV SCH (09:26)
--- NOTE | 2017-12-19 09:47 | Gastroenterology Progress Note ---
Progress Note Date of Service: Dec 19, 2017 Subjective Pt evaluation today including: conversation w/ patient, physical exam, chart review, lab review, review of studies, review of inpatient medication list Patient reports frustration with ongoing hospitalization and activity restrictions. He denies any abdominal pain or abdominal distention after EGD yesterday with Endoclip placement x 5 clips of gastric perforation. Continues TPN. No hematochezia or melena noted. H&H remains stable. Review of Systems Constitutional: No fever, No chills Respiratory: No shortness of breath, No dyspnea at rest Cardiac: No chest pain Abdomen: + see HPI Medications Current Inpatient Medications Medications (Trade) Dose Ordered Sig/Lisa Route Start Time Stop Time Status Last Admin Dose Admin Ondansetron HCl (Zofran Inj) 4 mg Q6H PRN IV 12/09/17 16:30 01/08/18 16:29 Levothyroxine Sodium 25 mcg/ Syringe 1.25 ml @ 2 mls/min DAILY@09 IV 12/10/17 09:00 01/09/18 08:59 12/19/17 09:26 2 MLS/MIN Morphine Sulfate (MoRPHine SULFATE INJ) 2 mg Q4H PRN IV 12/09/17 16:30 12/23/17 16:29 Metoprolol Tartrate (Lopressor Iv) 5 mg Q4H PRN IV 12/09/17 17:30 01/08/18 17:29 Miscellaneous Information (Pharmacy Tpn/ Ppn Consult Active) 1 ea UD PRN N/A 12/11/17 13:11 01/10/18 13:10 Heparin Sodium (Porcine) (Heparin 10 Unit/ ml 5 ml Flush) 5 ml PRN PRN FLUSH 12/11/17 16:30 01/10/18 16:29 12/18/17 07:32 5 ML Dextrose 1,000 ml @ 0 mls/hr Q0M PRN IV 12/12/17 10:44 01/11/18 10:43 Heparin Sodium (Porcine) (Heparin Sq 5000 Unit/0.5ml) 5,000 unit Q12 SQ 12/13/17 09:00 01/12/18 08:59 12/18/17 20:54 5,000 UNIT Vancomycin HCl 1000 mg/Sodium Chloride 270 ml @ 125 mls/hr Q12H IV 12/17/17 04:00 12/27/17 03:59 12/19/17 03:36 125 MLS/HR Vancomycin HCl (Consult) 1 ea UD PRN N/A 12/16/17 16:15 01/15/18 16:14 Aztreonam 2000 mg/ Dextrose 110 ml @ 100 mls/hr Q8H IV 12/16/17 17:00 12/26/17 16:59 12/19/17 09:26 100 MLS/HR Nutrition (Parenteral) 0 ml @ 0 mls/hr TODAY@1600 IV 12/18/17 16:00 12/19/17 15:59 12/18/17 15:59 0 MLS/HR Objective Vital Signs Date Time Temp Pulse Resp B/P (MAP) Pulse Ox O2 Delivery O2 Flow Rate FiO2 12/19/17 07:08 36.5 52 18 133/63 (86) 99 12/19/17 00:02 Room Air 12/18/17 22:57 36.3 54 16 124/62 (82) 100 Room Air 12/18/17 16:00 99 Room Air 12/18/17 14:30 35.7 49 16 179/64 (102) 99 Room Air 12/18/17 13:53 45 20 171/84 (113) 100 Room Air 12/18/17 13:38 47 20 169/84 (112) 100 Room Air 12/18/17 13:23 45 16 151/71 (97) 100 Room Air 12/18/17 11:44 36.4 50 20 136/72 (93) 100 Room Air Physical Exam General Appearance: no apparent distress Eyes: EOMI Respiratory/Chest: lungs clear Cardiovascular: regular rate, rhythm Abdomen: normal bowel sounds, non tender, soft Extremities: no pedal edema Neurologic/Psych: alert, normal mood/affect, oriented x 3 Skin: warm/dry Laboratory Results Last 24 Hours Test 12/18/17 18:43 12/19/17 00:13 12/19/17 05:41 12/19/17 06:13 Bedside Glucose 96 mg/dl 100 mg/dl 93 mg/dl Sodium Level 140 mmol/L Potassium Level 3.8 mmol/L Chloride Level 111 mmol/L Carbon Dioxide Level 26 mmol/L Anion Gap 3.0 mmol/L Blood Urea Nitrogen 26 mg/dl Creatinine 0.62 mg/dl Est Creatinine Clear Calc Drug Dose 85.1 ml/min Estimated GFR () 105.6 Estimated GFR (Non- 91.1 BUN/Creatinine Ratio 42.1 Random Glucose 106 mg/dl Calcium Level 8.1 mg/dl Phosphorus Level 3.3 mg/dl Magnesium Level 1.9 mg/dl Total Bilirubin 0.5 mg/dl Aspartate Amino Transf (AST/SGOT) 26 U/L Alanine Aminotransferase (ALT/SGPT) 37 U/L Alkaline Phosphatase 72 U/L Prealbumin 24.1 mg/dl Assessment and Plan IMPRESSION: An 82-year-old male with a gastric perforation following upper endoscopy with dilation on 12/09/2017, who has remained asymptomatic on TPN with continued extraluminal contrast on imaging status post repeat EGD with Endoclip closure x 5 clips. 1. Remain NPO for now. 2. CT with oral contrast today to ensure no further leak. 3. Additional recommendations will be made pending results of testing. Agree with DALTON Ruiz as above Abd: Soft, NT, ND, +BS Reviewed CT scan with Dr. Burdick. There is no extravasation of contrast from site of perforation in gastric cardia. Recommend Clear liquid diet until Saturday Continue IV abx as per the primary team Continue IV protonix at present
[2017-12-19 11:13] VITALS: BP 94/59; PULSE 125; TEMP 37.7; O2SAT 95
[2017-12-19 11:37] VITALS: BP 133/63; PULSE 52; O2SAT 99
--- NOTE | 2017-12-19 12:16 | DIAGNOSTIC IMAGING REPORT ---
ABDOMINAL CT WITH ORAL CONTRAST HISTORY: Gastric perforation. Follow-up. TECHNIQUE: Multiaxial CT images of the abdomen were performed following use of oral water-soluble contrast. COMPARISON STUDY: Chest CT 12/06/2017. FINDINGS: There is an irregular density within the left upper lobe on image 1. This is new from the prior study and therefore likely represents a small focus of inflammatory/infectious change. Mild interstitial thickening at the lung bases which is likely chronic. This is consistent with mild fibrotic change. Trace pneumomediastinum adjacent to the distal esophagus. However, there is no pneumoperitoneum at this time. Interval placement of surgical clips within the gastric cardia at the site of gastric perforation. This results in metallic artifact at this location and suboptimal evaluation. However, there is no extraluminal contrast or adjacent gas at this time to confirm a residual perforation/leak. There is mild thickening of the gastric cardia and adjacent fat stranding likely due to the recent postoperative change. The remaining visualized bowel show no wall thickening or obstruction. Colonic diverticulosis. Normal appendix. Cholecystectomy. The unenhanced liver, spleen, adrenal glands, pancreas, and kidneys are unremarkable. Mild bilateral perinephric edema which is likely chronic. No retroperitoneal lymphadenopathy. A 4 cm infrarenal abdominal aortic aneurysm. Healing right lateral sixth through 10th rib fractures. IMPRESSION: 1. The patient is status post endoclips for repair of a gastric perforation at the gastric cardia. The clips result in artifact at this location. However, there is no definite extravasation of oral contrast to suggest a residual leak. There is trace pneumomediastinum posterior to the distal esophagus. This could be due to the resolving pneumoperitoneum seen on the prior study, however, a tiny residual perforation cannot be excluded. Although this is considered less likely. 2. Mild thickening of the distal esophagus and gastric cardia is likely due to the recent postoperative change. 3. A 4 cm infrarenal abdominal aortic aneurysm. 4. Colonic diverticulosis. 5. Multiple healing right-sided rib fractures. Electronically signed by: Mekhi Michael M.D. 12/19/2017 12:15 PM Dictated Date/Time: 12/19/2017 11:59 AM
[2017-12-19 15:32] VITALS: BP 130/70; PULSE 53; TEMP 36.3; O2SAT 100
[2017-12-19] MEDS ORDERED: CUSTOM CENTRAL PN 1 BAG IV SCH (16:00)
--- NOTE | 2017-12-19 22:24 | Progress Note ---
Subjective Date of Service: Dec 19, 2017. Subjective Pt evaluation today including: conversation w/ patient, physical exam Patient reports feeling well. Problem List Medical Problems: (1) Chest congestion Status: Acute (2) Cholelithiasis Status: Acute (3) Constipation Status: Acute (4) Elbow abrasion Status: Acute (5) Facial contusion Status: Acute (6) Fall Status: Acute (7) Fall Status: Acute (8) Fall from chair, initial encounter Status: Acute (9) Generalized weakness Status: Acute (10) Leukocytosis Status: Acute (11) Multiple fractures of ribs of right side Status: Acute (12) Right ankle sprain Status: Acute (13) Upper back pain on right side Status: Acute Review of Systems Constitutional: No fever Eyes: No worsening of vision ENT: No hearing loss Respiratory: No cough Cardiac: No chest pain Abdomen: No pain Musculoskeletal: No joint pain Neurologic: No memory loss Endo: No fatigue Skin: No rash All Other Systems: Reviewed and Negative Objective Vital Signs Date Time Temp Pulse Resp B/P (MAP) Pulse Ox O2 Delivery O2 Flow Rate FiO2 12/19/17 18:00 Room Air 12/19/17 15:32 36.3 53 18 130/70 (90) 100 12/19/17 11:37 52 99 12/19/17 11:13 37.7 125 18 94/59 (71) 95 12/19/17 08:00 99 Room Air 2.0 12/19/17 07:08 36.5 52 18 133/63 (86) 99 12/19/17 00:02 Room Air 12/18/17 22:57 36.3 54 16 124/62 (82) 100 Room Air Physical Exam Comments: General Appearance: no apparent distress Eyes: sclerae normal ENT: hearing grossly normal Neck: supple, no JVD, trachea midline Respiratory/Chest: lungs clear, no respiratory distress, no accessory muscle use Cardiovascular: regular rate, rhythm Abdomen: normal bowel sounds, non tender, soft Extremities: no pedal edema Neurologic/Psychiatric: alert, oriented x 3 Skin: normal color, warm/dry Laboratory Results Last 24 Hours Test 12/19/17 00:13 12/19/17 05:41 12/19/17 06:13 12/19/17 12:10 Bedside Glucose 100 mg/dl 93 mg/dl 82 mg/dl Sodium Level 140 mmol/L Potassium Level 3.8 mmol/L Chloride Level 111 mmol/L Carbon Dioxide Level 26 mmol/L Anion Gap 3.0 mmol/L Blood Urea Nitrogen 26 mg/dl Creatinine 0.62 mg/dl Est Creatinine Clear Calc Drug Dose 85.1 ml/min Estimated GFR () 105.6 Estimated GFR (Non- 91.1 BUN/Creatinine Ratio 42.1 Random Glucose 106 mg/dl Calcium Level 8.1 mg/dl Phosphorus Level 3.3 mg/dl Magnesium Level 1.9 mg/dl Total Bilirubin 0.5 mg/dl Aspartate Amino Transf (AST/SGOT) 26 U/L Alanine Aminotransferase (ALT/SGPT) 37 U/L Alkaline Phosphatase 72 U/L Prealbumin 24.1 mg/dl Assessment and Plan Mr. Garza is an 82 y/o male with PMHx of CAD with CABG x 3 (2014), NSTEMI, Hypothyroidism, PE/DVT on Coumadin (2011), Acute/Chronic R Rib Fx, Interstitial Lung Disease, and Recent Lyme who had an EGD for Schatzki Ring dilation with perforation. Schatzki Ring Dilation with Perforation/Pneumoperitoneum/Pneumomediastinum: STABLE - Maintain TPN at this time - PICC line in RUE - CT Surg and Gen Surg following - maintaining conservative measures at this time -. At this point, he is 1 week post-iatrogenic perforation of the stomach. - Had an upper GI on him that confirmed the leak which was about 3 cm away from the GE junction.(12/11/17). -Repeat imaging was done and showed a smaller leak. -GI did upper endoscopy and used 5 clips to close the small opening; done yesterday Started clear liquids today, patient tolerated diet -On antibiotics, will continue azactam and anco as patient had allergic reaction to ertapenem. Will continue to monitor. unsure if patient had a temp, and wasnt called. And patient has been relatively asymptomatic CAD with CABG x 3/NSTEMI/Ischemic Cardiomyopathy and Chronic Mixed Systolic/ Diastolic CHF: STABLE - Hold ASA and Atorvastatin at this time due to NPO - Echo (October 2017) - EF 45-50% with grade I diastolic dysfunction; RCA wall motion abnormality; septal motion consistent with BBB/cardiac surgery - Remains euvolemic - continue to monitor fluid status - outpatient records suggest he doesn't normally have issues with heart failure - currently +9 L but no signs of decompensation and maintaining adequate UO - likely some element of inaccurate outputs as some days have nothing recorded Bradycardia and H/O Ongoing Lightheadedness/Dizziness: STABLE - Patient has a H/O ongoing issues with lightheadedness - possibly having low HRs at home? Does have intermittent HRs down into 30s. May benefit from Holter/ Event Monitor to correlate if lightheadedness is related to his intermittent lower HRs - possible some vagal elements given perforation? - Patient has been ambulating the halls with no issues. Hypothyroidism: - Continue Levothyroxine 25 mcg IV H/O DVT/PE (2011): - Coumadin has been on hold prior to scope and will remain on hold given possible surgical intervention - Heparin SC for DVT prophylaxis (has refused it and will continue to educate on this and in the meantime encourage ambulation) - Appears he may have had an isolated episode of A Fib but Coumadin was for H/O PE/DVT Acute on Chronic R-Sided Rib Fx: Noted Interstitial Lung Disease/Emphysema: - Does have a h/o tobacco use (quit 1986) - will monitor - no exacerbation - has not required inhalers in the past Recent Lyme: October 2017 - STABLE - Reports finishing treatment for Lyme disease over the past month Severe Protein-Calorie Malnutrition: Continue TPN DVT Prophylaxis: SCDs Code Status: FULL RESUSCITATION Continued [facility] stay due to: inadequate po fluid intake, multiple IV medications needed Discharge planning: home
[2017-12-19 22:58] VITALS: BP 137/68; PULSE 55; TEMP 36.8; O2SAT 98
[2017-12-20] MEDS: AZTREONAM IV 2,000 MG in DEXTROSE 5% 100ML 100 ML IV SCH ×3 (00:36→20:22)
[2017-12-20] MEDS ORDERED: VANCOMYCIN TROUGH ONE (03:30)
[2017-12-20] MEDS: VANCOMYCIN IV 1,000 MG in SODIUM CHLORIDE 0.9% 250ML 250 ML IV SCH ×2 (04:18→16:32)
[2017-12-20 07:20] VITALS: BP 143/69; PULSE 54; TEMP 36.4; O2SAT 99
[2017-12-20 08:00] VITALS: O2SAT 99
--- NOTE | 2017-12-20 08:28 | Pharmacy Progress Note ---
Pharmacy Abx Dose Short Note Date of Service Dec 20, 2017. Assessment & Plan Item Value Date Time Vancomycin Level Trough 17.4 mcg/ml 12/20/17 0330 Assessment 82 year old male receiving IV Vancomycin and Aztreonam for treatment of posterior gastric perforation following EGD for dilation of Schatzki's ring, possible allergic reaction to Ertapenem. ID consulted. Day # 5 of Vancomycin and Aztreonam therapy. (Ertapenem 1gram IV 12/12-12/15) Renal function stable. Plan Vancomycin * Trough level of 17.4 mcg/mL is therapeutic. * Continue dose of 1000 mg IV every 12 hours * Goal trough level: 15 to 20 mcg/mL * No further levels ordered at this time, will re-order if vancomycin continues > 3 more days Pharmacy will continue to follow and will adjust dose/frequency as necessary. Thank you.
--- NOTE | 2017-12-20 08:37 | SURGERY PROGRESS NOTE ---
DATE: 12/20/2017 From my last note I was planning to start feeding Mr. Garza today, but apparently yesterday the sheet metal pattern cutter took him back in scoping and apparently clipped the area and started on clear liquids. With this, I discussed it with the sheet metal pattern cutter. I will leave further management up to them. I have nothing further to add.
[2017-12-20] MEDS: LEVOTHYROXINE SODIUM INJ 25 MCG in SYRINGE 0 ML IV SCH (09:43)
[2017-12-20] MEDS: HEPARIN SOD 5000 UNIT/0.5 ML CARP SQ SCH ×2 (09:44→20:23)
--- NOTE | 2017-12-20 09:51 | Gastroenterology Progress Note ---
Progress Note Date of Service: Dec 20, 2017 Subjective Pt evaluation today including: conversation w/ patient, physical exam, chart review, lab review, review of inpatient medication list Patient reports he is feeling well. He denies any abdominal pain, bloating, nausea or vomiting, fevers/chills, melena or hematochezia. H&H remains stable. He is tolerating a clear liquid diet and continues TPN. He verbalizes desire to go home tomorrow. Review of Systems Constitutional: + see HPI Respiratory: No problem reported Cardiac: No problem reported Abdomen: + see HPI Medications Current Inpatient Medications Medications (Trade) Dose Ordered Sig/Lisa Route Start Time Stop Time Status Last Admin Dose Admin Ondansetron HCl (Zofran Inj) 4 mg Q6H PRN IV 12/09/17 16:30 01/08/18 16:29 Levothyroxine Sodium 25 mcg/ Syringe 1.25 ml @ 2 mls/min DAILY@09 IV 12/10/17 09:00 01/09/18 08:59 12/19/17 09:26 2 MLS/MIN Morphine Sulfate (MoRPHine SULFATE INJ) 2 mg Q4H PRN IV 12/09/17 16:30 12/23/17 16:29 Metoprolol Tartrate (Lopressor Iv) 5 mg Q4H PRN IV 12/09/17 17:30 01/08/18 17:29 Miscellaneous Information (Pharmacy Tpn/ Ppn Consult Active) 1 ea UD PRN N/A 12/11/17 13:11 01/10/18 13:10 Heparin Sodium (Porcine) (Heparin 10 Unit/ ml 5 ml Flush) 5 ml PRN PRN FLUSH 12/11/17 16:30 01/10/18 16:29 12/19/17 20:06 5 ML Dextrose 1,000 ml @ 0 mls/hr Q0M PRN IV 12/12/17 10:44 01/11/18 10:43 Heparin Sodium (Porcine) (Heparin Sq 5000 Unit/0.5ml) 5,000 unit Q12 SQ 12/13/17 09:00 01/12/18 08:59 12/19/17 20:44 5,000 UNIT Vancomycin HCl 1000 mg/Sodium Chloride 270 ml @ 125 mls/hr Q12H IV 12/17/17 04:00 12/27/17 03:59 8//18 04:18 125 MLS/HR Vancomycin HCl (Consult) 1 ea UD PRN N/A 12/16/17 16:15 01/15/18 16:14 Aztreonam 2000 mg/ Dextrose 110 ml @ 100 mls/hr Q8H IV 12/16/17 17:00 12/26/17 16:59 12/20/17 00:36 100 MLS/HR Nutrition (Parenteral) 0 ml @ 0 mls/hr TODAY@1600 IV 12/19/17 16:00 12/20/17 15:59 12/19/17 15:59 0 MLS/HR Nutrition (Parenteral) 0 ml @ 0 mls/hr TODAY@1600 IV 12/20/17 16:00 12/21/17 15:59 Objective Vital Signs Date Time Temp Pulse Resp B/P (MAP) Pulse Ox O2 Delivery O2 Flow Rate FiO2 12/20/17 07:20 36.4 54 18 143/69 (93) 99 12/20/17 00:39 Room Air 12/19/17 22:58 36.8 55 18 137/68 (91) 98 Room Air 12/19/17 18:00 Room Air 12/19/17 15:32 36.3 53 18 130/70 (90) 100 12/19/17 11:37 52 99 12/19/17 11:13 37.7 125 18 94/59 (71) 95 Physical Exam General Appearance: no apparent distress Respiratory/Chest: lungs clear Cardiovascular: regular rate, rhythm Abdomen: normal bowel sounds, non tender, soft Neurologic/Psych: alert, normal mood/affect, oriented x 3 Laboratory Results Last 24 Hours Test 12/19/17 12:10 12/20/17 03:30 12/20/17 07:47 Bedside Glucose 82 mg/dl 95 mg/dl Vancomycin Level Trough 17.4 mcg/ml Assessment and Plan IMPRESSION: An 82-year-old male with a gastric perforation following upper endoscopy with dilation on 12/09/2017, who has remained asymptomatic on TPN with continued extraluminal contrast on imaging status post repeat EGD with Endoclip closure x 5 clips. 1. Clear liquid diet until Saturday12/23/17. 2. Imaging without evidence of further leak after Endoclip closure. 3. Continue supportive medical care. Agree with DALTON Ruiz as above Patient remains asymptomatic, tolerating clear liquids, nursing reports no problems Abd: Soft, NT, ND, +BS Continue clear liquids until Saturday Discussed case with Dr. Rodriguez, he will stop antibiotics as patient has been afebrile without elevated WBC Continue supportive care
[2017-12-20 15:03] VITALS: BP 135/72; PULSE 62; TEMP 36.4; O2SAT 92
[2017-12-20] MEDS ORDERED: CUSTOM CENTRAL PN 1 BAG IV SCH (16:00)
--- NOTE | 2017-12-20 23:43 | Progress Note ---
Subjective Date of Service: Dec 20, 2017. Subjective Pt evaluation today including: conversation w/ patient, physical exam Patient reports feeling well/ Patient has no new complaints today. Patient repeatedly asking to be discharged. Problem List Medical Problems: (1) Chest congestion Status: Acute (2) Cholelithiasis Status: Acute (3) Constipation Status: Acute (4) Elbow abrasion Status: Acute (5) Facial contusion Status: Acute (6) Fall Status: Acute (7) Fall Status: Acute (8) Fall from chair, initial encounter Status: Acute (9) Generalized weakness Status: Acute (10) Leukocytosis Status: Acute (11) Multiple fractures of ribs of right side Status: Acute (12) Right ankle sprain Status: Acute (13) Upper back pain on right side Status: Acute Review of Systems Constitutional: No fever Eyes: No worsening of vision ENT: No hearing loss Respiratory: No cough Cardiac: No chest pain Abdomen: No pain Musculoskeletal: No joint pain Neurologic: No memory loss Endo: No fatigue Skin: No rash All Other Systems: Reviewed and Negative Objective Vital Signs Date Time Temp Pulse Resp B/P (MAP) Pulse Ox O2 Delivery O2 Flow Rate FiO2 12/20/17 21:51 Room Air 12/20/17 15:03 36.4 62 18 135/72 (93) 92 Room Air 12/20/17 08:00 99 Room Air 12/20/17 07:20 36.4 54 18 143/69 (93) 99 12/20/17 00:39 Room Air Physical Exam Comments: General Appearance: no apparent distress Eyes: sclerae normal ENT: hearing grossly normal Neck: supple, no JVD, trachea midline Respiratory/Chest: lungs clear, no respiratory distress, no accessory muscle use Cardiovascular: regular rate, rhythm Abdomen: normal bowel sounds, non tender, soft Extremities: no pedal edema Neurologic/Psychiatric: alert, oriented x 3 Skin: normal color, warm/dry Laboratory Results Last 24 Hours Test 12/20/17 03:30 12/20/17 07:47 12/20/17 11:40 12/20/17 16:42 Vancomycin Level Trough 17.4 mcg/ml Bedside Glucose 95 mg/dl 76 mg/dl 67 mg/dl Test 12/20/17 16:43 Bedside Glucose 76 mg/dl Assessment and Plan Mr. Garza is an 82 y/o male with PMHx of CAD with CABG x 3 (2014), NSTEMI, Hypothyroidism, PE/DVT on Coumadin (2011), Acute/Chronic R Rib Fx, Interstitial Lung Disease, and Recent Lyme who had an EGD for Schatzki Ring dilation with perforation. Schatzki Ring Dilation with Perforation/Pneumoperitoneum/Pneumomediastinum: STABLE - Maintain TPN at this time - PICC line in RUE - CT Surg and Gen Surg following - maintaining conservative measures at this time -. At this point, he is 1 week post-iatrogenic perforation of the stomach. - Had an upper GI on him that confirmed the leak which was about 3 cm away from the GE junction.(12/11/17). -Repeat imaging was done and showed a smaller leak. -GI did upper endoscopy and used 5 clips to close the small opening; done yesterday Started clear liquids today, patient tolerated diet -On antibiotics, will continue azactam and vanco as patient had allergic reaction to ertapenem. Patient has remained asymptomatic. D/W gastro, will continue diet and hold antibiotics. will monitor his vital signs. CAD with CABG x 3/NSTEMI/Ischemic Cardiomyopathy and Chronic Mixed Systolic/ Diastolic CHF: STABLE - Hold ASA and Atorvastatin at this time due to NPO - Echo (October 2017) - EF 45-50% with grade I diastolic dysfunction; RCA wall motion abnormality; septal motion consistent with BBB/cardiac surgery - Remains euvolemic - continue to monitor fluid status - outpatient records suggest he doesn't normally have issues with heart failure - currently +9 L but no signs of decompensation and maintaining adequate UO - likely some element of inaccurate outputs as some days have nothing recorded Bradycardia and H/O Ongoing Lightheadedness/Dizziness: STABLE - Patient has a H/O ongoing issues with lightheadedness - possibly having low HRs at home? Does have intermittent HRs down into 30s. May benefit from Holter/ Event Monitor to correlate if lightheadedness is related to his intermittent lower HRs - possible some vagal elements given perforation? - Patient has been ambulating the halls with no issues. Hypothyroidism: - Continue Levothyroxine 25 mcg IV H/O DVT/PE (2011): - Coumadin has been on hold prior to scope and will remain on hold given possible surgical intervention - Heparin SC for DVT prophylaxis (has refused it and will continue to educate on this and in the meantime encourage ambulation) - Appears he may have had an isolated episode of A Fib but Coumadin was for H/O PE/DVT Acute on Chronic R-Sided Rib Fx: Noted Interstitial Lung Disease/Emphysema: - Does have a h/o tobacco use (quit 1986) - will monitor - no exacerbation - has not required inhalers in the past Recent Lyme: October 2017 - STABLE - Reports finishing treatment for Lyme disease over the past month Severe Protein-Calorie Malnutrition: Continue TPN DVT Prophylaxis: SCDs Code Status: FULL RESUSCITATION Continued [facility] stay due to: inadequate po fluid intake, multiple IV medications needed Discharge planning: home
[2017-12-20 23:57] VITALS: BP 133/72; PULSE 55; TEMP 36.4; O2SAT 98
[2017-12-21] MEDS: AZTREONAM IV 2,000 MG in DEXTROSE 5% 100ML 100 ML IV SCH ×2 (01:30→08:26)
[2017-12-21] MEDS: VANCOMYCIN IV 1,000 MG in SODIUM CHLORIDE 0.9% 250ML 250 ML IV SCH (03:52)
[2017-12-21 06:31] LABS: CREATININE 0.61 mg/dl (0.60-1.40)
[2017-12-21 08:00] VITALS: O2SAT 99
[2017-12-21] MEDS: HEPARIN SOD 5000 UNIT/0.5 ML CARP SQ SCH ×2 (08:28→21:35)
[2017-12-21] MEDS: LEVOTHYROXINE SODIUM INJ 25 MCG in SYRINGE 0 ML IV SCH (10:16)
--- NOTE | 2017-12-21 11:51 | Pharmacy Progress Note ---
Parenteral Nutrition Consult Date of Service Dec 21, 2017. [facility] was consulted on 12/11/17 to manage parenteral nutrition orders for this patient. Subjective The patient is currently on day # 10of central parenteral nutrition for NPO/ Pneumoperitoneum Perforation Objective Height (Feet): 5 Height (Inches): 8.00 Weight (Kilograms): 68.500 Diet: Clear Liquid Intake & Output (Last 72 Hr): 12/20/17 12/21/17 12/22/17 08:00 08:00 08:00 Intake Total 2863 ml 4252 ml Balance 2863 ml 4252 ml Laboratory Data (Last 24 Hr): Test 12/21/17 05:31 Creatinine 0.61 mg/dl (0.60-1.40) Nutrition Assessment Please refer to the Notes section of the EMR for the most recent commissioning manager note. Assessment Pt started on clear liquid diet on 12/20/17 TPN continued 12/20/17 with ordered diet Pt tolerating clear liquids well per nursing Diet to continue --> will start to taper TPN. Likely d/c TPN Saturday or Saturday depending on PO intake and discussion with hospitalist. Plan For day # 10 of PN administration, the following will be ordered: Decrease macronutrients by 1/2 of goal requirements for 12/21/17 TPN. Will discuss further tapering of TPN with hospitalist 12/22/17. Plan below was discussed with Dr Rodriguez. Macronutrients Amino acids 50 grams/day Dextrose 113 grams/day Lipids 25 grams/day Micronutrients Sodium chloride 60 mEq Potassium phosphate 28 mMol Potassium acetate 80 mEq Magnesium sulfate 4.06 mEq Calcium gluconate 4.65 mEq Multivitamins 10 mL Trace Elements 1 mL Additional additives: Pepcid 20mg Total volume 834 mL to be infused over 24 hrs will provide 834 kcal/day Labs, as indicated, will be ordered per protocol Pharmacy will continue to follow and adjust parenteral nutrition orders on a daily basis. Thank you for allowing us to participate in the care of this patient.
[2017-12-21 15:00] VITALS: BP 135/80; PULSE 106; TEMP 36.4; O2SAT 90
[2017-12-21] MEDS ORDERED: CUSTOM CENTRAL PN 1 BAG IV SCH (16:00)
--- NOTE | 2017-12-21 22:14 | Progress Note ---
Subjective Date of Service: Dec 21, 2017. Subjective Patient again reports no symptoms. Problem List Medical Problems: (1) Chest congestion Status: Acute (2) Cholelithiasis Status: Acute (3) Constipation Status: Acute (4) Elbow abrasion Status: Acute (5) Facial contusion Status: Acute (6) Fall Status: Acute (7) Fall Status: Acute (8) Fall from chair, initial encounter Status: Acute (9) Generalized weakness Status: Acute (10) Leukocytosis Status: Acute (11) Multiple fractures of ribs of right side Status: Acute (12) Right ankle sprain Status: Acute (13) Upper back pain on right side Status: Acute Review of Systems Constitutional: No fever Eyes: No worsening of vision ENT: No hearing loss Respiratory: No cough Cardiac: No chest pain Abdomen: No pain Musculoskeletal: No joint pain Neurologic: No memory loss Endo: No fatigue Skin: No rash All Other Systems: Reviewed and Negative Objective Vital Signs Date Time Temp Pulse Resp B/P (MAP) Pulse Ox O2 Delivery O2 Flow Rate FiO2 12/21/17 15:00 36.4 106 20 135/80 (98) 90 Room Air 12/21/17 08:00 99 Room Air 12/21/17 00:30 Room Air 12/20/17 23:57 36.4 55 20 133/72 (92) 98 Room Air Physical Exam Comments: General Appearance: no apparent distress Eyes: sclerae normal ENT: hearing grossly normal Neck: supple, no JVD, trachea midline Respiratory/Chest: lungs clear, no respiratory distress, no accessory muscle use Cardiovascular: regular rate, rhythm Abdomen: normal bowel sounds, non tender, soft Extremities: no pedal edema Neurologic/Psychiatric: alert, oriented x 3 Skin: normal color, warm/dry Laboratory Results Last 24 Hours Test 12/21/17 05:31 Creatinine 0.61 mg/dl Est Creatinine Clear Calc Drug Dose 87.2 ml/min Estimated GFR () 106.3 Estimated GFR (Non- 91.7 Assessment and Plan Mr. Garza is an 82 y/o male with PMHx of CAD with CABG x 3 (2014), NSTEMI, Hypothyroidism, PE/DVT on Coumadin (2011), Acute/Chronic R Rib Fx, Interstitial Lung Disease, and Recent Lyme who had an EGD for Schatzki Ring dilation with perforation. Schatzki Ring Dilation with Perforation/Pneumoperitoneum/Pneumomediastinum: STABLE - Maintain TPN at this time - PICC line in RUE - CT Surg and Gen Surg following - maintaining conservative measures at this time -. At this point, he is 1 week post-iatrogenic perforation of the stomach. - Had an upper GI on him that confirmed the leak which was about 3 cm away from the GE junction.(12/11/17). -Repeat imaging was done and showed a smaller leak. -GI did upper endoscopy and used 5 clips to close the small opening; done yesterday Started clear liquids today, patient tolerated diet -On antibiotics, will continue azactam and vanco as patient had allergic reaction to ertapenem. Patient has remained asymptomatic. D/W gastro yesterday, will continue diet and hold antibiotics. will monitor his vital signs. May advance diet perhaps on Saturday. Will discuss with Gastro tomorrow. CAD with CABG x 3/NSTEMI/Ischemic Cardiomyopathy and Chronic Mixed Systolic/ Diastolic CHF: STABLE - Hold ASA and Atorvastatin at this time due to NPO - Echo (October 2017) - EF 45-50% with grade I diastolic dysfunction; RCA wall motion abnormality; septal motion consistent with BBB/cardiac surgery - Remains euvolemic - continue to monitor fluid status - outpatient records suggest he doesn't normally have issues with heart failure - currently +26 L but no signs of decompensation and maintaining adequate UO - likely some element of inaccurate outputs as some days have nothing recorded Bradycardia and H/O Ongoing Lightheadedness/Dizziness: STABLE - Patient has a H/O ongoing issues with lightheadedness - possibly having low HRs at home? Does have intermittent HRs down into 30s. May benefit from Holter/ Event Monitor to correlate if lightheadedness is related to his intermittent lower HRs - possible some vagal elements given perforation? - Patient has been ambulating the halls with no issues. Hypothyroidism: - Continue Levothyroxine 25 mcg IV H/O DVT/PE (2011): - Coumadin has been on hold prior to scope and will remain on hold given possible surgical intervention - Heparin SC for DVT prophylaxis (has refused it and will continue to educate on this and in the meantime encourage ambulation) - Appears he may have had an isolated episode of A Fib but Coumadin was for H/O PE/DVT Acute on Chronic R-Sided Rib Fx: Noted Interstitial Lung Disease/Emphysema: - Does have a h/o tobacco use (quit 1986) - will monitor - no exacerbation - has not required inhalers in the past Recent Lyme: October 2017 - STABLE - Reports finishing treatment for Lyme disease over the past month Severe Protein-Calorie Malnutrition: Continue TPN DVT Prophylaxis: SCDs Code Status: FULL RESUSCITATION Continued [facility] stay due to: inadequate po fluid intake, multiple IV medications needed Discharge planning: home
[2017-12-21 23:08] VITALS: BP 118/67; PULSE 59; TEMP 36.5; O2SAT 97
[2017-12-22 07:26] VITALS: BP 119/68; PULSE 64; TEMP 36.5; O2SAT 98
[2017-12-22 08:00] VITALS: O2SAT 98
[2017-12-22] MEDS: HEPARIN SOD 5000 UNIT/0.5 ML CARP SQ SCH (09:00)
[2017-12-22] MEDS: LEVOTHYROXINE SODIUM INJ 25 MCG in SYRINGE 0 ML IV SCH (09:00)
[2017-12-22 12:23] LABS: BASO % 0.2 %; BASO ABS # 0.02 K/uL (0-0.2); EOS % 2.7 %; EOS ABS # 0.23 K/uL (0-0.5); HEMATOCRIT 37.7 % (42-52); HEMOGLOBIN 12.1 g/dL (14.0-18.0); IG# 0.03 K/uL (0.00-0.02); LYMPH % 23.6 %; LYMPH ABS # 2.03 K/uL (1.2-3.4); MEAN CELL VOLUME 90.8 fL (80-100); MEAN CORPUSCULAR HEMOGLOBIN 29.2 pg (25-34); MEAN CORPUSCULAR HGB CONC 32.1 g/dl (32-36); MEAN PLATELET VOLUME 11.9 fL (7.4-10.4); MONO % 10.4 %; MONO ABS # 0.89 K/uL (0.11-0.59); NEUT % 62.8 %; NEUT ABS # 5.39 K/uL (1.4-6.5); PLATELET COUNT 166 K/uL (130-400); RED CELL DISTRIBUTION WIDTH CV 16.4 % (11.5-14.5); RED CELL DISTRIBUTION WIDTH SD 54.5 fL (36.4-46.3); WHITE BLOOD COUNT 8.59 K/uL (4.8-10.8)
[2017-12-22 15:23] VITALS: BP 118/74; PULSE 64; TEMP 36.4; O2SAT 99
--- NOTE | 2017-12-22 16:32 | Discharge Instructions ---
Discharge Instructions Date of Service Dec 22, 2017. Admission Reason for Admission: Pneumomediastinum Discharge Discharge Diagnosis / Problem: Pneumomediastinum Discharge Goals Goal(s): Decrease discomfort, Improve function Activity Recommendations Activity Limitations: resume your previous activity Lifting Limitations: no more than 10 pounds Exercise/Sports Limitations: until after follow-up appointment . Instructions / Follow-Up Instructions / Follow-Up Continue full liquid diet until being seen by Gatroenterologist Current Hospital Diet Patient's current hospital diet: Full Liquid Diet Discharge Diet Recommended Diet: Full Liquid Diet Procedures Procedures Performed: ENDOSCOPIC HEMOCLIP X 5 Pending Studies Studies pending at discharge: no Laboratory Results Lipid Panel Test 12/13/17 08:02 Range/Units Triglycerides Level 122 0-150 mg/dl Medical Emergencies . Who to Call and When: Medical Emergencies: If at any time you feel your situation is an emergency, please call 911 immediately. . Non-Emergent Contact Non-Emergency issues call your: Primary Care Provider Call Non-Emergent contact if: you have any medication questions . . "Provider Documentation" section prepared by Sim Rodriguez. .
[2017-12-22 18:05] VITALS: BP 118/74; PULSE 64; TEMP 36.4; O2SAT 99
--- NOTE | 2017-12-30 07:21 | Anesthesiology Progress Note ---
Anesthesia Post Op Note Date & Time Dec 18, 2017 at 1400 Vital Signs Pain Intensity: 0.0 Notes Mental Status: alert / awake / arousable, participated in evaluation Pt Amnestic to Procedure: Yes Nausea / Vomiting: adequately controlled Pain: adequately controlled Airway Patency, RR, SpO2: stable & adequate BP & HR: stable & adequate Hydration State: stable & adequate Anesthetic Complications: no major complications apparent I evaluated the patient at the time of discharge
--- NOTE | 2018-01-14 10:36 | Discharge Summary ---
Discharge Summary Date of Service Dec 22, 2017. Discharge Summary Admission Date: Dec 09, 2017 at 16:27 Discharge Date: Dec 22, 2017 Discharge Disposition: Home Principal Diagnosis: Schatzki Ring Dilation with Perforation/Pneumoperitoneum/ Pneumomediastinum Immunizations: Have You Had Influenza Vaccine: No History of Tetanus Vaccine?: Unknown History of Pneumococcal: Yes Pneumococcal Date: Mar 24, 2009 History of Hepatitis B Vaccine: Unknown Medication Reconciliation Continued Medications: Atorvastatin (Lipitor) 40 Mg Tab 40 MG PO HS Levothyroxine Sodium (Levothyroxine Sodium) 50 Mcg Tab 50 MCG PO DAILY Metoprolol Succinate (Metoprolol Succinate ER) 25 Mg Tabcr 25 MG PO DAILY Oxycodone Immediate Rel Tab (Roxicodone Ir) 5 Mg Tab 0.5-1 TAB PO Q4H PRN for Severe Pain, #10 TAB initial treatment Discontinued Medications: Aspirin (Aspirin Ec) 81 Mg Tab 81 MG PO DAILY Warfarin Sod (Jantoven) 2 Mg Tab 2 MG PO DAILY TAKE 2 MG EVERY DAY OR OTHERWISE DIRECTED TO TAKE BY ANTICOAGULATION CLINIC/MD Discharge Exam Review of Systems Constitutional: No fever Eyes: No worsening of vision ENT: No hearing loss Respiratory: No cough Cardiac: No chest pain Abdomen: No pain Musculoskeletal: No joint pain Neurologic: No memory loss Endo: No fatigue Skin: No rash All Other Systems: Reviewed and Negative Physical Exam Comments: General Appearance: no apparent distress Eyes: sclerae normal ENT: hearing grossly normal Neck: supple, no JVD, trachea midline Respiratory/Chest: lungs clear, no respiratory distress, no accessory muscle use Cardiovascular: regular rate, rhythm Abdomen: normal bowel sounds, non tender, soft Extremities: no pedal edema Neurologic/Psychiatric: alert, oriented x 3 Skin: normal color, warm/dry Hospital Course Mr. Garza is an 82 y/o male with PMHx of CAD with CABG x 3 (2014), NSTEMI, Hypothyroidism, PE/DVT on Coumadin (2011), Acute/Chronic R Rib Fx, Interstitial Lung Disease, and Recent Lyme who had an EGD for Schatzki Ring dilation with perforation. Schatzki Ring Dilation with Perforation/Pneumoperitoneum/Pneumomediastinum: STABLE -Patient was on TPN during hospital stay, last 2 days diet has been advanced. - PICC line in RUE - CT Surg and Gen Surg following - maintaining conservative measures at this time -. At this point, he is more than 1 week post-iatrogenic perforation of the stomach. - Had an upper GI on him that confirmed the leak which was about 3 cm away from the GE junction.(12/11/17). -Repeat imaging was done and showed a smaller leak. -GI did upper endoscopy and used 5 clips to close the small opening; done yesterday Started clear liquids today, patient tolerated diet -On antibiotics, will continue azactam and vanco as patient had allergic reaction to ertapenem. Patient has remained asymptomatic. D/W gastro 2 days prior to discharge, will continue diet and hold antibiotics. will monitor his vital signs. As patient tolerated diet today, will discharge patient with followup with GI. CAD with CABG x 3/NSTEMI/Ischemic Cardiomyopathy and Chronic Mixed Systolic/ Diastolic CHF: STABLE - Hold ASA and Atorvastatin at this time due to NPO - Echo (October 2017) - EF 45-50% with grade I diastolic dysfunction; RCA wall motion abnormality; septal motion consistent with BBB/cardiac surgery - Remains euvolemic - continue to monitor fluid status - outpatient records suggest he doesn't normally have issues with heart failure - currently +26 L but no signs of decompensation and maintaining adequate UO - likely some element of inaccurate outputs as some days have nothing recorded Bradycardia and H/O Ongoing Lightheadedness/Dizziness: STABLE - Patient has a H/O ongoing issues with lightheadedness - possibly having low HRs at home? Does have intermittent HRs down into 30s. May benefit from Holter/ Event Monitor to correlate if lightheadedness is related to his intermittent lower HRs - possible some vagal elements given perforation? - Patient has been ambulating the halls with no issues. Hypothyroidism: - Continue Levothyroxine 25 mcg IV H/O DVT/PE (2011): - Coumadin has been on hold prior to scope and will remain on hold given possible surgical intervention - Heparin SC for DVT prophylaxis (has refused it and will continue to educate on this and in the meantime encourage ambulation) - Appears he may have had an isolated episode of A Fib but Coumadin was for H/O PE/DVT Acute on Chronic R-Sided Rib Fx: Noted Interstitial Lung Disease/Emphysema: - Does have a h/o tobacco use (quit 1986) - will monitor - no exacerbation - has not required inhalers in the past Recent Lyme: October 2017 - STABLE - Reports finishing treatment for Lyme disease over the past month Severe Protein-Calorie Malnutrition: Continue TPN DVT Prophylaxis: SCDs Code Status: FULL RESUSCITATION Total Time Spent: Greater than 30 minutes This includes examination of the patient, discharge planning, medication reconciliation, and communication with other providers. Discharge Instructions Please refer to the electronic Patient Visit Report (Discharge Instructions) for additional information. Follow-Up as noted on discharge instruction Additional Copies To Curtis Carrillo M.D.
== END 2017-12-22 19:24 | disposition home or self-care (01) | DRG 907 ==
LOC: C.GI 12:38 → ENRESERV 15:43 → C.2E 16:27 → ENRESERV 12-11 17:59 → C.4E 12-11 19:00
PROVIDERS: ADMIT Internal Medicine; ATTEND Internal Medicine Sports Medicine
PROC: 0D748ZZ Dilation of Esophagogastric Junction, Via Natural or Artificial Opening Endoscopic (ICD-10-PCS; principal; 2017-12-09 13:15)
PROC: 0DB68ZX Excision of Stomach, Via Natural or Artificial Opening Endoscopic, Diagnostic (ICD-10-PCS; principal; 2017-12-09 13:15)
PROC: 02HV33Z Insertion of Infusion Device into Superior Vena Cava, Percutaneous Approach (ICD-10-PCS; 2017-12-11)
PROC: 3E043GC Introduction of Other Therapeutic Substance into Central Vein, Percutaneous Approach (ICD-10-PCS; 2017-12-11)
PROC: 0DQ68ZZ Repair Stomach, Via Natural or Artificial Opening Endoscopic (ICD-10-PCS; 2017-12-18)
DX: K91.71 Accidental puncture and laceration of a digestive system organ or structure during a digestive system procedure (principal); E43 Unspecified severe protein-calorie malnutrition; K22.2 Esophageal obstruction; S36.39XA Other injury of stomach, initial encounter; S22.31XA Fracture of one rib, right side, initial encounter for closed fracture; I50.42 Chronic combined systolic (congestive) and diastolic (congestive) heart failure; C61 Malignant neoplasm of prostate; I25.2 Old myocardial infarction; I25.10 Atherosclerotic heart disease of native coronary artery without angina pectoris; E03.9 Hypothyroidism, unspecified; Z87.891 Personal history of nicotine dependence; K29.70 Gastritis, unspecified, without bleeding; Z98.890 Other specified postprocedural states; Z92.3 Personal history of irradiation; Z95.1 Presence of aortocoronary bypass graft; Z88.1 Allergy status to other antibiotic agents; I25.5 Ischemic cardiomyopathy; K22.0 Achalasia of cardia; R00.1 Bradycardia, unspecified; J43.9 Emphysema, unspecified; M10.9 Gout, unspecified; Y83.8 Other surgical procedures as the cause of abnormal reaction of the patient, or of later complication, without mention of misadventure at the time of the procedure; Z86.718 Personal history of other venous thrombosis and embolism; Z86.711 Personal history of pulmonary embolism; X58.XXXA Exposure to other specified factors, initial encounter; Y92.019 Unspecified place in single-family (private) house as the place of occurrence of the external cause; K44.9 Diaphragmatic hernia without obstruction or gangrene; Y92.234 Operating room of hospital as the place of occurrence of the external cause; Z86.19 Personal history of other infectious and parasitic diseases

== ENCOUNTER → 2017-12-24 | Outpatient (CLI) | payer BC ==
[~2017-12-24] MED LIST changes: -ASPI81TA28 PO; -WARF2TAB8 PO
[2017-12-24 12:35] LABS: HEMOGLOBIN 12.7 g/dL (14.0-18.0); MEAN CELL VOLUME 91.8 fL (80-100); MEAN CORPUSCULAR HEMOGLOBIN 29.9 pg (25-34); MEAN CORPUSCULAR HGB CONC 32.6 g/dl (32-36); MEAN PLATELET VOLUME 12.4 fL (7.4-10.4); PLATELET COUNT 179 K/uL (130-400); RED CELL DISTRIBUTION WIDTH CV 16.5 % (11.5-14.5); RED CELL DISTRIBUTION WIDTH SD 55.4 fL (36.4-46.3); WHITE BLOOD COUNT 8.23 K/uL (4.8-10.8)
[2017-12-24 12:48] LABS: ALT/SGPT 37 U/L (12-78); AST/SGOT 31 U/L (15-37); BLOOD UREA NITROGEN 38 mg/dl (7-18); CALCIUM 9.1 mg/dl (8.5-10.1); CARBON DIOXIDE 25 mmol/L (21-32); CHOLESTEROL 121 mg/dl (0-200); CREATININE 1.05 mg/dl (0.60-1.40); GLUCOSE 101 mg/dl (70-99); LDL CHOLESTEROL CALCULATED 72 mg/dl; SODIUM 142 mmol/L (136-145)
== END | disposition home or self-care (01) ==
LOC: C.LAB1850 11:19
PROVIDERS: ATTEND Radiology Radiation Oncology
DX: I25.10 Atherosclerotic heart disease of native coronary artery without angina pectoris (principal); I25.5 Ischemic cardiomyopathy; I77.810 Thoracic aortic ectasia

== ENCOUNTER 2019-03-12 01:06 | Inpatient (IN) ==
[2019-03-12] MEDS ORDERED: ASPIRIN CHEW 324 MG ONE (01:20)
[2019-03-12] MEDS ORDERED: NITROGLYCERIN SL 0.4 MG/TAB TAB ONE (01:21)
[2019-03-12] MEDS ORDERED: NITROGLYCERIN SL 0.4 MG/TAB TAB SL STA (01:22)
[2019-03-12] MEDS ORDERED: ASPIRIN CHEW 324 MG PO STA (01:22)
[2019-03-12] MEDS ORDERED: NITROGLYCERIN 2% OINTMENT 30GM TUBE EXT ONE (01:26)
[2019-03-12 01:32] LABS: Basophils # (auto) 0.02 K/uL (0-0.2); Basophils % (auto) 0.2 %; Eosinophils # (auto) 0.39 K/uL (0-0.5); Eosinophils % (auto) 3.6 %; Hematocrit (blood only) 44.2 % (42-52); Hemoglobin 14.4 g/dL (14.0-18.0); Immature Granulocytes # (auto) 0.02 K/uL (0.00-0.02); Immature Granulocytes % (auto) 0.2 %; Lymphocytes # (auto) 3.96 K/uL (1.2-3.4); Lymphocytes % (auto) 36.4 %; Mean Corpuscular Hemoglobin 29.2 pg (25-34); Mean Corpuscular Hgb Conc 32.6 g/dL (32-36); Mean Corpuscular Volume 89.7 fL (80-100); Mean Platelet Volume 10.4 fL (7.4-10.4); Monocytes # (auto) 1.27 K/uL (0.11-0.59); Monocytes % (auto) 11.7 %; Neutrophils # (auto) 5.23 K/uL (1.4-6.5); Neutrophils % (auto) 47.9 %; Platelet Count 182 K/uL (130-400); RDW Coefficient of Variation 14.5 % (11.5-14.5); RDW Standard Deviation 47.2 fL (36.4-46.3); Red Blood Count 4.93 M/uL (4.7-6.1); White Blood Count 10.89 K/uL (4.8-10.8)
[2019-03-12 01:50] LABS: Alanine Aminotransferase 16 U/L (12-78); Albumin Level 3.6 gm/dl (3.4-5.0); Aspartate Aminotransferase 13 U/L (15-37); BUN Creatinine Ratio 22.4 (10-20); Blood Urea Nitrogen 24 mg/dl (7-18); Calcium 8.8 mg/dl (8.5-10.1); Carbon Dioxide 28 mmol/L (21-32); Chloride 106 mmol/L (98-107); Est GFR (African American) 73.8; Est GFR (Non-African American) 63.7; Glucose 106 mg/dl (70-99); Lipase 271 U/L (73-393); Potassium 3.5 mmol/L (3.5-5.1); Sodium 140 mmol/L (136-145)
[2019-03-12 02:05] LABS: Albumin Globulin Ratio 0.9 (0.9-2); Alkaline Phosphatase 83 U/L (45-117); Bilirubin,Total 0.4 mg/dl (0.2-1); Globulin 3.9 gm/dl (2.5-4.0); Total Protein 7.5 gm/dl (6.4-8.2); Troponin I 0.046 ng/ml (0-0.045)
[2019-03-12] MEDS ORDERED: Heparin IV Low Dose WITH Bolus IV STA (02:08)
[2019-03-12] MEDS ORDERED: Heparin BOLUS **ED Use Only IV STA (02:29)
[2019-03-12] MEDS ORDERED: fentaNYL citrate 100 MCG/2 ML VIAL IV ONE (02:49)
[2019-03-12] MEDS: HEPARIN SODIUM/DEXTROSE 25,000 UNITS/500 ML BAG IV SCH (03:11)
[2019-03-12 03:20] LABS: Partial Thromboplastin Time 26.6 Seconds (21.0-31.0); Prothrombin Time 10.3 Seconds (9.0-12.0)
--- NOTE | 2019-03-12 03:27 | History & Physical Report ---
Date of Service March 12, 2019 Assessment & Plan (1) Chest pain: Concern for ACS - patient with known multivessel CAD s/p CABG x 3V in 2014, substernal chest heaviness, +troponin. EKG with no STEMI. Presently still with 3-4/10 CP, Nitro patch in place. Patient received ASA in ER. Fenta nyl to be given. -Admit to PCU, continuous cardiac monitoring -Trend troponin q 6 hours x 3 sets -EKG with CP -Check 2D echo -Cardiology consultation appreciated -Continue ASA 81mg po daily, Atorvastatin, Metoprolol -Nitro paste -Fentanyl PRN for CP -Supplemental O2 to maintain saturation > 94% -Heparin gtt Present on Admission?: Yes (2) NSTEMI (non-ST elevated myocardial infarction): Patient with CP, +troponin, h/o CAD. -Plan as above -Heparin gtt -Cardiology consultation - will keep patient NPO for possible catheterization Present on Admission?: Yes (3) Ischemic cardiomyopathy: Mildly reduced LV, diastolic dysfunction, WMA consistent with prior surgery/RBBB. Presently with no evidence of decompensated CHF. -Continue Metoprolol -Continue to montior Present on Admission?: Yes (4) Hyperlipidemia: Chronic. Stable -Continue Atorvastatin Present on Admission?: Yes (5) Hypothyroid: Chronic. TSH=2.19 in November 2018 -Continue Synthroid F/E/N - Heplock. Monitor electrolytes and replete as needed. NPO for now Ppx - Heparin gtt for NSTEMI, continue home protonix Code - Full per discussion with patient Dispo - Admit to PCU Present on Admission?: Yes History of Present Illness Chief Complaint: chest pain Primary Care Provider: Curtis Carrillo MD Majority of history obtained from chart review. Patient with mild cognitive impairment and is unable to provide details of his cardiac history. is at bedside and is unable to provide details of history as well. Félix Garza is an 83yo C male with history of multi-vessel CAD s/p CABG x 3V performed at [facility] in August 2014 (SVG to LAD. SVG to OM. SVG to PDA). Surgery complicated by postoperative atrial fibrillation and acute blood loss anemia. Patient presents with substernal chest discomfort that started earlier today while he was watching TV, uncertain of exact time of onset. Pain is described as discomfort, pressure/squeezing, 4/10 in severity. It is non- pleuritic, non-positional, non-radiating and non-exertional. No associated diaphoresis, SOB, palpitations, dizziness or nausea. Patient has never had this type of pain before. He is not sure if Nitro provided any relief. He has history of DVT/PE, was previously on Coumadin anticoagulation - this was discontinued recently secondary to fall risk. Patient lives with his in a home. Reports he is fairly active. He is able to climb a flight of stairs and walk around his home with no significant chest discomfort, only occasional SOB. He reports compliance with his home medications. Echocardiogram 10/26/17 - Normal LV size with mildly reduced systoli function. EF= 45-50%. RCA wall motion abnormality (akinesis of the basal septum and base to mid inferior wall). Moderate hypertrophy of the basal anteroseptum. Type 1 diastolic dysfunction. Septal motion consistent with bundle branch block/cardiac surgery. Moderately dilated RV. Mildly reduced RV systolic function. Aortic valve sclerosis, mild, without significant aortic stenosis. Mild aortic root dilatation. Normal estimated RV systolic pressure; 21mmHg Cardiac catheterization 08/13/18 - severe CAD of his mid RCA (subtotal) with left to right collaterals, severe ostial LMCA stenosis, ostial RCA severely dilated, and mild to moderately elevated LVEDP. There was no aortic stenosis. ER Course: Nitro 0.4mg, Nitro paste, Heparin bolus and drip, Fentanyl 12.5mcg Allergies Allergy/AdvReac Type Severity Reaction Status Date / Time Cephalosporins Allergy Severe RASH Verified 03/12/19 01:31 morphine Allergy Unknown Unknown Verified 03/12/19 01:31 Home Medications Home Medications Medication Instructions Recorded Confirmed Type atorvastatin 40 mg tablet 40 mg PO DAILY #90 tab 01/02/19 03/12/19 Rx levothyroxine 50 mcg tablet 50 mcg PO DAILY #90 tab 01/02/19 03/12/19 Rx metoprolol succinate ER 25 mg 25 mg PO DAILY #90 tab 01/02/19 03/12/19 Rx tablet,extended release 24 hr pantoprazole 40 mg tablet,delayed 40 mg PO DAILY #90 tab 01/02/19 03/12/19 Rx release aspirin 81 mg tablet,delayed 81 mg PO DAILY #30 tab 01/16/19 03/12/19 Rx release docusate sodium 100 mg capsule 100 mg PO DAILY PRN cap 02/09/19 03/12/19 History Past Med/Surg History Medical History Hypothyroid (Chronic) NSTEMI (non-ST elevated myocardial infarction) (Resolved) CAD (coronary artery disease) (Chronic) Pancreatitis (Resolved) History of deep vein thrombosis of lower extremity (Resolved) History of prostate cancer (Resolved) History of pulmonary embolus (PE) (Resolved 11/02/12) Surgical History S/P radiation therapy (Resolved) S/P CABG x 3 (Resolved) H/O esophagogastroduodenoscopy History of cataract surgery Hx of cholecystectomy Social History Preferred Language: Sinhala Communication Ability: Effective Visual Impairment: No Limitations Hearing Ability: Normal marital status: Current Living Situation: Spouse current occupational status: retired 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 [employer] other: with 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 Feels Safe at Home: Yes Smoking Status: Never smoker Hx Alcohol Use: No Hx Substance Use: No Seatbelt Use: always Review of Systems Review of Systems: All systems reviewed & are unremarkable except as noted in HPI & below Physical Exam Physical Exam: General: patient resting comfortably, NAD, non-toxic in appearance, AA&O to self and location only Skin: warm, dry, intact, no rashes or lesions, well healed sternotomy scar HEENT: NC/AT, PERRL, EOMI, anicteric sclera, conjunctiva without injection, external ear normal to inspection and nontender, nares patent, moist mucus membranes, dentition intact, no oropharyngeal lesions, neck supple, trachea midline, no LAD, no thyromegaly, no JVD Heart: +S1/S2, regular, +S4, faint HOWARD 2/6 at 2nd ICS, no reproducible chest discomfort or epigastric pain Lungs: equal air entry bilaterally, no rales/rhonchi/wheezes Abd: +BS, soft, NT/ND, no masses/organomegaly/ascites Ext: warm, 2+ pulses in UE/LE bilaterally, no clubbing/cyanosis or edema Neuro: nonfocal, patient AA&O x 2, speech intact, no facial droop, moving all extremities on command with equal strength 5/5 Results & Data Vital Signs (Past 12 Hours) Vital Signs Pulse Pulse Resp BP BP Pulse Ox 03/12/19 01:44 66 16 132/84 99 03/12/19 01:28 99 03/12/19 01:23 99 03/12/19 01:18 63 18 165/92 H 100 Laboratory Results Lab Results 03/12/19 03/12/19 Range/Units 01:23 01:23 WBC 10.89 H (4.8-10.8) K/uL RBC 4.93 (4.7-6.1) M/uL Hgb 14.4 (14.0-18.0) g/dL Hct 44.2 (42-52) % MCV 89.7 (80-100) fL MCH 29.2 (25-34) pg MCHC 32.6 (32-36) g/dL RDW Std Deviation 47.2 H (36.4-46.3) fL RDW Coeff of Bea 14.5 (11.5-14.5) % Plt Count 182 (130-400) K/uL MPV 10.4 (7.4-10.4) fL Immature Gran % (Auto) 0.2 % Neut % (Auto) 47.9 % Lymph % (Auto) 36.4 % [place] % (Auto) 11.7 % Eos % (Auto) 3.6 % Baso % (Auto) 0.2 % Immature Gran # (Auto) 0.02 (0.00-0.02) K/uL Neut # (Auto) 5.23 (1.4-6.5) K/uL Lymph # (Auto) 3.96 H (1.2-3.4) K/uL [place] # (Auto) 1.27 H (0.11-0.59) K/uL Eos # (Auto) 0.39 (0-0.5) K/uL Baso # (Auto) 0.02 (0-0.2) K/uL Sodium 140 (136-145) mmol/L Potassium 3.5 (3.5-5.1) mmol/L Chloride 106 (98-107) mmol/L Carbon Dioxide 28 (21-32) mmol/L Anion Gap 6.0 (3-11) BUN 24 H (7-18) mg/dl Creatinine 1.06 (0.6-1.4) mg/dl Est Cr Clr Drug Dosing Not Reportable Est GFR ( Amer) 73.8 Est GFR (Non-Af Amer) 63.7 BUN/Creatinine Ratio 22.4 H (10-20) Glucose 106 H (70-99) mg/dl Calcium 8.8 (8.5-10.1) mg/dl Total Bilirubin 0.4 (0.2-1) mg/dl AST 13 L (15-37) U/L ALT 16 (12-78) U/L Alkaline Phosphatase 83 (45-117) U/L Troponin I 0.046 H* (0-0.045) ng/ml Total Protein 7.5 (6.4-8.2) gm/dl Albumin 3.6 (3.4-5.0) gm/dl Globulin 3.9 (2.5-4.0) gm/dl Albumin/Globulin Ratio 0.9 (0.9-2) Lipase 271 (73-393) U/L Diagnostic Findings CXR - trachea midline, normal cardiac silhouette, sternotomy wires in place, no PNA/PTX, no evidence of CHF ECG Additional Comments: EKG with SR at 63 with PVCs and PACs, normal axis, UQ=443, GRW=974, DBh=828, RBBB, prior inferior MA. EKG from 1:37 AM appears similar to prior from September 22, 2018 Code Status & VTE Plan Code Status FULL VTE Prophylaxis Plan VTE Prophylaxis will be ordered: Yes PG Care Time/CCT Total # of Minutes Spent Total Time Spent with Patient: Total time spent is greater than 50% in coordination of care (as documented) at patient's floor/unit and/or counseling patient: (1) Chest pain Chest pain type: precordial pain Qualified Code(s): R07.2 - Precordial pain (2) Hyperlipidemia Hyperlipidemia type: unspecified Qualified Code(s): E78.5 - Hyperlipidemia, unspecified (3) Hypothyroid Hypothyroidism type: unspecified Qualified Code(s): E03.9 - Hypothyroidism, unspecified
[2019-03-12] MEDS ORDERED: ONDANSETRON INJ 2 MG/ML 2 ML VIAL IV PRN (03:58)
[2019-03-12] MEDS ORDERED: DOCUSATE SODIUM 100 MG CAP PO PRN ×2 (03:58)
[2019-03-12] MEDS ORDERED: fentaNYL citrate 100 MCG/2 ML VIAL IV PRN (03:58)
[2019-03-12 04:38] LABS: Magnesium 2.2 mg/dl (1.8-2.4); Phosphorus 3.6 mg/dl (2.5-4.9)
[2019-03-12] MEDS ORDERED: NITROGLYCERIN 2% OINTMENT 30GM TUBE EXT SCH (06:00)
[2019-03-12] MEDS: LEVOTHYROXINE SODIUM 50 MCG TABLET PO SCH (06:24)
--- NOTE | 2019-03-12 07:10 | Emergency Department Note ---
Entered by Keisha Christy acting as a scribe for Katya Villagomez MD History of Present Illness General Chief complaint: Chest Pain Stated complaint: CHEST PAIN Source: patient History of Present Illness Provider complaint: chest pain Onset (ago): minute(s) (prior to arrival) Location: chest Radiation: non-radiation Maximum Pain Intensity: 5 Current Pain Intensity: 7 Quality: + other (chest pain) Associated symptoms: no shortness of breath Treatments prior to arrival: none The patient, who is a 83 year old male with a medical history of hypothyroid, thrombocytopenia and mitral regurgitation, presents to the Emergency Room with complaints of chest pain that started prior to arrival. The patient states that while he was sleeping he was having chest pain that woke him up. The patient denies having this pain prior to tonight. The patient identifies the pain to the center of his chest. The patient reports that his pain intensity is at 7. The patient denies shortness of breath and radiation the jaw or back. The patient denies any aspirin administration in the last 24 hours. Patient was asked about the sternotomy scar but was unable to verify history of cardiac surgery. Home Medications Home Medications Medication Instructions Recorded Confirmed Type atorvastatin 40 mg tablet 40 mg PO DAILY #90 tab 01/02/19 03/12/19 Rx levothyroxine 50 mcg tablet 50 mcg PO DAILY #90 tab 01/02/19 03/12/19 Rx metoprolol succinate ER 25 mg 25 mg PO DAILY #90 tab 01/02/19 03/12/19 Rx tablet,extended release 24 hr pantoprazole 40 mg tablet,delayed 40 mg PO DAILY #90 tab 01/02/19 03/12/19 Rx release aspirin 81 mg tablet,delayed 81 mg PO DAILY #30 tab 01/16/19 03/12/19 Rx release docusate sodium 100 mg capsule 100 mg PO DAILY PRN cap 02/09/19 03/12/19 History Allergies Allergy/AdvReac Type Severity Reaction Status Date / Time Cephalosporins Allergy Severe RASH Verified 03/12/19 01:31 morphine Allergy Unknown Unknown Verified 03/12/19 01:31 Past Med/Surg History Medical History Pulmonary embolism DVT (deep venous thrombosis) Hypothyroid (Chronic) Mitral regurgitation (Acute) Hyperlipidemia (Acute) Dilated aortic root (Acute) NSTEMI (non-ST elevated myocardial infarction) (Resolved) CAD (coronary artery disease) (Chronic) Pancreatitis (Resolved) S/P CABG (coronary artery bypass graft) (Acute) History of deep vein thrombosis of lower extremity (Resolved) History of prostate cancer (Resolved) History of pulmonary embolus (PE) (Resolved 11/02/12) Surgical History S/P radiation therapy (Resolved) S/P CABG x 3 (Resolved) H/O esophagogastroduodenoscopy History of cataract surgery Hx of cholecystectomy Family History Father Diabetes Cerebral atherosclerosis CHF (congestive heart failure) Sister Diabetes Brother Coronary atherosclerosis Mother Coronary atherosclerosis Other Heart disease Social History Preferred Language: Welsh Communication Ability: Impaired Visual Impairment: No Limitations Hearing Ability: Normal Cane Weigher Helper Required: No Beliefs That Will Affect Care: None marital status: Current Living Situation: Spouse current occupational status: retired 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 and A total of 10 systems reviewed and were otherwise negative Physical Exam Vital Signs Vital Signs - 24 hr 03/12/19 01:18 03/12/19 01:23 03/12/19 01:28 Sepsis Recent Fever Within 48 Hours No Sepsis New/Unexplained Change in Mental Status No Sepsis Action Taken by Nursing No Action Required Pulse Rate 63 Pulse Rate [Apical] Pulse Rhythm Regular Pulse Strength Normal Respiratory Rate 18 Respiratory Effort / Characteristics Non-Labored Respiratory Depth Normal Respiratory Pattern Regular Blood Pressure 165/92 H Blood Pressure [Left Arm] Blood Pressure Mean 116 Blood Pressure Mean [Left Arm] Blood Pressure Position Lying Pulse Oximetry 100 99 99 Oxygen Delivery Method Room Air Nasal Cannula Room Air 03/12/19 01:44 Sepsis Recent Fever Within 48 Hours Sepsis New/Unexplained Change in Mental Status Sepsis Action Taken by Nursing Pulse Rate Pulse Rate [Apical] 66 Pulse Rhythm Pulse Strength Respiratory Rate 16 Respiratory Effort / Characteristics Respiratory Depth Respiratory Pattern Blood Pressure Blood Pressure [Left Arm] 132/84 Blood Pressure Mean Blood Pressure Mean [Left Arm] 100 Blood Pressure Position Pulse Oximetry 99 Oxygen Delivery Method Room Air Vital signs reviewed. General: Well-appearing elderly male, in no significant distress. HEENT: No scleral icterus, PERRLA, neck supple. Atraumatic. Cardiovascular: Regular rate and rhythm, no extra sounds. Pulmonary: Clear to auscultation bilaterally, normal work of breathing. Abdomen: Soft, nontender, nondistended, positive bowel sounds. Musculoskeletal: Sternotomy scar, no peripheral edema. Neurologic: Patient awake alert and answers most questions appropriately. Hard of hearing. Skin: Warm, dry, no rash Course 0118: Past medical records reviewed. The patient was evaluated in room B6. A complete history and physical exam was performed. 0130: Nitroglycerin was administered to the patient 0132: Aspirin was administered to the patient 0311: Heparin was administered to the patient 0322: [facility] He will evaluate the patient for further management. Consultations Consultation #1: [facility] the [facility] He will evaluate the patient for further management. Time: 03:22 Administered Medications Aspirin (Ecotrin Ectab) 81 mg PO DAILY [facility] Stop: 04/11/19 08:59 Last Admin: 03/12/19 08:22 Dose: 81 mg Documented by: [id number] Cosigned by: [id number] Atorvastatin Calcium (Lipitor) 40 mg PO DAILY [facility] Stop: 04/11/19 08:59 Last Admin: 03/12/19 08:22 Dose: 40 mg Documented by: [id number] Cosigned by: [id number] Heparin Sodium/Dextrose (Heparin Sodium/Dextrose) 25,000 units in 500 mls @ 16 mls/hr IV .Q24H STEF; Protocol Stop: 04/11/19 02:14 Last Titration: 03/12/19 19:15 Dose: 800 units/hr, 16 mls/hr Documented by: [id number] Cosigned by: [id number] Titration: 03/12/19 10:25 Dose: 800 units/hr, 16 mls/hr Documented by: [id number] Cosigned by: [id number] Titration: 03/12/19 07:07 Dose: 800 units/hr, 16 mls/hr Documented by: [id number] Cosigned by: [id number] Admin: 03/12/19 03:11 Dose: 800 units/hr, 16 mls/hr Documented by: [id number] Cosigned by: [id number] Isosorbide Mononitrate (Imdur Extended Rel) 30 mg PO QAM [facility] Stop: 04/11/19 10:44 Last Admin: 03/12/19 12:19 Dose: 30 mg Documented by: [id number] Cosigned by: [id number] Levothyroxine Sodium (Synthroid) 50 mcg PO DAILYBB STEF Stop: 04/11/19 06:29 Last Admin: 03/12/19 06:24 Dose: 50 mcg Documented by: [id number] Metoprolol Succinate (Toprol Xl) 25 mg PO DAILY STEF Stop: 04/11/19 08:59 Last Admin: 03/12/19 08:25 Dose: Not Given Documented by: [id number] Pantoprazole Sodium (Protonix) 40 mg PO DAILY STEF Stop: 04/11/19 08:59 Last Admin: 03/12/19 08:22 Dose: 40 mg Documented by: [id number] Cosigned by: [id number] Discontinued Medications Aspirin (Aspirin) 243 mg PO NOW STA Stop: 03/12/19 01:23 Last Admin: 03/12/19 01:32 Dose: 324 mg Documented by: [id number] Fentanyl Citrate (Fentanyl Citrate) 12.5 mcg IV NOW ONE Stop: 03/12/19 02:50 Last Admin: 03/12/19 03:21 Dose: 12.5 mcg Documented by: [id number] Heparin Sodium (Porcine) (Heparin Iv Bolus) 4,000 units IV NOW STA Stop: 03/12/19 02:30 Last Admin: 03/12/19 03:11 Dose: 4,000 units Documented by: [id number] Cosigned by: [id number] Heparin Sodium/Dextrose () 1 ea IV NOW STA; Protocol Stop: 03/12/19 02:09 Last Admin: 03/12/19 04:46 Dose: 1 ea Documented by: [id number] Nitroglycerin (Nitrostat) 0.4 mg SL NOW STA Stop: 03/12/19 01:23 Last Admin: 03/12/19 01:30 Dose: 0.4 mg Documented by: [id number] Nitroglycerin (Nitro-Bid 2%) 1 inch EXT NOW ONE Stop: 03/12/19 01:27 Last Admin: 03/12/19 01:39 Dose: 1 inch Documented by: [id number] Nitroglycerin (Nitro-Bid 2%) 1 inch EXT Q6 STEF Stop: 04/11/19 05:59 Last Admin: 03/12/19 06:26 Dose: 1 inch Documented by: [id number] Medical Decision Making Differential Diagnosis Differential diagnosis includes: cardiac ischemia, aortic dissection, pulmonary embolism, pneumonia, pneumothorax, musculoskeletal, infections, pericarditis, myocarditis, esophageal rupture, gastrointestinal, as well as others were entertained. Medical Records Attestation: I reviewed the patient's medical records. Home Medications Current Medication List: was personally reviewed by me Laboratory Data Attestation: I reviewed the patient's lab results. Result diagrams: 03/12/19 01:23 03/12/19 01:23 Lab Results 03/12/19 03/12/19 03/12/19 Range/Units 01:23 01:23 01:25 WBC 10.89 H (4.8-10.8) K/uL RBC 4.93 (4.7-6.1) M/uL Hgb 14.4 (14.0-18.0) g/dL Hct 44.2 (42-52) % MCV 89.7 (80-100) fL MCH 29.2 (25-34) pg MCHC 32.6 (32-36) g/dL RDW Std Deviation 47.2 H (36.4-46.3) fL RDW Coeff of Bea 14.5 (11.5-14.5) % Plt Count 182 (130-400) K/uL MPV 10.4 (7.4-10.4) fL Immature Gran % (Auto) 0.2 % Neut % (Auto) 47.9 % Lymph % (Auto) 36.4 % [place] % (Auto) 11.7 % Eos % (Auto) 3.6 % Baso % (Auto) 0.2 % Immature Gran # (Auto) 0.02 (0.00-0.02) K/uL Neut # (Auto) 5.23 (1.4-6.5) K/uL Lymph # (Auto) 3.96 H (1.2-3.4) K/uL [place] # (Auto) 1.27 H (0.11-0.59) K/uL Eos # (Auto) 0.39 (0-0.5) K/uL Baso # (Auto) 0.02 (0-0.2) K/uL PT 10.3 (9.0-12.0) Seconds INR 1.0 (0.9-1.1) APTT 26.6 (21.0-31.0) Seconds PTT Ratio 1.0 Sodium 140 (136-145) mmol/L Potassium 3.5 (3.5-5.1) mmol/L Chloride 106 (98-107) mmol/L Carbon Dioxide 28 (21-32) mmol/L Anion Gap 6.0 (3-11) BUN 24 H (7-18) mg/dl Creatinine 1.06 (0.6-1.4) mg/dl Est Cr Clr Drug Dosing Not Reportable Est GFR ( Amer) 73.8 Est GFR (Non-Af Amer) 63.7 BUN/Creatinine Ratio 22.4 H (10-20) Glucose 106 H (70-99) mg/dl Calcium 8.8 (8.5-10.1) mg/dl Phosphorus 3.6 (2.5-4.9) mg/dl Magnesium 2.2 (1.8-2.4) mg/dl Total Bilirubin 0.4 (0.2-1) mg/dl AST 13 L (15-37) U/L ALT 16 (12-78) U/L Alkaline Phosphatase 83 (45-117) U/L Troponin I 0.046 H* (0-0.045) ng/ml Total Protein 7.5 (6.4-8.2) gm/dl Albumin 3.6 (3.4-5.0) gm/dl Globulin 3.9 (2.5-4.0) gm/dl Albumin/Globulin Ratio 0.9 (0.9-2) Lipase 271 (73-393) U/L Imaging Data Attestation: I personally reviewed and interpreted this imaging study as follows: My Impression: Chest XRAY 1V post sternotomy change surgical clips noted at the mediastinum no acute consolidation or failure ECG Data Attestation: I personally reviewed and interpreted this ECG as follows: Indication: chest pain Rate (beats per minute): 69 Rhythm: sinus rhythm Findings: + other (Previous inferior infarct; Nonspecific ST change in the lateral leads ), + PAC, + PVC and + RBBB Additional Comments: EKG #2: Sinus rhythm with occasional PVC and PAC at 63 bpm. Previous inferior infarct, right bundle branch block. Nonspecific ST change in the lateral leads. EKG #3: Sinus rhythm with PVC and PAC at 63 bpm. Previous inferior infarct, right bundle branch block. Unchanged nonspecific ST abnormality in the lateral leads. Blood Pressure Blood Pressure Findings: Normal blood pressure MDM Narrative This patient was evaluated and appeared to be in no significant distress. Physical examination is fairly unrevealing. EKG reveals a right bundle branch block with questionable ST change in the lateral leads. Multiple EKGs were obtained and the patient was in no apparent distress. Patient was given aspirin and sublingual nitroglycerin. Patient denied any change in the chest discomfort. Patient was then placed on nitroglycerin paste and denied any change in discomfort. EKGs were monitored closely. It does not appear that the ST segment in the lateral leads was changing acutely. Patient's laboratory work reveals a troponin of 0.046. Chest x-ray is negative for acute process to my interpretation. Given the chest discomfort and slightly elevated troponin, patient was placed on a heparin drip. Case was discussed with Dr. Sher of the hospitalist service who will evaluate the patient for further management. Patient was reevaluated and made aware of the plan. Impression & Plan Acute coronary syndrome Critical Care Time Critical Care Time: Yes Total Critical Care Time: 35 I have personally spent 35 minutes of critical care time in the direct management of this patient. This includes bedside care, interpretation of diagnostic studies, and testing, discussion with consultants, patient, and family members, and other required patient management activities. This 35 minutes is in excess of all separately billable procedures. Discharge Plan Visit Data *Final* Discharge Date/Time: 03/12/19 03:49 Chief Complaint: Chest Pain Stated Complaint: CHEST PAIN ED Provider: Katya Villagomez Discharge Problem: Acute coronary syndrome Patient Disposition: Admitted As Inpatient Discharge Instructions Interventions: ED Discharge Assessment Last Done: 03/12/19 03:49 The scribe's documentation has been prepared under my direction and personally reviewed by me in its entirety. I confirm that the note above accurately reflects all work, treatment, procedures, and medical decision making performed by me.
--- NOTE | 2019-03-12 07:16 | XRay Report ---
SINGLE VIEW CHEST CLINICAL HISTORY: Atypical chest pain. FINDINGS: 2 AP, portable, upright chest radiographs are compared to study dated 11/26/2017 and correla tabatha with chest CT dated 12/09/2017. The examination is degraded by portable technique, apical lordotic positioning, and patient rotation. The patient is status post midline sternotomy. The heart is enlar ged noting atherosclerotic calcification of the thoracic aorta. The pulmonary vasculature is nonconge sted. Changes of chronic interstitial lung disease are similar to previous. Scarring/atelectasis is n oted at the lung bases. No airspace consolidation or large pleural effusion is identified. No pneumot horax is seen. The skeletal structures are osteopenic. The bony thorax is grossly intact. IMPRESSION: Cardiomegaly and chronic parenchymal changes as above with no acute cardiopulmonary abnor mality identified. Electronically signed by: Clark Dawkins M.D. 03/12/2019 7:14 AM
[2019-03-12] MEDS ORDERED: INFLUENZA VACCINE HIGH DOSE 65+ 0.5 ML SYR IM ONE (08:00)
[2019-03-12] MEDS ORDERED: INFLUENZA ADMINISTRATION CHARGE ONE (08:00)
[2019-03-12] MEDS: ATORVASTATIN 40 MG TAB PO SCH (08:22)
[2019-03-12] MEDS: ASPIRIN 81 MG ECTAB PO SCH (08:22)
[2019-03-12] MEDS: PANTOprazole 40 MG TAB PO SCH (08:22)
[2019-03-12] MEDS: METOPROLOL SUCC 25MG EXT REL TAB PO SCH (08:25)
[2019-03-12 09:31] LABS: Partial Thromboplastin Ratio 1.9
[2019-03-12 09:37] LABS: Partial Thromboplastin Time 50.9 Seconds (21.0-31.0)
--- NOTE | 2019-03-12 10:14 | Cardiology Consultation ---
Date of Consultation March 12, 2019 Assessment & Plan (1) NSTEMI (non-ST elevated myocardial infarction): (2) CAD (coronary artery disease): (3) S/P CABG (coronary artery bypass graft): (4) Ischemic cardiomyopathy: (5) Mitral regurgitation: (6) Dilated aortic root: (7) Hyperlipidemia: ASSESSMENT/PLAN: 1. Acute NSTEMI: He had some minor ST elevation as well in the anterolateral leads. He denies any chest pain currently and cannot recall chest pain that caused his presentation. He has dementia. He states that he prefers medical therapy. Would recommend medical therapy unless he becomes hemodynamically unstable. Repeat ECG. Continue aspirin. Would continue heparin for a total of 48 hours. If he is not to remain on his prior anticoagulation therapy, which was discontinued prior to this hospitalization, then would also consider Plavix in addition to aspirin. Continue beta-elinor. He is well beta blocked. Continue high-intensity statin therapy. Start isosorbide mononitrate 30 mg daily. Echo interpretation pending. On unofficial preliminary review, there ap pears to be new apical akinesis. 2. CAD status post CABG: Medical therapy as above. He is currently pain-free. If agreeable, would recommend cardiac rehab. 3. Dyslipidemia: Continue high-intensity statin therapy. 4. Ischemic cardiomyopathy: Repeat echo interpretation is pending. Continue current medical therapy. He did not tolerate DARINEL-inhibitor (Lisinopril 2.5 mg) due to lightheadedness/dizziness. Continue low-dose beta-elinor as he is well beta blocked. 5. Dilated aortic root: Repeat echo pending. 6. Mitral regurgitation: Non severe in the past. Echo pending. 7. Disposition: Would recommend conservative treatment for now. He prefers medical therapy only however would question if he is able to consent for himself as he does not recall any symptoms yesterday and states that he actually came to the hospital to bring his to see a doctor. Nursing staff states that his also has dementia. A call has been placed to discussed with Dr. corea, primary hospitalist. Highly complex medical issues. Thank you for allowing me to participate in the care of your patient. Please call for any other questions or concerns. Sincerely, Fortino Arguelles M.D. History of Present Illness Reason for Consultation: NSTEMI Requesting Physician: Dr. Joshua Sher Attending Physician: Miguel Glaser History of Present Illness Mr. Garza is a pleasant 83-year-old gentleman with multivessel CAD status post CABG x 3, postoperative atrial fibrillation, dyslipidemia, AAA, and PE/DVT (chronic anticoagulation discontinued by other providers due to falling). He has a history of perforated esophagus. He has had the following studies/procedures: 1. Echo 08/12/2014: Inferior and inferolateral wall motion abnormalities. EF 45%. No significant valvular abnormalities. Mild aortic root dilation. 2. Cardiac catheterization 08/13/2014: Ostial LMCA 50% (there was initially ventricularization of arterial wave-form). Proximal LAD 20%. Mid LAD 40%. Distal LAD 30%. Medium caliber diagonal #1 without significant CAD. Left to right collaterals were noted, filling PDA. Proximal circumflex 20%. Remainder of circumflex and OM1 without significant CAD. Ostial RCA is severely dilated (estimated 2.3 cm in diameter). There is a mid RCA 99% (sub-total) stenosis. Antegrade flow is present (MERCED II). The distal RCA and PDA fill via Left to Right collaterals. Mild to moderately elevated LVEDP. 3. [place] [facility] [place] SVG to LAD. SVG to OM. SVG to PDA. 4. Echo 09/16/2014: Minimally dilated LV with mildly reduced systolic function. EF 45%. Base to mid inferior wall appears hypokinetic. Anterior wall not well visualized. Mild left atrial dilation. Sclerotic aortic valve. Aortic root 4.2 cm. 5. Echo 01/20/2016: Normal LV size with moderately reduced systolic function. EF 35-40%. Akinesis of the inferior wall and septal base. Otherwise, mild global hypokinesis. No significant LVH. Type 1 diastolic dysfunction. Mildly to moderately dilated right ventricle with moderately reduced systolic function. Mild right atrial dilation. Aortic root 4.3 cm. Sclerotic aortic valve without significant stenosis. 6. CT abdomen/pelvis 11/18/2016: Infrarenal AAA 3.5 x 3.6 cm. Diverticulosis. 7. Echo 07/15/2017: Normal LV size with moderately reduced systolic function. EF 35-40%. Akinesis of the inferior wall and septal base. Otherwise, mild global hypokinesis. Mild LVH. Type 1 diastolic dysfunction. Mildly dilated right ventricle with mildly reduced systolic function. Moderate left atrial dilation. Sclerotic aortic valve without significant stenosis. Mild MR. RVSP 15. Aortic root 4.4 cm. Patient has dementia and therefore is a poor historian. He does not recall why he is in the hospital. He states that he brought his here to see a doctor. According to records he had presented with substernal chest discomfort that started earlier yesterday while watching TV but the exact time of onset was not known. The pain was apparently described as a discomfort or a pressure/squeezing sensation, without radiation. There was no reported diaphoresis, shortness of breath, palpitations, or other symptoms. When specifically asked about chest pain yesterday, he he completely denies and states that he did not have any pain. He states that he exercises 5 days per week at the [facility] without exertional symptoms. He states that being here is a waste of time. When discussing with nursing staff, they reported that his also appeared confused. Review of systems: As above. Review of systems otherwise unobtainable due to patient's memory or unremarkable. Family history: Brother at 77 from possible [place]. Another brother at 60 for suddenly, presumed to be secondary to [place]. Social history: Quit smoking on 05/19/1987. No significant alcohol or drugs. He is . His has dementia. He has 3 children, including 2 daughters and 1 son. 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 He was alone in his hospital room. Allergies Allergy/AdvReac Type Severity Reaction Status Date / Time Cephalosporins Allergy Severe RASH Verified 03/12/19 01:31 morphine Allergy Unknown Unknown Verified 03/12/19 01:31 Home Medications Home Medications Medication Instructions Recorded Confirmed Type atorvastatin 40 mg tablet 40 mg PO DAILY #90 tab 01/02/19 03/12/19 Rx levothyroxine 50 mcg tablet 50 mcg PO DAILY #90 tab 01/02/19 03/12/19 Rx metoprolol succinate ER 25 mg 25 mg PO DAILY #90 tab 01/02/19 03/12/19 Rx tablet,extended release 24 hr pantoprazole 40 mg tablet,delayed 40 mg PO DAILY #90 tab 01/02/19 03/12/19 Rx release aspirin 81 mg tablet,delayed 81 mg PO DAILY #30 tab 01/16/19 03/12/19 Rx release docusate sodium 100 mg capsule 100 mg PO DAILY PRN cap 02/09/19 03/12/19 History Patient History Medical History Pulmonary embolism DVT (deep venous thrombosis) Hypothyroid (Chronic) Mitral regurgitation (Acute) Hyperlipidemia (Acute) Dilated aortic root (Acute) NSTEMI (non-ST elevated myocardial infarction) (Resolved) CAD (coronary artery disease) (Chronic) Pancreatitis (Resolved) S/P CABG (coronary artery bypass graft) (Acute) History of deep vein thrombosis of lower extremity (Resolved) History of prostate cancer (Resolved) History of pulmonary embolus (PE) (Resolved 11/02/12) Surgical History S/P radiation therapy (Resolved) S/P CABG x 3 (Resolved) H/O esophagogastroduodenoscopy History of cataract surgery Hx of cholecystectomy Family History Father Diabetes Cerebral atherosclerosis CHF (congestive heart failure) Sister Diabetes Brother Coronary atherosclerosis Mother Coronary atherosclerosis Other Heart disease Social History Preferred Language: Belarusian Communication Ability: Effective Visual Impairment: No Limitations Hearing Ability: Normal Aircraft Designer Required: No Beliefs That Will Affect Care: None marital status: Current Living Situation: Spouse current occupational status: retired 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 Alert and oriented to year, month, day, and the fact that he was in a hospital. HEENT: Anicteric sclera. Neck: No JVD. No bruits. Normal carotid upstrokes bilaterally. Cardiac: PMI was nonpalpable . No ventricular heave. Regular. Normal S1-S2. No murmurs, rubs, or gallops. Pulmonary: Clear to auscultation bilaterally without wheezes, rales, or rhonchi. Has chronically had right basilar crackles. Abdomen: Soft, nontender, nondistended, with normoactive bowel sounds. No bruits noted. Extremities: 2+ radial pulses bilaterally. 1+ posterior tibialis pulses bilaterally. No significant edema or cyanosis. No palpable cords. Psychiatric: Affect appears appropriate. Results & Data Vital Signs (Past 12 Hours) Vital Signs Temp Pulse Pulse Resp BP BP Pulse Ox 03/12/19 08:23 56 L 03/12/19 07:39 36.2 C L 55 L 18 113/69 98 03/12/19 06:15 62 112/63 03/12/19 04:53 58 L 03/12/19 04:05 36.3 C L 64 16 137/77 98 03/12/19 03:06 58 L 16 111/55 L 94 03/12/19 01:44 66 16 132/84 99 03/12/19 01:28 99 03/12/19 01:23 99 03/12/19 01:18 63 18 165/92 H 100 Laboratory Results Laboratory Results - last 24 hr 03/12/19 03/12/19 03/12/19 01:23 01:23 01:25 WBC 10.89 H RBC 4.93 Hgb 14.4 Hct 44.2 MCV 89.7 MCH 29.2 MCHC 32.6 RDW Std Deviation 47.2 H RDW Coeff of Bea 14.5 Plt Count 182 MPV 10.4 Immature Gran % (Auto) 0.2 Neut % (Auto) 47.9 Lymph % (Auto) 36.4 Murray % (Auto) 11.7 Eos % (Auto) 3.6 Baso % (Auto) 0.2 Immature Gran # (Auto) 0.02 Neut # (Auto) 5.23 Lymph # (Auto) 3.96 H Murray # (Auto) 1.27 H Eos # (Auto) 0.39 Baso # (Auto) 0.02 PT 10.3 INR 1.0 APTT 26.6 PTT Ratio 1.0 Sodium 140 Potassium 3.5 Chloride 106 Carbon Dioxide 28 Anion Gap 6.0 BUN 24 H Creatinine 1.06 Est Cr Clr Drug Dosing Not Reportable Est GFR ( Amer) 73.8 Est GFR (Non-Af Amer) 63.7 BUN/Creatinine Ratio 22.4 H Glucose 106 H Calcium 8.8 Phosphorus 3.6 Magnesium 2.2 Total Bilirubin 0.4 AST 13 L ALT 16 Alkaline Phosphatase 83 Troponin I 0.046 H* Total Protein 7.5 Albumin 3.6 Globulin 3.9 Albumin/Globulin Ratio 0.9 Lipase 271 03/12/19 03/12/19 07:35 08:59 WBC RBC Hgb Hct MCV MCH MCHC RDW Std Deviation RDW Coeff of Bea Plt Count MPV Immature Gran % (Auto) Neut % (Auto) Lymph % (Auto) Murray % (Auto) Eos % (Auto) Baso % (Auto) Immature Gran # (Auto) Neut # (Auto) Lymph # (Auto) Murray # (Auto) Eos # (Auto) Baso # (Auto) PT INR APTT 50.9 H* PTT Ratio 1.9 Sodium Potassium Chloride Carbon Dioxide Anion Gap BUN Creatinine Est Cr Clr Drug Dosing Est GFR ( Amer) Est GFR (Non-Af Amer) BUN/Creatinine Ratio Glucose Calcium Phosphorus Magnesium Total Bilirubin AST ALT Alkaline Phosphatase Troponin I 3.390 H* Total Protein Albumin Globulin Albumin/Globulin Ratio Lipase Diagnostic Findings Telemetry personally reviewed: Sinus rhythm. No arrhythmia. ECGs personally reviewed: ECG 03/12/2019 at 1:14 a.m.: Sinus rhythm with PACs and PVCs at [address] elevation. Compared to prior ECG on 09/22/2018, anterolateral ST elevation is now present. ECG 03/12/2019 at 1:23 a.m.: Sinus rhythm with PACs and PVCs at [address] elevation. ECG 03/12/2019 at 1:37 a.m.: Sinus with PACs and PVCs at 63 bpm. RBBB. Minor anter[address] elevation. Chest x-ray 03/12/2019: No acute abnormality per Radiology. Medications Administered Current Inpatient Medications Aspirin (Ecotrin Ectab) 81 mg PO DAILY [facility] Stop: 04/11/19 08:59 Last Admin: 03/12/19 08:22 Dose: 81 mg Documented by: Atorvastatin Calcium (Lipitor) 40 mg PO DAILY [facility] Stop: 04/11/19 08:59 Last Admin: 03/12/19 08:22 Dose: 40 mg Documented by: Docusate Sodium (Colace) 100 mg PO BID PRN PRN Reason: Constipation Stop: 04/11/19 03:57 Fentanyl Citrate (Fentanyl Citrate) 12.5 mcg IV Q2H PRN PRN Reason: Chest Pain Stop: 03/26/19 03:57 Heparin Sodium/Dextrose (Heparin Sodium/Dextrose) 25,000 units in 500 mls @ 16 mls/hr IV .Q24H ST[facility]; Protocol Stop: 04/11/19 02:14 Last Titration: 03/12/19 07:07 Dose: 800 units/hr, 16 mls/hr Documented by: Levothyroxine Sodium (Synthroid) 50 mcg PO DAILYBB [facility] Stop: 04/11/19 06:29 Last Admin: 03/12/19 06:24 Dose: 50 mcg Documented by: Metoprolol Succinate (Toprol Xl) 25 mg PO DAILY [facility] Stop: 04/11/19 08:59 Last Admin: 03/12/19 08:25 Dose: Not Given Documented by: Nitroglycerin (Nitro-Bid 2%) 1 inch EXT Q6 [facility] Stop: 04/11/19 05:59 Last Admin: 03/12/19 06:26 Dose: 1 inch Documented by: Ondansetron HCl (Zofran) 4 mg IV Q6H PRN PRN Reason: Nausea Stop: 04/11/19 03:57 Pantoprazole Sodium (Protonix) 40 mg PO DAILY [facility] Stop: 04/11/19 08:59 Last Admin: 03/12/19 08:22 Dose: 40 mg Documented by: PG Care Time/CCT Total # of Minutes Spent Total Time Spent with Patient: Total time spent is greater than 50% in coordination of care (as documented) at patient's floor/unit and/or counseling patient: (1) Hyperlipidemia Hyperlipidemia type: unspecified Qualified Code(s): E78.5 - Hyperlipidemia, unspecified
[2019-03-12] MEDS: ISOSORBIDE MONO EXTENDED REL 30 MG TABCR PO SCH ×2 (12:06→12:19)
--- NOTE | 2019-03-12 12:42 | Hospitalist Progress Note ---
Date of Service March 12, 2019 Assessment & Plan (1) Chest pain: * Concern for ACS - patient with known multivessel CAD s/p CABG x 3V in 2014, substernal chest heaviness, +troponin. EKG with no STEMI. Presently still with 3-4/10 CP, Nitro patch in place. Patient received ASA in ER. Fent anyl to be given. * Continuous cardiac monitoring * Troponin Q6 x 3- peaked at 3.39, trending down * EKG with chest pain * 2D Echo pending * Cardiology on consult- patient to have medical management with Imdur and Heparin gtt at this time- appreciate input * Continue ASA 81mg po daily, Atorvastatin, Metoprolol * Nitro paste * Fentanyl PRN for CP * Supplemental O2 to maintain saturation > 94% * Heparin gtt (2) NSTEMI (non-ST elevated myocardial infarction): * As above * Patient with CP, +troponin, h/o CAD. * Heparin gtt * Cardiology consultation (3) Ischemic cardiomyopathy: * Mildly reduced LV, diastolic dysfunction, WMA consistent with prior surgery/RBBB. Presently with no evidence of decompensated CHF. * Continue Metoprolol * Continue to monitor (4) Hyperlipidemia: * Chronic. Stable- most recent lipid panel 12/10 with triglycerides 105, cholesterol 168, LDL 80, HDL 67 * Continue Atorvastatin 40mg (5) Hypothyroid: * Chronic. TSH=2.19 in November 2018 * Continue levothyroxine (6) DVT (deep venous thrombosis): * Heparin gtt for NSTEMI, continue home protonix Code - Full per discussion with patient Supervising Physician Co-Signing Physician Notes Attending Attestation: Pt seen/examined, chart reviewed, care plan d/w VADIM Nickerson. I agree w/ the rodas components of her documentation. During my rounds pt w/o cp or dyspnea. Tele overnight with occasional runs of NSVT otherwise wnl. He was mildly confused during the visit, trying to make jokes, etc. VSS, afebrile gen - NAD neck - no JVD heart - RRR, s1 s2, no murmur lungs - CTA b/l abd - soft ND NT BS+ ext - no edema Peak Trop - 3.3 echo pending A/P: 1. Mild NSTEMI - medical management at this time; heparin drip x 48 hrs; cont asa, BB, statin; imdur added by Dr Arguelles; consider plavix as well prior to discharge 2. chronic systolic CHF 2nd to ischemic cardiomyopathy - compensated 3. probable underlying dementia 4. CKD stage 3 5. hypothyroidism recommend PT eval prior to d/c to ensure safe for home Miguel Glaser MD Subjective Patient evaluated at bedside. The patient denies any chest pain today. Neighbors at bedside, who state they check up on patient and . He states he goes to the [facility] with his neighbor about 3x/week and uses the recumbent bike and arm presses. He denies any increased chest pain or shortness of breath, fever, chills, n/v/d/c, headaches at this time. He states "I actually feel really good" and "a lot better than when I woke up here yesterday". He does have periods of forgetfulness. While eating dinner, the patient states he does have some difficulty swallowing some of the larger pieces on his tray. Patient with perforation in 2018 per friend at bedside which required a scope and weeks of healing prior to patient being able to eat much. Discussion with Dr. Arguelles this morning with choice of medical management vs cardiac catheterization, with medical management chosen at this time. Patient with most recent cardiac cath december 2018. Physical Exam Constitutional: WD/WN, vitals as above Eyes: PERRL, conjunctivae normal, anicteric sclerae Respiratory: normal respiratory effort; no respiratory distress and no labored breathing Auscultation: no crackles, no rales and no wheezes Cardiovascular: Heart Sounds: normal S1, normal S2, + gallop (S4) and + murmur (systolic ejection murmur best appreciated at RUSB) Extremities: no edema Psychiatric: Intermittent confusion- baseline dementia Results & Data Vital Signs (Past 12 Hours) Vital Signs Temp Pulse Pulse Resp BP BP Pulse Ox 03/12/19 08:23 56 L 03/12/19 07:39 36.2 C L 55 L 18 113/69 98 03/12/19 06:15 62 112/63 03/12/19 04:53 58 L 03/12/19 04:05 36.3 C L 64 16 137/77 98 03/12/19 03:06 58 L 16 111/55 L 94 03/12/19 01:44 66 16 132/84 99 03/12/19 01:28 99 03/12/19 01:23 99 03/12/19 01:18 63 18 165/92 H 100 PG Care Time/CCT Total # of Minutes Spent Total Time Spent with Patient: Total time spent is greater than 50% in coordination of care (as documented) at patient's floor/unit and/or counseling patient: (1) Hyperlipidemia Hyperlipidemia type: unspecified Qualified Code(s): E78.5 - Hyperlipidemia, unspecified (2) Hypothyroid Hypothyroidism type: unspecified Qualified Code(s): E03.9 - Hypothyroidism, unspecified (3) Chest pain Chest pain type: precordial pain Qualified Code(s): R07.2 - Precordial pain
--- NOTE | 2019-03-12 18:24 | Psychiatric Consultation ---
Date of Consultation March 12, 2019 Impression / Recommendations Impression 83-year-old male admitted medically on 03/12/19 with complaints of chest pain awakening him from sleep. It was reported to nursing that the patient was feeling hopeless. Psychiatric consultation was requested to evaluate the patient for hopelessness. Pt is confused during our visit, repeating the same story numerous times. Although he is not able to remember conversations we have had during our visit, he is alert and oriented x4. Etiology of his confusion is unknown to this provider. This does appear to have been a fleeting episode of low mood - as patient states the feeling is now resolved. He denies SI and significant safety concerns. He denies low mood presently. No recommendations for additional pharmacotherapy at this time. No criteria for inpatient psychiatric treatment. Pt is considered psychiatrically stable for discharge per primary medical team. Dr. Ena Blount was directly involved in review and discussion of the patient's case and participated in medical decision making regarding treatment recommendations. At this point, it appears the consultation for our services has been cancelled, which seems appropriate given the situation. Primary team can reach out to patient's family and other supports if desired to determine if a deeper mood concern has been present. If this is the case, we would be willing to weigh in on case at that time. Psych History Identifying Data 83-year-old male admitted medically on 03/12/19 after presenting to the ED with chest pain awakening him from sleep. Psychiatric consultation requested after patient had verbalized hopelessness and appeared tearful. Information provided by the patient is not considered to be reliable. Chief Complaint Pt initially laying in bed with sheet/blanket pulled over face. When asked about this, he stated "Oh, I don't know. I don't see anything. They must be in my car." History of Present Illness Félix Garza is an 83-year-old male admitted medically on 03/12/19 after presenting to the ED with chest pain. Pt had appeared briefly tearful and had reported hopelessness. Psychiatric consultation placed to evaluate patient for hopelessness. Pt seen today, stating he is "much better than I was yesterday." He states that his legs feel week and he would like to be asked to wake around a bit - "if it would seem reasonable." Pt was asked about his episode of low mood this morning, and he requested to call his . Pt was asked if he was missing her - he states, "You don't know how much. I don't know where she is, she's either with my son or at home alone." Conversation was redirected to his reported depressed mood. He begins to share about his family, all of whom are reportedly . He then rapid changes to telling the story of how he got his job at [employer], offered out of no where, asking [employer] to map him to [place] because he didn't know where the campus was. This provider listened attentively to his story, and then attempted to redirect the conversation back to his depressive episode. He states, "I was thinking about a lot of my friends who have or moved away." He then abruptly begins telling the same story as before, about how he came to work at [employer] - nearly verbatim. Pt admits to thought to "be " this morning, but admits "that's all gone now. I'm all good now." He denies safety concerns while in the hospital, or surrounding the idea of eventual discharge. Pt states that he does not feel he requires anything from our service at this time. Past Psychiatric History Previous Psych History: None Allergies Allergy/AdvReac Type Severity Reaction Status Date / Time Cephalosporins Allergy Severe RASH Verified 03/12/19 01:31 morphine Allergy Unknown Unknown Verified 03/12/19 01:31 Home Medications Home Medications Medication Instructions Recorded Confirmed Type atorvastatin 40 mg tablet 40 mg PO DAILY #90 tab 01/02/19 03/12/19 Rx levothyroxine 50 mcg tablet 50 mcg PO DAILY #90 tab 01/02/19 03/12/19 Rx metoprolol succinate ER 25 mg 25 mg PO DAILY #90 tab 01/02/19 03/12/19 Rx tablet,extended release 24 hr pantoprazole 40 mg tablet,delayed 40 mg PO DAILY #90 tab 01/02/19 03/12/19 Rx release aspirin 81 mg tablet,delayed 81 mg PO DAILY #30 tab 01/16/19 03/12/19 Rx release docusate sodium 100 mg capsule 100 mg PO DAILY PRN cap 02/09/19 03/12/19 History Personal History Employment Status: Retired Marital Status: Beliefs That Will Affect Care: None Patient History Medical History Pulmonary embolism DVT (deep venous thrombosis) Hypothyroid (Chronic) Mitral regurgitation (Acute) Hyperlipidemia (Acute) Dilated aortic root (Acute) NSTEMI (non-ST elevated myocardial infarction) (Resolved) CAD (coronary artery disease) (Chronic) Pancreatitis (Resolved) S/P CABG (coronary artery bypass graft) (Acute) History of deep vein thrombosis of lower extremity (Resolved) History of prostate cancer (Resolved) History of pulmonary embolus (PE) (Resolved 11/02/12) Surgical History S/P radiation therapy (Resolved) S/P CABG x 3 (Resolved) H/O esophagogastroduodenoscopy History of cataract surgery Hx of cholecystectomy Family History Father Diabetes Cerebral atherosclerosis CHF (congestive heart failure) Sister Diabetes Brother Coronary atherosclerosis Mother Coronary atherosclerosis Other Heart disease Social History Preferred Language: Yoruba Communication Ability: Impaired Visual Impairment: No Limitations Hearing Ability: Normal Eligibility And Occupancy Interviewer Required: No Beliefs That Will Affect Care: None marital status: Current Living Situation: Spouse current occupational status: retired 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 [employer] other: with 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 Feels Safe at Home: Yes Smoking Status: Unknown if ever smoked Hx Alcohol Use: No Hx Substance Use: No Seatbelt Use: always Physical Exam Psychiatric: Orientation: alert, oriented x 3 and cooperative Apperance: appropriately dressed (wearing hospital gown ), appropriately groomed and appeared stated age Eye Contact: good eye contact Motor Behavior: no abnormal motor movements (observed while laying in bed) Speech: normal rate/rhythm/volume of speech Affect: euthymic affect and mood congruent with affect Mood: no depressed mood ("I'm much better" and "those thoughts are gone, all good now!") Thought Process: + tangential thought process; + thought process not clear or coherent Frequently returns to same conversation mid sentence Thought Content: reality based without delusions (though seems confused); no hopelessness Suicidal Thoughts: denies suicidal thoughts and denies suicidal intent Homicidal Thoughts: denies homicidal thoughts Hallucinations: no auditory hallucinations and no visual hallucinations Cognition: language grossly intact; + recent memory not intact and + attention not intact Insight: + impaired insight Judgement: + impaired judgement Vital Signs (Past 24 Hours): Last Vital Signs Temp 36.9 C 03/12/19 15:36 Pulse 63 03/12/19 15:36 Resp 19 03/12/19 15:36 BP 112/67 03/12/19 15:36 Pulse Ox 93 03/12/19 15:36 Review of Systems Constitutional: denied Cardiovascular: denied Respiratory: denied Gastrointestinal: denied Neurological: denied Psychiatric: denies symptoms other than stated above Total of at least 10 systems reviewed, pertinent positives as above and in HPI. Results & Data Medications Administered Aspirin (Ecotrin Ectab) 81 mg PO DAILY [facility] Stop: 04/11/19 08:59 Last Admin: 03/12/19 08:22 Dose: 81 mg Documented by: [id number] Cosigned by: [id number] Atorvastatin Calcium (Lipitor) 40 mg PO DAILY [facility] Stop: 04/11/19 08:59 Last Admin: 03/12/19 08:22 Dose: 40 mg Documented by: [id number] Cosigned by: [id number] Heparin Sodium/Dextrose (Heparin Sodium/Dextrose) 25,000 units in 500 mls @ 16 mls/hr IV .Q24H [facility]; Protocol Stop: 04/11/19 02:14 Last Titration: 03/12/19 10:25 Dose: 800 units/hr, 16 mls/hr Documented by: [id number] Cosigned by: [id number] Titration: 03/12/19 07:07 Dose: 800 units/hr, 16 mls/hr Documented by: [id number] Cosigned by: [id number] Admin: 03/12/19 03:11 Dose: 800 units/hr, 16 mls/hr Documented by: [id number] Cosigned by: [id number] Isosorbide Mononitrate (Imdur Extended Rel) 30 mg PO QAM [facility] Stop: 04/11/19 10:44 Last Admin: 03/12/19 12:19 Dose: 30 mg Documented by: [id number] Cosigned by: [id number] Levothyroxine Sodium (Synthroid) 50 mcg PO DAILYBB [facility] Stop: 04/11/19 06:29 Last Admin: 03/12/19 06:24 Dose: 50 mcg Documented by: [id number] Metoprolol Succinate (Toprol Xl) 25 mg PO DAILY [facility] Stop: 04/11/19 08:59 Last Admin: 03/12/19 08:25 Dose: Not Given Documented by: [id number] Pantoprazole Sodium (Protonix) 40 mg PO DAILY [facility] Stop: 04/11/19 08:59 Last Admin: 03/12/19 08:22 Dose: 40 mg Documented by: [id number] Cosigned by: [id number] Coding Level of Care Code 97031 [facility] Lvl 2
[2019-03-13 06:19] LABS: Basophils # (auto) 0.02 K/uL (0-0.2); Basophils % (auto) 0.2 %; Eosinophils # (auto) 0.25 K/uL (0-0.5); Eosinophils % (auto) 2.7 %; Hematocrit (blood only) 39.8 % (42-52); Hemoglobin 13.2 g/dL (14.0-18.0); Immature Granulocytes # (auto) 0.02 K/uL (0.00-0.02); Immature Granulocytes % (auto) 0.2 %; Lymphocytes # (auto) 1.75 K/uL (1.2-3.4); Mean Corpuscular Hemoglobin 29.1 pg (25-34); Mean Corpuscular Hgb Conc 33.2 g/dL (32-36); Mean Corpuscular Volume 87.7 fL (80-100); Mean Platelet Volume 10.5 fL (7.4-10.4); Monocytes # (auto) 1.08 K/uL (0.11-0.59); Monocytes % (auto) 11.7 %; Neutrophils # (auto) 6.08 K/uL (1.4-6.5); Neutrophils % (auto) 66.2 %; Platelet Count 168 K/uL (130-400); RDW Coefficient of Variation 14.5 % (11.5-14.5); RDW Standard Deviation 46.6 fL (36.4-46.3); Red Blood Count 4.54 M/uL (4.7-6.1)
[2019-03-13] MEDS: LEVOTHYROXINE SODIUM 50 MCG TABLET PO SCH (06:20)
[2019-03-13 06:43] LABS: Partial Thromboplastin Ratio 2.5
[2019-03-13 06:52] LABS: BUN Creatinine Ratio 22.2 (10-20); Calcium 8.7 mg/dl (8.5-10.1); Creatinine Clr Calc Pharmacy 45.5 ml/min; Est GFR (African American) 69.8; Est GFR (Non-African American) 60.2
[2019-03-13 06:59] LABS: Partial Thromboplastin Time 66.4 Seconds (21.0-31.0)
[2019-03-13] MEDS: HEPARIN SODIUM/DEXTROSE 25,000 UNITS/500 ML BAG IV SCH (08:21)
[2019-03-13] MEDS: PANTOprazole 40 MG TAB PO SCH (08:22)
[2019-03-13] MEDS: ATORVASTATIN 40 MG TAB PO SCH (08:22)
[2019-03-13] MEDS: METOPROLOL SUCC 25MG EXT REL TAB PO SCH (08:22)
[2019-03-13] MEDS: ISOSORBIDE MONO EXTENDED REL 30 MG TABCR PO SCH (08:23)
[2019-03-13] MEDS: ASPIRIN 81 MG ECTAB PO SCH (08:23)
--- NOTE | 2019-03-13 09:55 | Cardiology Progress Note ---
Date of Service March 13, 2019 Assessment & Plan (1) NSTEMI (non-ST elevated myocardial infarction): (2) CAD (coronary artery disease): (3) S/P CABG (coronary artery bypass graft): (4) Ischemic cardiomyopathy: (5) Mitral regurgitation: (6) Dilated aortic root: (7) Hyperlipidemia: ASSESSMENT/PLAN: 1. Acute NSTEMI: Continue medical therapy. Aspirin 81 mg daily. Plavix 75 mg will be initiated today. Continue beta-elinor and high-intensity statin therapy. Continue nitrate therapy. If he has uncontrollable recurrent angina or hemodynamic issues, would consider invasive approach. He has stated that he prefers conservative approach which appears appropriate as he has not had any further symptoms on medical therapy. 2. CAD status post CABG: Medical therapy as above. He is currently pain-free. If agreeable, would recommend cardiac rehab. 3. Dyslipidemia: Continue high-intensity statin therapy. 4. Ischemic cardiomyopathy: LV systolic function is now moderately to severely reduced. Will repeat echo as an outpatient. Continue current medical therapy. He did not tolerate DARINEL-inhibitor (Lisinopril 2.5 mg) due to lightheadedness/dizziness. Continue low-dose beta-elinor as he is well beta blocked. 5. Dilated aortic root: No significant worsening. 6. Mitral regurgitation: Non severe. Asymptomatic. 7. Disposition: Continue medical therapy as above. Recommend cardiology follow-up in the next 1-2 weeks. Recommend cardiac rehab if agreeable. From a cardiac standpoint, he can be discharged later today but will defer to primary service on timing of discharge. Will discuss with Dr. Engel. Subjective He denies chest pain, shortness of breath, syncope, near-syncope, palpitations, edema, or bleeding. He tolerated walking in the hallway earlier this morning without exertional symptoms according to his report. He still does not remember why he came to the hospital. According to records he was having chest discomfort. Yesterday he informed me that he came to bring his to see a doctor. Today he states that he came because he was weak. He is a very poor historian. He was alone today. Review of systems: As above. Physical Exam Physical Exam: Gen.: No acute distress. Alert. HEENT: Anicteric sclera. Neck: No JVD. Cardiac: Regular. Normal S1-S2. No murmurs, rubs, or gallops. Pulmonary: Right basilar crackles (chronic), otherwise clear to auscultation bilaterally peer Abdomen: Soft, nontender, nondistended, with normoactive bowel sounds. No bruits noted. Extremities: 2+ radial pulses bilaterally. No significant edema or cyanosis. No palpable cords. Psychiatric: Affect appears appropriate. Psychiatric: Intermittent confusion- baseline dementia Results & Data Vital Signs (Past 12 Hours) Vital Signs Temp Pulse Resp BP Pulse Ox 03/13/19 08:20 65 03/13/19 07:10 36.5 C 56 L 16 140/65 95 03/13/19 04:50 36.6 C 59 L 18 112/47 L 97 03/12/19 23:47 36.6 C 62 19 136/72 96 Laboratory Results Laboratory Results - last 24 hr 03/12/19 03/13/19 03/13/19 13:15 05:46 05:46 WBC 9.20 RBC 4.54 L Hgb 13.2 L Hct 39.8 L MCV 87.7 MCH 29.1 MCHC 33.2 RDW Std Deviation 46.6 H RDW Coeff of Bea 14.5 Plt Count 168 MPV 10.5 H Immature Gran % (Auto) 0.2 Neut % (Auto) 66.2 Lymph % (Auto) 19.0 [place] % (Auto) 11.7 Eos % (Auto) 2.7 Baso % (Auto) 0.2 Immature Gran # (Auto) 0.02 Neut # (Auto) 6.08 Lymph # (Auto) 1.75 [place] # (Auto) 1.08 H Eos # (Auto) 0.25 Baso # (Auto) 0.02 APTT PTT Ratio Sodium 140 Potassium 4.0 Chloride 108 H Carbon Dioxide 27 Anion Gap 5.0 BUN 25 H Creatinine 1.11 Est Cr Clr Drug Dosing 45.5 Est GFR ( Amer) 69.8 Est GFR (Non-Af Amer) 60.2 BUN/Creatinine Ratio 22.2 H Glucose 94 Calcium 8.7 Troponin I 3.170 H* 03/13/19 05:46 WBC RBC Hgb Hct MCV MCH MCHC RDW Std Deviation RDW Coeff of Bea Plt Count MPV Immature Gran % (Auto) Neut % (Auto) Lymph % (Auto) [place] % (Auto) Eos % (Auto) Baso % (Auto) Immature Gran # (Auto) Neut # (Auto) Lymph # (Auto) [place] # (Auto) Eos # (Auto) Baso # (Auto) APTT 66.4 H* PTT Ratio 2.5 Sodium Potassium Chloride Carbon Dioxide Anion Gap BUN Creatinine Est Cr Clr Drug Dosing Est GFR ( Amer) Est GFR (Non-Af Amer) BUN/Creatinine Ratio Glucose Calcium Troponin I Diagnostic Findings Telemetry personally reviewed: No arrhythmia. PVCs. 03/12/2019 at 10:37 a.m.: Sinus rhythm with PVC 60 bpm. RBBB. Anterolateral T-wave inversion is now present. Echo 03/12/2019: Normal LV size. EF 30-35%. Akinetic inferior wall. Akinetic apex with dyskinetic apical septal segment. Mildly dilated RV with normal sys tolic function. Mild to moderate PI. Compared to 10/26/2017 study, LV systolic function has declined and apex is now akinetic to dyskinetic. Medications Administered Current Inpatient Medications Aspirin (Ecotrin Ectab) 81 mg PO DAILY [facility] Stop: 04/11/19 08:59 Last Admin: 03/13/19 08:23 Dose: 81 mg Documented by: Atorvastatin Calcium (Lipitor) 40 mg PO DAILY [facility] Stop: 04/11/19 08:59 Last Admin: 03/13/19 08:22 Dose: 40 mg Documented by: Docusate Sodium (Colace) 100 mg PO BID PRN PRN Reason: Constipation Stop: 04/11/19 03:57 Fentanyl Citrate (Fentanyl Citrate) 12.5 mcg IV Q2H PRN PRN Reason: Chest Pain Stop: 03/26/19 03:57 Heparin Sodium/Dextrose (Heparin Sodium/Dextrose) 25,000 units in 500 mls @ 16 mls/hr IV .Q24H [facility]; Protocol Stop: 04/11/19 02:14 Last Admin: 03/13/19 08:21 Dose: 800 units/hr, 16 mls/hr Documented by: Isosorbide Mononitrate (Imdur Extended Rel) 30 mg PO QAM [facility] Stop: 04/11/19 10:44 Last Admin: 03/13/19 08:23 Dose: 30 mg Documented by: Levothyroxine Sodium (Synthroid) 50 mcg PO DAILYBB [facility] Stop: 04/11/19 06:29 Last Admin: 10/25/19 06:20 Dose: 50 mcg Documented by: Metoprolol Succinate (Toprol Xl) 25 mg PO DAILY [facility] Stop: 04/11/19 08:59 Last Admin: 03/13/19 08:22 Dose: 25 mg Documented by: Ondansetron HCl (Zofran) 4 mg IV Q6H PRN PRN Reason: Nausea Stop: 04/11/19 03:57 Pantoprazole Sodium (Protonix) 40 mg PO DAILY [facility] Stop: 04/11/19 08:59 Last Admin: 03/13/19 08:22 Dose: 40 mg Documented by: PG Care Time/CCT Total # of Minutes Spent Total Time Spent with Patient: Total time spent is greater than 50% in coordination of care (as documented) at patient's floor/unit and/or counseling patient: (1) Hyperlipidemia Hyperlipidemia type: unspecified Qualified Code(s): E78.5 - Hyperlipidemia, unspecified
[2019-03-13 10:23] LABS: Appearance Urine Clear (Clear); Bilirubin Urine Negative (Negative); Blood Urine Negative (Negative); Color Urine Yellow; Glucose Urine UA Negative (Negative); Ketones Urine Negative (Negative); Leukocyte Esterase Urine Negative (Negative); Nitrite Urine Negative (Negative); Protein Urine Negative (Negative); Specific Gravity Urine 1.008 (1.000-1.030); Urobilinogen Urine Negative (Negative); pH Urine 6.5 (4.5-7.5)
--- NOTE | 2019-03-13 10:30 | Hospitalist Progress Note ---
Date of Service March 13, 2019 Assessment & Plan (1) NSTEMI (non-ST elevated myocardial infarction): * Patient with known multivessel CAD s/p CABG x 3V in 2014, substernal chest heaviness, +troponin. EKG with no STEMI. Presently still with 3-4/10 CP, Nitro patch in place. Patient received ASA in ER. Fentanyl to be given. * Continuous cardiac monitoring * Troponin Q6 x 3- peaked at 3.39, trending down * EKG with chest pain * 2D Echo - LV systolic function is now moderately to severely reduced. Will repeat echo as an outpatient. * Cardiology on consult- patient to have medical management with Imdur and Heparin gtt at this time- appreciate input * Continue ASA 81mg po daily, Atorvastatin, Metoprolol * Nitro paste * Fentanyl PRN for CP * Supplemental O2 to maintain saturation > 94% * Heparin gtt -- will be at 48 hours at * Patient without chest pain currently (2) CAD (coronary artery disease): * Multi-vessel CAD s/p CABG x 3V performed at [facility] in August 2014 (SVG to LAD. SVG to OM. SVG to PDA) * Medical therapy as above. He is currently pain-free. If agreeable, would recommend cardiac rehab. (3) Ischemic cardiomyopathy: * ECHO 10/26/17- Normal LV size with mildly reduced systoli function. EF= 45-50%. RCA wall motion abnormality (akinesis of the basal septum and base to mid inferior wall). Moderate hypertrophy of the basal anteroseptum. Type 1 diastolic dysfunction. Septal motion consistent with bundle branch block/cardiac surgery. Moderately dilated RV. Mildly reduced RV systolic function. Aortic valve sclerosis, mild, without significant aortic stenosis. Mild aortic root dilatation. Normal estimated RV systolic pressure; 21mmHg * ECHO 03/12 with LV systolic function is now moderately to severely reduced. * Of note, per cardiology, pt did not tolerate DARINEL-inhibitor (Lisinopril 2.5 mg) due to lightheadedness/dizziness * Continue current medical therapy with ASA, Plavix, Metoprolol * Repeat echo as an outpatient per cardiology (4) Hyperlipidemia: * Chronic. Stable- most recent lipid panel 12/10 with triglycerides 105, cholesterol 168, LDL 80, HDL 67 * Continue Atorvastatin 40mg (5) S/P CABG (coronary artery bypass graft): * As above (6) Hypothyroid: * Chronic. TSH=2.19 in November 2018 * Continue levothyroxine (7) DVT (deep venous thrombosis): * Heparin gtt for NSTEMI, continue home protonix Dispo: discharge this afternoon (8) Chronic kidney disease, stage 3a: (9) Cognitive impairment: Supervising Physician Co-Signing Physician Notes Attending Attestation: Pt seen/examined, chart reviewed, care plan d/w VADIM Nickerson. I agree w/ the rodas components of her documentation. Again patient w/o cp or dyspnea. Tele overnight wnl. He told me "I ran circles around the therapist". (PT) Heparin drip will be at 48 hour domi late tonight. VSS, afebrile gen - NAD neck - no JVD heart - RRR, s1 s2, no murmur lungs - CTA b/l abd - soft ND NT BS+ ext - no edema echo - EF 30-35%; inferior and apical wall abnormalities A/P: 1. Mild NSTEMI - continue medical management at this time; heparin drip x 48 hrs (will be complete late tonight); cont asa, BB, statin, imdur, AND plavix. 2. 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 DARINEL/ARB deferred due to hypotension in past with such. Cont BB. 3. probable underlying dementia/cognitive impairment - stable cognition today during my visit. PT eval pending to ensure safe for home. 4. CKD stage 3 - creatinine stable. 5. hypothyroidism - TSH 12/05 wnl. can d/c home in am I left message for pt's daughter last pm on her voicemail Dr Arguelles to touch base with daughter today as well Miguel Glaser MD Subjective Patient evaluated at bedside this morning. He states he feels "fine". He states he has not had any chest pain, shortness of breath during this admission, however he is a poor historian. He states he did have a little chest discomfort a couple of days ago, but he states he still does not know why he was brought to the hospital. He states he is missing his red duffle bag. He believes it may be out in his subaru in the parking lot and is upset no one will let him go get it. He denies any syncope, palpitations, edema, increased bleeding, abdominal pain, n/v/d/c. He states he does not know why he is still here. He was initially upset about having to wait for heparin gtt to reach 48 hour domi, but agreed at the end to wait until morning prior to discharge. Review of Systems Constitutional: no fever and no chills Eyes: no diplopia and no discharge Ear, Nose, Mouth, Throat: no dizziness and no dysphagia Respiratory: no cough, no dyspnea and no dyspnea on exertion Cardiovascular: no chest pain, no radiating jaw, neck or arm pain, no palpitations and no edema Gastrointestinal: no abdominal pain, no nausea and no vomiting Genitourinary: no dysuria and no urinary frequency Musculoskeletal: no back pain and no neck pain Integumentary: no rash and no lesions Neurologic: no syncope and no headache(s) Physical Exam Physical Exam: Constitutional: WD/WN, vitals as above Eyes: PERRL, conjunctivae normal, anicteric sclerae Respiratory: normal respiratory effort; no respiratory distress and no labored breathing Auscultation: no crackles, no rales and no wheezes Cardiovascular: Heart Sounds: normal S1, normal S2, + gallop (S4) and + murmur (systolic ejection murmur best appreciated at RUSB) Extremities: no edema Abdomen: Soft, nontender. Normoactive bowel sounds. Psychiatric: Intermittent confusion- baseline dementia Results & Data Vital Signs (Past 12 Hours) Vital Signs Temp Pulse Resp BP Pulse Ox 03/13/19 08:20 65 03/13/19 07:10 36.5 C 56 L 16 140/65 95 03/13/19 04:50 36.6 C 59 L 18 112/47 L 97 03/12/19 23:47 36.6 C 62 19 136/72 96 Laboratory Results 03/13/19 03/13/19 03/13/19 Range/Units 10:15 05:46 05:46 WBC (4.8-10.8) K/uL RBC (4.7-6.1) M/uL Hgb (14.0-18.0) g/dL Hct (42-52) % MCV (80-100) fL MCH (25-34) pg MCHC (32-36) g/dL RDW Std Deviation (36.4-46.3) fL RDW Coeff of Bea (11.5-14.5) % Plt Count (130-400) K/uL MPV (7.4-10.4) fL Immature Gran % (Auto) % Neut % (Auto) % Lymph % (Auto) % [place] % (Auto) % Eos % (Auto) % Baso % (Auto) % Immature Gran # (Auto) (0.00-0.02) K/uL Neut # (Auto) (1.4-6.5) K/uL Lymph # (Auto) (1.2-3.4) K/uL [place] # (Auto) (0.11-0.59) K/uL Eos # (Auto) (0-0.5) K/uL Baso # (Auto) (0-0.2) K/uL APTT 66.4 H* (21.0-31.0) Seconds PTT Ratio 2.5 Sodium 140 (136-145) mmol/L Potassium 4.0 (3.5-5.1) mmol/L Chloride 108 H (98-107) mmol/L Carbon Dioxide 27 (21-32) mmol/L Anion Gap 5.0 (3-11) BUN 25 H (7-18) mg/dl Creatinine 1.11 (0.6-1.4) mg/dl Est Cr Clr Drug Dosing 45.5 ml/min Est GFR ( Amer) 69.8 Est GFR (Non-Af Amer) 60.2 BUN/Creatinine Ratio 22.2 H (10-20) Glucose 94 (70-99) mg/dl Calcium 8.7 (8.5-10.1) mg/dl Troponin I (0-0.045) ng/ml Urine Color Yellow Urine Appearance Clear (Clear) Urine pH 6.5 (4.5-7.5) Ur Specific [place] 1.008 (1.000-1.030) Urine Protein Negative (Negative) Urine Glucose (UA) Negative (Negative) Urine Ketones Negative (Negative) Urine Blood Negative (Negative) Urine Nitrite Negative (Negative) Urine Bilirubin Negative (Negative) Urine Urobilinogen Negative (Negative) Ur Leukocyte Esterase Negative (Negative) 03/13/19 03/12/19 Range/Units 05:46 13:15 WBC 9.20 (4.8-10.8) K/uL RBC 4.54 L (4.7-6.1) M/uL Hgb 13.2 L (14.0-18.0) g/dL Hct 39.8 L (42-52) % MCV 87.7 (80-100) fL MCH 29.1 (25-34) pg MCHC 33.2 (32-36) g/dL RDW Std Deviation 46.6 H (36.4-46.3) fL RDW Coeff of Bea 14.5 (11.5-14.5) % Plt Count 168 (130-400) K/uL MPV 10.5 H (7.4-10.4) fL Immature Gran % (Auto) 0.2 % Neut % (Auto) 66.2 % Lymph % (Auto) 19.0 % [place] % (Auto) 11.7 % Eos % (Auto) 2.7 % Baso % (Auto) 0.2 % Immature Gran # (Auto) 0.02 (0.00-0.02) K/uL Neut # (Auto) 6.08 (1.4-6.5) K/uL Lymph # (Auto) 1.75 (1.2-3.4) K/uL [place] # (Auto) 1.08 H (0.11-0.59) K/uL Eos # (Auto) 0.25 (0-0.5) K/uL Baso # (Auto) 0.02 (0-0.2) K/uL APTT (21.0-31.0) Seconds PTT Ratio Sodium (136-145) mmol/L Potassium (3.5-5.1) mmol/L Chloride (98-107) mmol/L Carbon Dioxide (21-32) mmol/L Anion Gap (3-11) BUN (7-18) mg/dl Creatinine (0.6-1.4) mg/dl Est Cr Clr Drug Dosing ml/min Est GFR ( Amer) Est GFR (Non-Af Amer) BUN/Creatinine Ratio (10-20) Glucose (70-99) mg/dl Calcium (8.5-10.1) mg/dl Troponin I 3.170 H* (0-0.045) ng/ml Urine Color Urine Appearance (Clear) Urine pH (4.5-7.5) Ur Specific [place] (1.000-1.030) Urine Protein (Negative) Urine Glucose (UA) (Negative) Urine Ketones (Negative) Urine Blood (Negative) Urine Nitrite (Negative) Urine Bilirubin (Negative) Urine Urobilinogen (Negative) Ur Leukocyte Esterase (Negative) Diagnostic Findings Telemetry: Sinus edgard 50 bpm today EKG 03/12/19 10:37am Sinus rhythm with PVC 60 bpm. RBBB. Anterolateral T-wave inversion is now present. ECHO 03/12/19 Normal LV size. EF 30-35%. Akinetic inferior wall. Akinetic apex with dyskinetic apical septal segment. Mildly dilated RV with normal systolic function. Mild to moderate PI. Compared to 10/26/2017 study, LV systolic function has declined and apex is now akinetic to dyskinetic. PG Care Time/CCT Total # of Minutes Spent Total Time Spent with Patient: Total time spent is greater than 50% in coordination of care (as documented) at patient's floor/unit and/or counseling patient: (1) Hyperlipidemia Hyperlipidemia type: unspecified Qualified Code(s): E78.5 - Hyperlipidemia, unspecified (2) Hypothyroid Hypothyroidism type: unspecified Qualified Code(s): E03.9 - Hypothyroidism, unspecified
--- NOTE | 2019-03-13 11:07 | Discharge Summary ---
Date of Service March 14, 2019 Admission HPI Per Admitting Provider Chief Complaint: chest pain Primary Care Provider: Curtis Carrillo MD Majority of history obtained from chart review. Patient with mild cognitive impairment and is unable to provide details of his cardiac history. is at bedside and is unable to provide details of history as well. Félix Garza is an 83yo C male with history of multi-vessel CAD s/p CABG x 3V performed at [facility] [place] in August 2014 (SVG to LAD. SVG to OM. SVG to PDA). Surgery complicated by postoperative atrial fibrillation and acute blood loss anemia. Patient presents with substernal chest discomfort that started earlier today while he was watching TV, uncertain of exact time of onset. Pain is described as discomfort, pressure/squeezing, 4/10 in severity. It is non- pleuritic, non-positional, non-radiating and non-exertional. No associated diaphoresis, SOB, palpitations, dizziness or nausea. Patient has never had this type of pain before. He is not sure if Nitro provided any relief. He has history of DVT/PE, was previously on Coumadin anticoagulation - this was discontinued recently secondary to fall risk. Patient lives with his in a home. Reports he is fairly active. He is able to climb a flight of stairs and walk around his home with no significant chest discomfort, only occasional SOB. He reports compliance with his home medications. Echocardiogram 10/26/17 - Normal LV size with mildly reduced systoli function. EF= 45-50%. RCA wall motion abnormality (akinesis of the basal septum and base to mid inferior wall). Moderate hypertrophy of the basal anteroseptum. Type 1 diastolic dysfunction. Septal motion consistent with bundle branch block/cardiac surgery. Moderately dilated RV. Mildly reduced RV systolic function. Aortic valve sclerosis, mild, without significant aortic stenosis. Mild aortic root dilatation. Normal estimated RV systolic pressure; 21mmHg Cardiac catheterization 08/13/18 - severe CAD of his mid RCA (subtotal) with left to right collaterals, severe ostial LMCA stenosis, ostial RCA severely dilated, and mild to moderately elevated LVEDP. There was no aortic stenosis. ER Course: Nitro 0.4mg, Nitro paste, Heparin bolus and drip, Fentanyl 12.5mcg Admission Exam Per Admitting Provider General: patient resting comfortably, NAD, non-toxic in appearance, AA&O to self and location only Skin: warm, dry, intact, no rashes or lesions, well healed sternotomy scar HEENT: NC/AT, PERRL, EOMI, anicteric sclera, conjunctiva without injection, external ear normal to inspection and nontender, nares patent, moist mucus membranes, dentition intact, no oropharyngeal lesions, neck supple, trachea midline, no LAD, no thyromegaly, no JVD Heart: +S1/S2, regular, +S4, faint HOWARD 2/6 at 2nd ICS, no reproducible chest discomfort or epigastric pain Lungs: equal air entry bilaterally, no rales/rhonchi/wheezes Abd: +BS, soft, NT/ND, no masses/organomegaly/ascites Ext: warm, 2+ pulses in UE/LE bilaterally, no clubbing/cyanosis or edema Neuro: nonfocal, patient AA&O x 2, speech intact, no facial droop, moving all extremities on command with equal strength 5/5 Principal Diagnosis NSTEMI Discharge Exam Constitutional WD/WN, vitals as above Eyes PERRL, conjunctivae normal, anicteric sclerae Respiratory normal respiratory effort; no respiratory distress and no labored breathing Auscultation: no crackles, no rales and no wheezes Cardiovascular Heart Sounds: normal S1, normal S2, + gallop (S4) and + murmur (systolic ejection murmur best appreciated at RUSB) Extremities: no edema Gastrointestinal (Abdomen) normal bowel sounds, soft, nontender, no hepatosplenomegaly Skin no rashes, warm and dry sternotomy scar present Neurologic goes off topic frequently, poor historian Discharge Data Allergies Allergy/AdvReac Type Severity Reaction Status Date / Time Cephalosporins Allergy Severe RASH Verified 03/12/19 01:31 morphine Allergy Unknown Unknown Verified 03/12/19 01:31 Consultations 03/12/19 02:09 ED Decision to Admit Stat 03/12/19 03:58 Consult Cardiology Routine 03/12/19 06:20 Consult Case Management - Discharge Planning Routine Procedures Performed ECHO CXR Hospital Course (1) NSTEMI (non-ST elevated myocardial infarction): * Patient with known multivessel CAD s/p CABG x 3V in 2014, presented with substernal chest heaviness, +troponin. EKG with no STEMI. * was medically managed with heparin gtt, added Imdur and Plavix as per Cardio recommendation given pt's request for more conservative management * Troponin peaked at 3.39, trended down * 2D Echo - LV systolic function is now moderately to severely reduced. Will repeat echo as an outpatient. Cannot tolerate lisinopril * Cardiology on consult- patient to have medical management with Imdur and Heparin gtt at this time * Continue ASA 81mg po daily, Atorvastatin, Metoprolol * Patient without chest pain prior to discharge. * Patient instructed no driving for two weeks- was discharged with neighbor with explicit instructions. Case management to set up home health. (2) CAD (coronary artery disease): * Multi-vessel CAD s/p CABG x 3V performed at [facility] [place] in August 2014 (SVG to LAD. SVG to OM. SVG to PDA) * Medical therapy as above. He is currently pain-free. If agreeable, would recommend cardiac rehab as outpatient. (3) Ischemic cardiomyopathy: * ECHO 10/26/17- Normal LV size with mildly reduced systolic function. EF= 45-50%. RCA wall motion abnormality (akinesis of the basal septum and base to mid inferior wall). Moderate hypertrophy of the basal anteroseptum. Type 1 diastolic dysfunction. Septal motion consistent with bundle branch block/cardiac surgery. Moderately dilated RV. Mildly reduced RV systolic function. Aortic valve sclerosis, mild, without significant aortic stenosis. Mild aortic root dilatation. Normal estimated RV systolic pressure; 21mmHg * ECHO 03/12/19 with LV systolic function is now moderately to severely reduced. * Of note, per cardiology, pt did not tolerate DARINEL-inhibitor (Lisinopril 2.5 mg) due to lightheadedness/dizziness * Continue current medical therapy with ASA, Plavix, Metoprolol * no diuretics needed as is euvolemic at this time * should follow low sodium diet, perform daily weights at home if can remember * Repeat echo as an outpatient per cardiology (4) Hyperlipidemia: * Chronic. Stable- most recent lipid panel 12/10 with triglycerides 105, cholesterol 168, LDL 80, HDL 67 * Continue Atorvastatin 40mg (5) S/P CABG (coronary artery bypass graft): * As above (6) Hypothyroid: * Chronic. 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, B1 level came back UNDETECTABLE -should be started on B1 supplementation at PCP follow up visit (11) Cognitive impairment: Confused at times during hospitalization, with reports of MCI prior to admission B1 level checked and was undetectable -supplement Vit B1 as outpt -follow up with PCP -advised no driving for now-neighbor who picked him up confirmed he took away his keys for now -pt reports he is taking a drivers test next week (12) DVT prophylaxis: heparin gtt was used Has a h/o DVT/PE but now off coumadin due to fall risk apparently Total Time Total Time Spent Total Time Spent (In Minutes): 45 Discharge Plan Discharge Items Patient Disposition: Home - Home Health Services Reason For Visit: NSTEMI Discharge Diagnosis: NSTEMI Health Concerns: Additional support may be needed at home- Case management set up home health, as agreed upon between case management and Activity: As commented below Activity Comment: Gradually increase as tolerated. Avoid strenuous activity/heavy lifting. Lifting: Gradually increase as tolerated Bathing: No limitations Exercise/Sports: Gradually increase as tolerated Driving/Machine Use: NO driving for two weeks or until seen by Cardiology Non-emergency contact: Primary Care Provider Call non-emergency contact if: you have any medication questions and your symptoms worsen Follow-up/Referrals: Curtis Carrillo MD [Primary Care Provider] - 03/23/19 2:30 pm (Please, follow up at Dr. Carrillo's office with his associate, Joy Davila PA-C on SaturdayMarch 23 at 2:30 pm. *If you need to change this appointment, call the office at [phone].) Eliceo Arguelles MD [Physician] - 03/27/19 1:30 pm (Please, follow up at [facility] Cardiology Office with Dr. Arguelles on SaturdayMarch 27 at 1:30 pm. *The office is located in [address] of [facility] [employer] [facility]. This is the big building next to this hospital. If you need to change this appointment, call the office at [phone].) Diet: Heart Healthy Addtl Attending Provider Instructions: Home Care: * Take your medications exactly as directed. Don't skip doses. * Remember that recovery after a heart attack takes time. Plan to rest for at least 4-8 weeks while you recover. Then return to normal activity when your doctor says it's okay. * Ask your doctor about joining a heart rehabilitation program. * Tell your doctor if you are feeling depressed. Feelings of sadness are common after a heart attack, but it is important that you speak to someone if you are feeling overwhelmed by these feelings. * If you are having chest pain, call 911 for an ambulance. Do NOT drive yourself to the hospital. * Ask your family members to learn CPR. * Learn to take your own blood pressure and pulse. Keep a record of your results. Ask your doctor when you should seek emergency medical attention. He or she will tell you which blood pressure reading is dangerous. Lifestyle Changes: * Maintain a healthy weight. Get help to lose any extra pounds. * Cut back on salt. * Limit canned, dried, packaged, and fast foods. * Don't add salt to your food. * Season foods with herbs instead of salt when you cook. * Limit fatty foods. * Ask your doctor about having your lipid levels checked regularly. * Build up your activity according to your doctor's recommendation. * Ask your doctor when it's okay to resume sexual activity. * Try to manage stress. Follow Up: It is important for you to keep your follow up appointments with your medical p julio- you should be seen by Dr. Arguelles in the next 1-2 weeks. It is recommended that you continue your atorvastatin, metoprolol, aspirin as you were taking at home. You are being started on Plavix (clopidogrel) 75mg daily. Please take this everyday and do not miss a dose, as this is important for your heart. You are also being started on Isosorbide mononitrate 30mg daily for chest pain. Have have also been sent a prescription for Nitro - these dissolve under the tongue. If you have chest pain, you may take one every five minutes for a total of 3 doses. If you continue to have chest pain despite use, please call [phone]. --These prescriptions have been electronically sent to your pharmacy. Please note, IT IS RECOMMENDED THAT YOU DO NOT DRIVE OR OPERATE HEAVY MACHINERY FOR AT LEAST TWO WEEKS, or cleared by Cardiology at your appointment. Please return to the emergency room if you develop chest pain, shortness of breath or for any symptoms that are concerning to you. Pending Studies at Discharge: No Stand-Alone Forms: [facility], Smoking Cessation Medications and DC Order Prescriptions: Continued aspirin 81 mg tablet,delayed release (DR/EC) 81 mg PO DAILY Qty: 30 RF: 2 docusate sodium 100 mg capsule 100 mg PO DAILY PRN (Reason: Constipation) RF: 0 No Action nitroglycerin 400 mcg/spray spray,non-aerosol 1 sprays SL Q5M PRN (Reason: chest pain) Qty: 4.9 RF: 0 atorvastatin 40 mg tablet 40 mg PO DAILY Qty: 90 RF: 3 clopidogrel 75 mg tablet 75 mg PO QAM 30 Days Qty: 30 RF: 1 isosorbide mononitrate 30 mg tablet extended release 24 hr 30 mg PO QAM Qty: 30 RF: 0 levothyroxine 50 mcg tablet 50 mcg PO DAILY Qty: 90 RF: 3 metoprolol succinate 25 mg tablet extended release 24 hr 25 mg PO DAILY Qty: 90 RF: 3 pantoprazole 40 mg tablet,delayed release (DR/EC) 40 mg PO DAILY Qty: 90 RF: 3 Discharge Orders: Discharge Order (Routine); Ordered 03/14/19 Ordered By: Florecita Suh/Other Patient Handouts: Clopidogrel Bisulfate Oral tablet, Isosorbide Dinitrate Oral tablet, Nitroglycerin Sublingual tablet, Heart Attack Sx, Meds Heart Admission Data Admit Date/Time: 03/12/19 02:57 Attending Provider: Sharifa Victoria Admit Provider: Nat Sher Primary Care Provider: Curtis Carrillo Other Providers: Eliceo Arguelles ; Ena Blount Other Interventions: Discharge Summary Assessment (RN) Last Done: 03/14/19 09:44 DC Date/Time DO NOT enter until pt leaves facility: 03/14/19 10:18 Supervising Physician Co-Signing Physician Notes PA Supervision Note: I personally saw and examined the patient. I verified all rodas points and agree with VADIM Nickerson with the following exceptions and/or additions: VSS, afebrile gen - NAD neck - no JVD heart - RRR, s1 s2, no murmur lungs - CTA b/l abd - soft ND NT BS+ ext - no edema A/P: 1. Mild NSTEMI - received medical management; heparin drip x 48 hrs ; cont asa, BB, statin, added imdur, AND plavix. 2. 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 DARINEL/ARB deferred due to hypotension in past with such.continue metoprolol 3. probable underlying dementia/cognitive impairment - B1 deficiency as noted above 4. CKD stage 3 - creatinine stable. 5. hypothyroidism - TSH 12/05 wnl. can d/c home today I left message for pt's daughter last pm on her voicemail Dr Arguelles to touch base with daughter today as well Miguel Glaser MD
[2019-03-13] MEDS: CLOPIDOGREL BISULFATE 75 MG TAB PO SCH (11:21)
[2019-03-14] MEDS ORDERED: STOP HEPARIN ORDER ONE (03:20)
[2019-03-14] MEDS: HEPARIN SODIUM/DEXTROSE 25,000 UNITS/500 ML BAG IV SCH (03:20)
[2019-03-14 06:17] LABS: Basophils # (auto) 0.02 K/uL (0-0.2); Basophils % (auto) 0.3 %; Eosinophils # (auto) 0.22 K/uL (0-0.5); Eosinophils % (auto) 2.8 %; Hematocrit (blood only) 40.5 % (42-52); Hemoglobin 13.1 g/dL (14.0-18.0); Immature Granulocytes # (auto) 0.01 K/uL (0.00-0.02); Immature Granulocytes % (auto) 0.1 %; Lymphocytes # (auto) 1.33 K/uL (1.2-3.4); Lymphocytes % (auto) 16.9 %; Mean Corpuscular Hemoglobin 28.6 pg (25-34); Mean Corpuscular Hgb Conc 32.3 g/dL (32-36); Mean Corpuscular Volume 88.4 fL (80-100); Monocytes # (auto) 0.94 K/uL (0.11-0.59); Neutrophils # (auto) 5.33 K/uL (1.4-6.5); Neutrophils % (auto) 67.9 %; Platelet Count 149 K/uL (130-400); RDW Coefficient of Variation 14.3 % (11.5-14.5); RDW Standard Deviation 46.4 fL (36.4-46.3); Red Blood Count 4.58 M/uL (4.7-6.1); White Blood Count 7.85 K/uL (4.8-10.8)
[2019-03-14] MEDS: LEVOTHYROXINE SODIUM 50 MCG TABLET PO SCH (06:17)
[2019-03-14 06:43] LABS: Partial Thromboplastin Time 26.8 Seconds (21.0-31.0)
[2019-03-14] MEDS: METOPROLOL SUCC 25MG EXT REL TAB PO SCH (07:48)
[2019-03-14] MEDS: PANTOprazole 40 MG TAB PO SCH (07:48)
[2019-03-14] MEDS: ASPIRIN 81 MG ECTAB PO SCH (07:48)
[2019-03-14] MEDS: ATORVASTATIN 40 MG TAB PO SCH (07:48)
[2019-03-14] MEDS: ISOSORBIDE MONO EXTENDED REL 30 MG TABCR PO SCH (07:48)
[2019-03-14] MEDS: CLOPIDOGREL BISULFATE 75 MG TAB PO SCH (07:49)
[2019-03-14 08:59] LABS: Albumin Level 3.7 gm/dl (3.4-5.0); BUN Creatinine Ratio 23.2 (10-20); Calcium 9.2 mg/dl (8.5-10.1); Creatinine Clr Calc Pharmacy 50.5 ml/min; Est GFR (African American) 79.2; Est GFR (Non-African American) 68.3
[2019-03-14] MEDS ORDERED: THIAMINE HCL 50 MG TABLET PO SCH (09:00)
[2019-03-14 09:07] LABS: Bilirubin,Total 0.9 mg/dl (0.2-1); Globulin 3.6 gm/dl (2.5-4.0); Total Protein 7.4 gm/dl (6.4-8.2)
== END 2019-03-14 10:18 | disposition home health service (06) | DRG 281 ==
LOC: ED 01:06 → SUATTDRO 02:57 → 2S 02:57 → 2E 03-13 20:25

== ENCOUNTER 2019-05-22 04:51 | Inpatient (IN) ==
[2019-05-22] MEDS ORDERED: LORazepam 1 MG/2 ML VIAL IV STA (05:05)
--- NOTE | 2019-05-22 05:17 | Emergency Department Note ---
ED Visit Note I saw this patient in conjunction with Vamsi Womack PA-C. I agree with his decision making and treatment plan. This is an 83-year-old male patient who suffers from dementia who unfortunately suffered a fall with trauma to his face. On my evaluation of the patient, he was sleeping but easily arousable. He has obvious trauma to his face. He is b radycardic on exam. The patient had been here in the emergency department yesterday. The patient had multiple trauma scans performed which are currently pending. .
[2019-05-22 05:49] LABS: Basophils # (auto) 0.01 K/uL (0-0.2); Basophils % (auto) 0.1 %; Hematocrit (blood only) 40.9 % (42-52); Hemoglobin 13.3 g/dL (14.0-18.0); Immature Granulocytes # (auto) 0.03 K/uL (0.00-0.02); Immature Granulocytes % (auto) 0.3 %; Lymphocytes # (auto) 1.97 K/uL (1.2-3.4); Lymphocytes % (auto) 19.5 %; Mean Corpuscular Hemoglobin 29.4 pg (25-34); Mean Corpuscular Hgb Conc 32.5 g/dL (32-36); Mean Corpuscular Volume 90.3 fL (80-100); Mean Platelet Volume 10.9 fL (7.4-10.4); Monocytes # (auto) 1.14 K/uL (0.11-0.59); Monocytes % (auto) 11.3 %; Neutrophils # (auto) 6.95 K/uL (1.4-6.5); Neutrophils % (auto) 68.8 %; Platelet Count 159 K/uL (130-400); RDW Coefficient of Variation 15.1 % (11.5-14.5); RDW Standard Deviation 49.7 fL (36.4-46.3); Red Blood Count 4.53 M/uL (4.7-6.1)
--- NOTE | 2019-05-22 05:53 | Emergency Department Note ---
History of Present Illness General Chief complaint: Fall Stated complaint: FALL Time Seen by Provider: 05/22/19 05:00 History of Present Illness This is an 83-year-old male presenting to the emergency department via ambulance for evaluation of presumed fall that occurred just prior to arrival. The patient was seen and evaluated at this department several hours ago for possible fall and altered mental status. He had extensive work-up at his previous visit including CT scan of the head and blood work that did not reveal any acute issues. The patient has a history of dementia, and reportedly has services in place to go to [facility] on 05/27/2019, 5 days from now. At his visit earlier, he was discharged with family who were going to watch the patient at his residence. Case management is in place to attempt earlier placement, which seems possible. According to the paramedics bringing the patient to the ER, he fell in the bathroom at some point tonight, and crawled back into bed. The patient does not have any memory of what occurred. The patient himself is slightly agitated does not provide much of the history. History is limited secondary to the patient's status. Home Medications Home Medications Medication Instructions Recorded Confirmed Type aspirin 81 mg tablet,delayed 81 mg PO DAILY #30 tab 01/16/19 05/22/19 Rx release atorvastatin 40 mg tablet 40 mg PO DAILY #90 tab 03/17/19 05/22/19 Rx levothyroxine 50 mcg tablet 50 mcg PO DAILY #90 tab 03/17/19 05/22/19 Rx metoprolol succinate 25 mg 25 mg PO DAILY #90 tab 03/17/19 05/22/19 Rx tablet,extended release 24 hr nitroglycerin 400 mcg/spray 1 sprays SL Q5M PRN #4.9 gm 03/17/19 05/22/19 Rx translingual thiamine HCl (vitamin B1) 250 mg PO DAILY 04/27/19 05/22/19 History clopidogrel 75 mg tablet 75 mg PO QAM 30 Days #30 tab 04/30/19 05/22/19 Rx docusate sodium 100 mg capsule 100 mg PO DAILY PRN 04/30/19 05/22/19 History Allergies Allergy/AdvReac Type Severity Reaction Status Date / Time Cephalosporins Allergy Severe RASH Verified 05/22/19 05:49 morphine Allergy Unknown Unknown Verified 05/22/19 05:49 Past Med/Surg History Medical History CAD (coronary artery disease) (Chronic) Dilated aortic root (Acute) DVT (deep venous thrombosis) History of deep vein thrombosis of lower extremity (Resolved) History of prostate cancer (Resolved) History of pulmonary embolus (PE) (Resolved 11/02/12) Hyperlipidemia (Acute) Hypothyroid (Chronic) Ischemic cardiomyopathy (Chronic) Mitral regurgitation (Acute) NSTEMI (non-ST elevated myocardial infarction) (Resolved) Pancreatitis (Resolved) Pulmonary embolism S/P CABG (coronary artery bypass graft) (Acute) Surgical History H/O esophagogastroduodenoscopy History of cataract surgery Hx of cholecystectomy S/P CABG x 3 (Resolved) S/P radiation therapy (Resolved) Family History Father Diabetes Cerebral atherosclerosis CHF (congestive heart failure) Sister Diabetes Brother Coronary atherosclerosis Mother Coronary atherosclerosis Other Heart disease Social History Preferred Language: Uzbek Communication Ability: Impaired Communication Ability Comment: altered mental status Visual Impairment: No Limitations Hearing Ability: Normal Emergency Medical Technician/Driver Required: No Beliefs That Will Affect Care: None marital status: Current Living Situation: Spouse current occupational status: retired 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 [employer] Other Information That Helps Us Care for You: No other: with dementia Feels Safe at Home: Yes Safety Concerns: Feels Safe At This Time Smoking Status: Former smoker Do You Dip or Chew Tobacco: No ; Second Hand Exposure: No ; Tobacco Cessation Education Requested by Patient: No Hx Alcohol Use: No Hx Substance Use: No Seatbelt Use: always Review of Systems Unobtainable due to cognitive status Physical Exam Vital Signs Vital Signs - 24 hr 05/22/19 05:17 05/22/19 05:45 05/22/19 06:00 Temperature 36.2 C L Temperature Source Rectal Pulse Rate 67 49 L 50 L Pulse Rate [Left Finger] Pulse Rate from SpO2 Sensor 49 L 50 L Respiratory Rate 22 17 Respiratory Effort / Characteristics Non-Labored Spontaneous Respiratory Depth Normal Blood Pressure 182/88 H 171/77 H 168/72 H Blood Pressure [Left Arm] Blood Pressure Mean 119 122 142 Blood Pressure Mean [Left Arm] Pulse Oximetry 97 99 97 Oxygen Delivery Method Room Air Room Air Room Air Sepsis Recent Fever Within 48 Hours No Sepsis New/Unexplained Change in Mental Status No Sepsis Action Taken by Nursing No Action Required 05/22/19 06:30 05/22/19 07:00 05/22/19 07:16 Temperature Temperature Source Pulse Rate 51 L 62 Pulse Rate [Left Finger] 66 Pulse Rate from SpO2 Sensor 49 L 63 Respiratory Rate 13 13 20 Respiratory Effort / Characteristics Non-Labored Respiratory Depth Normal Blood Pressure 166/94 H 167/97 H Blood Pressure [Left Arm] 177/93 H Blood Pressure Mean 144 123 Blood Pressure Mean [Left Arm] 121 Pulse Oximetry 97 100 100 Oxygen Delivery Method Room Air Room Air Room Air Sepsis Recent Fever Within 48 Hours Sepsis New/Unexplained Change in Mental Status Sepsis Action Taken by Nursing 05/22/19 08:32 Temperature Temperature Source Pulse Rate Pulse Rate [Left Finger] 62 Pulse Rate from SpO2 Sensor Respiratory Rate 21 Respiratory Effort / Characteristics Non-Labored Respiratory Depth Normal Blood Pressure Blood Pressure [Left Arm] 181/93 H Blood Pressure Mean Blood Pressure Mean [Left Arm] 122 Pulse Oximetry 99 Oxygen Delivery Method Room Air Sepsis Recent Fever Within 48 Hours Sepsis New/Unexplained Change in Mental Status Sepsis Action Taken by Nursing VITALS: Vitals are noted on the nurse's note and reviewed by myself. Vital signs stable. GENERAL: Elderly male who is with dementia. He is mildly agitated. He answers some questions appropriately, however most questions do not have appropriate answers. HEAD: Left-sided periorbital ecchymosis noted EARS: External ear normal. External auditory canals clear, tympanic membranes pearly calderon without erythema or effusion bilaterally. EYES: Pupils equal round and reactive to light and accommodation. Conjunctivae without injection, sclerae without icterus. Extraocular movements intact. NOSE: Moderate perinasal swelling as well as dried blood in the right side nares. MOUTH: Mucous membranes moist. There does appear to be a broken right lower bicuspid. No other injury to the oropharynx. NECK: Supple without nuchal rigidity. No lymphadenopathy. No thyromegaly. Cervical spine is slightly tender posteriorly HEART: Regular rate and rhythm LUNGS: Clear to auscultation bilaterally without wheezes, rales or rhonchi. No retractions or accessory muscle use. ABDOMEN: Positive normal bowel sounds x 4. Soft, nontender, without masses or organomegaly. No guarding or rebound tenderness. MUSCULOSKELETAL: No muscle atrophy, erythema, or edema noted. Full spontaneous range of motion in all extremities. NEURO: Patient was alert to person but not place or time. He is demented and slightly agitated. SKIN: The skin was with superficial abrasions along the right flank and right side hip. There appears to be superficial lacerations across the bridge of the nose as well as underneath the left eye. Each of these is approximately 1.0 cm in length, but they do not gape Procedures Laceration Laceration 1: Site: other (Nasal bridge) Size (cm): 1 Description: linear Depth: simple, single layer Local Anesthetic: other anesthetic (LET gel) Pre-repair: wound explored and irrigated extensively Technique: other (Dermabond) Course Administered Medications Amoxicillin/Clavulanate Potassium (Augmentin 875mg) 1 tab PO BIDM [facility]; Protocol Stop: 06/01/19 16:59 Last Admin: 05/22/19 19:00 Dose: 1 tab Documented by: [id number] Aspirin (Ecotrin Ectab) 81 mg PO DAILY [facility] Stop: 06/21/19 12:59 Last Admin: 05/22/19 14:21 Dose: Not Given Documented by: [id number] Atorvastatin Calcium (Lipitor) 40 mg PO DAILY [facility] Stop: 06/21/19 12:59 Last Admin: 05/22/19 14:21 Dose: Not Given Documented by: [id number] Clopidogrel [facility] ([facility]avix) [facility] [place] Stop: 06/21/19 12:59 Last Admin: 05/22/19 14:21 Dose: Not Given Documented by: [id number] Thiamine HCl 200 mg/ Sodium (Chloride) 52 mls @ 208 mls/hr [facility] [place] Stop: 06/21/19 12:59 Last Infusion: 05/22/19 14:53 Dose: 0 mls/hr Documented by: [id number] Admin: 05/22/19 14:38 Dose: 208 mls/hr Documented by: [id number] Ioversol (Optiray 320 125ml) 119 ml IV ONCE PRN PRN Reason: Interaction Checking Stop: 05/26/19 08:22 Last Admin: 05/22/19 08:27 Dose: 119 ml Documented by: [id number] Levothyroxine Sodium (Synthroid) [facility] Stop: 06/21/19 12:59 Last Admin: 05/22/19 14:22 Dose: Not Given Documented by: [id number] Metoprolol Succinate (Toprol Xl) 25 mg PO DAILY [facility] Stop: 06/21/19 12:59 Last Admin: 05/22/19 14:22 Dose: Not Given Documented by: [id number] Ofloxacin (Ocuflox 0.3%) 2 drops OP Q4HWA [facility] Stop: 05/29/19 19:59 Last Admin: 05/22/19 21:37 Dose: Not Given Documented by: [id number] Quetiapine Fumarate (Seroquel) 12.5 mg PO DAILY PRN PRN Reason: Agitation Stop: 06/21/19 17:40 Last Admin: 05/22/19 19:07 Dose: 12.5 mg Documented by: [id number] Thiamine HCl (Vitamin B-1) 250 mg PO DAILY [facility] Stop: 06/21/19 12:59 Last Admin: 05/22/19 14:22 Dose: Not Given Documented by: [id number] Discontinued Medications Lorazepam (Ativan) 1 mg in 2 mls @ 2 mls/min IV NOW STA Stop: 05/22/19 05:06 Last Admin: 05/22/19 05:14 Dose: 2 mls/min Documented by: [id number] Clindamycin Phosphate (Cleocin) 600 mg in 54 mls @ 100 mls/hr IV ONE ONE Stop: 05/22/19 08:30 Last Infusion: 05/22/19 09:34 Dose: 0 mls/hr Documented by: [id number] Admin: 05/22/19 08:33 Dose: 100 mls/hr Documented by: [id number] Lidocaine (Let Gel 4%/1:100/0.5%) 1 ea EXT NOW STA Stop: 05/22/19 06:43 Last Admin: 05/22/19 06:50 Dose: 1 ea Documented by: [id number] Oxymetazoline HCl (Afrin 0.05%) 1 sprays NA NOW ONE Stop: 05/22/19 12:41 Last Admin: 05/22/19 13:19 Dose: 1 sprays Documented by: [id number] Critical Care Time I have personally spent greater than 60 minutes of critical care time in the direct management of this patient. This includes bedside care, interpretation of diagnostic studies, and testing, discussion with consultants, patient, and family members, and other required patient management activities. This 60 minutes is in excess of all separately billable procedures. Medical Decision Making Differential Diagnosis Differential diagnosis: Etiologies such as tendon or ligamentous injury, contusion, fracture, cervical/vertebral injury, dislocation, intra-abdominal process, pneumothorax, intrathoracic trauma, intracranial injury, soft tissue injury, neurologic pr ocess, as well as other traumatic pathologies were entertained. Laboratory Data Result diagrams: 05/22/19 05:39 05/22/19 05:39 Lab Results 05/22/19 05/22/19 05/22/19 Range/Units 05:39 05:39 05:39 WBC 10.10 (4.8-10.8) K/uL RBC 4.53 L (4.7-6.1) M/uL Hgb 13.3 L (14.0-18.0) g/dL Hct 40.9 L (42-52) % MCV 90.3 (80-100) fL MCH 29.4 (25-34) pg MCHC 32.5 (32-36) g/dL RDW Std Deviation 49.7 H (36.4-46.3) fL RDW Coeff of Bea 15.1 H (11.5-14.5) % Plt Count 159 (130-400) K/uL MPV 10.9 H (7.4-10.4) fL Immature Gran % (Auto) 0.3 % Neut % (Auto) 68.8 % Lymph % (Auto) 19.5 % [place] % (Auto) 11.3 % Eos % (Auto) 0.0 % Baso % (Auto) 0.1 % Immature Gran # (Auto) 0.03 H (0.00-0.02) K/uL Neut # (Auto) 6.95 H (1.4-6.5) K/uL Lymph # (Auto) 1.97 (1.2-3.4) K/uL [place] # (Auto) 1.14 H (0.11-0.59) K/uL Eos # (Auto) 0.00 (0-0.5) K/uL Baso # (Auto) 0.01 (0-0.2) K/uL PT 10.8 (9.0-12.0) Seconds INR 1.1 (0.9-1.1) APTT 25.4 (21.0-31.0) Seconds PTT Ratio 0.9 Sodium 142 (136-145) mmol/L Potassium 3.9 (3.5-5.1) mmol/L Chloride 113 H (98-107) mmol/L Carbon Dioxide 26 (21-32) mmol/L Anion Gap 3.0 (3-11) BUN 23 H (7-18) mg/dl Creatinine 0.89 (0.6-1.4) mg/dl Est Cr Clr Drug Dosing Not Reportable Est GFR ( Amer) 90.4 Est GFR (Non-Af Amer) 78.0 BUN/Creatinine Ratio 26.0 H (10-20) Glucose 109 H (70-99) mg/dl Calcium 8.8 (8.5-10.1) mg/dl Magnesium 1.9 (1.8-2.4) mg/dl Total Bilirubin 0.6 (0.2-1) mg/dl AST 28 (15-37) U/L ALT 24 (12-78) U/L Alkaline Phosphatase 76 (45-117) U/L Total Creatine Kinase 384 H (39-308) U/L Troponin I < 0.015 (0-0.045) ng/ml Total Protein 6.8 (6.4-8.2) gm/dl Albumin 3.3 L (3.4-5.0) gm/dl Globulin 3.5 (2.5-4.0) gm/dl Albumin/Globulin Ratio 0.9 (0.9-2) Lipase 163 (73-393) U/L TSH 1.180 (0.300-4.500) uIu/ml Urine Color Urine Appearance (Clear) Urine pH (4.5-7.5) Ur Specific [place] (1.000-1.030) Urine Protein (Negative) Urine Glucose (UA) (Negative) Urine Ketones (Negative) Urine Blood (Negative) Urine Nitrite (Negative) Urine Bilirubin (Negative) Urine Urobilinogen (Negative) Ur Leukocyte Esterase (Negative) Urine WBC (Auto) (0-5) /hpf Urine RBC (Auto) (0-4) /hpf U Hyaline Cast (Auto) (0-5) /lpf U Epithel Cells (Auto) (0-5) /lpf Urine Bacteria (Auto) (Negative) Urine Opiates Screen (Neg) Ur Methadone, Qual (Neg) Urine Barbiturates (Neg) Ur Phencyclidine (PCP) (Neg) U Amphetamin/Meth Scrn (Neg) MDMA (Ecstasy) Screen (Neg) U Benzodiazepines Scrn (Neg) Ur Cocaine Metabolite (Neg) U Marijuana (THC) Screen (Neg) Ethyl Alcohol mg/dL (0-3) mg/dl 05/22/19 05/22/19 05/22/19 Range/Units 05:39 08:00 08:00 WBC (4.8-10.8) K/uL RBC (4.7-6.1) M/uL Hgb (14.0-18.0) g/dL Hct (42-52) % MCV (80-100) fL MCH (25-34) pg MCHC (32-36) g/dL RDW Std Deviation (36.4-46.3) fL RDW Coeff of Bea (11.5-14.5) % Plt Count (130-400) K/uL MPV (7.4-10.4) fL Immature Gran % (Auto) % Neut % (Auto) % Lymph % (Auto) % [place] % (Auto) % Eos % (Auto) % Baso % (Auto) % Immature Gran # (Auto) (0.00-0.02) K/uL Neut # (Auto) (1.4-6.5) K/uL Lymph # (Auto) (1.2-3.4) K/uL [place] # (Auto) (0.11-0.59) K/uL Eos # (Auto) (0-0.5) K/uL Baso # (Auto) (0-0.2) K/uL PT (9.0-12.0) Seconds INR (0.9-1.1) APTT (21.0-31.0) Seconds PTT Ratio Sodium (136-145) mmol/L Potassium (3.5-5.1) mmol/L Chloride (98-107) mmol/L Carbon Dioxide (21-32) mmol/L Anion Gap (3-11) BUN (7-18) mg/dl Creatinine (0.6-1.4) mg/dl Est Cr Clr Drug Dosing Est GFR ( Amer) Est GFR (Non-Af Amer) BUN/Creatinine Ratio (10-20) Glucose (70-99) mg/dl Calcium (8.5-10.1) mg/dl Magnesium (1.8-2.4) mg/dl Total Bilirubin (0.2-1) mg/dl AST (15-37) U/L ALT (12-78) U/L Alkaline Phosphatase (45-117) U/L Total Creatine Kinase (39-308) U/L Troponin I (0-0.045) ng/ml Total Protein (6.4-8.2) gm/dl Albumin (3.4-5.0) gm/dl Globulin (2.5-4.0) gm/dl Albumin/Globulin Ratio (0.9-2) Lipase (73-393) U/L TSH (0.300-4.500) uIu/ml Urine Color Yellow Urine Appearance Clear (Clear) Urine pH 6.5 (4.5-7.5) Ur Specific [place] 1.017 (1.000-1.030) Urine Protein Negative (Negative) Urine Glucose (UA) Negative (Negative) Urine Ketones Negative (Negative) Urine Blood 3+ H (Negative) Urine Nitrite Negative (Negative) Urine Bilirubin Negative (Negative) Urine Urobilinogen Negative (Negative) Ur Leukocyte Esterase Negative (Negative) Urine WBC (Auto) 1-5 (0-5) /hpf Urine RBC (Auto) 10-30 H (0-4) /hpf U Hyaline Cast (Auto) 1-5 (0-5) /lpf U Epithel Cells (Auto) 20-30 H (0-5) /lpf Urine Bacteria (Auto) Negative (Negative) Urine Opiates Screen Neg (Neg) Ur Methadone, Qual Neg (Neg) Urine Barbiturates Neg (Neg) Ur Phencyclidine (PCP) Neg (Neg) U Amphetamin/Meth Scrn Neg (Neg) MDMA (Ecstasy) Screen Neg (Neg) U Benzodiazepines Scrn Neg (Neg) Ur Cocaine Metabolite Neg (Neg) U Marijuana (THC) Screen Neg (Neg) Ethyl Alcohol mg/dL < 3.0 (0-3) mg/dl Imaging Data Radiologist's Impression: CT OF THE HEAD WITHOUT CONTRAST CLINICAL HISTORY: Fall. AMS. COMPARISON STUDY: Head CT May 21, 2019 and MRI of the brain December 12, 2018. TECHNIQUE: Helical axial images of the head were obtained without IV contrast. Automated exposure control was utilized for the study. A dose lowering technique was utilized adhering to the principles of ALARA. FINDINGS: No acute intracranial hemorrhage, midline shift or mass effect is present. The ventricular system is unremarkable. The basilar cisterns are patent. No extra-axial collections are present. There are no findings to suggest acute dural sinus thrombosis or acute territorial infarct. No significant calvarial abnormalities are present. Multiple facial fractures are better depicted on the maxillofacial CT. There is a left periorbital contusion. There is no retrobulbar hematoma. IMPRESSION: 1. No acute intracranial findings. 2. No calvarial fracture. 3. Multiple facial fractures and a left periorbital contusion with air-fluid level within the left maxillary sinus. These findings are better depicted on the maxillofacial CT. MAXILLOFACIAL CT WITHOUT CONTRAST CLINICAL HISTORY: Fall. AMS. COMPARISON STUDY: Head CT May 21, 2019. TECHNIQUE: A maxillofacial CT was performed without IV contrast. Coronal and sagittal reformats were viewed. Automated exposure control was utilized for the study. A dose lowering technique was utilized adhering to the principles of ALARA. FINDINGS: A left periorbital contusion is noted. The globes are intact and there is no retrobulbar hematoma. There is nasal soft tissue swelling and multiple locules of gas. Comminuted displaced bilateral nasal bone fractures are present. There is also a comminuted displaced fracture of the nasal septum. Air-fluid level within the left maxillary sinus is present. There are secretions within the nasal cavity. A tiny left sphenoid sinus air-fluid level is present. Alignment of the temporomandibular joints is anatomic. Cervical spine CT will be reported separately. Note is made of an age indeterminate minimally displaced fracture of the right occipital condyle. IMPRESSION: 1. Comminuted displaced fractures of the bilateral nasal bones and the nasal septum. Nasal soft tissue swelling and gas. 2. Left periorbital contusion. Globes intact with no retrobulbar hematoma. 3. Age indeterminate minimally displaced fracture of the right occipital condyle CT cervical spine wo con CLINICAL HISTORY: 83 years-old Male with Fall. AMS.. Acute neck injury status post fall COMPARISON: CT head of same day, CT cervical spine 11/19/2017 TECHNIQUE: Multiple axial CT images of the cervical spine were obtained without contrast. A dose lowering technique was utilized adhering to the principles of ALARA. FINDINGS: Nondisplaced fracture involves the right aspect of the C5 spinous process, likely acute versus subacute. 5 mm bone fragment involves the medial aspect of the right occipital condyle, image 116 series 5 which is new from the 2018 exam. Vertebral body heights are well-maintained. Moderate multilevel disc space n arrowing. Posterior disc osteophyte complex formations are noted at multiple levels, largest at the C5-C6 level. 3 mm anterolisthesis C4 on C5, likely degenerative related to long-standing facet arthrosis. There is severe multilevel facet arthrosis, right greater than left. Evaluation of the central canal and neuroforamina is better assessed by MRI. Multilevel foraminal narrowing. At least mild central canal stenosis at C5-C6. Lung apices are clear. No prevertebral soft tissue swelling. Calcified plaque of the carotid bulbs. Secretions are noted within the nasal turbinates, left maxillary sinus and nasopharynx. IMPRESSION: 1. Nondisplaced fracture of the C5 spinous process is new from 11/19/2017 suggestive of acute or subacute injury. 2. Subcentimeter fracture involving the anteromedial right occipital condyle is also new from the 2018 study and is age-indeterminate. 3. Multilevel degenerative changes of the cervical spine as above. 4. Layering secretions are noted within the paranasal sinuses, nasal turbinates and nasopharynx. Please refer to CT maxillofacial study of same day for further details. CT OF THE CHEST WITHOUT IV CONTRAST CLINICAL HISTORY: Fall. AMS. COMPARISON STUDY: Chest CT December 09, 2017. Chest radiograph May 21, 2019. CT DOSE: 1987.44 mGy.cm TECHNIQUE: Axial images of the chest were obtained without IV contrast. Images were reviewed in the axial, sagittal, and coronal planes. IV contrast was not administered for this examination. Automated exposure control was utilized for the study. A dose lowering technique was utilized adhering to the principles of ALARA. FINDINGS: No mediastinal hematoma is identified. Evaluation of the thoracic aor ta is suboptimal on this unenhanced examination. There are median sternotomy wires and postoperative findings from bypass grafting. Extensive coronary artery calcification is present. There is moderate cardiomegaly. Mild esophageal wall thickening is unchanged. There is no pericardial effusion. No pneumothorax or pleural effusion is noted. There is basilar peripheral predominant subpleural reticulation with possible honeycombing. This is similar to prior CT. Mild bilateral lower lobe groundglass opacities are noted. No acute rib or thoracic spine fracture is noted. Multiple bilateral rib fractures are noted. The abdomen and pelvis will be reported separately. IMPRESSION: 1. No acute traumatic findings within the chest. 2. Evidence for interstitial lung disease which is similar to CT of December 09, 2017. Mild nonspecific bilateral lower lobe groundglass opacities. CT SCAN OF THE ABDOMEN AND PELVIS WITHOUT IV CONTRAST CLINICAL HISTORY: Fall. COMPARISON STUDY: Abdominal CT dated 12/19/2017 TECHNIQUE: CT scan of the abdomen and pelvis is performed from the lung bases to the proximal femora. Images are reviewed in the axial, sagittal, and coronal planes. IV contrast was not administered for this examination as per the referring clinician. Note that the examination was performed in suboptimal fashion without IV contrast. The examination is also degraded by motion artifact, and by streak artifact from the arms which could not be elevated above the abdomen. A dose lowering technique was utilized adhering to the principles of ALARA. FINDINGS: Lung bases: The heart is enlarged and without pericardial effusion. The coronary arteries are densely calcified. There is a moderate hiatal hernia. Scarring/atelectasis is noted at the lung bases. No airspace consolidation or pleural effusion is seen. Liver: The unenhanced liver is normal in size, contour, and attenuation. There is no intrahepatic biliary ductal dilatation. Gallbladder: Surgically absent noting clips in the gallbladder fossa. Spleen: Normal in size and attenuation. Pancreas: The unenhanced pancreas is moderately atrophic and grossly unremarkable. Adrenal glands: Unremarkable. Kidneys: The unenhanced kidneys demonstrate cortical atrophy and are without hydronephrosis. There are no renal calculi identified. There is no evidence of contour deforming renal mass lesion. Abdominal vasculature: There is advanced atherosclerotic calcification of the abdominal aorta. There is a 4.2 x 4.3 cm infrarenal abdominal aortic aneurysm. Bowel: There is moderate constipation. No bowel obstruction is identified. There is mild colonic diverticulosis without CT evidence of acute diverticulitis. The appendix is well-visualized and normal. Peritoneum: There is no intraperitoneal free air or abdominal ascites. Lymphadenopathy: None. Pelvic viscera: The prostate gland is mildly enlarged and heterogeneous. Numerous brachytherapy seeds are noted. The bladder wall is thickened and trabeculated indicating chronic outlet obstruction. Skeletal structures: The skeletal structures are osteopenic. There is moderate lumbosacral spondylosis. No lytic or blastic lesions are seen. IMPRESSION: 1. Suboptimal examination without oral and IV contrast. The examination is also degraded by streak and motion artifact. 2. There is no evidence of solid organ injury in the abdomen or pelvis on this unenhanced examination. 3. Cardiomegaly and hiatal hernia. 4. Moderate constipation. 5. There is a 4.2 x 4.3 cm infrarenal abdominal aortic aneurysm. 6. Mild colonic diverticulosis without CT evidence of acute diverticulitis. 7. Additional findings as above. CT ANGIOGRAPHY OF THE NECK WITH CONTRAST CLINICAL HISTORY: Eval for possible vertebral artery issue at c5 COMPARISON STUDY: CT of the cervical spine November 19, 2017 and May 22, 2019. Carotid ultrasound October [birth year], 2017. Technique: CT angiography of the carotid and vertebral arteries was obtained using Navigator[employer] 320 IV and 3D reconstruction on an independent workstation. NASCET criteria was utilized. Automated exposure control was utilized for the study. A dose lowering technique was utilized adhering to the principles of ALARA. CT DOSE: 545.29 mGy.cm Findings: Note is again made of bilateral nasal bone fractures and a fracture of the nasal septum. There is an acute nondisplaced fracture of the spinous process of C5. A probable additional acute nondisplaced fracture through the right pedicle of C5 which extends through the foramen transversarium is noted. There is an age indeterminate minimally displaced fracture of the right occipital condyle. There is no evidence for injury to the major vessels of the neck. Specifically, no dissection is noted. No pseudoaneurysm or vessel occlusion is noted. There is moderate stenosis at the origin of the left vertebral artery. There is mild stenosis of the intracranial portions of the bilateral vertebral arteries. There is extensive plaque within the left carotid bifurcation. This results in moderate to severe narrowing of the distal left common carotid artery and severe narrowing of the proximal left internal carotid artery. Patent portion of the vessel measures 1 mm in caliber. The distal left internal carotid artery measures 4 mm in caliber. There are severe stenosis at the origin of the left external carotid artery as well. There is moderate plaque within the right carotid bifurcation without stenosis. There is trace prevertebral edema. There is moderate plaque within the bilateral cavernous carotids. IMPRESSION: 1. No evidence of traumatic injury to the major vessels of the neck. 2. Acute appearing nondisplaced fractures of the spinous process of C5 and right pedicle of C5. Age indeterminate minimally displaced fracture of the right occipital condyle and acute bilateral nasal bone and nasal septal fractures. 3. 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 Moderate to severe stenosis of the distal left common carotid artery and severe stenosis at the origin of the left external carotid artery. MDM Narrative Physical exam and history were performed. Nursing notes, EMR, and Medication List were personally reviewed. Patient appears to have fallen at home tonight with obvious facial injuries. The patient has baseline dementia and has difficulty explaining what occurred tonight. IV access was established and labs were obtained. Due to the patient's status CT scans of the head, neck, face, chest, abdomen, and pelvis were performed. The case was discussed with my attending physician, Dr. Reyes, who also independently evaluated the patient. The patient was agitated upon arrival, and did have Ativan roughly 8 hours ago here in this department. This does not seem to be providing the patient any benefit at this time, and he was given an additional 1 mg IV Ativan for comfort. The patient was placed on the awake overnight monitor. The patient's blood work is as above and was reviewed. He does not have a significantly elevated white blood cell count, gross anemia, bandemia, or significant electrolyte imbalance. CK is 384. Troponin x1 is negative. Lipase and transaminases are not diagnostic. Urine is without obvious evidence of infection. CT scans are as above and were reviewed by myself and radiology. The patient has multiple nasal fractures. He additionally has a nondisplaced fracture of C5 spinous process. He also appears to have a subcentimeter right occipital condyle fracture. He does not have any intracranial bleeding. I did discuss the case with the on-call orthospine specialist, and the spinous process fracture is considered nonsurgical at this time, and conservative care is recommended. Because of his nasal fractures the patient was started on clindamycin here in the IV. After our radiology team read the CT images, [facility] report did arrive, and [facility] had concern for possible vertebral artery injury due to the location of the spinous process fracture. Angiogram was recommended, and angiogram does not reveal any new injuries. I did speak with the patient's power of field associate, Velvet ([phone]), who will be arriving to this facility sometime later this morning. I did keep her up-to-date on information as it arrived. Case management was able to speak with the patient's stepson, who was to be watching the patient tonight. Evidently the stepson fell asleep in a room near the patient, and was not available to stop him from getting out of bed or help with prevention of fall. Overall the patient does not appear well for discharge home. Despite his pending placement family does not appear able to care for his needs at home, and he may need earlier services. The patient will also likely need additional care for his fractures. The case was discussed with the on-call hospitalist team, who agreed to evaluate the patient here in the ER. Please see their dictation for further patient course, plan, and disposition. The chart was completed utilizing [employer] Voice Recognition Software. Grammatical errors, random word insertions, pronoun errors, and incomplete sentences are an occasional consequence of this system due to software limitations, ambient noise, and hardware issues. Any formal questions or concerns about the content, text, or information contained within the body of this dictation should be directly addressed to the provider for clarification. Impression & Plan Fall, Dementia, Open displaced fracture of nasal bone, Closed C5 fracture, Unspecified occipital condyle fracture, initial encounter for closed fracture Discharge Plan Visit Data *Final* Discharge Date/Time: 05/22/19 09:56 Chief Complaint: Fall Stated Complaint: FALL ED Provider: Morenita Reyes ED Midlevel Provider: Vamsi Womack Discharge Problem: Fall, Dementia, Open displaced fracture of nasal bone, Closed C5 fracture, Unspecified occipital condyle fracture, initial encounter for closed fracture Patient Disposition: Admitted As Inpatient Discharge Instructions Interventions: ED Discharge Assessment Last Done: 05/22/19 09:56 Discharge Problem: Fall Qualifiers: Encounter type: initial encounter Qualified Code(s): W19.XXXA - Unspecified fall, initial encounter Dementia Qualifiers: Dementia type: unspecified type Dementia behavioral disturbance: without behavioral disturbance Qualified Code(s): F03.90 - Unspecified dementia without behavioral disturbance Open displaced fracture of nasal bone Qualifiers: Encounter type: initial encounter Qualified Code(s): S02.2XXB - Fracture of torey al bones, initial encounter for open fracture Closed C5 fracture Qualifiers: Encounter type: initial encounter Fracture morphology: unspecified fracture morphology Fracture alignment: nondisplaced Qualified Code(s): S12.401A - Unspecified nondisplaced fracture of fifth cervical vertebra, initial encounter for closed fracture
[2019-05-22 06:01] LABS: INR 1.1 (0.9-1.1); Partial Thromboplastin Ratio 0.9; Partial Thromboplastin Time 25.4 Seconds (21.0-31.0); Prothrombin Time 10.8 Seconds (9.0-12.0)
[2019-05-22 06:06] LABS: Alanine Aminotransferase 24 U/L (12-78); Albumin Level 3.3 gm/dl (3.4-5.0); Aspartate Aminotransferase 28 U/L (15-37); Blood Urea Nitrogen 23 mg/dl (7-18); Calcium 8.8 mg/dl (8.5-10.1); Carbon Dioxide 26 mmol/L (21-32); Chloride 113 mmol/L (98-107); Est GFR (African American) 90.4; Glucose 109 mg/dl (70-99); Lipase 163 U/L (73-393); Magnesium 1.9 mg/dl (1.8-2.4); Potassium 3.9 mmol/L (3.5-5.1); Sodium 142 mmol/L (136-145)
[2019-05-22 06:16] LABS: Albumin Globulin Ratio 0.9 (0.9-2); Alkaline Phosphatase 76 U/L (45-117); Bilirubin,Total 0.6 mg/dl (0.2-1); Creatine Kinase 384 U/L (39-308); Globulin 3.5 gm/dl (2.5-4.0); Total Protein 6.8 gm/dl (6.4-8.2); Troponin I < 0.015 ng/ml (0-0.045)
[2019-05-22] MEDS ORDERED: LIDOCAINE/EPINEPH/TETRACAINE 1 EA SYR EXT STA (06:42)
--- NOTE | 2019-05-22 07:11 | CT Scan Report ---
CT OF THE HEAD WITHOUT CONTRAST CLINICAL HISTORY: Fall. AMS. COMPARISON STUDY: Head CT May 21, 2019 and MRI of the brain December 12, 2018. TECHNIQUE: Helical axial images of the head were obtained without IV contrast. Automated exposure con trol was utilized for the study. A dose lowering technique was utilized adhering to the principles o f ALARA. FINDINGS: No acute intracranial hemorrhage, midline shift or mass effect is present. The ventricular system is unremarkable. The basilar cisterns are patent. No extra-axial collections are present. Ther e are no findings to suggest acute dural sinus thrombosis or acute territorial infarct. No significan t calvarial abnormalities are present. Multiple facial fractures are better depicted on the maxillofa cial CT. There is a left periorbital contusion. There is no retrobulbar hematoma. IMPRESSION: 1. No acute intracranial findings. 2. No calvarial fracture. 3. Multiple facial fractures and a left periorbital contusion with air-fluid level within the left ma xillary sinus. These findings are better depicted on the maxillofacial CT. ACT 112: Negative or not required by law. Electronically signed by: Frandy Fenton M.D. 05/22/2019 7:09 AM
--- NOTE | 2019-05-22 07:11 | CT Scan Report ---
MAXILLOFACIAL CT WITHOUT CONTRAST CLINICAL HISTORY: Fall. AMS. COMPARISON STUDY: Head CT May 21, 2019. TECHNIQUE: A maxillofacial CT was performed without IV contrast. Coronal and sagittal reformats were viewed. Automated exposure control was utilized for the study. A dose lowering technique was utiliz ed adhering to the principles of ALARA. FINDINGS: A left periorbital contusion is noted. The globes are intact and there is no retrobulbar he matoma. There is nasal soft tissue swelling and multiple locules of gas. Comminuted displaced bilater al nasal bone fractures are present. There is also a comminuted displaced fracture of the nasal septu m. Air-fluid level within the left maxillary sinus is present. There are secretions within the nasal cavity. A tiny left sphenoid sinus air-fluid level is present. Alignment of the temporomandibular padmini nts is anatomic. Cervical spine CT will be reported separately. Note is made of an age indeterminate minimally displaced fracture of the right occipital condyle. IMPRESSION: 1. Comminuted displaced fractures of the bilateral nasal bones and the nasal septum. Nasal soft tissu e swelling and gas. 2. Left periorbital contusion. Globes intact with no retrobulbar hematoma. 3. Age indeterminate minimally displaced fracture of the right occipital condyle ACT 112: Negative or not required by law. Electronically signed by: Frandy Fenton M.D. 05/22/2019 7:10 AM
--- NOTE | 2019-05-22 07:13 | CT Scan Report ---
CT SCAN OF THE ABDOMEN AND PELVIS WITHOUT IV CONTRAST CLINICAL HISTORY: Fall. COMPARISON STUDY: Abdominal CT dated 12/19/2017 TECHNIQUE: CT scan of the abdomen and pelvis is performed from the lung bases to the proximal femora. Images are reviewed in the axial, sagittal, and coronal planes. IV contrast was not administered for this examination as per the referring clinician. Note that the examination was performed in suboptim al fashion without IV contrast. The examination is also degraded by motion artifact, and by streak ar tifact from the arms which could not be elevated above the abdomen. A dose lowering technique was uti lized adhering to the principles of ALARA. FINDINGS: Lung bases: The heart is enlarged and without pericardial effusion. The coronary arteries are densely calcified. There is a moderate hiatal hernia. Scarring/atelectasis is noted at the lung bases. No ai rspace consolidation or pleural effusion is seen. Liver: The unenhanced liver is normal in size, contour, and attenuation. There is no intrahepatic yamil iary ductal dilatation. Gallbladder: Surgically absent noting clips in the gallbladder fossa. Spleen: Normal in size and attenuation. Pancreas: The unenhanced pancreas is moderately atrophic and grossly unremarkable. Adrenal glands: Unremarkable. Kidneys: The unenhanced kidneys demonstrate cortical atrophy and are without hydronephrosis. There ar e no renal calculi identified. There is no evidence of contour deforming renal mass lesion. Abdominal vasculature: There is advanced atherosclerotic calcification of the abdominal aorta. There is a 4.2 x 4.3 cm infrarenal abdominal aortic aneurysm. Bowel: There is moderate constipation. No bowel obstruction is identified. There is mild colonic dive rticulosis without CT evidence of acute diverticulitis. The appendix is well-visualized and normal. Peritoneum: There is no intraperitoneal free air or abdominal ascites. Lymphadenopathy: None. Pelvic viscera: The prostate gland is mildly enlarged and heterogeneous. Numerous brachytherapy seeds are noted. The bladder wall is thickened and trabeculated indicating chronic outlet obstruction. Skeletal structures: The skeletal structures are osteopenic. There is moderate lumbosacral spondylosi s. No lytic or blastic lesions are seen. IMPRESSION: 1. Suboptimal examination without oral and IV contrast. The examination is also degraded by streak an d motion artifact. 2. There is no evidence of solid organ injury in the abdomen or pelvis on this unenhanced examination . 3. Cardiomegaly and hiatal hernia. 4. Moderate constipation. 5. There is a 4.2 x 4.3 cm infrarenal abdominal aortic aneurysm. 6. Mild colonic diverticulosis without CT evidence of acute diverticulitis. 7. Additional findings as above. ACT 112: Negative or not required by law. Electronically signed by: Clark Dawkins M.D. 05/22/2019 7:12 AM
--- NOTE | 2019-05-22 07:19 | CT Scan Report ---
CT cervical spine wo con CLINICAL HISTORY: 83 years-old Male with Fall. AMS.. Acute neck injury status post fall COMPARISON: CT head of same day, CT cervical spine 11/19/2017 TECHNIQUE: Multiple axial CT images of the cervical spine were obtained without contrast. A dose low ering technique was utilized adhering to the principles of ALARA. FINDINGS: Nondisplaced fracture involves the right aspect of the C5 spinous process, likely acute versus subacu te. 5 mm bone fragment involves the medial aspect of the right occipital condyle, image 116 series 5 which is new from the 2018 exam. Vertebral body heights are well-maintained. Moderate multilevel disc space narrowing. Posterior disc osteophyte complex formations are noted at multiple levels, largest at the C5-C6 level. 3 mm anterolisthesis C4 on C5, likely degenerative related to long-standing facet arthrosis. There is severe multilevel facet arthrosis, right greater than left. Evaluation of the ce ntral canal and neuroforamina is better assessed by MRI. Multilevel foraminal narrowing. At least mil d central canal stenosis at C5-C6. Lung apices are clear. No prevertebral soft tissue swelling. Calcified plaque of the carotid bulbs. S ecretions are noted within the nasal turbinates, left maxillary sinus and nasopharynx. IMPRESSION: 1. Nondisplaced fracture of the C5 spinous process is new from 11/19/2017 suggestive of acute or subacu te injury. 2. Subcentimeter fracture involving the anteromedial right occipital condyle is also new from the 201 8 study and is age-indeterminate. 3. Multilevel degenerative changes of the cervical spine as above. 4. Layering secretions are noted within the paranasal sinuses, nasal turbinates and nasopharynx. Plea se refer to CT maxillofacial study of same day for further details. ACT 112: Negative or not required by law. The above report was generated using voice recognition software. It may contain grammatical, syntax o r spelling errors. Electronically signed by: Isaiah Wilks M.D. 05/22/2019 7:18 AM
--- NOTE | 2019-05-22 07:19 | CT Scan Report ---
CT OF THE CHEST WITHOUT IV CONTRAST CLINICAL HISTORY: Fall. AMS. COMPARISON STUDY: Chest CT December 09, 2017. Chest radiograph May 21, 2019. CT DOSE: 1987.44 mGy.cm TECHNIQUE: Axial images of the chest were obtained without IV contrast. Images were reviewed in the axial, sagittal, and coronal planes. IV contrast was not administered for this examination. Automat ed exposure control was utilized for the study. A dose lowering technique was utilized adhering to t principles of ALARA. FINDINGS: No mediastinal hematoma is identified. Evaluation of the thoracic aorta is suboptimal on t his unenhanced examination. There are median sternotomy wires and postoperative findings from bypass grafting. Extensive coronary artery calcification is present. There is moderate cardiomegaly. Mild es ophageal wall thickening is unchanged. There is no pericardial effusion. No pneumothorax or pleural e ffusion is noted. There is basilar peripheral predominant subpleural reticulation with possible honey combing. This is similar to prior CT. Mild bilateral lower lobe groundglass opacities are noted. No a cute rib or thoracic spine fracture is noted. Multiple bilateral rib fractures are noted. The abdomen and pelvis will be reported separately. IMPRESSION: 1. No acute traumatic findings within the chest. 2. Evidence for interstitial lung disease which is similar to CT of December 09, 2017. Mild nonspecific b ilateral lower lobe groundglass opacities. ACT 112: Negative or not required by law. Electronically signed by: Frandy Fenton M.D. 05/22/2019 7:18 AM
[2019-05-22] MEDS ORDERED: CLINDAMYCIN 600 MG/54 ML BAG IV ONE (07:58)
--- NOTE | 2019-05-22 07:59 | History & Physical Report ---
Date of Service May 22, 2019 Assessment & Plan (1) Fall: Presented with presumed fall likely related to generalized deconditioning, cognitive impairment, ativan use. Suffered multiple fractures as below Needs PT/OT evaluations (2) Cervical spine fracture: C5 spinous process fracture secondary to fall -soft collar -appreciate Ortho consult -pain control as needed w/ tylenol (3) Unspecified occipital condyle fracture, initial encounter for closed fracture: secondary to fall pain control (4) Nasal bone fractures: -CT of the neck reviewed showing nondisplaced fracture of the C5 spinous process,5 mm bone fragment involving the medial aspect of the right occipital condyle, multi-level degenerative changes of the cervical spine, layering secretions within the paranasal sinuses, nasal turbinates and nasopharynx. -There was question if the acute fracture involving C5 foramen had caused any vertebral artery injury, this was followed up with a CTA of the neck which showed there was no acute vessel injury. -Orthopedic consult, Dr. Donis, discussed with him over the phone and recommends placing the patient in a soft collar, we will follow-up as a co nsult/in office as outpatient -ENT consult, Dr. 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 Case management to assist with discharge planning when appropriate. -will fill out paperwork needed for placement (6) Anemia: -Hemoglobin of 13.1, appears stable compared to previous trend of hemoglobin and hematocrit - monitor tomorrow morning labs for any changes as the patient is on Plavix and aspirin with history of CAD (7) CAD (coronary artery disease): s/p CABG -Continue aspirin and Plavix -Continue metoprolol succinate 25 mg daily - is supposed to be on Imdur as noted in last cardiology note by Dr. Pratt- cannot find this on the med rec - need confirmation from pharmacy. There has been a lot of question of compliance with meds at home as he has dementia -Hx of ID in February 2019 per cardiology records (8) S/P CABG (coronary artery bypass graft): (9) Aneurysm of abdominal aorta: Dilated aoritc root, no further imagine and family not interested in aggressive measures. On beta-elinor. (10) Ischemic cardiomyopathy: EF 35% on ECHO 02/2019 - Continue medication as above, ICD was discussed previously but due to advanced age/dementia and he and family are not interested (11) Mitral regurgitation: - Minimal on most recent echo (12) Pulmonary embolism: h/o such, no longer on anticoagulation due to multiple falls (13) DVT (deep venous thrombosis): history of such (14) Hypothyroid: TSH normal at 1.18 -Cont levothyroxine 50 mcg (15) DVT prophylaxis: - teds, plavix, asa CODE: DNR/DNI , Daughter, Velvet is POA and initially was unavailable by phone. I called her and was unable to get body bumper where we could talk. Son, was updated via phone. He did not want to make code decision. Velvet is driving here currently, will discuss with her once she arrives. Dispo: From home, need placement at [facility] with help from CM. See above. Time spent with this patient involved prolonged care, 103 minutes, involving coordination between specialists, ER, family and hospital medicine service, discussion of studies, and chart review. History of Present Illness Primary Care Provider: Curtis Carrillo MD This is an 83 yo M with PMHx of CAD s/p CABG, HTN, HLD, ischemic cardiomyopathy, , hx of NSTEMI, AAA, anemia, Hx of PE/DVT on anticoagulation, CKD stage III,and significant dementia who presents with acute fall in the middle of the night last night. He is being cared for at home by his family, they had set up for placement in [facility] on 05/27/2018, however he was becoming more difficult to manage at home and they tried to get him placed yesterday however were unsuccessful. In the middle of the night patient sustained a fall resulting in a C5 fracture as well as bilateral nasal fractures and right occipital condyle fracture after imaging studies obtained in the ER. To the family's knowledge there was no prodrome however the event was unwitnessed. Lab s are WNL in comparison to his previous blood work trends, EKG was reviewed and he is in sinus bradycardia with an old RBBB. Patient is unable to provide me with any history as he is confused, reports that he did not fall, and that people here did this to him. He does not understand what is going on, what studies have been conducted or that he has fractured anything. Allergies Allergy/AdvReac Type Severity Reaction Status Date / Time Cephalosporins Allergy Severe RASH Verified 05/22/19 05:49 morphine Allergy Unknown Unknown Verified 05/22/19 05:49 Home Medications Home Medications Medication Instructions Recorded Confirmed Type aspirin 81 mg tablet,delayed 81 mg PO DAILY #30 tab 01/16/19 05/22/19 Rx release atorvastatin 40 mg tablet 40 mg PO DAILY #90 tab 03/17/19 05/22/19 Rx levothyroxine 50 mcg tablet 50 mcg PO DAILY #90 tab 03/17/19 05/22/19 Rx metoprolol succinate 25 mg 25 mg PO DAILY #90 tab 03/17/19 05/22/19 Rx tablet,extended release 24 hr nitroglycerin 400 mcg/spray 1 sprays SL Q5M PRN #4.9 gm 03/17/19 05/22/19 Rx translingual thiamine HCl (vitamin B1) 250 mg PO DAILY 04/27/19 05/22/19 History clopidogrel 75 mg tablet 75 mg PO QAM 30 Days #30 tab 04/30/19 05/22/19 Rx docusate sodium 100 mg capsule 100 mg PO DAILY PRN 04/30/19 05/22/19 History Past Med/Surg History Medical History CAD (coronary artery disease) (Chronic) Dilated aortic root (Acute) DVT (deep venous thrombosis) History of deep vein thrombosis of lower extremity (Resolved) History of prostate cancer (Resolved) History of pulmonary embolus (PE) (Resolved 11/02/12) Hyperlipidemia (Acute) Hypothyroid (Chronic) Ischemic cardiomyopathy (Chronic) Mitral regurgitation (Acute) NSTEMI (non-ST elevated myocardial infarction) (Resolved) Pancreatitis (Resolved) Pulmonary embolism S/P CABG (coronary artery bypass graft) (Acute) Surgical History H/O esophagogastroduodenoscopy History of cataract surgery Hx of cholecystectomy S/P CABG x 3 (Resolved) S/P radiation therapy (Resolved) Family History Father Diabetes Cerebral atherosclerosis CHF (congestive heart failure) Sister Diabetes Brother Coronary atherosclerosis Mother Coronary atherosclerosis Other Heart disease Social History Preferred Language: Arabic Communication Ability: Impaired Communication Ability Comment: altered mental status Visual Impairment: No Limitations Hearing Ability: Normal Primer Charger Required: No Beliefs That Will Affect Care: None marital status: Current Living Situation: Spouse current occupational status: retired 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 [employer] Other Information That Helps Us Care for You: No other: with dementia Feels Safe at Home: Yes Safety Concerns: Feels Safe At This Time Smoking Status: Former smoker Do You Dip or Chew Tobacco: No ; Second Hand Exposure: No ; Tobacco Cessation Education Requested by Patient: No Hx Alcohol Use: No Hx Substance Use: No Seatbelt Use: always Review of Systems Review of Systems: Unobtainable due to cognitive status Physical Exam Physical Exam: General: awake, + confused, + pulling at lines and reaching into the air for something throughout exam Head: Normocephalic, + s/p fall and trauma to face, + in soft collar ENT: + Eyes shut bilaterally due to edema, + crusting dried blood surrounding nares, + small laceration over bridge of nose, + developing ecchymosis and edema of the nose, worse with the left orbit vs the right, mucous membranes moist with darkened blood in posterior pharynx. Chest: Clear to auscultation, on room air, no adventitious breath sounds Cardiac: Regular rate and rhythm, no murmur, no JVD, normal peripheral pulses, good capillary refill Abdominal: NABS x 4 quadrants, soft, nondistended, nontender to palpation, no rebound, guarding or tenderness Extremities: Normal inspection, no peripheral edema or erythema, calfs nontender to palpation Psych: +aggitated slightly Neuro: AA not oriented to place or time, knows himself and his name. strength intact bilaterally and related 5/5, no motor deficits, speech is clear, no peripheral sensory deficits Skin: no rash or erythema Results & Data Vital Signs (Past 12 Hours) Vital Signs Temp Pulse Pulse Resp BP BP Pulse Ox 05/22/19 07:16 66 20 177/93 H 100 05/22/19 07:00 62 13 167/97 H 100 05/22/19 06:30 51 L 13 166/94 H 97 05/22/19 06:00 50 L 17 168/72 H 97 05/22/19 05:45 49 L 171/77 H 99 05/22/19 05:17 36.2 C L 67 22 182/88 H 97 Laboratory Results 05/22/19 05/22/19 05/22/19 Range/Units 08:00 08:00 05:39 WBC (4.8-10.8) K/uL RBC (4.7-6.1) M/uL Hgb (14.0-18.0) g/dL Hct (42-52) % MCV (80-100) fL MCH (25-34) pg MCHC (32-36) g/dL RDW Std Deviation (36.4-46.3) fL RDW Coeff of Bea (11.5-14.5) % Plt Count (130-400) K/uL MPV (7.4-10.4) fL Immature Gran % (Auto) % Neut % (Auto) % Lymph % (Auto) % Bond % (Auto) % Eos % (Auto) % Baso % (Auto) % Immature Gran # (Auto) (0.00-0.02) K/uL Neut # (Auto) (1.4-6.5) K/uL Lymph # (Auto) (1.2-3.4) K/uL Bond # (Auto) (0.11-0.59) K/uL Eos # (Auto) (0-0.5) K/uL Baso # (Auto) (0-0.2) K/uL PT (9.0-12.0) Seconds INR (0.9-1.1) APTT (21.0-31.0) Seconds PTT Ratio Sodium (136-145) mmol/L Potassium (3.5-5.1) mmol/L Chloride (98-107) mmol/L Carbon Dioxide (21-32) mmol/L Anion Gap (3-11) BUN (7-18) mg/dl Creatinine (0.6-1.4) mg/dl Est Cr Clr Drug Dosing Est GFR ( Amer) Est GFR (Non-Af Amer) BUN/Creatinine Ratio (10-20) Glucose (70-99) mg/dl Calcium (8.5-10.1) mg/dl Magnesium (1.8-2.4) mg/dl Total Bilirubin (0.2-1) mg/dl AST (15-37) U/L ALT (12-78) U/L Alkaline Phosphatase (45-117) U/L Total Creatine Kinase (39-308) U/L Troponin I (0-0.045) ng/ml Total Protein (6.4-8.2) gm/dl Albumin (3.4-5.0) gm/dl Globulin (2.5-4.0) gm/dl Albumin/Globulin Ratio (0.9-2) Lipase (73-393) U/L TSH (0.300-4.500) uIu/ml Urine Color Yellow Urine Appearance Clear (Clear) Urine pH 6.5 (4.5-7.5) Ur Specific [place] 1.017 (1.000-1.030) Urine Protein Negative (Negative) Urine Glucose (UA) Negative (Negative) Urine Ketones Negative (Negative) Urine Blood 3+ H (Negative) Urine Nitrite Negative (Negative) Urine Bilirubin Negative (Negative) Urine Urobilinogen Negative (Negative) Ur Leukocyte Esterase Negative (Negative) Urine WBC (Auto) 1-5 (0-5) /hpf Urine RBC (Auto) 10-30 H (0-4) /hpf U Hyaline Cast (Auto) 1-5 (0-5) /lpf U Epithel Cells (Auto) 20-30 H (0-5) /lpf Urine Bacteria (Auto) Negative (Negative) Urine Opiates Screen Neg (Neg) Ur Methadone, Qual Neg (Neg) Urine Barbiturates Neg (Neg) Ur Phencyclidine (PCP) Neg (Neg) U Amphetamin/Meth Scrn Neg (Neg) MDMA (Ecstasy) Screen Neg (Neg) U Benzodiazepines Scrn Neg (Neg) Ur Cocaine Metabolite Neg (Neg) U Marijuana (THC) Screen Neg (Neg) Ethyl Alcohol mg/dL < 3.0 (0-3) mg/dl 05/22/19 05/22/19 05/22/19 Range/Units 05:39 05:39 05:39 WBC 10.10 (4.8-10.8) K/uL RBC 4.53 L (4.7-6.1) M/uL Hgb 13.3 L (14.0-18.0) g/dL Hct 40.9 L (42-52) % MCV 90.3 (80-100) fL MCH 29.4 (25-34) pg MCHC 32.5 (32-36) g/dL RDW Std Deviation 49.7 H (36.4-46.3) fL RDW Coeff of Bea 15.1 H (11.5-14.5) % Plt Count 159 (130-400) K/uL MPV 10.9 H (7.4-10.4) fL Immature Gran % (Auto) 0.3 % Neut % (Auto) 68.8 % Lymph % (Auto) 19.5 % Bond % (Auto) 11.3 % Eos % (Auto) 0.0 % Baso % (Auto) 0.1 % Immature Gran # (Auto) 0.03 H (0.00-0.02) K/uL Neut # (Auto) 6.95 H (1.4-6.5) K/uL Lymph # (Auto) 1.97 (1.2-3.4) K/uL Bond # (Auto) 1.14 H (0.11-0.59) K/uL Eos # (Auto) 0.00 (0-0.5) K/uL Baso # (Auto) 0.01 (0-0.2) K/uL PT 10.8 (9.0-12.0) Seconds INR 1.1 (0.9-1.1) APTT 25.4 (21.0-31.0) Seconds PTT Ratio 0.9 Sodium 142 (136-145) mmol/L Potassium 3.9 (3.5-5.1) mmol/L Chloride 113 H (98-107) mmol/L Carbon Dioxide 26 (21-32) mmol/L Anion Gap 3.0 (3-11) BUN 23 H (7-18) mg/dl Creatinine 0.89 (0.6-1.4) mg/dl Est Cr Clr Drug Dosing Not Reportable Est GFR ( Amer) 90.4 Est GFR (Non-Af Amer) 78.0 BUN/Creatinine Ratio 26.0 H (10-20) Glucose 109 H (70-99) mg/dl Calcium 8.8 (8.5-10.1) mg/dl Magnesium 1.9 (1.8-2.4) mg/dl Total Bilirubin 0.6 (0.2-1) mg/dl AST 28 (15-37) U/L ALT 24 (12-78) U/L Alkaline Phosphatase 76 (45-117) U/L Total Creatine Kinase 384 H (39-308) U/L Troponin I < 0.015 (0-0.045) ng/ml Total Protein 6.8 (6.4-8.2) gm/dl Albumin 3.3 L (3.4-5.0) gm/dl Globulin 3.5 (2.5-4.0) gm/dl Albumin/Globulin Ratio 0.9 (0.9-2) Lipase 163 (73-393) U/L TSH 1.180 (0.300-4.500) uIu/ml Urine Color Urine Appearance (Clear) Urine pH (4.5-7.5) Ur Specific [place] (1.000-1.030) Urine Protein (Negative) Urine Glucose (UA) (Negative) Urine Ketones (Negative) Urine Blood (Negative) Urine Nitrite (Negative) Urine Bilirubin (Negative) Urine Urobilinogen (Negative) Ur Leukocyte Esterase (Negative) Urine WBC (Auto) (0-5) /hpf Urine RBC (Auto) (0-4) /hpf U Hyaline Cast (Auto) (0-5) /lpf U Epithel Cells (Auto) (0-5) /lpf Urine Bacteria (Auto) (Negative) Urine Opiates Screen (Neg) Ur Methadone, Qual (Neg) Urine Barbiturates (Neg) Ur Phencyclidine (PCP) (Neg) U Amphetamin/Meth Scrn (Neg) MDMA (Ecstasy) Screen (Neg) U Benzodiazepines Scrn (Neg) Ur Cocaine Metabolite (Neg) U Marijuana (THC) Screen (Neg) Ethyl Alcohol mg/dL (0-3) mg/dl Diagnostic Findings CT cervical spine wo con ADDENDUM Additionally, there is a questioned acute fracture involving the right vertebral foramen at C5 (image 361 series 5). Correlation with CTA of the neck recommended to exclude associated arterial injury. Findings were discussed with Dr. Shanta on 05/22/2019 at 7:58 AM. Electronically signed by: Isaiah Wilks M.D. 05/22/2019 7:[address] cervical spine wo con CLINICAL HISTORY: 83 years-old Male with Fall. AMS.. Acute neck injury status post fall COMPARISON: CT head of same day, CT cervical spine 11/19/2017 TECHNIQUE: Multiple axial CT images of the cervical spine were obtained without contrast. A dose lowering technique was utilized adhering to the principles of ALARA. FINDINGS: Nondisplaced fracture involves the right aspect of the C5 spinous process, lik usman acute versus subacute. 5 mm bone fragment involves the medial aspect of the right occipital condyle, image 116 series 5 which is new from the 2018 exam. Vertebral body heights are well-maintained. Moderate multilevel disc space narrowing. Posterior disc osteophyte complex formations are noted at multiple levels, largest at the C5-C6 level. 3 mm anterolisthesis C4 on C5, likely degenerative related to long-standing facet arthrosis. There is severe multilevel facet arthrosis, right greater than left. Evaluation of the central canal and neuroforamina is better assessed by MRI. Multilevel foraminal narrowing. At least mild central canal stenosis at C5-C6. Lung apices are clear. No prevertebral soft tissue swelling. Calcified plaque of the carotid bulbs. Secretions are noted within the nasal turbinates, left maxillary sinus and nasopharynx. CLINICAL HISTORY: 83 years-old Male with Fall. AMS.. Acute neck injury status post fall COMPARISON: CT head of same day, CT cervical spine 11/19/2017 TECHNIQUE: Multiple axial CT images of the cervical spine were obtained without contrast. A dose lowering technique was utilized adhering to the principles of ALARA. FINDINGS: Nondisplaced fracture involves the right aspect of the C5 spinous process, likely acute versus subacute. 5 mm bone fragment involves the medial aspect of the right occipital condyle, image 116 series 5 which is new from the 2018 exam. Vertebral body heights are well-maintained. Moderate multilevel disc space narrowing. Posterior disc osteophyte complex formations are noted at multiple levels, largest at the C5-C6 level. 3 mm anterolisthesis C4 on C5, likely degenerative related to long-standing facet arthrosis. There is severe multilevel facet arthrosis, right greater than left. Evaluation of the central canal and neuroforamina is better assessed by MRI. Multilevel foraminal narrowing. At least mild central canal stenosis at C5-C6. Lung apices are clear. No prevertebral soft tissue swelling. Calcified plaque of the carotid bulbs. Secretions are noted within the nasal turbinates, left maxillary sinus and nasopharynx. IMPRESSION: 1. Nondisplaced fracture of the C5 spinous process is new from 11/19/2017 suggestive of acute or subacute injury. 2. Subcentimeter fracture involving the anteromedial right occipital condyle is also new from the 2018 study and is age-indeterminate. 3. Multilevel degenerative changes of the cervical spine as above. 4. Layering secretions are noted within the paranasal sinuses, nasal turbinates and nasopharynx. Please refer to CT maxillofacial study of same day for further details. MAXILLOFACIAL CT WITHOUT CONTRAST CLINICAL HISTORY: Fall. AMS. COMPARISON STUDY: Head CT May 21, 2019. TECHNIQUE: A maxillofacial CT was performed without IV contrast. Coronal and sagittal reformats were viewed. Automated exposure control was utilized for the study. A dose lowering technique was utilized adhering to the principles of ALARA. FINDINGS: A left periorbital contusion is noted. The globes are intact and there is no retrobulbar hematoma. There is nasal soft tissue swelling and multiple locules of gas. Comminuted displaced bilateral nasal bone fractures are present. There is also a comminuted displaced fracture of the nasal septum. Air-fluid level within the left maxillary sinus is present. There are secretions within the nasal cavity. A tiny left sphenoid sinus air-fluid level is present. Alignment of the temporomandibular joints is anatomic. Cervical spine CT will be reported separately. Note is made of an age indeterminate minimally displaced fracture of the right occipital condyle. IMPRESSION: 1. Comminuted displaced fractures of the bilateral nasal bones and the nasal septum. Nasal soft tissue swelling and gas. 2. Left periorbital contusion. Globes intact with no retrobulbar hematoma. 3. Age indeterminate minimally displaced fracture of the right occipital condyle CT OF THE HEAD WITHOUT CONTRAST CLINICAL HISTORY: Fall. AMS. COMPARISON STUDY: Head CT May 21, 2019 and MRI of the brain December 12, 2018. TECHNIQUE: Helical axial images of the head were obtained without IV contrast. Automated exposure control was utilized for the study. A dose lowering technique was utilized adhering to the principles of ALARA. FINDINGS: No acute intracranial hemorrhage, midline shift or mass effect is present. The ventricular system is unremarkable. The basilar cisterns are patent. No extra-axial collections are present. There are no findings to suggest acute dural sinus thrombosis or acute territorial infarct. No significant calvarial abnormalities are present. Multiple facial fractures are better depicted on the maxillofacial CT. There is a left periorbital contusion. There is no retrobulbar hematoma. IMPRESSION: 1. No acute intracranial findings. 2. No calvarial fracture. 3. Multiple facial fractures and a left periorbital contusion with air-fluid level within the left maxillary sinus. These findings are better depicted on the maxillofacial CT. CT OF THE CHEST WITHOUT IV CONTRAST CLINICAL HISTORY: Fall. AMS. COMPARISON STUDY: Chest CT December 09, 2017. Chest radiograph May 21, 2019. CT DOSE: 1987.44 mGy.cm TECHNIQUE: Axial images of the chest were obtained without IV contrast. Images were reviewed in the axial, sagittal, and coronal planes. IV contrast was not administered for this examination. Automated exposure control was utilized for the study. A dose lowering technique was utilized adhering to the principles of ALARA. FINDINGS: No mediastinal hematoma is identified. Evaluation of the thoracic aorta is suboptimal on this unenhanced examination. There are median sternotomy wires and postoperative findings from bypass grafting. Extensive coronary artery calcification is present. There is moderate cardiomegaly. Mild esophageal wall thickening is unchanged. There is no pericardial effusion. No pneumothorax or pleural effusion is noted. There is basilar peripheral predominant subpleural reticulation with possible honeycombing. This is similar to prior CT. Mild bilateral lower lobe groundglass opacities are noted. No acute rib or thoracic spine fracture is noted. Multiple bilateral rib fractures are noted. The abdomen and pelvis will be reported separately. IMPRESSION: 1. No acute traumatic findings within the chest. 2. Evidence for interstitial lung disease which is similar to CT of December 09, 2017. Mild nonspecific bilateral lower lobe groundglass opacities. ECG Rhythm: normal sinus Findings: + Q waves (inderior infarct old) Additional Comments: RBBB Code Status & VTE Plan Code Status DNR/DNI VTE Prophylaxis Plan VTE Prophylaxis will be ordered: Yes Supervising Physician Co-Signing Physician Notes PA Supervision Note: I personally saw and examined the patient. I verified all rodas points and agree with VADIM Benítez with the following exceptions and/or additions: Pt here after presumed fall and suffered polytrauma with nasal bone fractures, C5 and occipital condyle fractures, periorbital contusion on left. Pt very confused, denies pain. Keeps saying "Do you know why it takes 3-4 hours to wait for a doctor over there across the street?" and then repeats himself. History and ROS reviewed as above Spoke with daughter in person and with Dr. Araujo of ENT Vitals reviewed Left periorbital ecchymosis and mild edema Dried blood on nose and left cheek Nose without septal hematoma but with significant deviation to the left OP clear PERRL, left eyes with bloody and yellow crusty drainage Neck in soft collar not removed RRR no mgr CTAB no wcr ABd +BS soft NT ND Ext no edema, moving all extremities Neuro-confused, yelling out at times, does follow some simple commands Labs, ECG, and CT scans all reviewed 83 yo male with history as above, here with fall and polytrauma -plan for OR tomorrow for repair of nasal bone fracture due to severity of fracture and deviation -continue abx for prophylaxis with nasal fracture and fluid in sinuses -Appreciate ENT consultation -APpreciate Ortho consultation-maintain soft collar PT/OT evals As for CV perioperative anesthesia risk, he is at high risk for CV complication due to ischemic cardiomyopathy, recent NSTEMI Oct and CAD, questionable compliance recently with medications. ECG wihtout acute ischemic changes, denies chest pain No renal failure Daughter aware of increased risk with cardiac issues underlying but does decide to proceed with procedure as she is decision maker for her father. PG Care Time/CCT Total # of Minutes Spent Total Time Spent with Patient: Total time spent is greater than 50% in coordination of care (as documented) at patient's floor/unit and/or counseling patient: (1) Dementia Dementia behavioral disturbance: without behavioral disturbance Dementia type: unspecified type Qualified Code(s): F03.90 - Unspecified dementia without behavioral disturbance (2) Hypothyroid Hypothyroidism type: unspecified Qualified Code(s): E03.9 - Hypothyroidism, unspecified
[2019-05-22] MEDS ORDERED: OPTIRAY 320 125ml IV PRN (08:23)
[2019-05-22 08:25] LABS: Appearance Urine Clear (Clear); Bacteria Urine Automated Negative (Negative); Bilirubin Urine Negative (Negative); Blood Urine 3+ (Negative); Color Urine Yellow; Epithelial Cell Urine Auto 20-30 /lpf (0-5); Glucose Urine UA Negative (Negative); Ketones Urine Negative (Negative); Leukocyte Esterase Urine Negative (Negative); Nitrite Urine Negative (Negative); Protein Urine Negative (Negative); Specific Gravity Urine 1.017 (1.000-1.030); Urobilinogen Urine Negative (Negative); pH Urine 6.5 (4.5-7.5)
[2019-05-22 08:41] LABS: Amphetamines+Metham, Urine Neg (Neg); Barbiturates, Urine Neg (Neg); Benzodiazepine, Urine Neg (Neg); Cocaine, Urine Neg (Neg); MDMA (Ecstacy), Urine Neg (Neg); Methadone, Urine Neg (Neg); Opiate, Urine Neg (Neg); Phencyclidine, Urine Neg (Neg)
--- NOTE | 2019-05-22 08:45 | CT Scan Report ---
CT ANGIOGRAPHY OF THE NECK WITH CONTRAST CLINICAL HISTORY: Eval for possible vertebral artery issue at c5 COMPARISON STUDY: CT of the cervical spine November 19, 2017 and May 22, 2019. Carotid ultrasound October 26, 2017. Technique: CT angiography of the carotid and vertebral arteries was obtained using [employer] 320 IV and 3D reconstruction on an independent workstation. NASCET criteria was utilized. Automated exposure c ontrol was utilized for the study. A dose lowering technique was utilized adhering to the principles of ALARA. CT DOSE: 545.29 mGy.cm Findings: Note is again made of bilateral nasal bone fractures and a fracture of the nasal septum. Th ere is an acute nondisplaced fracture of the spinous process of C5. A probable additional acute nondi splaced fracture through the right pedicle of C5 which extends through the foramen transversarium is noted. There is an age indeterminate minimally displaced fracture of the right occipital condyle. The re is no evidence for injury to the major vessels of the neck. Specifically, no dissection is noted. No pseudoaneurysm or vessel occlusion is noted. There is moderate stenosis at the origin of the left vertebral artery. There is mild stenosis of the intracranial portions of the bilateral vertebral arteries. There is extensive plaque within the left carotid bifurcation. This results in moderate to severe narrowing of the distal left common carotid a rtery and severe narrowing of the proximal left internal carotid artery. Patent portion of the vessel measures 1 mm in caliber. The distal left internal carotid artery measures 4 mm in caliber. There ar e severe stenosis at the origin of the left external carotid artery as well. There is moderate plaque within the right carotid bifurcation without stenosis. There is trace prevertebral edema. There is m oderate plaque within the bilateral cavernous carotids. IMPRESSION: 1. No evidence of traumatic injury to the major vessels of the neck. 2. Acute appearing nondisplaced fractures of the spinous process of C5 and right pedicle of C5. Age i ndeterminate minimally displaced fracture of the right occipital condyle and acute bilateral nasal robert ne and nasal septal fractures. 3. 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 Moderate to severe stenosis of the distal left common carotid artery and severe arlen nosis at the origin of the left external carotid artery. ACT 112: Negative or not required by law. Electronically signed by: Frandy Fenton M.D. 05/22/2019 8:44 AM
[2019-05-22] MEDS ORDERED: ACETAMINOPHEN 325 MG TAB PO PRN (08:59)
[2019-05-22] MEDS ORDERED: ONDANSETRON INJ 2 MG/ML 2 ML VIAL IV PRN (08:59)
[2019-05-22] MEDS ORDERED: DOCUSATE SODIUM 100 MG CAP PO PRN (09:06)
[2019-05-22] MEDS ORDERED: NITROGLYCERIN SL 0.4 MG/TAB TAB SL PRN (10:52)
--- NOTE | 2019-05-22 11:26 | Orthopedic Consultation ---
Date of Consultation May 22, 2019 Assessment & Plan (1) Cervical spine fracture: After discussion with Dr. Donis, we recommended a soft collar for his cervical spine. He may remove the collar to eat but otherwise, he should remain in the collar. We will continue to follow him. History of Present Illness Attending Physician: Sharifa Victoria MD History of Present Illness Félix is an 83 year old white male who presented to the ED this morning after he was discovered this morning after he sustained a fall sometime last night or early this morning. He was brought in via EMS. History is provided by his daughter who is alongside him. His daughter says that he was seen in the ED yesterday (05/21/19) for altered mental status. At that point, he was given Ativan and discharged to his home. The daughter believes that at some point in the night he then got up and was disoriented and fell. She does not know any of the specifics of the fell as she was not there and she was not the one who found him. Numerous CT studies were ordered and he was discovered to have a non- displaced C5 spinous process fracture, for which Dr. Donis and I were consulted. No review of systems, as patient is not alert at this point. I discussed the patient with Dr. Donis. Allergies Allergy/AdvReac Type Severity Reaction Status Date / Time Cephalosporins Allergy Severe RASH Verified 05/22/19 05:49 isosorbide Allergy Intermediate Anger and Verified 05/29/19 08:58 Confusion morphine Allergy Unknown Unknown Verified 05/22/19 05:49 Home Medications Home Medications Medication Instructions Recorded Confirmed Type aspirin 81 mg tablet,delayed 81 mg PO DAILY #30 tab 01/16/19 05/27/19 Rx release atorvastatin 40 mg tablet 40 mg PO DAILY #90 tab 03/17/19 05/27/19 Rx levothyroxine 50 mcg tablet 50 mcg PO DAILY #90 tab 03/17/19 05/27/19 Rx metoprolol succinate 25 mg 25 mg PO DAILY #90 tab 03/17/19 05/27/19 Rx tablet,extended release 24 hr nitroglycerin 400 mcg/spray 1 sprays SL Q5M PRN #4.9 gm 03/17/19 05/27/19 Rx translingual thiamine HCl (vitamin B1) 250 mg PO DAILY 04/27/19 05/27/19 History clopidogrel 75 mg tablet 75 mg PO QAM 30 Days #30 tab 04/30/19 05/27/19 Rx docusate sodium 100 mg capsule 100 mg PO DAILY PRN 04/30/19 05/27/19 History amoxicillin-pot clavulanate 1 tab PO BIDM #1 tab 05/26/19 05/27/19 Rx [Augmentin] ofloxacin 2 drp OPHTHALMIC (EYE) Q4HWA #1 ml 05/26/19 05/27/19 Rx olanzapine 2.5 mg tablet 2.5 mg PO QPM #30 tab 05/28/19 05/28/19 Rx Patient History Medical History AAA (abdominal aortic aneurysm) CAD (coronary artery disease) (Chronic) Dilated aortic root (Acute) DVT (deep venous thrombosis) History of deep vein thrombosis of lower extremity (Resolved) History of prostate cancer (Resolved) History of pulmonary embolus (PE) (Resolved 11/02/12) Hyperlipidemia (Acute) Hypothyroid (Chronic) Ischemic cardiomyopathy (Chronic) Mitral regurgitation (Acute) NSTEMI (non-ST elevated myocardial infarction) (Resolved) Pancreatitis (Resolved) Pulmonary embolism S/P CABG (coronary artery bypass graft) (Acute) Surgical History H/O esophagogastroduodenoscopy History of cataract surgery Hx of cholecystectomy S/P CABG x 3 (Resolved) S/P radiation therapy (Resolved) Family History Father Diabetes Cerebral atherosclerosis CHF (congestive heart failure) Sister Diabetes Brother Coronary atherosclerosis Mother Coronary atherosclerosis Other Heart disease Social History Preferred Language: Irish Communication Ability: Impaired Visual Impairment: No Limitations Hearing Ability: Normal Dental Specialist Required: No Beliefs That Will Affect Care: None marital status: Current Living Situation: Spouse current occupational status: retired 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 ENMT: Dried blood noted around his nose along with moderate amount of swelling. Neck: soft cervical collar in place. Respiratory: normal respiratory effort Skin: + ecchymosis Psychiatric: Patient was not responsive when I attempted to wake him. Results & Data Vital Signs (Past 12 Hours) Vital Signs Temp Pulse Pulse Resp BP BP Pulse Ox 05/22/19 10:34 59 L 05/22/19 10:33 36.6 C 78 16 169/78 H 99 05/22/19 09:56 54 L 20 156/87 H 99 05/22/19 08:32 62 21 181/93 H 99 05/22/19 07:16 66 20 177/93 H 100 05/22/19 07:00 62 13 167/97 H 100 05/22/19 06:30 51 L 13 166/94 H 97 05/22/19 06:00 50 L 17 168/72 H 97 05/22/19 05:45 49 L 171/77 H 99 05/22/19 05:17 36.2 C L 67 22 182/88 H 97 PG Care Time/CCT Total # of Minutes Spent Total Time Spent with Patient: Total time spent is greater than 50% in coordination of care (as documented) at patient's floor/unit and/or counseling patient: Coding Level of Care Code 99528 Office/Outpt Visit, New Diagnoses Cervical spine fracture S12.9XXA
[2019-05-22] MEDS ORDERED: Nursing to Pharmacy Communication ONE (12:17)
[2019-05-22] MEDS ORDERED: OXYMETAZOLINE 0.05% 30 ML BTL ONE (12:40)
--- NOTE | 2019-05-22 13:02 | ENT Consultation ---
Date of Consultation May 22, 2019 Assessment & Plan (1) Nasal bone fractures: This was discussed at length with the daughter and also with Dr. Camacho. They both prefer to observe the patient and also address his cervical spine fracture and other medical problems prior to addressing the nasal and septal fracture. (2) Fracture of nasal septum: He may need close reduction and septoplasty later. History of Present Illness Reason for Consultation: Nasal fracture Attending Physician: Sharifa Victoria MD History of Present Illness This 83-year-old gentleman fell last evening striking his nose and was found to have comminuted nasal fracture on CT scan and blood in the left maxillary sinus. Allergies Allergy/AdvReac Type Severity Reaction Status Date / Time Cephalosporins Allergy Severe RASH Verified 05/22/19 05:49 morphine Allergy Unknown Unknown Verified 05/22/19 05:49 Home Medications Home Medications Medication Instructions Recorded Confirmed Type aspirin 81 mg tablet,delayed 81 mg PO DAILY #30 tab 01/16/19 05/22/19 Rx release atorvastatin 40 mg tablet 40 mg PO DAILY #90 tab 03/17/19 05/22/19 Rx levothyroxine 50 mcg tablet 50 mcg PO DAILY #90 tab 03/17/19 05/22/19 Rx metoprolol succinate 25 mg 25 mg PO DAILY #90 tab 03/17/19 05/22/19 Rx tablet,extended release 24 hr nitroglycerin 400 mcg/spray 1 sprays SL Q5M PRN #4.9 gm 03/17/19 05/22/19 Rx translingual thiamine HCl (vitamin B1) 250 mg PO DAILY 04/27/19 05/22/19 History clopidogrel 75 mg tablet 75 mg PO QAM 30 Days #30 tab 04/30/19 05/22/19 Rx docusate sodium 100 mg capsule 100 mg PO DAILY PRN 04/30/19 05/22/19 History Patient History Medical History CAD (coronary artery disease) (Chronic) Dilated aortic root (Acute) DVT (deep venous thrombosis) History of deep vein thrombosis of lower extremity (Resolved) History of prostate cancer (Resolved) History of pulmonary embolus (PE) (Resolved 11/02/12) Hyperlipidemia (Acute) Hypothyroid (Chronic) Ischemic cardiomyopathy (Chronic) Mitral regurgitation (Acute) NSTEMI (non-ST elevated myocardial infarction) (Resolved) Pancreatitis (Resolved) Pulmonary embolism S/P CABG (coronary artery bypass graft) (Acute) Surgical History H/O esophagogastroduodenoscopy History of cataract surgery Hx of cholecystectomy S/P CABG x 3 (Resolved) S/P radiation therapy (Resolved) Family History Father Diabetes Cerebral atherosclerosis CHF (congestive heart failure) Sister Diabetes Brother Coronary atherosclerosis Mother Coronary atherosclerosis Other Heart disease Social History Preferred Language: Kiswahili Communication Ability: confusion Communication Ability Comment: altered mental status Visual Impairment: No Limitations Hearing Ability: Normal Home Administrator Required: No Beliefs That Will Affect Care: None marital status: Current Living Situation: Spouse current occupational status: retired 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 [employer] Other Information That Helps Us Care for You: No other: with dementia Feels Safe at Home: Yes Safety Concerns: Feels Safe At This Time Smoking Status: Former smoker Do You Dip or Chew Tobacco: No ; Second Hand Exposure: No ; Tobacco Cessation Education Requested by Patient: No Hx Alcohol Use: No Hx Substance Use: No Seatbelt Use: always Physical Exam Constitutional: + altered mental status (Dementia history was obtained from the daughter) Eyes: + eyelid abnormality (Left periorbital ecchymosis) ENMT: Nose: + external nose abnormality (Comminuted nasal fracture with deviation to the right and moderate to severe swelling) and + septum abnormality (Deviated to the right with blood clots in the left nares) Respiratory: normal respiratory effort, lungs clear to auscultation Cardiovascular: RRR, no murmur, no edema Results & Data Vital Signs (Past 12 Hours) Vital Signs Temp Pulse Pulse Resp BP BP Pulse Ox 05/22/19 10:34 59 L 05/22/19 10:33 36.6 C 78 16 169/78 H 99 05/22/19 09:56 54 L 20 156/87 H 99 05/22/19 08:32 62 21 181/93 H 99 05/22/19 07:16 66 20 177/93 H 100 05/22/19 07:00 62 13 167/97 H 100 05/22/19 06:30 51 L 13 166/94 H 97 05/22/19 06:00 50 L 17 168/72 H 97 05/22/19 05:45 49 L 171/77 H 99 05/22/19 05:17 36.2 C L 67 22 182/88 H 97
[2019-05-22] MEDS: ASPIRIN 81 MG ECTAB PO SCH (14:21)
[2019-05-22] MEDS: CLOPIDOGREL BISULFATE 75 MG TAB PO SCH (14:21)
[2019-05-22] MEDS: ATORVASTATIN 40 MG TAB PO SCH (14:21)
[2019-05-22] MEDS: LEVOTHYROXINE SODIUM 50 MCG TABLET PO SCH (14:22)
[2019-05-22] MEDS: THIAMINE HCL 50 MG TABLET PO SCH (14:22)
[2019-05-22] MEDS: METOPROLOL SUCC 25MG EXT REL TAB PO SCH (14:22)
[2019-05-22] MEDS: THIAMINE HCL 200 MG in SODIUM CHLORIDE 0.9% 50 ML IV SCH (14:38)
[2019-05-22] MEDS ORDERED: WATER, STERILE 10 ML, TETRACAINE 0.4 GM TOP ONE (14:45)
[2019-05-22] MEDS: AMOXICILLIN/CLAVULANATE 875 MG TAB PO SCH (19:00)
[2019-05-22] MEDS: QUETIAPINE FUMARATE 25 MG TABLET PO PRN (19:07)
[2019-05-22] MEDS: OFLOXACIN 0.3% OP SOLN 5 ML BTL OP SCH (21:37)
[2019-05-23] MEDS ORDERED: WATER, STERILE 10 ML, TETRACAINE 0.4 GM TOP SCH (06:00)
[2019-05-23] MEDS: LEVOTHYROXINE SODIUM 50 MCG TABLET PO SCH (06:04)
[2019-05-23] MEDS ORDERED: LEVOTHYROXINE SODIUM 50 MCG TABLET PO SCH (06:30)
--- NOTE | 2019-05-23 07:05 | Anesthesiology Consultation ---
Date of Service May 23, 2019 Assessment & Plan Chart Review Chart Review: Acceptable Risk for Surgery and Patient NOT seen in Pre Admission Testing Consults Requested medical ASA ASA4 Proposed Anesthesia Anesthesia Type: General History Surgery Operation Date: 05/23/19 07:30 Proposed Procedures p Closed Reduction Nasal Fracture - Niecy Araujo MD Height/Weight Height: 5 ft 8 in Weight: 66.3 kg Allergies Allergy/AdvReac Type Severity Reaction Status Date / Time Cephalosporins Allergy Severe RASH Verified 05/22/19 05:49 morphine Allergy Unknown Unknown Verified 05/22/19 05:49 Medications Home Medications Medication Instructions Recorded Confirmed Last Taken aspirin 81 mg tablet,delayed 81 mg PO DAILY #30 tab 01/16/19 05/22/19 Unknown release atorvastatin 40 mg tablet 40 mg PO DAILY #90 tab 03/17/19 05/22/19 Unknown levothyroxine 50 mcg tablet 50 mcg PO DAILY #90 tab 03/17/19 05/22/19 Unknown metoprolol succinate 25 mg 25 mg PO DAILY #90 tab 03/17/19 05/22/19 Unknown tablet,extended release 24 hr nitroglycerin 400 mcg/spray 1 sprays SL Q5M PRN #4.9 gm 03/17/19 05/22/19 Unknown translingual thiamine HCl (vitamin B1) 250 mg PO DAILY 04/27/19 05/22/19 Unknown clopidogrel 75 mg tablet 75 mg PO QAM 30 Days #30 tab 04/30/19 05/22/19 Unknown docusate sodium 100 mg capsule 100 mg PO DAILY PRN 04/30/19 05/22/19 Unknown Active Medications Generic Name Dose Route Start Last Admin Trade Name Freq PRN Reason Stop Dose Admin Amoxicillin/Clavulanate Potassium 1 tab 05/22/19 17:00 05/22/19 19:00 Augmentin 875mg PO 06/01/19 16:59 1 tab BIDM [facility] Administration Protocol Aspirin 81 mg 05/22/19 13:00 05/22/19 14:21 Ecotrin Ectab PO 06/21/19 12:59 Not Given DAILY STEF Atorvastatin Calcium 40 mg 05/22/19 13:00 05/22/19 14:21 Lipitor PO 06/21/19 12:59 Not Given DAILY STEF Clopidogrel Bisulfate 75 mg 05/22/19 13:00 05/22/19 14:21 Plavix PO 06/21/19 12:59 Not Given QAM STEF Thiamine HCl 200 mg/ Sodium 52 mls @ 208 mls/hr 05/22/19 13:00 05/22/19 14:53 Chloride IV 06/21/19 12:59 Infused QAM STEF Infusion Ioversol 119 ml 05/22/19 08:23 05/22/19 08:27 Optiray 320 125ml IV 05/26/19 08:22 119 ml ONCE PRN Administration Interaction Checking Levothyroxine Sodium 50 mcg 05/22/19 13:00 05/23/19 06:04 Synthroid PO 06/21/19 12:59 50 mcg DAILYBB STEF Administration Metoprolol Succinate 25 mg 05/22/19 13:00 05/22/19 14:22 Toprol Xl PO 06/21/19 12:59 Not Given DAILY STEF Ofloxacin 2 drops 05/22/19 20:00 05/22/19 21:37 Ocuflox 0.3% OP 05/29/19 19:59 Not Given Q4HWA STEF Quetiapine Fumarate 12.5 mg 05/22/19 17:41 05/22/19 19:07 Seroquel PO 06/21/19 17:40 12.5 mg DAILY PRN Administration Agitation Thiamine HCl 250 mg 05/22/19 13:00 05/22/19 14:22 Vitamin B-1 PO 06/21/19 12:59 Not Given DAILY STEF Past Medical History Medical History CAD (coronary artery disease) (Chronic) Dilated aortic root (Acute) DVT (deep venous thrombosis) History of deep vein thrombosis of lower extremity (Resolved) History of prostate cancer (Resolved) History of pulmonary embolus (PE) (Resolved 11/02/12) Hyperlipidemia (Acute) Hypothyroid (Chronic) Ischemic cardiomyopathy (Chronic) Mitral regurgitation (Acute) NSTEMI (non-ST elevated myocardial infarction) (Resolved) Pancreatitis (Resolved) Pulmonary embolism S/P CABG (coronary artery bypass graft) (Acute) Exercise / Class Metabolic Activity III < 4 Walking/Shop/Light housework Past Family History Family History Father Diabetes Cerebral atherosclerosis CHF (congestive heart failure) Sister Diabetes Brother Coronary atherosclerosis Mother Coronary atherosclerosis Other Heart disease Past Surgical History Surgical History H/O esophagogastroduodenoscopy History of cataract surgery Hx of cholecystectomy S/P CABG x 3 (Resolved) S/P radiation therapy (Resolved) Past Anesthesia History No Hx of Anesthesia Complications and No Family Hx of Anesthesia Complications History of PONV No Hx of PONV and No Hx of Motion Sickness Social History Smoking Status: Former smoker Do You Dip or Chew Tobacco: No Hx Alcohol Use: No Hx Substance Use: No substance use type: does not use Physical Exam Vital Signs Last Vital Signs Temp 37.1 C 05/23/19 07:02 Pulse 88 05/23/19 07:02 Resp 20 05/23/19 07:02 BP 101/67 05/23/19 07:02 Pulse Ox 95 05/23/19 07:02 Testing Laboratory Results 05/22/19 05:39 05/22/19 05:39 PT 10.8 Seconds (9.0-12.0) 05/22/19 05:39 INR 1.1 (0.9-1.1) 05/22/19 05:39 APTT 25.4 Seconds (21.0-31.0) 05/22/19 05:39 Urine Color Yellow 05/22/19 08:00 Urine Appearance Clear (Clear) 05/22/19 08:00 Urine pH 6.5 (4.5-7.5) 05/22/19 08:00 Ur Specific [place] 1.017 (1.000-1.030) 05/22/19 08:00 Urine Protein Negative (Negative) 05/22/19 08:00 Urine Glucose (UA) Negative (Negative) 05/22/19 08:00 Urine Ketones Negative (Negative) 05/22/19 08:00 Urine Nitrite Negative (Negative) 05/22/19 08:00 Ur Leukocyte Esterase Negative (Negative) 05/22/19 08:00 Urine WBC (Auto) 1-5 /hpf (0-5) 05/22/19 08:00 Urine RBC (Auto) 10-30 /hpf (0-4) H 05/22/19 08:00 U Hyaline Cast (Auto) 1-5 /lpf (0-5) 05/22/19 08:00 U Epithel Cells (Auto) 20-30 /lpf (0-5) H 05/22/19 08:00 Urine Bacteria (Auto) Negative (Negative) 05/22/19 08:00 Electrocardiogram Date: 05/22/19 Findings: + SB @ (at 53) and + RBBB old inferior WA Chest X-Ray Date: 05/21/19 Findings: + NAD and + atherosclerosis of thoracic aorta
[2019-05-23 07:15] LABS: Hematocrit (blood only) 41.6 % (42-52); Hemoglobin 13.3 g/dL (14.0-18.0); Mean Corpuscular Hemoglobin 29.3 pg (25-34); Mean Corpuscular Volume 91.6 fL (80-100); Mean Platelet Volume 11.3 fL (7.4-10.4); Platelet Count 155 K/uL (130-400); RDW Standard Deviation 50.4 fL (36.4-46.3); Red Blood Count 4.54 M/uL (4.7-6.1)
--- NOTE | 2019-05-23 07:30 | Electrocardiogram Report ---
Test Reason : Blood Pressure : / mmHG Vent. Rate : 055 BPM Atrial Rate : 055 BPM P-R Int : 146 ms QRS Dur : 140 ms QT Int : 504 ms P-R-T Axes : 069 022 027 degrees QTc Int : 482 ms Sinus bradycardia Right bundle branch block Inferior infarct (cited on or before 22-SEP-2018) Abnormal ECG When compared with ECG of 21-MAY-2019 19:44, (unconfirmed) No significant change was found Confirmed by Konstantin Owens ([id number]) on 05/23/2019 7:29:59 AM Referred By: REFERRED SELF Confirmed By:Gutierrez Owens
[2019-05-23 07:46] LABS: Albumin Level 3.1 gm/dl (3.4-5.0); BUN Creatinine Ratio 20.7 (10-20); Calcium 9.7 mg/dl (8.5-10.1); Creatinine Clr Calc Pharmacy 63.3 ml/min; Est GFR (African American) 94.4; Est GFR (Non-African American) 81.5; Potassium 3.8 mmol/L (3.5-5.1)
--- NOTE | 2019-05-23 07:54 | History & Physical Bridge Note ---
Date of Service May 23, 2019 History & Physical Bridge Note I have examined the patient, reviewed the History & Physical and in the interval since the performance of the History & Physical I have noted the following changes of clinical significance: no changes noted
[2019-05-23 07:57] LABS: Albumin Globulin Ratio 0.9 (0.9-2); Bilirubin,Total 1.3 mg/dl (0.2-1); Globulin 3.3 gm/dl (2.5-4.0); Total Protein 6.4 gm/dl (6.4-8.2)
[2019-05-23] MEDS ORDERED: EPINEPHrine INJ 1 MG/ML AMP ONE (07:58)
[2019-05-23] MEDS ORDERED: PROPOFOL IV EMULSION 10 MG/ML 20 ML VIAL IV ONE (08:25)
[2019-05-23] MEDS ORDERED: LIDOCAINE HCL 2% 2 ML VIAL/AMP(20MG/ML) INFIL ONE (08:25)
--- NOTE | 2019-05-23 08:28 | Operative Report ---
Post Operative Report Pre & Post Diagnosis Operation Date: 05/23/19 07:30 Pre-Op Diagnosis: Nasal Fracture and Septal Fracture Post-Op Diagnosis: Nasal Fracture and Septal Fracture I identified the patient and participated in the time-out.: Yes Procedure Operation Date: 05/23/19 07:30 Actual Procedures p Closed Reduction Nasal Fracture and Septal Fracture - Niecy Araujo MD Surgeon Niecy Araujo MD Threading Machine Feeder Automatic None Estimated Blood Loss 0 Findings Consistent with Post-Op Diagnosis Specimens None Anesthesia Type MAC Complications none Disposition Accompanied Patient To Recovery: Yes Disposition: Recovery Room Indications Nasal and septal fracture with obstruction Description of Procedure He was brought to the operating room, properly identified, prepped and draped in the usual manner. The nose was anesthetized using topical tetracaine mixed with 1 cc of epinephrine on cottonoid pledgets. The septum was severely deviated to the right and was reduced to the midline using a padded freer elevator. The dorsum of the nose was bent to the right and was pushed back to the midline and also reduced to the midline by elevating the left nasal bone. He tolerated procedure well and was taken recovery area in satisfactory condition. I attest to the content of the Intraoperative Record and any orders documented therein. Any exceptions are noted below.
[2019-05-23] MEDS ORDERED: ePHEDrine sulfate 50 MG/ML AMP IV PRN (08:46)
[2019-05-23] MEDS ORDERED: ATROPINE SULFATE 0.1 MG/ML 10ML SYR IV PRN (08:46)
--- NOTE | 2019-05-23 08:47 | Anesthesiology Progress Note ---
Date of Service May 23, 2019 Anesthesia Post Procedure Vital Signs Vital Signs: Temp Pulse Pulse Pulse Resp BP BP 05/23/19 08:40 66 14 106/66 05/23/19 08:34 36.3 C L 65 16 103/56 L 05/23/19 07:40 71 05/23/19 07:02 37.1 C 88 20 05/23/19 03:25 36.2 C L 67 19 122/48 L 05/23/19 01:17 37.1 C 59 L 18 05/22/19 23:44 93 H 05/22/19 19:05 36.5 C 69 19 05/22/19 16:35 52 L 05/22/19 15:02 36.4 C L 72 19 173/98 H 05/22/19 13:20 39 L 05/22/19 10:34 59 L 05/22/19 10:33 36.6 C 78 16 169/78 H 05/22/19 09:56 54 L 20 156/87 H BP Pulse Ox 05/23/19 08:40 97 05/23/19 08:34 100 05/23/19 07:40 05/23/19 07:02 101/67 95 05/23/19 03:25 97 05/23/19 01:17 115/65 98 05/22/19 23:44 05/22/19 19:05 178/82 H 95 05/22/19 16:35 05/22/19 15:02 98 05/22/19 13:20 05/22/19 10:34 05/22/19 10:33 99 05/22/19 09:56 99 Transfer of Care Handoff Completed per policy Notes Mental Status: alert / awake / arousable Patient Amnestic to Procedure: Yes Nausea / Vomiting: adequately controlled Pain: adequately controlled Airway Patency, RR, SpO2: stable & adequate BP & HR: stable & adequate Hydration State: stable & adequate Anesthetic Complications: no major complications apparent
--- NOTE | 2019-05-23 08:58 | Orthopedic Consultation ---
Date of Consultation May 23, 2019 Assessment & Plan (1) Closed C5 fracture: Patient is in the operating room for nasal surgery. I will continue to follow the patient History of Present Illness Reason for Consultation: Chief complaint of neck pain. Patient was seen in consultation yesterday regard to her cervical spine injury by 1 of our physician assistants. I agree with the treatment regiment he should be in a soft cervical collar except for eating With all his degenerative changes and osteophyte formation to relatively stable injury but needs appropriate follow-up Attending Physician: Sharifa Victoria MD Allergies Allergy/AdvReac Type Severity Reaction Status Date / Time Cephalosporins Allergy Severe RASH Verified 05/22/19 05:49 morphine Allergy Unknown Unknown Verified 05/22/19 05:49 Home Medications Home Medications Medication Instructions Recorded Confirmed Type aspirin 81 mg tablet,delayed 81 mg PO DAILY #30 tab 01/16/19 05/22/19 Rx release atorvastatin 40 mg tablet 40 mg PO DAILY #90 tab 03/17/19 05/22/19 Rx levothyroxine 50 mcg tablet 50 mcg PO DAILY #90 tab 03/17/19 05/22/19 Rx metoprolol succinate 25 mg 25 mg PO DAILY #90 tab 03/17/19 05/22/19 Rx tablet,extended release 24 hr nitroglycerin 400 mcg/spray 1 sprays SL Q5M PRN #4.9 gm 03/17/19 05/22/19 Rx translingual thiamine HCl (vitamin B1) 250 mg PO DAILY 04/27/19 05/22/19 History clopidogrel 75 mg tablet 75 mg PO QAM 30 Days #30 tab 04/30/19 05/22/19 Rx docusate sodium 100 mg capsule 100 mg PO DAILY PRN 04/30/19 05/22/19 History Patient History Medical History CAD (coronary artery disease) (Chronic) Dilated aortic root (Acute) DVT (deep venous thrombosis) History of deep vein thrombosis of lower extremity (Resolved) History of prostate cancer (Resolved) History of pulmonary embolus (PE) (Resolved 11/02/12) Hyperlipidemia (Acute) Hypothyroid (Chronic) Ischemic cardiomyopathy (Chronic) Mitral regurgitation (Acute) NSTEMI (non-ST elevated myocardial infarction) (Resolved) Pancreatitis (Resolved) Pulmonary embolism S/P CABG (coronary artery bypass graft) (Acute) Surgical History H/O esophagogastroduodenoscopy History of cataract surgery Hx of cholecystectomy S/P CABG x 3 (Resolved) S/P radiation therapy (Resolved) Family History Father Diabetes Cerebral atherosclerosis CHF (congestive heart failure) Sister Diabetes Brother Coronary atherosclerosis Mother Coronary atherosclerosis Other Heart disease Social History Preferred Language: Vietnamese Communication Ability: Impaired Communication Ability Comment: altered mental status Visual Impairment: No Limitations Hearing Ability: Normal Leaf Binner Required: No Beliefs That Will Affect Care: None marital status: Current Living Situation: Spouse current occupational status: retired 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 [employer] Other Information That Helps Us Care for You: No other: with dementia Feels Safe at Home: Yes Safety Concerns: Feels Safe At This Time Smoking Status: Former smoker Do You Dip or Chew Tobacco: No ; Second Hand Exposure: No ; Tobacco Cessation Education Requested by Patient: No Hx Alcohol Use: No Hx Substance Use: No Seatbelt Use: always Results & Data Vital Signs (Past 12 Hours) Vital Signs Temp Pulse Pulse Pulse Resp BP BP 05/23/19 08:50 36.1 C L 65 15 112/68 05/23/19 08:40 66 14 106/66 05/23/19 08:34 36.3 C L 65 16 103/56 L 05/23/19 07:40 71 05/23/19 07:02 37.1 C 88 20 101/67 05/23/19 03:25 36.2 C L 67 19 122/48 L 05/23/19 01:17 37.1 C 59 L 18 115/65 05/22/19 23:44 93 H Pulse Ox 05/23/19 08:50 100 05/23/19 08:40 97 05/23/19 08:34 100 05/23/19 07:40 05/23/19 07:02 95 05/23/19 03:25 97 05/23/19 01:17 98 05/22/19 23:44 PG Care Time/CCT Total # of Minutes Spent Total Time Spent with Patient: Total time spent is greater than 50% in coordination of care (as documented) at patient's floor/unit and/or counseling patient: (1) Closed C5 fracture Encounter type: initial encounter Fracture alignment: nondisplaced Fracture morphology: unspecified fracture morphology Qualified Code(s): S12.401A - Un specified nondisplaced fracture of fifth cervical vertebra, initial encounter for closed fracture
[2019-05-23] MEDS ORDERED: ASPIRIN 81 MG ECTAB PO SCH (09:00)
[2019-05-23] MEDS ORDERED: CLOPIDOGREL BISULFATE 75 MG TAB PO SCH (09:00)
[2019-05-23] MEDS ORDERED: ATORVASTATIN 40 MG TAB PO SCH (09:00)
[2019-05-23] MEDS ORDERED: THIAMINE HCL 50 MG TABLET PO SCH (09:00)
[2019-05-23] MEDS ORDERED: METOPROLOL SUCC 25MG EXT REL TAB PO SCH (09:00)
[2019-05-23] MEDS: THIAMINE HCL 200 MG in SODIUM CHLORIDE 0.9% 50 ML IV SCH (09:26)
[2019-05-23] MEDS: AMOXICILLIN/CLAVULANATE 875 MG TAB PO SCH ×2 (10:51→16:26)
[2019-05-23] MEDS: ASPIRIN 81 MG ECTAB PO SCH (10:52)
[2019-05-23] MEDS: ATORVASTATIN 40 MG TAB PO SCH (10:52)
[2019-05-23] MEDS: OFLOXACIN 0.3% OP SOLN 5 ML BTL OP SCH ×4 (10:52→19:35)
[2019-05-23] MEDS: THIAMINE HCL 50 MG TABLET PO SCH (10:53)
[2019-05-23] MEDS: CLOPIDOGREL BISULFATE 75 MG TAB PO SCH (10:53)
[2019-05-23] MEDS: METOPROLOL SUCC 25MG EXT REL TAB PO SCH (10:53)
[2019-05-23] MEDS: QUETIAPINE FUMARATE 25 MG TABLET PO PRN ×2 (13:31→16:27)
--- NOTE | 2019-05-23 16:03 | Hospitalist Progress Note ---
Date of Service May 23, 2019 Assessment & Plan (1) Fall: Presented with presumed fall likely related to generalized deconditioning, cognitive impairment, ativan use. Suffered multiple fractures as below Needs PT/OT evaluations (2) Cervical spine fracture: C5 spinous process and right pedicle fracture secondary to fall Stable fracture, no focal neuro deficits -soft collar at all times except can be taken off to eat -appreciate Ortho Spine consult -pain control as needed w/ tylenol -needs outpt f/u with Ortho (3) Unspecified occipital condyle fracture, initial encounter for closed fracture: secondary to fall pain control (4) Nasal bone fractures: -CT of the neck reviewed showing nondisplaced fracture of the C5 spinous process,5 mm bone fragment involving the medial aspect of the right occipital condyle, multi-level degenerative changes of the cervical spine, layering secretions within the paranasal sinuses, nasal turbinates and nasopharynx. -There was question if the acute fracture involving C5 foramen had caused any vertebral artery injury, this was followed up with a CTA of the neck which showed there was no acute vessel injury. -Orthopedic consult, Dr. Donis, discussed with him over the phone and recommends placing the patient in a soft collar, we will follow-up as a consult/in office as outpatient -ENT consult, Dr. 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 Case management to assist with discharge planning when appropriate. -will fill out paperwork needed for placement (6) Anemia: -Hemoglobin of 13.1, appears stable compared to previous trend of hemoglobin and hematocrit - monitor tomorrow morning labs for any changes as the patient is on Plavix and aspirin with history of CAD (7) CAD (coronary artery disease): s/p CABG -Continue aspirin and Plavix -Continue metoprolol succinate 25 mg daily - is supposed to be on Imdur as noted in last cardiology note by Dr. Pratt- cannot find this on the med rec - need confirmation from pharmacy. There has been a lot of question of compliance with meds at home as he has dementia -Hx of [place] in February 2019 per cardiology records (8) S/P CABG (coronary artery bypass graft): (9) Aneurysm of abdominal aorta: Dilated aoritc root, no further imagine and family not interested in aggressive measures. On beta-elinor. (10) Ischemic cardiomyopathy: EF 35% on ECHO 02/2019 - Continue medication as above, ICD was discussed previously but due to advanced age/dementia and he and family are not interested (11) Mitral regurgitation: - Minimal on most recent echo (12) Pulmonary embolism: h/o such, no longer on anticoagulation due to multiple falls (13) DVT (deep venous thrombosis): history of such (14) Hypothyroid: TSH normal at 1.18 -Cont levothyroxine 50 mcg (15) Vitamin B1 deficiency: B1 level undetectable last admission in 02/2019. Unclear if was taking supplement at home -received 2-3 doses IV thiamine -continue on thiamine po (16) Carotid artery stenosis: severe, noted on left with 80% proximal narrowing No h/o CVA -f/u with Vascular Surgery as an outpt if desired -continue DAPT, statin (17) AAA (abdominal aortic aneurysm): 4.2 cm infrarenal, noted on CT abd/pel here -follow as outpt (18) DVT prophylaxis: - teds, plavix, asa CODE: DNR/DNI , Daughter, Velvet is POA Dispo: From home, [facility] with help from CM. See above. Subjective Pt remains quite agitated throughout the day, argumentative, saying "I need to get down on the ground and look for my hearing aid!" and "Why does no one believe me?!" He is requiring a 1:1 for safety as he continues to try to get out of bed without assistance. He had his nasal bone surgery this AM and tolerated that well. He is not eating well at all as per aides. Denies pain and when asked about pain, yells out "I have no pain! Why doesn't anybody understand me?!" Tele with NSR,IVCD,PVCs, PACs, rates 45-130s. Review of Systems Review of Systems: Unobtainable due to cognitive status Physical Exam Physical Exam: Vitals reviewed Left periorbital ecchymosis and mild edema nose without deviation today post-op of septum OP clear Eyes: no further crusty drainage left eye Neck in soft collar not removed RRR no mgr CTAB no wcr ABd +BS soft NT ND Ext no edema, moving all extremities Neuro-confused, yelling out at times, does follow some simple commands, agitated Results & Data Vital Signs (Past 12 Hours) Vital Signs Temp Pulse Pulse Pulse Resp BP BP 05/23/19 10:56 81 166/81 H 05/23/19 10:09 77 05/23/19 09:21 36.4 C L 75 16 116/68 05/23/19 09:00 60 16 124/55 L 05/23/19 08:50 36.1 C L 65 15 112/68 05/23/19 08:40 66 14 106/66 05/23/19 08:34 36.3 C L 65 16 103/56 L 05/23/19 07:40 71 05/23/19 07:02 37.1 C 88 20 101/67 Pulse Ox 05/23/19 10:56 05/23/19 10:09 05/23/19 09:21 96 05/23/19 09:00 100 05/23/19 08:50 100 05/23/19 08:40 97 05/23/19 08:34 100 05/23/19 07:40 05/23/19 07:02 95 Laboratory Results 05/23/19 05/23/19 Range/Units 06:55 06:55 WBC 9.70 (4.8-10.8) K/uL RBC 4.54 L (4.7-6.1) M/uL Hgb 13.3 L (14.0-18.0) g/dL Hct 41.6 L (42-52) % MCV 91.6 (80-100) fL MCH 29.3 (25-34) pg MCHC 32.0 (32-36) g/dL RDW Std Deviation 50.4 H (36.4-46.3) fL RDW Coeff of Bea 15.0 H (11.5-14.5) % Plt Count 155 (130-400) K/uL MPV 11.3 H (7.4-10.4) fL Sodium 140 (136-145) mmol/L Potassium 3.8 (3.5-5.1) mmol/L Chloride 110 H (98-107) mmol/L Carbon Dioxide 27 (21-32) mmol/L Anion Gap 4.0 (3-11) BUN 17 (7-18) mg/dl Creatinine 0.80 (0.6-1.4) mg/dl Est Cr Clr Drug Dosing 63.3 ml/min Est GFR ( Amer) 94.4 Est GFR (Non-Af Amer) 81.5 BUN/Creatinine Ratio 20.7 H (10-20) Glucose 92 (70-99) mg/dl Calcium 9.7 (8.5-10.1) mg/dl Total Bilirubin 1.3 H D (0.2-1) mg/dl AST 24 (15-37) U/L ALT 21 (12-78) U/L Alkaline Phosphatase 74 (45-117) U/L Total Protein 6.4 (6.4-8.2) gm/dl Albumin 3.1 L (3.4-5.0) gm/dl Globulin 3.3 (2.5-4.0) gm/dl Albumin/Globulin Ratio 0.9 (0.9-2) PG Care Time/CCT Total # of Minutes Spent Total Time Spent with Patient: Total time spent is greater than 50% in coordination of care (as documented) at patient's floor/unit and/or counseling patient: (1) Dementia Dementia behavioral disturbance: without behavioral disturbance Dementia type: unspecified type Qualified Code(s): F03.90 - Unspecified dementia without behavioral disturbance (2) Hypothyroid Hypothyroidism type: unspecified Qualified Code(s): E03.9 - Hypothyroidism, unspecified
[2019-05-23] MEDS ORDERED: QUETIAPINE FUMARATE 25 MG TABLET PO STA (20:12)
[2019-05-24] MEDS: LEVOTHYROXINE SODIUM 50 MCG TABLET PO SCH (06:10)
[2019-05-24 07:15] LABS: Hematocrit (blood only) 40.5 % (42-52); Hemoglobin 12.6 g/dL (14.0-18.0); Immature Granulocytes # (auto) 0.03 K/uL (0.00-0.02); Immature Granulocytes % (auto) 0.3 %; Lymphocytes # (auto) 1.96 K/uL (1.2-3.4); Lymphocytes % (auto) 21.7 %; Mean Corpuscular Hemoglobin 28.9 pg (25-34); Mean Corpuscular Hgb Conc 31.1 g/dL (32-36); Mean Corpuscular Volume 92.9 fL (80-100); Mean Platelet Volume 11.7 fL (7.4-10.4); Monocytes # (auto) 1.13 K/uL (0.11-0.59); Monocytes % (auto) 12.5 %; Neutrophils # (auto) 5.91 K/uL (1.4-6.5); Neutrophils % (auto) 65.5 %; Platelet Count 142 K/uL (130-400); RDW Coefficient of Variation 15.1 % (11.5-14.5); RDW Standard Deviation 51.5 fL (36.4-46.3); Red Blood Count 4.36 M/uL (4.7-6.1); White Blood Count 9.03 K/uL (4.8-10.8)
[2019-05-24 07:39] LABS: Albumin Level 2.9 gm/dl (3.4-5.0); BUN Creatinine Ratio 22.4 (10-20); Bilirubin Direct 0.2 mg/dl (0-0.2); Calcium 8.8 mg/dl (8.5-10.1); Creatinine Clr Calc Pharmacy 52.2 ml/min; Est GFR (African American) 82.2; Est GFR (Non-African American) 70.9; Potassium 3.8 mmol/L (3.5-5.1)
[2019-05-24 07:42] LABS: Bilirubin,Total 1.2 mg/dl (0.2-1); Total Protein 6.5 gm/dl (6.4-8.2)
[2019-05-24] MEDS: OFLOXACIN 0.3% OP SOLN 5 ML BTL OP SCH ×4 (10:10→20:49)
[2019-05-24] MEDS: ATORVASTATIN 40 MG TAB PO SCH (10:35)
[2019-05-24] MEDS: ASPIRIN 81 MG ECTAB PO SCH (10:35)
[2019-05-24] MEDS: CLOPIDOGREL BISULFATE 75 MG TAB PO SCH (10:35)
[2019-05-24] MEDS: AMOXICILLIN/CLAVULANATE 875 MG TAB PO SCH ×2 (10:35→16:55)
[2019-05-24] MEDS: QUETIAPINE FUMARATE 25 MG TABLET PO PRN (10:36)
[2019-05-24] MEDS: THIAMINE HCL 50 MG TABLET PO SCH (10:36)
[2019-05-24] MEDS: METOPROLOL SUCC 25MG EXT REL TAB PO SCH (10:36)
[2019-05-24] MEDS ORDERED: SODIUM CHLORIDE 0.65% NA SOLN 45 ML (OCEAN) ONE (10:49)
--- NOTE | 2019-05-24 12:53 | Electrocardiogram Report ---
Test Reason : Blood Pressure : / mmHG Vent. Rate : 074 BPM Atrial Rate : 074 BPM P-R Int : 132 ms QRS Dur : 130 ms QT Int : 456 ms P-R-T Axes : 071 066 027 degrees QTc Int : 506 ms Sinus rhythm with occasional Premature ventricular complexes Right bundle branch block Possible Inferior infarct (cited on or before 22-SEP-2018) Abnormal ECG When compared with ECG of 22-MAY-2019 05:34, Premature ventricular complexes are now Present Confirmed by Curtis Arita ([id number]) on 05/24/2019 12:52:59 PM Referred By: REFERRED SELF Confirmed By:Curtis Arita
--- NOTE | 2019-05-24 21:45 | Hospitalist Progress Note ---
Date of Service May 24, 2019 Assessment & Plan (1) Fall: Presented with presumed fall likely related to generalized deconditioning, cognitive impairment, ativan use. Suffered multiple fractures as below Appreciate PT/OT evaluations-recommend personal residential and/or fpc facility Paperwork filled out by me for the personal residential and I recommend PT/OT evaluations and treatment there for history of recurrent falls (2) Cervical spine fracture: C5 spinous process and right pedicle fracture secondary to fall Stable fracture, no focal neuro deficits -soft collar at all times except can be taken off to eat -appreciate Ortho Spine consult -pain control as needed w/ tylenol -needs outpt f/u with Ortho (3) Unspecified occipital condyle fracture, initial encounter for closed fracture: secondary to fall pain control (4) Nasal bone fractures: -CT of the neck reviewed showing nondisplaced fracture of the C5 spinous process,5 mm bone fragment involving the medial aspect of the right occipital condyle, multi-level degenerative changes of the cervical spine, layering secretions within the paranasal sinuses, nasal turbinates and nasopharynx. -There was question if the acute fracture involving C5 foramen had caused any vertebral artery injury, this was followed up with a CTA of the neck which showed there was no acute vessel injury. -Orthopedic consult, Dr. Donis, recommends placing the patient in a soft collar, will follow-up in office as outpatient -ENT consult, Dr. 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 Case management to assist with discharge planning when appropriate. -Filled out paperwork needed for placement and case management will fax it to [facility] With significant agitation/delirium upon admission-secondary to head trauma, previous Ativan use, underlying dementia, and hospital delirium -Requiring a one-on-one sitter -Much improved now with PRN Seroquel use; QT has been acceptable -Continue Seroquel 25 mg p.o. every 12 hours as needed agitation (6) Anemia: -Hemoglobin of 12.6, appears stable compared to previous trend of hemoglobin and hematocrit (7) CAD (coronary artery disease): s/p CABG, no evidence of angina here -Continue aspirin and Plavix -Continue metoprolol succinate 25 mg daily - is supposed to be on Imdur 30 mg daily as noted in last cardiology note by Dr. Pratt-it appears he has not filled this since the middle of March and likely is not taking it There has been a lot of question of compliance with meds at home as he has dementia -Hx of [place] in February 2019 per cardiology records -Restart Imdur 30 mg in the morning (8) S/P CABG (coronary artery bypass graft): As above (9) Aneurysm of abdominal aorta: 4.2X 4.3 cm, infrarenal -No further imaging, family not interested in aggressive measures. -On beta-elinor (10) Ischemic cardiomyopathy: EF 35% on ECHO 02/2019 - Continue medication as above, ICD was discussed previously but due to advanced age/dementia and he and family are not interested (11) Mitral regurgitation: - Minimal on most recent echo (12) Pulmonary embolism: h/o such, no longer on anticoagulation due to multiple falls (13) DVT (deep venous thrombosis): history of such (14) Hypothyroid: TSH normal at 1.18 -Cont levothyroxine 50 mcg (15) Vitamin B1 deficiency: B1 level undetectable last admission in 02/2019. Unclear if was taking supplement at home -received 2-3 doses IV thiamine here -continue on thiamine po daily (16) Carotid artery stenosis: severe, noted on left with 80% proximal narrowing No h/o CVA -f/u with Vascular Surgery as an outpt if desired -continue DAPT, statin (17) Conjunctivitis: Status post trauma to the face and with yellow crusty drainage from left eye -Continue Ocuflox x1 week (18) DVT prophylaxis: - teds, plavix, asa CODE: DNR/DNI , Daughter, Velvet is POA Dispo: From home, needs placement at [facility]Memory Care unit with help from CM. Paperwork is all completed for the personal residential/assisted living and in the position of case management. He will likely need new prescriptions for all of his medications upon discharge Discharge planned tentatively for Saturday Can be removed from telemetry Subjective Patient was quite agitated this morning as per nursing and he was given a dose of Seroquel around 10:30 AM. Since that time, he has been drowsy but much more cooperative and less agitated. He is no longer paranoid as per nursing staff. When I saw him, he was sleeping but was woken up easily and we were able to carry on a simple conversation. He denied pain in the nose or neck, denied chest pain or shortness of breath. Denied abdominal pain. He is eating his meals. The one-on-one sitter at the bedside reports that he ambulates on his own with contact-guard assistance to the bathroom and is urinating. Last bowel movement was yesterday. Telemetry with normal sinus rhythm and PVCs with rates in the 60s to 80s. Review of Systems Review of Systems: All systems reviewed & are unremarkable except as noted in HPI & below Physical Exam Physical Exam: Vitals reviewed Left periorbital ecchymosis and mild edema is improved from previous nose without deviation today, no bleeding/epistaxis OP clear Eyes: no further crusty drainage left eye Neck in soft collar not removed RRR no mgr CTAB no wcr ABd +BS soft NT ND Ext no edema, moving all extremities Neuro-not agitated, is able to follow simple commands Results & Data Vital Signs (Past 12 Hours) Vital Signs Temp Pulse Pulse Resp BP Pulse Ox 05/24/19 19:23 36.4 C L 84 19 121/74 95 05/24/19 17:03 59 L 20 121/74 05/24/19 15:50 66 Laboratory Results 05/24/19 05/24/19 Range/Units 06:54 06:54 WBC 9.03 (4.8-10.8) K/uL RBC 4.36 L (4.7-6.1) M/uL Hgb 12.6 L (14.0-18.0) g/dL Hct 40.5 L (42-52) % MCV 92.9 (80-100) fL MCH 28.9 (25-34) pg MCHC 31.1 L (32-36) g/dL RDW Std Deviation 51.5 H (36.4-46.3) fL RDW Coeff of Bea 15.1 H (11.5-14.5) % Plt Count 142 (130-400) K/uL MPV 11.7 H (7.4-10.4) fL Immature Gran % (Auto) 0.3 % Neut % (Auto) 65.5 % Lymph % (Auto) 21.7 % Dillon % (Auto) 12.5 % Eos % (Auto) 0.0 % Baso % (Auto) 0.0 % Immature Gran # (Auto) 0.03 H (0.00-0.02) K/uL Neut # (Auto) 5.91 (1.4-6.5) K/uL Lymph # (Auto) 1.96 (1.2-3.4) K/uL Dillon # (Auto) 1.13 H (0.11-0.59) K/uL Eos # (Auto) 0.00 (0-0.5) K/uL Baso # (Auto) 0.00 (0-0.2) K/uL Sodium 140 (136-145) mmol/L Potassium 3.8 (3.5-5.1) mmol/L Chloride 110 H (98-107) mmol/L Carbon Dioxide 27 (21-32) mmol/L Anion Gap 3.0 (3-11) BUN 22 H (7-18) mg/dl Creatinine 0.97 (0.6-1.4) mg/dl Est Cr Clr Drug Dosing 52.2 ml/min Est GFR ( Amer) 82.2 Est GFR (Non-Af Amer) 70.9 BUN/Creatinine Ratio 22.4 H (10-20) Glucose 84 (70-99) mg/dl Calcium 8.8 (8.5-10.1) mg/dl Magnesium 2.0 (1.8-2.4) mg/dl Total Bilirubin 1.2 H (0.2-1) mg/dl Direct Bilirubin 0.2 (0-0.2) mg/dl AST 23 (15-37) U/L ALT 21 (12-78) U/L Alkaline Phosphatase 71 (45-117) U/L Total Protein 6.5 (6.4-8.2) gm/dl Albumin 2.9 L (3.4-5.0) gm/dl PG Care Time/CCT Total # of Minutes Spent Total Time Spent with Patient: Total time spent is greater than 50% in coordination of care (as documented) at patient's floor/unit and/or counseling patient: (1) Dementia Dementia type: unspecified type Dementia behavioral disturbance: without behavioral disturbance Qualified Code(s): F03.90 - Unspecified dementia without behavioral disturbance (2) Hypothyroid Hypothyroidism type: unspecified Qualified Code(s): E03.9 - Hypothyroidism, unspecified
[2019-05-25] MEDS: LEVOTHYROXINE SODIUM 50 MCG TABLET PO SCH (06:04)
[2019-05-25] MEDS: AMOXICILLIN/CLAVULANATE 875 MG TAB PO SCH ×2 (08:18→16:09)
[2019-05-25] MEDS: ISOSORBIDE MONO EXTENDED REL 30 MG TABCR PO SCH (08:19)
[2019-05-25] MEDS: ASPIRIN 81 MG ECTAB PO SCH (08:19)
[2019-05-25] MEDS: OFLOXACIN 0.3% OP SOLN 5 ML BTL OP SCH ×4 (08:19→20:40)
[2019-05-25] MEDS: ATORVASTATIN 40 MG TAB PO SCH (08:19)
[2019-05-25] MEDS: THIAMINE HCL 50 MG TABLET PO SCH (08:20)
[2019-05-25] MEDS: CLOPIDOGREL BISULFATE 75 MG TAB PO SCH (08:20)
[2019-05-25] MEDS: METOPROLOL SUCC 25MG EXT REL TAB PO SCH (08:20)
--- NOTE | 2019-05-25 12:14 | Hospitalist Progress Note ---
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 - Patient was scheduled to go to [facility] memory care unit on 05/27/2019, family had attempted to have him placed earlier however there were no available beds until that point in time. Case management to assist with discharge planning when appropriate. - Filled out paperwork needed for placement and sent to [facility]. With significant agitation/delirium upon admission-secondary to head trauma, previous Ativan use, underlying dementia, and hospital delirium - Much improved now with PRN Seroquel use; QT has been acceptable. - Continue Seroquel 25 mg p.o. every 12 hours as needed agitation (2) Fall: Presented with presumed fall likely related to generalized deconditioning, cognitive impairment, & Ativan use. Suffered multiple fractures as below. - Plan for memory unit once ready. (3) Cervical spine fracture: C5 spinous process and right pedicle fracture secondary to fall. Stable fracture, no focal neuro deficits. - Soft collar at all times except can be taken off to eat - Appreciate Ortho Spine consult - Follow up as outpatient in 1-2 weeks. - Pain control as needed w/ Tylenol - No pain today. (4) Nasal bone fractures: CT of the neck showed non-displaced fracture of the C5 spinous process, 5 mm bone fragment involving the medial aspect of the right occipital condyle, multi-level degenerative changes of the cervical spine, layering secretions within the paranasal sinuses, nasal turbinates and nasopharynx. - There was question if the acute fracture involving C5 foramen had caused any vertebral artery injury, this was followed up with a CTA of the neck which showed there was no acute vessel injury. - Orthopedic consult, Dr. Donis, recommends placing the patient in a soft collar, will follow-up in office as outpatient. - ENT consult, Dr. Araujo for nasal fractures - s/p surgical repair/stabilize nasal bone fractures on 05/23/2019 and doing well. - Continue Augmentin 875mg po bid x 7 days for prophylaxis-last day 05/28/19 - Afrin as needed for epistaxis - Follow-up with ENT as an outpatient (5) Unspecified occipital condyle fracture, initial encounter for closed fracture: Secondary to fall. - Pain control (6) Anemia: Hemoglobin of 12.6, appears stable compared to previous trend of hemoglobin and hematocrit. - No bleeding apart from sustained injuries. (7) CAD (coronary artery disease): S/p CABG, no evidence of angina here. Hx of ND in February 2019 per cardiology records. - Continue aspirin and Plavix - Continue metoprolol succinate 25 mg daily - Is supposed to be on Imdur 30 mg daily as noted in last cardiology note by Dr. Pratt - it appears he has not filled this since the middle of March and likely is not taking it. - Restarted Imdur 30 mg (8) S/P CABG (coronary artery bypass graft): As above (9) Aneurysm of abdominal aorta: 4.2X 4.3 cm, infrarenal. - No further imaging, family not interested in aggressive measures. - On beta-elinor (10) Ischemic cardiomyopathy: EF 35% on ECHO 02/2019. - Continue medication as above, ICD was discussed previously but due to advanced age/dementia and he and family are not interested (11) Pulmonary embolism: H/o such, no longer on anticoagulation due to multiple falls. (12) DVT (deep venous thrombosis): History of such; as above. No anticoagulation. (13) Hypothyroid: TSH normal at 1.18. - Cont levothyroxine 50 mcg (14) Vitamin B1 deficiency: B1 level undetectable last admission in 02/2019. Unclear if was taking supplement at home. - Received 2 doses IV thiamine here. - Continue on thiamine po daily (15) Carotid artery stenosis: Severe, noted on left with 80% proximal narrowing. No h/o CVA. - F/u with Vascular Surgery as an outpt if desired - Continue DAPT, statin (16) Conjunctivitis: Status post trauma to the face and with yellow crusty drainage from left eye. - Continue Ocuflox x1 week (End date: 05/29/2019) (17) DVT prophylaxis: TEDS Subjective He feels totally fine. He has no complaints today. Overall, he feels well and wants to go home. Reports no fevers/chills, chest pain, shortness of breath, abdominal pain, nausea, or vomiting. Physical Exam Constitutional: WD/WN, vitals as above Eyes: EOM intact bilaterally; no conjunctival abnormality ENMT: external ear and nose normal, oropharynx normal Neck: trachea midline, no thyromegaly normal visual inspection Respiratory: normal respiratory effort, lungs clear to auscultation no respiratory distress Cardiovascular: RRR, no murmur, no edema Gastrointestinal (Abdomen): Inspection/Auscultation: abdomen normal to inspection; abdomen not distended Musculoskeletal: no cyanosis or clubbing, extremities motor strength 5/5 Skin: no rashes, warm and dry Neurologic: moves all extremities and awake Psychiatric: Orientation: alert, oriented to person, oriented to place and cooperative; + not oriented to time (Mixing up his dates from the 50s to present.) Results & Data Vital Signs (Past 12 Hours) Vital Signs Temp Pulse Pulse Pulse Resp BP BP 05/25/19 07:53 36.7 C 65 18 126/71 05/25/19 07:35 72 05/25/19 02:05 64 111/68 05/25/19 01:43 72 Pulse Ox 05/25/19 07:53 92 05/25/19 07:35 05/25/19 02:05 05/25/19 01:43 PG Care Time/CCT Total # of Minutes Spent Total Time Spent with Patient: Total time spent is greater than 50% in coordination of care (as documented) at patient's floor/unit and/or counseling patient: (1) Dementia Dementia type: unspecified type Dementia behavioral disturbance: without behavioral disturbance Qualified Code(s): F03.90 - Unspecified dementia without behavioral disturbance (2) Hypothyroid Hypothyroidism type: unspecified Qualified Code(s): E03.9 - Hypothyroidism, unspecified
[2019-05-26] MEDS: LEVOTHYROXINE SODIUM 50 MCG TABLET PO SCH (06:25)
[2019-05-26] MEDS: ASPIRIN 81 MG ECTAB PO SCH (07:40)
[2019-05-26] MEDS: THIAMINE HCL 50 MG TABLET PO SCH (07:40)
[2019-05-26] MEDS: METOPROLOL SUCC 25MG EXT REL TAB PO SCH (07:41)
[2019-05-26] MEDS: CLOPIDOGREL BISULFATE 75 MG TAB PO SCH (07:41)
[2019-05-26] MEDS: OFLOXACIN 0.3% OP SOLN 5 ML BTL OP SCH (07:41)
[2019-05-26] MEDS: ATORVASTATIN 40 MG TAB PO SCH (07:41)
[2019-05-26] MEDS: AMOXICILLIN/CLAVULANATE 875 MG TAB PO SCH (07:41)
[2019-05-26] MEDS: ISOSORBIDE MONO EXTENDED REL 30 MG TABCR PO SCH (07:41)
--- NOTE | 2019-05-26 15:41 | Discharge Summary ---
Date of Service May 26, 2019 Admission HPI Per Admitting Provider This is an 83 yo M with PMHx of CAD s/p CABG, HTN, HLD, ischemic cardiomyopathy, , hx of NSTEMI, AAA, anemia, Hx of PE/DVT on anticoagulation, CKD stage III,and significant dementia who presents with acute fall in the middle of the night last night. He is being cared for at home by his family, they had set up for placement in [place] on 05/27/2018, however he was becoming more difficult to manage at home and they tried to get him placed yesterday however were unsuccessful. In the middle of the night patient sustained a fall resulting in a C5 fracture as well as bilateral nasal fractures and right occipital condyle fracture after imaging studies obtained in the ER. To the family's knowledge there was no prodrome however the event was unwitnessed. 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 Patient is unable to provide me with any history as he is confused, reports that he did not fall, and that people here did this to him. He does not understand what is going on, what studies have been conducted or that he has fractured anything. Principal Diagnosis Fall resulting in neck and nasal fractures Discharge Exam Constitutional WD/WN, vitals as above Eyes EOM intact bilaterally; no conjunctival abnormality ENMT external ear and nose normal, oropharynx normal Neck trachea midline, no thyromegaly normal visual inspection Respiratory normal respiratory effort, lungs clear to auscultation no respiratory distress Cardiovascular RRR, no murmur, no edema Gastrointestinal (Abdomen) Inspection/Auscultation: abdomen normal to inspection; abdomen not distended Musculoskeletal no cyanosis or clubbing, extremities motor strength 5/5 Skin no rashes, warm and dry Neurologic moves all extremities and awake Psychiatric Orientation: alert, oriented to person, oriented to place and cooperative; + not oriented to time (Mixing up his dates from the 50s to present.) Discharge Data Allergies Allergy/AdvReac Type Severity Reaction Status Date / Time Cephalosporins Allergy Severe RASH Verified 05/22/19 05:49 morphine Allergy Unknown Unknown Verified 05/22/19 05:49 Consultations 05/22/19 07:40 ED Decision to Admit Stat 05/22/19 08:59 Consult Orthopedic Surgery Routine Consult Otolaryngology (Head and Neck) Routine 05/22/19 09:00 Consult Case Management - Discharge Planning Routine 05/22/19 11:13 Consult Patient Services Stat Procedures Performed Operation Date: 05/23/19 07:30 Actual Procedures p Closed Reduction Nasal Fracture and Septal Fracture - Niecy Araujo MD Ordered Studies 05/22/19 05:05 CT abd pelvis wo con Urgent CT cervical spine wo con Urgent CT facial bones wo con Urgent CT head/brain wo con Urgent 05/22/19 05:08 CT chest wo con Urgent 05/22/19 07:58 CT angio neck with con Stat Hospital Course (1) Dementia: Significantly progressed over the last few months, 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 - Patient was discharged to [facility] memory care unit on 05/27/2019. With significant agitation/delirium upon admission-secondary to head trauma, previous Ativan use, underlying dementia, and hospital delirium - Much improved now with PRN Seroquel use; QTc has been stable, though borderline at ~480-500. - Continue Seroquel 25 mg p.o. every 12 hours as needed agitation - Only needed 2 doses. (2) Fall: Presented with presumed fall likely related to generalized deconditioning, cognitive impairment, & Ativan use. Suffered multiple fractures as below. - Memory unit (3) Cervical spine fracture: C5 spinous process and right pedicle fracture secondary to fall. Stable fracture, no focal neuro deficits. - Soft collar at all times except can be taken off to eat - Appreciate Ortho Spine consult - Follow up as outpatient in 1-2 weeks. - Pain control as needed w/ Tylenol - No pain today. (4) Nasal bone fractures: CT of the neck showed non-displaced fracture of the C5 spinous process, 5 mm bone fragment involving the medial aspect of the right occipital condyle, multi-level degenerative changes of the cervical spine, layering secretions within the paranasal sinuses, nasal turbinates and nasopharynx. - There was question if the acute fracture involving C5 foramen had caused any vertebral artery injury, this was followed up with a CTA of the neck which showed there was no acute vessel injury. - Orthopedic consult, Dr. Donis, recommends placing the patient in a soft collar, will follow-up in office as outpatient. - ENT consult, Dr. Araujo for nasal fractures - s/p surgical repair/stabilize nasal bone fractures on 05/23/2019 and doing well. - Continue Augmentin 875mg po bid x 7 days for prophylaxis-last day 05/28/19 - Afrin as needed for epistaxis - Follow-up with ENT as an outpatient in 2 weeks. (5) Unspecified occipital condyle fracture, initial encounter for closed fracture: Secondary to fall. - Pain control (6) Anemia: Hemoglobin of 12.6, appears stable compared to previous trend of hemoglobin and hematocrit. - No bleeding apart from sustained injuries. (7) CAD (coronary artery disease): S/p CABG, no evidence of angina here. Hx of [place] in February 2019 per cardiology records. - Continue aspirin and Plavix - Continue metoprolol succinate 25 mg daily - Is supposed to be on Imdur 30 mg daily as noted in last cardiology note by Dr. Pratt - it appears he has not filled this since the middle of March and likely is not taking it. - Restarted Imdur 30 mg (8) S/P CABG (coronary artery bypass graft): As above (9) Aneurysm of abdominal aorta: 4.2X 4.3 cm, infrarenal. - No further imaging, family not interested in aggressive measures. - On beta-elinor (10) Ischemic cardiomyopathy: EF 35% on ECHO 02/2019. - Continue medication as above, ICD was discussed previously but due to advanced age/dementia and he and family are not interested (11) Pulmonary embolism: H/o such, no longer on anticoagulation due to multiple falls. (12) DVT (deep venous thrombosis): History of such; as above. No anticoagulation. (13) Hypothyroid: TSH normal at 1.18. - Cont levothyroxine 50 mcg (14) Vitamin B1 deficiency: B1 level undetectable last admission in 02/2019. Unclear if was taking supplement at home. - Received 2 doses IV thiamine here. - Continue on thiamine po daily (15) Carotid artery stenosis: Severe, noted on left with 80% proximal narrowing. No h/o CVA. - F/u with Vascular Surgery as an outpt if desired - Continue DAPT, statin (16) Conjunctivitis: Status post trauma to the face and with yellow crusty drainage from left eye. - Continue Ocuflox x1 week (End date: 05/29/2019) (17) DVT prophylaxis: TEDS Total Time Total Time Spent Total Time Spent (In Minutes): 35 Discharge Plan Discharge Items Patient Disposition: Trans Resident Long-Term Care Reason For Visit: C5 FRACTURE S/P FALL Discharge Diagnosis: Fall resulting in nasal fracture and a fracture of the neck Activity: Resume your previous activity Non-emergency contact: Primary Care Provider and Surgeon Call non-emergency contact if: your symptoms worsen and your pain is worsening Follow-up/Referrals: ProCurtis MD [Primary Care Provider] - Niecy Araujo MD [Surgeon] - (Please follow up with Dr. Araujo in 2 weeks.) Ronnie Donis DO [Physician] - (Please arrange follow up with Dr. Donis in 2 weeks.) Diet: Heart Healthy Addtl Attending Provider Instructions: Admitted for fall resulting in a C5 fracture as well as a displace nasal and septal fracture. Required surgery to align the nasal fracture. The C5 fracture is being treated conservatively with observation and follow up with Dr. Donis. He should wear the soft collar at all times except for eating. Follow up with both surgeons in 2 weeks. New meds: Augmentin - Until 05/28/19 for sinus infection prophylaxis Ofloxacin eye drops in the right eye until 05/29/2019 for right eye conjunctivitis after his fall. Imdur - Was taking it before, so not really a new med Quetiapine - Take up to BID as needed for agitation. Pending Studies at Discharge: No Stand-Alone Forms: My [facility] Skilled Items Patient informed of condition?: Yes DNR: Yes Discharge Level of Care: Acute rehab Communicable Disease: No Discharge Prognosis: Stable Lines: None Urinary Catheter: No Medications and DC Order Prescriptions: New quetiapine 25 mg Tablet 25 mg PO Q12 PRN (Reason: agitation) Qty: 1 RF: 0 amoxicillin-pot clavulanate [Augmentin] 875-125 mg Tablet 1 tab PO BIDM Qty: 1 RF: 0 ofloxacin 0.3 % Drops 2 drp ophthalmic (eye) Q4HWA Qty: 1 RF: 0 isosorbide mononitrate 30 mg Tablet Extended Release 24 Hr 30 mg PO QAM Qty: 1 RF: 0 Continued nitroglycerin 400 mcg/spray spray,non-aerosol 1 sprays SL Q5M PRN (Reason: chest pain) Qty: 4.9 RF: 0 atorvastatin 40 mg tablet 40 mg PO DAILY Qty: 90 RF: 3 levothyroxine 50 mcg tablet 50 mcg PO DAILY Qty: 90 RF: 3 metoprolol succinate 25 mg tablet extended release 24 hr 25 mg PO DAILY Qty: 90 RF: 3 clopidogrel 75 mg tablet 75 mg PO QAM 30 Days Qty: 30 RF: 5 docusate sodium [Colace] 100 mg capsule 100 mg PO DAILY PRN (Reason: constipation) RF: 0 aspirin 81 mg tablet,delayed release (DR/EC) 81 mg PO DAILY Qty: 30 RF: 2 thiamine HCl (vitamin B1) 250 mg tablet 250 mg PO DAILY RF: 0 Discharge Orders: Discharge Order (Routine); Ordered 05/26/19 Ordered By: Marc Thayer Admission Data Admit Date/Time: 05/22/19 08:59 Attending Provider: Marc Thayer Admit Provider: Sharifa Victoria Primary Care Provider: Curtis Carrillo Other Providers: Ronnie Donis ; Niecy Araujo ; Marc Thayer Other Interventions: Discharge Summary Assessment (RN) Last Done: 05/26/19 11:17 DC Date/Time DO NOT enter until pt leaves facility: 05/26/19 12:30
== END 2019-05-26 12:30 | disposition home or self-care (01) | DRG 154 ==
LOC: ED 04:51 → 2N 08:59 → SUATTDRO 08:59 → 2N 09:56

== ENCOUNTER 2020-05-27 20:03 | Inpatient (IN) ==
[2020-05-27] MEDS ORDERED: SODIUM CHLORIDE 0.9% 1000ML 500 ML IV ONE (20:29)
[2020-05-27] MEDS ORDERED: ERTAPENEM SODIUM 10 ML IV STA (20:33)
--- NOTE | 2020-05-27 20:40 | Emergency Department Note ---
Impression & Plan Hypoxia, Hypotension, Respiratory distress, Lethargy, Pneumonia, COVID-19 ED Provider Note NAME: CRISTÓBAL ROBBINS AGE: 84 SEX: M : 1935 ARRIVES VIA: Ambulance INFORMANT: [Patient][ems, nurses] ED PROVIDER(S): [Clark Montiel MD] CHIEF COMPLAINT: Confusion HISTORY OF PRESENT ILLNESS: The patient is an 84-year-old male who presents to the ER with increased confu raimundo, garbled speech and lethargy. The patient is at [facility] and tested positive for Covid about 5 days ago. When the patient arrived, he was breathing quickly. He appeared hypoxic without oxygen supplementation. When asked if he had pain, he said no. His speech was slightly thickened/garbled. No further history was obtainable as the patient is a very poor historian, he does have baseline dementia. The history was obtained from the nursing staff and EMS. I did speak with the patient's power of deputy attorney general, his daughter. The patient is a DNR. She understands that he will be hospitalized. REVIEW OF SYSTEMS: Unobtainable given his dementia and mental state. PMHx/PSHx: See Below SOCIAL HISTORY: See Below. PHYSICAL EXAM: GENERAL: Patient is in moderate respiratory distress. HEENT: No acute trauma, normocephalic atraumatic, mucous membranes moist, no nasal congestion, no scleral icterus. NECK: No stridor, no adenopathy, no meningismus, trachea is midline. LUNGS: No obvious wheezing, increased respiratory rate, moderate work of breathing, moderate respiratory distress. HEART: Regular rate and rhythm, equal radial pulses bilaterally. ABDOMEN: Soft, nontender, bowel sounds positive, no hernias, no peritonitis. EXTREMITIES: No cyanosis or edema, full range of motion of all the joints without pain or difficulty, no signs for acute trauma. NEUROLOGIC: Sleepy but awakes to voice, no acute motor or sensory deficits, no focal weakness. Some slurred speech/thickened speech when answering questions. SKIN: No rash, no jaundice, no diaphoresis. DIFFERENTIAL DIAGNOSIS: Sepsis, UTI, pneumonia, hypoxia, stroke, TIA, intracranial bleeding, dehydration, COVID-19, metabolic abnormality, electrolyte abnormalities, cardiac sources, intracerebral event, toxicologic, neurologic, as well as other pathologies. EMERGENCY DEPARTMENT COURSE/PROCEDURES: ECG: Indication was weakness. The ECG shows a normal sinus rhythm with a right bundle branch block. The rate is 73. The QTc is 493. There is no ST elevation, no PVCs. Continuous Cardiac Monitoring: An order was placed for continuous cardiac monitoring. The monitor shows a rate of 76 with normal sinus rhythm. Critical Care Note: I have personally spent 55 minutes of critical care time in the direct management of this patient. This includes bedside care, interpretation of diagnostic studies, and testing, discussion with consultants, patient, and family members, and other required patient management activities. This 55 minutes is in excess of all separately billable procedures. MEDICAL DECISION MAKING: There is no leukocytosis. The patient does have a mild anemia with a hemoglobin of 11.3. The anemia though is baseline for the patient. There is a normal p latelet count. No coagulopathy. D-dimer is elevated at over 5000, this is consistent with his Covid diagnosis and possibly PE. There is no kidney failure. Magnesium was low at 1.6. Lactic acid level was not elevated making severe sepsis less likely. No concerning liver enzyme elevation. Pro-Tyler mildly elevated. ECG shows a sinus rhythm, no acute ischemia. There was a troponin elevation consistent with cardiac injury versus potentially mismatch given his hypoxia. Urinalysis did not show infection. Covid testing was, by report from the outside facility, positive. Chest film shows a bilateral ground-glass appearance to the lungs consistent with a viral pneumonia. Chest CT confirms the viral pneumonia, no PE was seen. Brain CT shows no acute bleed or mass-effect. The patient presented hypoxic and hypotensive. He appeared to be in some moderate respiratory distress. I did contact his power of deputy attorney general, patient is to be a DNR. The POA was made aware of the seriousness of the patient's condition. Patient received IV Decadron given the Covid diagnosis and his hypoxia. He was given IV ertapenem empirically for the possibility of bacterial sepsis. He received IV magnesium and a 500 cc saline bolus. He was placed on an oxygen mask to help with his oxygenation. The patient has made some improvement with the above treatment. He is no longer hypotensive, he is breathing easier. He seems in less distress. The patient is in need of a hospital stay. I did speak with the patient and with case management. The on-call hospitalist has been consulted. His presentation is consistent with the diagnosis of Covid pneumonia. Past Med/Surg History Medical History AAA (abdominal aortic aneurysm) Anemia CAD (coronary artery disease) Carotid artery stenosis Cervical spine fracture Dilated aortic root DVT (deep venous thrombosis) Fracture of nasal septum Gastric perforation History of prostate cancer Hyperlipidemia Hypothyroid Ischemic cardiomyopathy Mitral regurgitation Nasal bone fractures NSTEMI (non-ST elevated myocardial infarction) Pancreatitis Pulmonary embolism S/P CABG (coronary artery bypass graft) Surgical History H/O esophagogastroduodenoscopy History of cataract surgery Hx of cholecystectomy S/P CABG x 3 S/P radiation therapy Family History Father Diabetes Cerebral atherosclerosis CHF (congestive heart failure) Sister Diabetes Brother Coronary atherosclerosis Mother Coronary atherosclerosis Other Heart disease Social History Smoking Status: Unknown if ever smoked Second Hand Exposure: No; Hx Alcohol Use: No Hx Substance Use: No Preferred Language: Gibralt[place] Communication Ability: Impaired Visual Impairment: No Limitations Hearing Ability: Normal School Library Media Specialist Required: No Beliefs That Will Affect Care: None marital status: Current Living Situation: Spouse current occupational status: retired 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 [employer] other: with dementia Feels Safe at Home: Yes Seatbelt Use: always Assistive Devices: None Allergies Allergies Allergy/AdvReac Type Severity Reaction Status Date / Time Cephalosporins Allergy Severe Rash Verified 05/27/20 22:28 morphine Allergy Unknown Unknown Verified 05/27/20 22:28 Home Meds Home Medications Medication Instructions Recorded Confirmed atorvastatin 40 mg PO HS 07/16/19 05/27/20 citalopram 5 mg PO QPM 07/16/19 05/27/20 isosorbide mononitrate 30 mg PO QAM 07/16/19 05/27/20 levothyroxine 50 mcg PO QAM 07/16/19 05/27/20 olanzapine 5 mg PO HS 07/16/19 05/27/20 aspirin 81 mg PO QAM 10/08/19 05/27/20 cyanocobalamin (vitamin B-12) 1,000 mcg PO QAM 10/08/19 05/27/20 [Vitamin B-12] famotidine 20 mg PO BID 10/08/19 05/27/20 fluticasone propionate 2 spray INTRANASAL QAM 10/08/19 05/27/20 acetaminophen 650 mg PO Q4H PRN 05/27/20 05/27/20 ascorbic acid (vitamin C) 500 mg PO QAM 05/27/20 05/27/20 cholecalciferol (vitamin D3) 25 mcg PO QAM 05/27/20 05/27/20 [Vitamin D3] guaifenesin 600 mg PO BID 05/27/20 05/27/20 nitroglycerin [Nitrolingual] 1 spray SUBLINGUAL DIRECTED PRN 05/27/20 0 05/27/20 zinc gluconate 50 mg PO QAM 05/27/20 05/27/20 Previous Rx's Medication Instructions Recorded clopidogrel 75 mg tablet 75 mg PO QAM 30 Days #30 tab 04/30/19 Results & Data (ED) Vital Signs Vital Signs - 24 hr 05/27/20 20:17 05/27/20 20:21 05/27/20 20:30 Temperature Temperature Source Pulse Rate 69 78 69 Pulse Rate from SpO2 Sensor 79 70 Respiratory Rate 22 28 H 26 H Respiratory Depth Respiratory Pattern Blood Pressure 91/43 L 107/52 L Blood Pressure Mean 55 75 Pulse Oximetry 92 Oxygen Delivery Method Oxygen Flow Rate Sepsis Recent Fever Within 48 Hours Sepsis New/Unexplained Change in Mental Status Sepsis Action Taken by Nursing 05/27/20 20:31 05/27/20 20:40 05/27/20 20:45 Temperature 37.0 C Temperature Source Oral Pulse Rate 66 63 66 Pulse Rate from SpO2 Sensor 66 64 67 Respiratory Rate 20 15 21 Respiratory Depth Shallow Respiratory Pattern Tachypnea Blood Pressure 90/41 L 110/44 L Blood Pressure Mean 57 67 Pulse Oximetry 93 98 97 Oxygen Delivery Method Oxymask Oxygen Flow Rate 4 Sepsis Recent Fever Within 48 Hours Yes Sepsis New/Unexplained Change in Mental Status No Sepsis Action Taken by Nursing Physician Notified 05/27/20 20:50 05/27/20 21:00 05/27/20 21:01 Temperature Temperature Source Pulse Rate 62 68 66 Pulse Rate from SpO2 Sensor 65 67 66 Respiratory Rate 23 20 21 Respiratory Depth Respiratory Pattern Blood Pressure 106/52 L Blood Pressure Mean 73 Pulse Oximetry 97 95 94 Oxygen Delivery Method Oxygen Flow Rate Sepsis Recent Fever Within 48 Hours Sepsis New/Unexplained Change in Mental Status Sepsis Action Taken by Nursing 05/27/20 21:10 05/27/20 21:15 05/27/20 21:20 Temperature Temperature Source Pulse Rate 63 60 65 Pulse Rate from SpO2 Sensor 63 60 58 L Respiratory Rate 20 16 19 Respiratory Depth Respiratory Pattern Blood Pressure 106/49 L Blood Pressure Mean 73 Pulse Oximetry 99 97 95 Oxygen Delivery Method Oxygen Flow Rate Sepsis Recent Fever Within 48 Hours Sepsis New/Unexplained Change in Mental Status Sepsis Action Taken by Nursing 05/27/20 21:30 05/27/20 21:31 05/27/20 21:40 Temperature Temperature Source Pulse Rate 62 72 67 Pulse Rate from SpO2 Sensor 61 70 68 Respiratory Rate 18 23 22 Respiratory Depth Respiratory Pattern Blood Pressure 100/45 L Blood Pressure Mean 65 Pulse Oximetry 96 97 97 Oxygen Delivery Method Oxygen Flow Rate Sepsis Recent Fever Within 48 Hours Sepsis New/Unexplained Change in Mental Status Sepsis Action Taken by Nursing 05/27/20 21:46 05/27/20 21:50 05/27/20 22:29 Temperature Temperature Source Pulse Rate 82 79 70 Pulse Rate from SpO2 Sensor 78 78 70 Respiratory Rate 30 H 35 H 19 Respiratory Depth Respiratory Pattern Blood Pressure 131/69 Blood Pressure Mean 100 Pulse Oximetry 96 100 96 Oxygen Delivery Method Oxymask Oxygen Flow Rate 4 Sepsis Recent Fever Within 48 Hours Sepsis New/Unexplained Change in Mental Status Sepsis Action Taken by Nursing 05/27/20 22:30 05/27/20 22:36 Temperature Temperature Source Pulse Rate 82 76 Pulse Rate from SpO2 Sensor 83 73 Respiratory Rate 18 25 H Respiratory Depth Respiratory Pattern Blood Pressure 129/60 Blood Pressure Mean 84 Pulse Oximetry 97 98 Oxygen Delivery Method Oxygen Flow Rate Sepsis Recent Fever Within 48 Hours Sepsis New/Unexplained Change in Mental Status Sepsis Action Taken by [facility] Medications Current Medication List: was personally reviewed by me Laboratory Data Attestation: I reviewed the patient's lab results. Result diagrams: 05/27/20 20:35 05/27/20 20:35 Lab Results 05/27/20 05/27/20 05/27/20 Range/Units 20:35 20:35 20:35 WBC 9.54 (4.8-10.8) K/uL RBC 3.85 L (4.7-6.1) M/uL Hgb 11.3 L (14.0-18.0) g/dL Hct 34.1 L (42-52) % MCV 88.6 (80-100) fL MCH 29.4 (25-34) pg MCHC 33.1 (32-36) g/dL RDW Std Deviation 46.0 (36.4-46.3) fL RDW Coeff of Bea 14.1 (11.5-14.5) % Plt Count 174 (130-400) K/uL MPV 11.4 H (7.4-10.4) fL Immature Gran % (Auto) 0.2 % Neut % (Auto) 83.9 % Lymph % (Auto) 5.3 % [place] % (Auto) 10.6 % Eos % (Auto) 0.0 % Baso % (Auto) 0.0 % Neut # (Auto) 8.00 H (1.4-6.5) K/uL Lymph # (Auto) 0.51 L (1.2-3.4) K/uL [place] # (Auto) 1.01 H (0.11-0.59) K/uL Eos # (Auto) 0.00 (0-0.5) K/uL Baso # (Auto) 0.00 (0-0.2) K/uL Immature Gran # (Auto) 0.02 (0.00-0.02) K/uL PT 11.2 (9.0-12.0) Seconds INR 1.1 (0.9-1.1) APTT 30.0 (21.0-31.0) Seconds PTT Ratio 1.1 D-Dimer 5350 H* (0-500) ug/L FEU Sodium 140 (136-145) mmol/L Potassium 3.6 (3.5-5.1) mmol/L Chloride 110 H (98-107) mmol/L Carbon Dioxide 23 (21-32) mmol/L Anion Gap 7.0 (3-11) BUN 26 H (7-18) mg/dl Creatinine 1.02 (0.6-1.4) mg/dl Est Cr Clr Drug Dosing 46.4 ml/min Est GFR ( Amer) 76.8 Est GFR (Non-Af Amer) 66.2 BUN/Creatinine Ratio 25.6 H (10-20) Glucose 128 H (70-99) mg/dl Lactate (0.4-2.0) mmol/L Calcium 8.4 L (8.5-10.1) mg/dl Magnesium 1.6 L (1.8-2.4) mg/dl Total Bilirubin 0.6 (0.2-1) mg/dl AST 20 (15-37) U/L ALT 18 (12-78) U/L Alkaline Phosphatase 73 (45-117) U/L Troponin I 0.069 H* (0-0.045) ng/ml Total Protein 6.3 L (6.4-8.2) gm/dl Albumin 2.7 L (3.4-5.0) gm/dl Globulin 3.6 (2.5-4.0) gm/dl Albumin/Globulin Ratio 0.7 L (0.9-2) Procalcitonin (0-0.5) ng/ml Urine Color Urine Appearance (Clear) Urine pH (4.5-7.5) Ur Specific [place] (1.000-1.030) Urine Protein (Negative) Urine Glucose (UA) (Negative) Urine Ketones (Negative) Urine Blood (Negative) Urine Nitrite (Negative) Urine Bilirubin (Negative) Urine Urobilinogen (Negative) Ur Leukocyte Esterase (Negative) Urine WBC (Auto) (0-5) /hpf Urine RBC (Auto) (0-4) /hpf U Hyaline Cast (Auto) (0-5) /lpf U Epithel Cells (Auto) (0-5) /lpf Urine Bacteria (Auto) (Negative) 05/27/20 05/27/20 05/27/20 Range/Units 20:35 21:11 22:35 WBC (4.8-10.8) K/uL RBC (4.7-6.1) M/uL Hgb (14.0-18.0) g/dL Hct (42-52) % MCV (80-100) fL MCH (25-34) pg MCHC (32-36) g/dL RDW Std Deviation (36.4-46.3) fL RDW Coeff of Bea (11.5-14.5) % Plt Count (130-400) K/uL MPV (7.4-10.4) fL Immature Gran % (Auto) % Neut % (Auto) % Lymph % (Auto) % [place] % (Auto) % Eos % (Auto) % Baso % (Auto) % Neut # (Auto) (1.4-6.5) K/uL Lymph # (Auto) (1.2-3.4) K/uL [place] # (Auto) (0.11-0.59) K/uL Eos # (Auto) (0-0.5) K/uL Baso # (Auto) (0-0.2) K/uL Immature Gran # (Auto) (0.00-0.02) K/uL PT (9.0-12.0) Seconds INR (0.9-1.1) APTT (21.0-31.0) Seconds PTT Ratio D-Dimer (0-500) ug/L FEU Sodium (136-145) mmol/L Potassium (3.5-5.1) mmol/L Chloride (98-107) mmol/L Carbon Dioxide (21-32) mmol/L Anion Gap (3-11) BUN (7-18) mg/dl Creatinine (0.6-1.4) mg/dl Est Cr Clr Drug Dosing ml/min Est GFR ( Amer) Est GFR (Non-Af Amer) BUN/Creatinine Ratio (10-20) Glucose (70-99) mg/dl Lactate 2.0 (0.4-2.0) mmol/L Calcium (8.5-10.1) mg/dl Magnesium (1.8-2.4) mg/dl Total Bilirubin (0.2-1) mg/dl AST (15-37) U/L ALT (12-78) U/L Alkaline Phosphatase (45-117) U/L Troponin I (0-0.045) ng/ml Total Protein (6.4-8.2) gm/dl Albumin (3.4-5.0) gm/dl Globulin (2.5-4.0) gm/dl Albumin/Globulin Ratio (0.9-2) Procalcitonin 0.65 H (0-0.5) ng/ml Urine Color Yellow Urine Appearance Clear (Clear) Urine pH 5.0 (4.5-7.5) Ur Specific [place] 1.023 (1.000-1.030) Urine Protein 1+ H (Negative) Urine Glucose (UA) Negative (Negative) Urine Ketones Negative (Negative) Urine Blood Negative (Negative) Urine Nitrite Negative (Negative) Urine Bilirubin Negative (Negative) Urine Urobilinogen Negative (Negative) Ur Leukocyte Esterase Negative (Negative) Urine WBC (Auto) 1-5 (0-5) /hpf Urine RBC (Auto) 0-4 (0-4) /hpf U Hyaline Cast (Auto) 1-5 (0-5) /lpf U Epithel Cells (Auto) 5-10 H (0-5) /lpf Urine Bacteria (Auto) Negative (Negative) Administered Medications Discontinued Medications Acetaminophen (Acetaminophen 1000 Mg/100 Ml Iv) 1,000 mg IV NOW STA Stop: 05/27/20 21:13 Last Admin: 05/27/20 21:44 Dose: Not Given Documented by: [id number] Dexamethasone (Dexamethasone Sod Inj 10 Mg/Ml Vial) 6 mg IV NOW ONE Stop: 05/27/20 21:15 Last Admin: 05/27/20 21:44 Dose: 6 mg Documented by: [id number] Sodium Chloride (Nss 1000ml) 500 mls @ 999 mls/hr IV .Q31M ONE Stop: 05/27/20 20:59 Last Infusion: 05/27/20 21:27 Dose: 0 mls/hr Documented by: [id number] Admin: 05/27/20 20:54 Dose: 999 mls/hr Documented by: [id number] Ertapenem (Invanz) 10 mls @ 2 mls/min IV NOW STA Stop: 05/27/20 20:37 Last Admin: 05/27/20 21:44 Dose: 2 mls/min Documented by: [id number] Magnesium Sulfate/Dextrose (Magnesium Sulfate / D5w) 1 gm in 100 mls @ 100 mls/hr IV NOW STA Stop: 05/27/20 22:11 Last Admin: 05/27/20 22:27 Dose: 100 mls/hr Documented by: [id number] Ioversol (Optiray 320 125ml) 120 ml IV ONCE ONE Stop: 05/27/20 22:01 Last Admin: 05/27/20 22:01 Dose: 120 ml Documented by: [id number] Imaging Data Attestation: I personally reviewed and interpreted this imaging study as follows: My Impression: Chest x-ray: There are bilateral patchy infiltrates consistent with viral pneumonia. No pneumothorax or CHF. Radiologist's Impression: Brain CT without contrast: There are some chronic changes consistent with his age. No intracranial bleeding or mass-effect. No skull fracture. Sinuses are clear. Chest CT for PE: No evidence for PE. No evidence for aneurysm. No pericardial effusion. Possible esophagitis based on esophageal wall thickening. There were groundglass opacities in both lungs concerning for pneumonia, possibly viral. No pneumothorax or pleural effusion. Discharge Plan Visit Data Chief Complaint: Illness ED Provider: Clark Montiel Discharge Problem: Hypoxia, Hypotension, Respiratory distress, Lethargy, Pneumonia, COVID-19 Patient Disposition: Admitted As Inpatient Condition: Serious Forms Stand Alone Forms: [facility] [place] [employer] Prescriptions Prescriptions: No Action clopidogrel 75 mg tablet 75 mg PO QAM 30 Days Qty: 30 RF: 5 cyanocobalamin (vitamin B-12) [Vitamin B-12] 1,000 mcg Tablet Extended Release 1,000 mcg PO QAM RF: 0 famotidine 20 mg tablet 20 mg PO BID RF: 0 fluticasone propionate 50 mcg/actuation [place],Suspension 2 spray INTRANASAL QAM RF: 0 aspirin 81 mg tablet,delayed release (DR/EC) 81 mg PO QAM RF: 0 ascorbic acid (vitamin C) 500 mg Tablet 500 mg PO QAM RF: 0 zinc gluconate 50 mg Tablet 50 mg PO QAM RF: 0 guaifenesin 400 mg Tablet 600 mg PO BID RF: 0 cholecalciferol (vitamin D3) [Vitamin D3] 25 mcg (1,000 unit) Tablet 25 mcg PO QAM RF: 0 acetaminophen 325 mg Tablet 650 mg PO Q4H PRN (Reason: Fever Or Pain) RF: 0 nitroglycerin [Nitrolingual] 400 mcg/spray Aerosol,[place] 1 spray sublingual DIRECTED PRN (Reason: Chest Pain) RF: 0 citalopram 10 mg tablet 5 mg PO QPM RF: 0 isosorbide mononitrate 30 mg tablet extended release 24 hr 30 mg PO QAM RF: 0 atorvastatin 40 mg tablet 40 mg PO HS RF: 0 levothyroxine 50 mcg tablet 50 mcg PO QAM RF: 0 olanzapine 5 mg tablet 5 mg PO HS RF: 0 Referrals Referrals: Maddie louieSylvania [Primary Care Provider] - Discharge Problem: Hypotension Qualifiers: Hypotension type: unspecified hypotension type Qualified Code(s): I95.9 - Hypotension, unspecified Pneumonia Qualifiers: Pneumonia type: due to unspecified organism Laterality: bilateral Lung location: unspecified part of lung Qualified Code(s): J18.9 - Pneumonia, unspecified organism
[2020-05-27 20:48] LABS: Hematocrit (blood only) 34.1 % (42-52); Hemoglobin 11.3 g/dL (14.0-18.0); Immature Granulocytes # (auto) 0.02 K/uL (0.00-0.02); Immature Granulocytes % (auto) 0.2 %; Lymphocytes # (auto) 0.51 K/uL (1.2-3.4); Lymphocytes % (auto) 5.3 %; Mean Corpuscular Hemoglobin 29.4 pg (25-34); Mean Corpuscular Hgb Conc 33.1 g/dL (32-36); Mean Corpuscular Volume 88.6 fL (80-100); Mean Platelet Volume 11.4 fL (7.4-10.4); Monocytes # (auto) 1.01 K/uL (0.11-0.59); Monocytes % (auto) 10.6 %; Neutrophils % (auto) 83.9 %; Platelet Count 174 K/uL (130-400); RDW Coefficient of Variation 14.1 % (11.5-14.5); Red Blood Count 3.85 M/uL (4.7-6.1); White Blood Count 9.54 K/uL (4.8-10.8)
[2020-05-27 21:07] LABS: Albumin Level 2.7 gm/dl (3.4-5.0); BUN Creatinine Ratio 25.6 (10-20); Calcium 8.4 mg/dl (8.5-10.1); Creatinine Clr Calc Pharmacy 46.4 ml/min; Est GFR (African American) 76.8; Est GFR (Non-African American) 66.2; Magnesium 1.6 mg/dl (1.8-2.4); Potassium 3.6 mmol/L (3.5-5.1)
[2020-05-27 21:09] LABS: INR 1.1 (0.9-1.1); Partial Thromboplastin Ratio 1.1; Prothrombin Time 11.2 Seconds (9.0-12.0)
[2020-05-27] MEDS ORDERED: ACETAMINOPHEN 1000 MG/100 ML IV IV STA (21:12)
[2020-05-27] MEDS ORDERED: MAGNESIUM SULFATE / D5W 1 GM/100 ML BAG IV STA (21:12)
[2020-05-27] MEDS ORDERED: DEXAMETHASONE SOD INJ 10 MG/ML VIAL IV ONE (21:14)
[2020-05-27 21:40] LABS: D Dimer 5350 ug/L FEU (0-500)
[2020-05-27 21:47] LABS: Albumin Globulin Ratio 0.7 (0.9-2); Bilirubin,Total 0.6 mg/dl (0.2-1); Globulin 3.6 gm/dl (2.5-4.0); Total Protein 6.3 gm/dl (6.4-8.2); Troponin I 0.069 ng/ml (0-0.045)
--- NOTE | 2020-05-27 21:55 | History & Physical Report ---
Date of Service May 27, 2020 Assessment & Plan (1) Pneumonia due to COVID-19 virus: Pneumonia due to COVID-19 virus/acute respiratory failure with hypoxia- Decadron 6 mg IV every morning Remdesivir IV per protocol Ventolin HFA 2 puffs every 4 hours as needed Nasal cannula oxygen, titrate to keep pulse ox 94 to 95% Patient is a DNR/DNI Present on Admission?: Yes (2) Acute respiratory failure with hypoxia: See above Present on Admission?: Yes (3) Hypoxia: See above Present on Admission?: Yes (4) CAD (coronary artery disease): CAD/hypertension/ischemic cardiomyopathy- Until more alert hold aspirin, clopidogrel, isosorbide mononitrate and nitroglycerin sublingual Present on Admission?: Yes (5) Ischemic cardiomyopathy: See above Present on Admission?: Yes (6) Hyperlipidemia: Atorvastatin 40 mg in the evening on hold until more alert Present on Admission?: Yes (7) Hypothyroidism (acquired): Levothyroxine on hold till more alert Present on Admission?: Yes (8) Depression: Olanzapine, citalopram on hold until more alert Present on Admission?: Yes (9) Dementia: Limits his contribution to HPI and review of systems Present on Admission?: Yes History of Present Illness Chief Complaint: The patient is referred to the emergency department from [facility] due to increased confusion, garbled speech, lethargy, tachypnea and a positive COVID-19 test 5 days ago. Primary Care Provider: [facility] The patient is an 84-year-old male with a past medical history including anemia, gastric perforation, cervical spine closed C5 fracture, carotid artery stenosis, DVT, AAA, dementia, open displaced fracture of nasal bone, closed occipital condyle fracture, vitamin B1 deficiency, cognitive impairment, depression, PE, acute coronary syndrome, hypothyroidism, tricuspid regurgitation, thrombocy topenia, squamous cell skin cancer, SNHL, right regurgitation, Lyme disease, ischemic cardiomyopathy, hyperlipidemia, dilated aortic root, non-STEMI, CAD, pancreatitis, pneumomediastinum and status post CABG. Upon arrival in the emergency department, patient was tachypneic and found to be hypoxic with pulse ox 84% on room air. Work-up in the emergency department included the following abnormal la boratories: Hemoglobin 11.3, potassium 3.6, glucose 128, magnesium 1.6, albumin 2.7, D-dimer 5350 and COVID-19 positive. Chest x-ray showed bilateral interstitial infiltrates. Patient was placed on nasal cannula oxygen. Emergency department treatment included the following: Tylenol 1 g IV, dexamethasone 6 mg IV, NSS 500 mL, and ertapenem 1 g IV. Emergency department did communicate with the patient's daughter, DEBRA, who confirmed the patient is a DNR/DNI. Allergies Allergy/AdvReac Type Severity Reaction Status Date / Time Cephalosporins Allergy Severe Rash Verified 05/27/20 22:28 morphine Allergy Unknown Unknown Verified 05/27/20 22:28 Home Medications Medication Instructions Recorded Confirmed Type clopidogrel 75 mg tablet 75 mg PO QAM 30 Days #30 tab 04/30/19 10/08/19 Rx atorvastatin 40 mg PO HS 07/16/19 10/08/19 History citalopram 10 mg PO QAM 07/16/19 10/08/19 History isosorbide mononitrate 30 mg PO QAM 07/16/19 10/08/19 History levothyroxine 50 mcg PO DAILYBB 07/16/19 10/08/19 History olanzapine 5 mg PO HS 07/16/19 10/08/19 History aspirin 81 mg PO QAM 10/08/19 10/08/19 History cyanocobalamin (vitamin B-12) 1,000 mcg PO QAM 10/08/19 10/08/19 History [Vitamin B-12] famotidine 20 mg PO BID 10/08/19 10/08/19 History fluticasone propionate 2 spray INTRANASAL QAM 10/08/19 10/08/19 History acetaminophen 650 mg PO Q4H PRN 05/27/20 05/27/20 History ascorbic acid (vitamin C) 500 mg PO QAM 05/27/20 05/27/20 History cholecalciferol (vitamin D3) 25 mcg PO QAM 05/27/20 05/27/20 History [Vitamin D3] guaifenesin 600 mg PO BID 05/27/20 05/27/20 History nitroglycerin [Nitrolingual] 1 spray SUBLINGUAL DIRECTED PRN 05/27/20 05/27/20 History zinc gluconate 50 mg PO QAM 05/27/20 05/27/20 History Past Med/Surg History Medical History AAA (abdominal aortic aneurysm) Anemia CAD (coronary artery disease) Carotid artery stenosis Cervical spine fracture Dilated aortic root DVT (deep venous thrombosis) Fracture of nasal septum Gastric perforation History of prostate cancer Hyperlipidemia Hypothyroid Ischemic cardiomyopathy Mitral regurgitation Nasal bone fractures NSTEMI (non-ST elevated myocardial infarction) Pancreatitis Pulmonary embolism S/P CABG (coronary artery bypass graft) Surgical History H/O esophagogastroduodenoscopy History of cataract surgery Hx of cholecystectomy S/P CABG x 3 S/P radiation therapy Family History Father Diabetes Cerebral atherosclerosis CHF (congestive heart failure) Sister Diabetes Brother Coronary atherosclerosis Mother Coronary atherosclerosis Other Heart disease Social History Smoking Status: Unknown if ever smoked Second Hand Exposure: No; Hx Alcohol Use: No Hx Substance Use: No Preferred Language: Syrian Communication Ability: Impaired Visual Impairment: No Limitations Hearing Ability: Normal Embroidery Assistant Required: No Beliefs That Will Affect Care: None marital status: Current Living Situation: Spouse current occupational status: retired 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 HEENT--PERRL, EOMI, mucous membranes and oropharynx dry. Neck--supple. No JVD. No bruits. Thyroid normal, trachea midline, no adenopathy. Heart--normal S1 and S2. No murmurs, rubs or gallops. Lungs--coarse breath sounds bilaterally. No respiratory distress, no accessory muscle use. Abdomen--normal bowel sounds and soft. Nontender. Nondistended. Extremities--no cyanosis or clubbing. No edema. Dermatologic--skin is dry Neurologic--cranial nerves II through XII grossly intact. Rheumatologic--limited exam Psychiatric--unresponsive Results & Data Results & Data ([facility]) Vital Signs (Past 12 Hours) Vital Signs Temp Pulse Resp BP Pulse Ox 05/27/20 21:31 72 23 97 05/27/20 21:30 62 18 100/45 L 96 05/27/20 21:20 65 19 95 05/27/20 21:15 60 16 106/49 L 97 05/27/20 21:10 63 20 99 05/27/20 21:01 66 21 94 05/27/20 21:00 68 20 106/52 L 95 05/27/20 20:50 62 23 97 05/27/20 20:45 66 21 110/44 L 97 05/27/20 20:40 63 15 98 05/27/20 20:31 98.6 F 66 20 90/41 L 93 05/27/20 20:30 69 26 H 107/52 L 92 05/27/20 20:21 78 28 H 05/27/20 20:17 69 22 91/43 L Laboratory Results Laboratory Results WBC 9.54 K/uL (4.8-10.8) 05/27/20 20:35 RBC 3.85 M/uL (4.7-6.1) L 05/27/20 20:35 Hgb 11.3 g/dL (14.0-18.0) L 05/27/20 20:35 Hct 34.1 % (42-52) L 05/27/20 20:35 MCV 88.6 fL (80-100) 05/27/20 20:35 MCH 29.4 pg (25-34) 05/27/20 20:35 MCHC 33.1 g/dL (32-36) 05/27/20 20:35 RDW Std Deviation 46.0 fL (36.4-46.3) 05/27/20 20:35 RDW Coeff of Bea 14.1 % (11.5-14.5) 05/27/20 20:35 Plt Count 174 K/uL (130-400) 05/27/20 20:35 MPV 11.4 fL (7.4-10.4) H 05/27/20 20:35 Immature Gran % (Auto) 0.2 % 05/27/20 20:35 Neut % (Auto) 83.9 % 05/27/20 20:35 Lymph % (Auto) 5.3 % 05/27/20 20:35 [place] % (Auto) 10.6 % 05/27/20 20:35 Eos % (Auto) 0.0 % 05/27/20 20:35 Baso % (Auto) 0.0 % 05/27/20 20:35 Neut # (Auto) 8.00 K/uL (1.4-6.5) H 05/27/20 20:35 Lymph # (Auto) 0.51 K/uL (1.2-3.4) L 05/27/20 20:35 [place] # (Auto) 1.01 K/uL (0.11-0.59) H 05/27/20 20:35 Eos # (Auto) 0.00 K/uL (0-0.5) 05/27/20 20:35 Baso # (Auto) 0.00 K/uL (0-0.2) 05/27/20 20:35 Immature Gran # (Auto) 0.02 K/uL (0.00-0.02) 05/27/20 20:35 PT 11.2 Seconds (9.0-12.0) 05/27/20 20:35 INR 1.1 (0.9-1.1) 05/27/20 20:35 APTT 30.0 Seconds (21.0-31.0) 05/27/20 20:35 PTT Ratio 1.1 05/27/20 20:35 D-Dimer 5350 ug/L FEU (0-500) H* 05/27/20 20:35 Sodium 140 mmol/L (136-145) 05/27/20 20:35 Potassium 3.6 mmol/L (3.5-5.1) 05/27/20 20:35 Chloride 110 mmol/L (98-107) H 05/27/20 20:35 Carbon Dioxide 23 mmol/L (21-32) 05/27/20 20:35 Anion Gap 7.0 (3-11) 05/27/20 20:35 BUN 26 mg/dl (7-18) H 05/27/20 20:35 Creatinine 1.02 mg/dl (0.6-1.4) 05/27/20 20:35 Est Cr Clr Drug Dosing 46.4 ml/min 05/27/20 20:35 Est GFR ( Amer) 76.8 05/27/20 20:35 Est GFR (Non-Af Amer) 66.2 05/27/20 20:35 BUN/Creatinine Ratio 25.6 (10-20) H 05/27/20 20:35 Glucose 128 mg/dl (70-99) H 05/27/20 20:35 Lactate 2.0 mmol/L (0.4-2.0) 05/27/20 21:11 Calcium 8.4 mg/dl (8.5-10.1) L 05/27/20 20:35 Magnesium 1.6 mg/dl (1.8-2.4) L 05/27/20 20:35 Total Bilirubin 0.6 mg/dl (0.2-1) 05/27/20 20:35 AST 20 U/L (15-37) 05/27/20 20:35 ALT 18 U/L (12-78) 05/27/20 20:35 Alkaline Phosphatase 73 U/L (45-117) 05/27/20 20:35 Troponin I 0.069 ng/ml (0-0.045) H* 05/27/20 20:35 Total Protein 6.3 gm/dl (6.4-8.2) L 05/27/20 20:35 Albumin 2.7 gm/dl (3.4-5.0) L 05/27/20 20:35 Globulin 3.6 gm/dl (2.5-4.0) 05/27/20 20:35 Albumin/Globulin Ratio 0.7 (0.9-2) L 05/27/20 20:35 Procalcitonin 0.65 ng/ml (0-0.5) H 05/27/20 20:35 Urine Color Yellow 05/27/20 22:35 Urine Appearance Clear (Clear) 05/27/20 22:35 Urine pH 5.0 (4.5-7.5) 05/27/20 22:35 Ur Specific [place] 1.023 (1.000-1.030) 05/27/20 22:35 Urine Protein 1+ (Negative) H 05/27/20 22:35 Urine Glucose (UA) Negative (Negative) 05/27/20 22:35 Urine Ketones Negative (Negative) 05/27/20 22:35 Urine Blood Negative (Negative) 05/27/20 22:35 Urine Nitrite Negative (Negative) 05/27/20 22:35 Urine Bilirubin Negative (Negative) 05/27/20 22:35 Urine Urobilinogen Negative (Negative) 05/27/20 22:35 Ur Leukocyte Esterase Negative (Negative) 05/27/20 22:35 Urine WBC (Auto) 1-5 /hpf (0-5) 05/27/20 22:35 Urine RBC (Auto) 0-4 /hpf (0-4) 05/27/20 22:35 U Hyaline Cast (Auto) 1-5 /lpf (0-5) 05/27/20 22:35 U Epithel Cells (Auto) 5-10 /lpf (0-5) H 05/27/20 22:35 Urine Bacteria (Auto) Negative (Negative) 05/27/20 22:35 Diagnostic Findings [facility] Patient: CRISTÓBAL ROBBINS (Male) : 31 Status: ER Date: 05/27/20 22:15 Room #: History: CONFUSION Slices: 89 Priors: Tech: Easton Anaya @ [phone] Exams: CT HEAD Contrast: Accession Numbers: [id number] Preliminary Findings Only See Final Report For Complete Findings CT HEAD: Comparison: CT head 07/16/19. Involutional and chronic small vessel ischemic changes. No ICH, mass-effect, or edema. No skull fracture. Old left nasal bone fracture. Sinuses and mastoid air cells are clear. Radiologist: Ke Hill M.D. Study ready at 22:20 and initial results transmitted at 22:43 *This report constitutes a preliminary interpretation only. Non-acute findings felt to be unrelated to the clinical presentation may not be discussed in this report. The study will be interpreted and a final report will be generated by the local Radiologist the following shift. To reach the hospital radiology department call [phone]. If a discrepancy is found between the preliminary and final interpretations of this study, please notify us via our Client Portal at [email or web address] can also fax this report with a description of the discrepancy, or include the final report, to our daytime fax number [phone].If faxing, please indicate the severity of discrepancy using one of the following categories: [ ] 1 - Agree/Informational [ ] 2 - Unlikely to Affect Management [ ] 3 - Possible Eventual Change of Management [ ] 4 - Probable Immediate Change of Management For all other patient related information, please fax us at [phone]. [id number] Accession Numbers: [id number] Preliminary Findings Only See Final Report For Complete Findings CTA CHEST: Comparison: CT chest 05/22/19. No evidence of acute pulmonary embolism. Limited evaluation of the distal pulmonary artery branch vessels due to respirat ory motion. No thoracic aortic aneurysm. Previous sternotomy and CABG. Coronary artery atherosclerosis. No pericardial effusion. Small hiatal hernia. Esophageal wall thickening, possibly esophagitis. Ground-glass opacities in both lower lobes, concerning for pneumonia, possibly viral. Mild subpleural fibrotic changes. No pleural effusion or pneumothorax. No acute osseous findings. Radiologist: Ke Hill M.D. Study ready at 22:28 and initial results transmitted at 22:43 *This report constitutes a preliminary interpretation only. Non-acute findings felt to be unrelated to the clinical presentation may not be discussed in this report. The study will be interpreted and a final report will be generated by the local Radiologist the following shift. To reach the hospital radiology department call [phone]. If a discrepancy is found between the preliminary and final interpretations of this study, please notify us via our Client Portal at [email or web address]: [email or web address], [email or web address].You can also fax this report with a description of the discrepancy, or include the final report, to our daytime fax number [phone].If faxing, please indicate the severity of discrepancy using one of the following categories: [ ] 1 - Agree/Informational [ ] 2 - Unlikely to Affect Management [ ] 3 - Possible Eventual Change of Management [ ] 4 - Probable Immediate Change of Management For all other patient related information, please fax us at [phone]. [id number] Code Status & VTE Plan Code Status DNR/DNI VTE Prophylaxis Plan VTE Prophylaxis will be ordered: Yes PG Care Time/CCT Total # of Minutes Spent Total Time Spent with Patient: Total time spent is greater than 50% in coordination of care (as documented) at patient's floor/unit and/or counseling patient: Coding Level of Care Code 79190 Initial Inpt Care Lvl 3 Diagnoses Pneumonia due to COVID-19 virus U07.1; J12.82 Acute respiratory failure with hypoxia J96.01 Hypoxia R09.02 CAD (coronary artery disease) I25.10 Ischemic cardiomyopathy I25.5 Hyperlipidemia E78.5 Hyperlipidemia type: unspecified Hypothyroidism (acquired) E03.9 Depression F32.9 Dementia F03.90 (1) Hyperlipidemia Hyperlipidemia type: unspecified Qualified Code(s): E78.5 - Hyperlipidemia, unspecified
[2020-05-27] MEDS ORDERED: OPTIRAY 320 125ml IV ONE (22:00)
[2020-05-27 22:50] LABS: Appearance Urine Clear (Clear); Bacteria Urine Automated Negative (Negative); Bilirubin Urine Negative (Negative); Blood Urine Negative (Negative); Color Urine Yellow; Glucose Urine UA Negative (Negative); Ketones Urine Negative (Negative); Leukocyte Esterase Urine Negative (Negative); Nitrite Urine Negative (Negative); Protein Urine 1+ (Negative); RBC Urine Automated 0-4 /hpf (0-4); Specific Gravity Urine 1.023 (1.000-1.030); Urobilinogen Urine Negative (Negative)
[2020-05-28] MEDS ORDERED: ONDANSETRON INJ 2 MG/ML 2 ML VIAL IV PRN (00:27)
[2020-05-28] MEDS ORDERED: REMDESIVIR 200 MG in SODIUM CHLORIDE 0.9% 210 ML IV ONE (01:00)
[2020-05-28] MEDS: NSS + 20MEQ KCL 20 MEQ/1,000 ML BAG IV SCH ×3 (01:34→23:43)
[2020-05-28] MEDS: SODIUM CHLORIDE 0.9% 10ML FLUSH IV SCH ×2 (01:34→23:43)
--- NOTE | 2020-05-28 07:17 | CT Scan Report ---
CT head/brain wo con CLINICAL HISTORY: confusion COMPARISON STUDY: July 16, 2019 TECHNIQUE: Axial CT of the brain is performed from the vertex to the skull base. IV contrast was not administered for this examination. A dose lowering technique was utilized adhering to the principles of ALARA. CT DOSE: 1230.03 mGycm FINDINGS: No intra or extra-axial mass lesions are visualized. There is no CT evidence of acute cortical infarc tion. There is no evidence of midline shift. There is no acute hemorrhage. No calvarial fractures ar e visualized. There are patchy white matter hypodensities likely on a small vessel basis. There is no evidence of pathologic ventricular dilatation. There is no evidence of acute sinusitis there is an old nasal bone deformity. IMPRESSION: No acute intracranial findings ACT 112: Negative or not required by law. Electronically signed by: Romie Burdick M.D. 05/28/2020 7:15 AM
--- NOTE | 2020-05-28 08:02 | CT Scan Report ---
CT angio chest PE protocol CT DOSE: 695.43 mGycm HISTORY: 84 years-old Male with PE. Acute shortness of breath. COVID Positive. TECHNIQUE: Multiple CTA images of the chest were obtained after the intravenous administration of 120 ml Optiray 320. Coronal and sagittal MIPS were obtained from the axial data set and were submitted for review. All measurements were obtained according to NASCET criteria. A dose lowering technique w as utilized adhering to the principles of ALARA. COMPARISON: Chest CT 05/22/2019 FINDINGS: CTA: Moderate cardiomegaly. Prior median sternotomy and CABG with extensive [place] coronary artery calcifi cations. There is mild dilation of the aortic root. Mild dilation of the aortic isthmus measures 3.2 cm transversely. Moderate mixed plaque of the thoracic aorta and proximal great vessels. No dissectio n. The pulmonary artery is opacified to level of the segmental branches. The segmental and subsegment al branches however are not well seen secondary to respiratory motion artifact. No filling defects id entified to suggest thromboembolic disease. CT CHEST: Unremarkable thyroid. Nonspecific mildly enlarged subcarinal lymph nodes measure up to 10 mm. No pneu mothorax or pleural effusion. Subpleural and bibasilar predominant groundglass opacities are noted wi th mild associated consolidation of the lung bases. Mild emphysema. No overt pulmonary edema. No susp icious pulmonary nodules or masses. Central airways are patent. Fluid-filled mildly distended esophagus with small hiatal hernia. Unremarkable soft tissues. Bones ap pear intact without acute fracture. Degenerative changes of the spine. IMPRESSION: 1. Limited exam as above. No evidence of pulmonary emboli. 2. Bibasilar and subpleural predominant groundglass opacities with mild associated consolidation of t he basal lower lobes is compatible with an infectious or inflammatory pneumonitis, likely viral pneum onia. 3. Cardiomegaly with prior median sternotomy and CABG. 4. No pleural effusion. ACT 112: Negative or not required by law. The above report was generated using voice recognition software. It may contain grammatical, syntax o r spelling errors. Electronically signed by: Isaiah Wilks M.D. 05/28/2020 8:01 AM
[2020-05-28] MEDS: ENOXAPARIN INJ 40 MG/0.4 ML SYR SQ SCH ×2 (08:27→21:04)
[2020-05-28] MEDS: dexAMETHasone 6 MG in SYRINGE 0 ML IV SCH (08:27)
--- NOTE | 2020-05-28 08:32 | XRay Report ---
XR chest 1V portable CLINICAL HISTORY: SEPSIS COMPARISON STUDY: 10/08/2019 FINDINGS: The heart is enlarged. There are postsurgical changes of a midline sternotomy. There are bi lateral interstitial opacities. In addition there is more focal pulmonary consolidation within the le ft lower lobe. There is underlying emphysema. Diagnostic considerations include pulmonary vascular co ngestion versus interstitial infectious/inflammatory process. Correlation with Covid 19 testing is re commended. Clinical and radiographic follow-up is recommended.[ IMPRESSION: 1. Developing interstitial opacities with progressive left basilar consolidation. Diagnostic consider ations include pulmonary vascular congestion, pneumonia, or a combination of both. Clinical and radio graphic follow-up is recommended. ACT 112: Negative or not required by law. Electronically signed by: Romie Burdick M.D. 05/28/2020 8:30 AM
--- NOTE | 2020-05-28 11:11 | Electrocardiogram Report ---
Test Reason : Blood Pressure : / mmHG Vent. Rate : 073 BPM Atrial Rate : 073 BPM P-R Int : 126 ms QRS Dur : 132 ms QT Int : 448 ms P-R-T Axes : 060 034 032 degrees QTc Int : 493 ms Poor data quality, interpretation may be adversely affected Normal sinus rhythm Right bundle branch block Inferior infarct (cited on or before 22-SEP-2018) Abnormal ECG When compared with ECG of 23-MAY-2019 10:23, Premature ventricular complexes are no longer Present Confirmed by Konstantin Owens ([id number]) on 05/28/2020 11:11:08 AM Referred By: REFERRED SELF Confirmed By:Gutierrez Owens
[2020-05-28] MEDS: REMDESIVIR 100 MG in SODIUM CHLORIDE 0.9% 230 ML IV SCH (20:48)
[2020-05-28] MEDS: CITALOPRAM 20 MG TAB PO SCH (21:04)
[2020-05-28] MEDS: FAMOTIDINE 20 MG TAB PO SCH (21:04)
[2020-05-28] MEDS: ATORVASTATIN 40 MG TAB PO SCH (21:04)
[2020-05-28] MEDS: OLANZapine 5 MG TABLET PO SCH (21:04)
[2020-05-28] MEDS: ERTAPENEM SODIUM 1,000 MG in SODIUM CHLORIDE 0.9% 50 ML IV SCH (21:46)
--- NOTE | 2020-05-28 22:53 | Hospitalist Progress Note ---
Date of Service May 28, 2020 Assessment & Plan (1) Pneumonia due to COVID-19 virus: Pneumonia due to COVID-19 virus/acute respiratory failure with hypoxia- Decadron 6 mg IV every morning Remdesivir IV per protocol Ventolin HFA 2 puffs every 4 hours as needed currently on room air. will continue with remdesevir and will monitor for another 24-48 hours. If continues to improve, may consider discharging prior to finishing 5 day course of remdesivir. Patient is a DNR/DNI (2) Acute respiratory failure with hypoxia: See above (3) Hypoxia: See above (4) CAD (coronary artery disease): CAD/hypertension/ischemic cardiomyopathy- Until more alert hold aspirin, clopidogrel, isosorbide mononitrate and nitroglycerin sublingual (5) Ischemic cardiomyopathy: See above (6) Hyperlipidemia: Atorvastatin 40 mg in the evening on hold until more alert (7) Hypothyroidism (acquired): Levothyroxine on hold till more alert (8) Depression: Olanzapine, citalopram on hold until more alert (9) Dementia: Limits his contribution to HPI and review of systems Admission and Anticipated Discharge Date Admission Date: May 27, 2020 Subjective Patient reports breathing well, has no new complaints. Review of Systems Review of Systems: All systems reviewed & are unremarkable except as noted in HPI & below Physical Exam Physical Exam: The patient is nonresponsive, normocephalic and atraumatic, lying in bed and in no acute distress. HEENT--PERRL, EOMI, mucous membranes and oropharynx dry. Neck--supple. No JVD. No bruits. Thyroid normal, trachea midline, no adenopathy. Heart--normal S1 and S2. No murmurs, rubs or gallops. Lungs--coarse breath sounds bilaterally. No respiratory distress, no accessory muscle use. Abdomen--normal bowel sounds and soft. Nontender. Nondistended. Extremities--no cyanosis or clubbing. No edema. Dermatologic--skin is dry Neurologic--cranial nerves II through XII grossly intact. Results & Data Results & Data ([facility]) Vital Signs (Past 12 Hours) Vital Signs Temp Pulse Pulse Resp BP Pulse Ox 05/28/20 21:12 36.3 C L 53 L 18 154/71 H 95 05/28/20 15:00 65 05/28/20 14:29 36.2 C L 60 22 133/89 93 PG Care Time/CCT Total # of Minutes Spent Total Time Spent with Patient: Total time spent is greater than 50% in coordination of care (as documented) at patient's floor/unit and/or counseling patient: Coding Level of Care Code 76110 Subseq Hosp Care Lvl 3 Diagnoses Pneumonia due to COVID-19 virus U07.1; J12.82 Acute respiratory failure with hypoxia J96.01 Hypoxia R09.02 CAD (coronary artery disease) I25.10 Ischemic cardiomyopathy I25.5 Hyperlipidemia E78.5 Hyperlipidemia type: unspecified Hypothyroidism (acquired) E03.9 Depression F32.9 Dementia F03.90 Time Spent (min) 35 (1) Hyperlipidemia Hyperlipidemia type: unspecified Qualified Code(s): E78.5 - Hyperlipidemia, unspecified
[2020-05-29] MEDS ORDERED: Nursing to Pharmacy Communication SCH (02:00)
[2020-05-29] MEDS: LEVOTHYROXINE SODIUM 50 MCG TABLET PO SCH (05:12)
[2020-05-29] MEDS: ASPIRIN 81 MG ECTAB PO SCH (08:54)
[2020-05-29] MEDS: ISOSORBIDE MONO EXTENDED REL 30 MG TABCR PO SCH (08:54)
[2020-05-29] MEDS: ENOXAPARIN INJ 40 MG/0.4 ML SYR SQ SCH ×2 (08:55→20:11)
[2020-05-29] MEDS: CLOPIDOGREL BISULFATE 75 MG TAB PO SCH (08:55)
[2020-05-29] MEDS: dexAMETHasone 6 MG in SYRINGE 0 ML IV SCH (08:55)
[2020-05-29] MEDS: FAMOTIDINE 20 MG TAB PO SCH ×2 (08:55→20:13)
[2020-05-29] MEDS: NSS + 20MEQ KCL 20 MEQ/1,000 ML BAG IV SCH ×2 (08:56→18:13)
[2020-05-29] MEDS: CITALOPRAM 20 MG TAB PO SCH (20:08)
[2020-05-29] MEDS: OLANZapine 5 MG TABLET PO SCH (20:10)
[2020-05-29] MEDS: ATORVASTATIN 40 MG TAB PO SCH (20:10)
[2020-05-29] MEDS: REMDESIVIR 100 MG in SODIUM CHLORIDE 0.9% 230 ML IV SCH ×2 (20:11→20:15)
[2020-05-29] MEDS: SODIUM CHLORIDE 0.9% 10ML FLUSH IV SCH (20:12)
[2020-05-29] MEDS ORDERED: diphenhydrAMINE 50 MG/ML VIAL IV STA (20:52)
[2020-05-29] MEDS: ERTAPENEM SODIUM 1,000 MG in SODIUM CHLORIDE 0.9% 50 ML IV SCH (21:17)
--- NOTE | 2020-05-29 21:55 | Hospitalist Progress Note ---
Date of Service May 29, 2020 Assessment & Plan (1) Pneumonia due to COVID-19 virus: Pneumonia due to COVID-19 virus/acute respiratory failure with hypoxia- Decadron 6 mg IV every morning Remdesivir IV per protocol Ventolin HFA 2 puffs every 4 hours as needed currently on room air. will continue with remdesivir as long as patient is in the hospital. Patient is from dementia unit. Patient is a DNR/DNI may consider seroquel as an outpatient. (2) Acute respiratory failure with hypoxia: See above (3) Hypoxia: See above (4) CAD (coronary artery disease): CAD/hypertension/ischemic cardiomyopathy- Until more alert hold aspirin, clopidogrel, isosorbide mononitrate and nitroglycerin sublingual (5) Ischemic cardiomyopathy: See above (6) Hyperlipidemia: Atorvastatin 40 mg in the evening on hold until more alert (7) Hypothyroidism (acquired): Levothyroxine on hold till more alert (8) Depression: Olanzapine, citalopram on hold until more alert (9) Dementia: Limits his contribution to HPI and review of systems Admission and Anticipated Discharge Date Admission Date: May 27, 2020 Subjective 84 yo male is confused. He wants to go home. Review of Systems Review of Systems: All systems reviewed & are unremarkable except as noted in HPI & below Physical Exam Physical Exam: The patient is nonresponsive, normocephalic and atraumatic, lying in bed and in no acute distress. HEENT--PERRL, EOMI, mucous membranes and oropharynx dry. Neck--supple. No JVD. No bruits. Thyroid normal, trachea midline, no adenopathy. Heart--normal S1 and S2. No murmurs, rubs or gallops. Lungs--coarse breath sounds bilaterally. No respiratory distress, no accessory muscle use. Abdomen--normal bowel sounds and soft. Nontender. Nondistended. Extremities--no cyanosis or clubbing. No edema. Dermatologic--skin is dry Neurologic--cranial nerves II through XII grossly intact. Results & Data Results & Data ([facility]) Vital Signs (Past 12 Hours) Vital Signs Temp Pulse Resp BP Pulse Ox 05/29/20 19:00 36.4 C L 58 L 20 167/69 H 90 05/29/20 15:06 58 L 18 146/65 H 92 05/29/20 11:48 36.9 C 50 L 20 139/70 97 PG Care Time/CCT Total # of Minutes Spent Total Time Spent with Patient: Total time spent is greater than 50% in coordination of care (as documented) at patient's floor/unit and/or counseling patient: Coding Level of Care Code 65034 Subseq Hosp Care Lvl 3 Diagnoses Pneumonia due to COVID-19 virus U07.1; J12.82 Acute respiratory failure with hypoxia J96.01 Hypoxia R09.02 CAD (coronary artery disease) I25.10 Ischemic cardiomyopathy I25.5 Hyperlipidemia E78.5 Hyperlipidemia type: unspecified Hypothyroidism (acquired) E03.9 Depression F32.9 Dementia F03.90 Time Spent (min) 35 (1) Hyperlipidemia Hyperlipidemia type: unspecified Qualified Code(s): E78.5 - Hyperlipidemia, unspecified
[2020-05-29] MEDS ORDERED: QUEtiapine FUMARATE 200 MG TAB PO STA (22:08)
[2020-05-30] MEDS ORDERED: QUEtiapine FUMARATE 25 MG TABLET PO STA (06:39)
[2020-05-30] MEDS: LEVOTHYROXINE SODIUM 50 MCG TABLET PO SCH (06:45)
[2020-05-30] MEDS: dexAMETHasone 6 MG in SYRINGE 0 ML IV SCH (08:14)
[2020-05-30] MEDS: CLOPIDOGREL BISULFATE 75 MG TAB PO SCH (08:14)
[2020-05-30] MEDS: ASPIRIN 81 MG ECTAB PO SCH (08:15)
[2020-05-30] MEDS: ISOSORBIDE MONO EXTENDED REL 30 MG TABCR PO SCH (08:15)
[2020-05-30] MEDS: FAMOTIDINE 20 MG TAB PO SCH ×2 (08:15→21:06)
[2020-05-30] MEDS: ENOXAPARIN INJ 40 MG/0.4 ML SYR SQ SCH ×2 (08:16→21:07)
[2020-05-30] MEDS ORDERED: Nursing to Pharmacy Communication SCH (09:00)
[2020-05-30] MEDS: NSS + 20MEQ KCL 20 MEQ/1,000 ML BAG IV SCH ×2 (09:10→19:37)
[2020-05-30] MEDS ORDERED: ACETAMINOPHEN 325 MG TAB PO PRN (11:32)
[2020-05-30] MEDS: REMDESIVIR 100 MG in SODIUM CHLORIDE 0.9% 230 ML IV SCH (19:37)
[2020-05-30] MEDS: OLANZapine 5 MG TABLET PO SCH (21:06)
[2020-05-30] MEDS: ERTAPENEM SODIUM 1,000 MG in SODIUM CHLORIDE 0.9% 50 ML IV SCH (21:06)
[2020-05-30] MEDS: SODIUM CHLORIDE 0.9% 10ML FLUSH IV SCH (21:06)
[2020-05-30] MEDS: ATORVASTATIN 40 MG TAB PO SCH (21:06)
[2020-05-30] MEDS: CITALOPRAM 20 MG TAB PO SCH (21:07)
--- NOTE | 2020-05-30 22:52 | Hospitalist Progress Note ---
Date of Service May 30, 2020 Assessment & Plan (1) Pneumonia due to COVID-19 virus: Pneumonia due to COVID-19 virus/acute respiratory failure with hypoxia- Decadron 6 mg IV every morning Remdesivir IV per protocol Ventolin HFA 2 puffs every 4 hours as needed currently on room air. will continue with remdesivir as long as patient is in the hospital. Patient is from dementia unit and naga be returning at discharge.. Patient is a DNR/DNI Plan is for discharge tomorrow in afternoon if he remains on room air.. (2) Acute respiratory failure with hypoxia: See above (3) Hypoxia: See above (4) CAD (coronary artery disease): CAD/hypertension/ischemic cardiomyopathy- resumed aspirin, clopidogrel, isosorbide mononitrate and nitroglycerin sublingual (5) Ischemic cardiomyopathy: See above (6) Hyperlipidemia: Atorvastatin 40 mg in the evening (7) Hypothyroidism (acquired): Levothyroxine (8) Depression: Olanzapine, citalopram (9) Dementia: Limits his contribution to HPI and review of systems Admission and Anticipated Discharge Date Admission Date: May 27, 2020 Subjective 84 yo male wants to go home. He has no new complaints. No SOB, cough, nausea, vomiting. Review of Systems Review of Systems: All systems reviewed & are unremarkable except as noted in HPI & below Physical Exam Physical Exam: The patient is normocephalic and atraumatic, lying in bed and in no acute distress. HEENT--PERRL, EOMI, mucous membranes and oropharynx dry. Neck--supple. No JVD. No bruits. Thyroid normal, trachea midline, no adenopathy. Heart--normal S1 and S2. No murmurs, rubs or gallops. Lungs--coarse breath sounds bilaterally. No respiratory distress, no accessory muscle use. Abdomen--normal bowel sounds and soft. Nontender. Nondistended. Extremities--no cyanosis or clubbing. No edema. Neurologic--cranial nerves II through XII grossly intact. Results & Data Results & Data ([facility]) Vital Signs (Past 12 Hours) Vital Signs Temp Pulse Pulse Resp BP BP Pulse Ox 05/30/20 19:00 36.8 C 109 H 20 138/80 92 05/30/20 18:46 36.2 C L 66 20 152/75 H 90 05/30/20 17:00 58 L 05/30/20 15:38 94 05/30/20 15:24 36.0 C L 63 18 165/86 H 94 05/30/20 11:05 36.4 C L 64 20 131/76 91 PG Care Time/CCT Total # of Minutes Spent Total Time Spent with Patient: Total time spent is greater than 50% in coordination of care (as documented) at patient's floor/unit and/or counseling patient: Coding Level of Care Code 35370 Subseq Hosp Care Lvl 2 Diagnoses Pneumonia due to COVID-19 virus U07.1; J12.82 Acute respiratory failure with hypoxia J96.01 Hypoxia R09.02 CAD (coronary artery disease) I25.10 Ischemic cardiomyopathy I25.5 Hyperlipidemia E78.5 Hyperlipidemia type: unspecified Hypothyroidism (acquired) E03.9 Depression F32.9 Dementia F03.90 (1) Hyperlipidemia Hyperlipidemia type: unspecified Qualified Code(s): E78.5 - Hyperlipidemia, unspecified
[2020-05-31] MEDS: LEVOTHYROXINE SODIUM 50 MCG TABLET PO SCH (06:00)
[2020-05-31] MEDS: NSS + 20MEQ KCL 20 MEQ/1,000 ML BAG IV SCH (06:00)
[2020-05-31] MEDS: CLOPIDOGREL BISULFATE 75 MG TAB PO SCH (08:58)
[2020-05-31] MEDS: FAMOTIDINE 20 MG TAB PO SCH ×2 (08:59→21:24)
[2020-05-31] MEDS: ISOSORBIDE MONO EXTENDED REL 30 MG TABCR PO SCH (09:00)
[2020-05-31] MEDS: ENOXAPARIN INJ 40 MG/0.4 ML SYR SQ SCH (09:01)
[2020-05-31] MEDS: ASPIRIN 81 MG ECTAB PO SCH (09:01)
[2020-05-31] MEDS: dexAMETHasone 6 MG in SYRINGE 0 ML IV SCH (10:35)
--- NOTE | 2020-05-31 13:13 | Hospitalist Progress Note ---
Date of Service May 31, 2020 Assessment & Plan (1) Pneumonia due to COVID-19 virus: Pneumonia due to COVID-19 virus. Per notes, he temporarily needed supplemental O2 for the first 24 hours. Presently 97% on room air. - Continue dexamethasone 6 mg PO every morning - Continue remdesivir IV per protocol, though no need to keep him in the hospital for it. - Ventolin HFA PRN (2) Acute respiratory failure with hypoxia: Resolved by 05/29. - See above (3) CAD (coronary artery disease): Reports no chest pain for me. Single troponin drawn on 05/27 was 0.07. - Continue aspirin, clopidogrel, statin, & isosorbide mononitrate (4) Ischemic cardiomyopathy: No indication of hypervolemia. - Meds as above (5) Hypothyroidism (acquired): TSH was 3.14 in 02/2020 and stable over several years. No signs/symptoms of hypo-/hyperthyroidism. - Continue home Synthroid 50 mcg (6) Depression: No overt depression on my exam today. - Continue home olanzapine, citalopram (7) Dementia: Lives at Memory Unit and [facility]. Appears to be near baseline at present. - Return to [facility] on discharge per PT/OT (8) DVT (deep venous thrombosis): DVT listed on problem list. I do see a venous Doppler in 2008 with possi ble left popliteal DVT. Not presently on full-dose anticoagulation. - Lovenox 40 mg SQ daily Admission and Anticipated Discharge Date Admission Date: May 27, 2020 Subjective Denies pain or shortness of breath for me. Per the aide, he was able to walk to the bathroom and back with assistance. Reports no fevers/chills, chest pain, shortness of breath, abdominal pain, nausea, or vomiting. Physical Exam Constitutional: WD/WN, vitals as above + cachectic; no acute distress Eyes: EOM intact bilaterally; no conjunctival abnormality ENMT: external ear and nose normal, oropharynx normal Neck: trachea midline, no thyromegaly normal visual inspection Respiratory: normal respiratory effort, lungs clear to auscultation no respiratory distress Cardiovascular: RRR, no murmur, no edema Gastrointestinal (Abdomen): Inspection/Auscultation: abdomen normal to inspection; abdomen not distended Musculoskeletal: no cyanosis or clubbing, extremities motor strength 5/5 Skin: no rashes, warm and dry Neurologic: moves all extremities and awake Psychiatric: Orientation: alert, oriented to person and cooperative; + not oriented to place and + not oriented to time Results & Data Results & Data ([facility]) Vital Signs (Past 12 Hours) Vital Signs Temp Pulse Resp BP Pulse Ox 05/31/20 08:54 37.6 C H 50 L 16 164/74 H 05/31/20 08:12 36.2 C L 85 18 97 05/31/20 06:44 51 L 05/31/20 02:59 36.4 C L 44 L 16 169/69 H 94 PG Care Time/CCT Total # of Minutes Spent Total Time Spent with Patient: Total time spent is greater than 50% in coordination of care (as documented) at patient's floor/unit and/or counseling patient: Coding Level of Care Code 96578 Subseq Hosp Care Lvl 3 Diagnoses Pneumonia due to COVID-19 virus U07.1; J12.82 Acute respiratory failure with hypoxia J96.01 CAD (coronary artery disease) I25.10 Ischemic cardiomyopathy I25.5 Hypothyroidism (acquired) E03.9 Depression F32.9 Dementia F03.90 DVT (deep venous thrombosis) I82.409
[2020-05-31] MEDS: REMDESIVIR 100 MG in SODIUM CHLORIDE 0.9% 230 ML IV SCH (21:14)
[2020-05-31] MEDS: OLANZapine 5 MG TABLET PO SCH (21:23)
[2020-05-31] MEDS: CITALOPRAM 20 MG TAB PO SCH (21:23)
[2020-05-31] MEDS: ATORVASTATIN 40 MG TAB PO SCH (21:23)
[2020-05-31] MEDS: SODIUM CHLORIDE 0.9% 10ML FLUSH IV SCH (22:56)
[2020-06-01] MEDS: LEVOTHYROXINE SODIUM 50 MCG TABLET PO SCH (04:42)
[2020-06-01 05:48] LABS: Appearance Urine Clear (Clear); Bilirubin Urine Negative (Negative); Blood Urine Negative (Negative); Color Urine Yellow; Glucose Urine UA Negative (Negative); Ketones Urine Negative (Negative); Leukocyte Esterase Urine Negative (Negative); Nitrite Urine Negative (Negative); Protein Urine Negative (Negative); Specific Gravity Urine 1.015 (1.000-1.030); Urobilinogen Urine Negative (Negative)
[2020-06-01 07:23] LABS: Hematocrit (blood only) 37.2 % (42-52); Hemoglobin 12.6 g/dL (14.0-18.0); Mean Corpuscular Hemoglobin 29.6 pg (25-34); Mean Corpuscular Hgb Conc 33.9 g/dL (32-36); Mean Corpuscular Volume 87.3 fL (80-100); Mean Platelet Volume 11.1 fL (7.4-10.4); Platelet Count 206 K/uL (130-400); RDW Coefficient of Variation 14.2 % (11.5-14.5); RDW Standard Deviation 45.1 fL (36.4-46.3); Red Blood Count 4.26 M/uL (4.7-6.1); White Blood Count 13.15 K/uL (4.8-10.8)
[2020-06-01 07:58] LABS: Albumin Level 2.7 gm/dl (3.4-5.0); BUN Creatinine Ratio 38.7 (10-20); Calcium 8.9 mg/dl (8.5-10.1); Creatinine Clr Calc Pharmacy 75.4 ml/min; Est GFR (African American) 102.8; Est GFR (Non-African American) 88.7; Magnesium 2.1 mg/dl (1.8-2.4); Potassium 3.8 mmol/L (3.5-5.1)
[2020-06-01 08:00] LABS: Albumin Globulin Ratio 0.7 (0.9-2); Bilirubin,Total 0.8 mg/dl (0.2-1); Globulin 3.6 gm/dl (2.5-4.0); Phosphorus 2.5 mg/dl (2.5-4.9); Total Protein 6.4 gm/dl (6.4-8.2)
[2020-06-01] MEDS: dexAMETHasone 4 MG TAB PO SCH (08:35)
[2020-06-01] MEDS: ASPIRIN 81 MG ECTAB PO SCH (08:36)
[2020-06-01] MEDS: ENOXAPARIN INJ 40 MG/0.4 ML SYR SQ SCH (08:37)
[2020-06-01] MEDS: ISOSORBIDE MONO EXTENDED REL 30 MG TABCR PO SCH (08:37)
[2020-06-01] MEDS: CLOPIDOGREL BISULFATE 75 MG TAB PO SCH (08:37)
[2020-06-01] MEDS: FAMOTIDINE 20 MG TAB PO SCH ×2 (08:40→21:18)
--- NOTE | 2020-06-01 17:32 | Hospitalist Progress Note ---
Date of Service June 01, 2020 Assessment & Plan (1) Pneumonia due to COVID-19 virus: Pneumonia due to COVID-19 virus. Per notes, he temporarily needed supplemental O2 for the first 24 hours. Presently 97% on room air. - Continue dexamethasone 6 mg PO every morning - Continue remdesivir IV per protocol, though no need to keep him in the hospital for it. - Ventolin HFA PRN - Easy breathing today on room air. (2) Acute respiratory failure with hypoxia: Resolved by 05/29. - See above (3) CAD (coronary artery disease): Reports no chest pain for me. Single troponin drawn on 05/27 was 0.07. - Continue aspirin, clopidogrel, statin, & isosorbide mononitrate (4) Ischemic cardiomyopathy: No indication of hypervolemia. - Meds as above (5) Hypothyroidism (acquired): TSH was 3.14 in 02/2020 and stable over several years. No signs/symptoms of hypo-/hyperthyroidism. - Continue home Synthroid 50 mcg (6) Depression: No overt depression on my exam today. - Continue home olanzapine, citalopram (7) Dementia: Lives at Memory Unit and [facility]. Appears to be near baseline at present. - Return to [facility] on discharge per PT/OT - [facility] is concerned about debility. Will likely rec rehab, then return to [facility]. (8) DVT (deep venous thrombosis): DVT listed on problem list. I do see a venous Doppler in 2008 with possible left popliteal DVT. Not presently on full-dose anticoagulation. - Lovenox 40 mg SQ daily Admission and Anticipated Discharge Date Admission Date: May 27, 2020 Subjective No change today. Feels well. Reports no fevers/chills, chest pain, shortness of breath, abdominal pain, nausea, or vomiting. Physical Exam Constitutional: WD/WN, vitals as above + cachectic; no acute distress Eyes: EOM intact bilaterally; no conjunctival abnormality ENMT: external ear and nose normal, oropharynx normal Neck: trachea midline, no thyromegaly normal visual inspection Respiratory: normal respiratory effort, lungs clear to auscultation no respiratory distress Cardiovascular: RRR, no murmur, no edema Gastrointestinal (Abdomen): Inspection/Auscultation: abdomen normal to inspection; abdomen not distended Musculoskeletal: no cyanosis or clubbing, extremities motor strength 5/5 Skin: no rashes, warm and dry Neurologic: moves all extremities and awake Psychiatric: Orientation: alert, oriented to person and cooperative; + not oriented to place and + not oriented to time Results & Data Results & Data ([facility]) Vital Signs (Past 12 Hours) Vital Signs Temp Pulse Resp BP Pulse Ox 06/01/20 16:00 36.4 C L 49 L 20 155/70 H 98 06/01/20 08:00 36.5 C 67 20 187/82 H 90 PG Care Time/CCT Total # of Minutes Spent Total Time Spent with Patient: Total time spent is greater than 50% in coordination of care (as documented) at patient's floor/unit and/or counseling patient: Coding Level of Care Code 57684 Subseq Hosp Care Lvl 2 Diagnoses Pneumonia due to COVID-19 virus U07.1; J12.82 Acute respiratory failure with hypoxia J96.01 CAD (coronary artery disease) I25.10 Ischemic cardiomyopathy I25.5 Hypothyroidism (acquired) E03.9 Depression F32.9 Dementia F03.90 DVT (deep venous thrombosis) I82.409
[2020-06-01] MEDS: OLANZapine 5 MG TABLET PO SCH (21:18)
[2020-06-01] MEDS: ATORVASTATIN 40 MG TAB PO SCH (21:18)
[2020-06-01] MEDS: CITALOPRAM 20 MG TAB PO SCH (21:18)
[2020-06-02] MEDS: LEVOTHYROXINE SODIUM 50 MCG TABLET PO SCH (06:17)
[2020-06-02] MEDS: CLOPIDOGREL BISULFATE 75 MG TAB PO SCH (08:34)
[2020-06-02] MEDS: ISOSORBIDE MONO EXTENDED REL 30 MG TABCR PO SCH (08:34)
[2020-06-02] MEDS: dexAMETHasone 4 MG TAB PO SCH (08:34)
[2020-06-02] MEDS: ASPIRIN 81 MG ECTAB PO SCH (08:35)
[2020-06-02] MEDS: ENOXAPARIN INJ 40 MG/0.4 ML SYR SQ SCH (08:36)
[2020-06-02] MEDS: FAMOTIDINE 20 MG TAB PO SCH (08:38)
--- NOTE | 2020-06-02 16:28 | Discharge Summary ---
Date of Service June 02, 2020 Admission HPI Per Admitting Provider The patient is an 84-year-old male with a past medical history including anemia, gastric perforation, cervical spine closed C5 fracture, carotid artery stenosis, DVT, AAA, dementia, open displaced fracture of nasal bone, closed occipital condyle fracture, vitamin B1 deficiency, cognitive impairment, depression, PE, acute coronary syndrome, hypothyroidism, tricuspid regurgitation, thrombocytopenia, squamous cell skin cancer, SNHL, right regurgitation, Lyme disease, ischemic cardiomyopathy, hyperlipidemia, dilated aortic root, non- STEMI, CAD, pancreatitis, pneumomediastinum and status post CABG. Upon arrival in the emergency department, patient was tachypneic and found to be hypoxic with pulse ox 84% on room air. Work-up in the emergency department included the following abnormal laboratories: Hemoglobin 11.3, potassium 3.6, glucose 128, magnesium 1.6, albumin 2.7, D-dimer 5350 and COVID-19 positive. Chest x-ray showed bilateral interstitial infiltrates. Patient was placed on nasal cannula oxygen. Emergency department treatment included the following: Tylenol 1 g IV, dexamethasone 6 mg IV, NSS 500 mL, and ertapenem 1 g IV. Emergency department did communicate with the patient's daughter, DEBRA, who co nfirmed the patient is a DNR/DNI. Principal Diagnosis Covid-19 pneumonia Discharge Exam Constitutional WD/WN, vitals as above + cachectic; no acute distress Eyes EOM intact bilaterally; no conjunctival abnormality ENMT external ear and nose normal, oropharynx normal Neck trachea midline, no thyromegaly normal visual inspection Respiratory normal respiratory effort, lungs clear to auscultation no respiratory distress Cardiovascular RRR, no murmur, no edema Gastrointestinal (Abdomen) Inspection/Auscultation: abdomen normal to inspection; abdomen not distended Musculoskeletal no cyanosis or clubbing, extremities motor strength 5/5 Skin no rashes, warm and dry Neurologic moves all extremities and awake Psychiatric Orientation: alert, oriented to person and cooperative; + not oriented to place and + not oriented to time Discharge Data Allergies Allergy/AdvReac Type Severity Reaction Status Date / Time Cephalosporins Allergy Severe Rash Verified 05/27/20 22:28 morphine Allergy Unknown Unknown Verified 05/27/20 22:28 Consultations 05/27/20 21:13 ED Decision to Admit Stat 05/28/20 00:27 Consult Case Management - Discharge Planning Routine Ordered Studies 05/27/20 20:29 CT head/brain wo con Urgent 05/27/20 21:42 CT angio chest PE protocol Urgent Hospital Course (1) Pneumonia due to COVID-19 virus: Pneumonia due to COVID-19 virus. Per notes, he temporarily needed supplemental O2 for the first 24 hours. Presently 97% on room air. - Continued remdesivir IV per protocol, though no need to keep him in the hospital for it. - Ventolin HFA PRN - Easy breathing today on room air. Continue dexamethasone 6 mg PO every morning until 06/06/2020. (2) Acute respiratory failure with hypoxia: Resolved by 05/29. - See above (3) CAD (coronary artery disease): Reports no chest pain for me. Single troponin drawn on 05/27 was 0.07. - Continue aspirin, clopidogrel, statin, & isosorbide mononitrate (4) Ischemic cardiomyopathy: No indication of hypervolemia. - Meds as above (5) Hypothyroidism (acquired): TSH was 3.14 in 02/2020 and stable over several years. No signs/symptoms of hypo-/hyperthyroidism. - Continue home Synthroid 50 mcg (6) Depression: No overt depression on my exam today. - Continue home olanzapine, citalopram (7) Dementia: Lives at Memory Unit and [facility]. Appears to be near baseline at present. - Return to [facility] on discharge per PT/OT - [facility] is concerned about debility. Will likely rec rehab, then return to [facility]. (8) DVT (deep venous thrombosis): DVT listed on problem list. I do see a venous Doppler in 2008 with possible left popliteal DVT. Not presently on full-dose anticoagulation. - Lovenox 40 mg SQ daily Total Time Total Time Spent Total Time Spent (In Minutes): 35 Discharge Plan Discharge Items Patient Disposition: Transfer [facility] Reason For Visit: PNEUMONIA DUE TO COVID-19, HYPOXIA Discharge Diagnosis: Covid-19 pneumonia Condition on Discharge: Good Activity: Resume your previous activity Non-emergency contact: Primary Care Provider Call non-emergency contact if: your symptoms worsen and your temperature is above 101 Follow-up/Referrals: Maddie louie,[place] [Primary Care Provider] - Diet: Heart Healthy Addtl Attending Provider Instructions: Mr. Garza was admitted for low oxygen levels related to Covid-19 pneumonia. He has done well for us. He has weaned off O2, and is now 97% on room air and has been for several days. He denies any shortness of breath or cough. Given he was transiently hypoxemic, we did start dexamethasone. End date is: 06/06/2020. He was on remdesivir, but given his rapid improvement, it was not felt to be necessary to give a 10-day course. He did receive the full 5-day treatment. Given the weakness, his [facility] asked he be sent to [facility] for rehab before returning. His initial Covid test was done on 05/19/2020, so he is actually at this point free from quarantine per our guidelines. Pending Studies at Discharge: No Stand-Alone Forms: My [facility] Skilled Items Patient informed of condition?: No DNR: Yes Discharge Level of Care: Acute rehab Communicable Disease: Yes Discharge Prognosis: Stable Lines: None Urinary Catheter: No Medications and DC Order Prescriptions: New dexamethasone 4 mg Tablet 6 mg PO QAM Qty: 0 RF: 0 Continued clopidogrel 75 mg tablet 75 mg PO QAM 30 Days Qty: 30 RF: 5 cyanocobalamin (vitamin B-12) [Vitamin B-12] 1,000 mcg Tablet Extended Release 1,000 mcg PO QAM RF: 0 famotidine 20 mg tablet 20 mg PO BID RF: 0 fluticasone propionate 50 mcg/actuation [place],Suspension 2 spray INTRANASAL QAM RF: 0 aspirin 81 mg tablet,delayed release (DR/EC) 81 mg PO QAM RF: 0 ascorbic acid (vitamin C) 500 mg Tablet 500 mg PO QAM RF: 0 zinc gluconate 50 mg Tablet 50 mg PO QAM RF: 0 guaifenesin 400 mg Tablet 600 mg PO BID RF: 0 cholecalciferol (vitamin D3) [Vitamin D3] 25 mcg (1,000 unit) Tablet 25 mcg PO QAM RF: 0 acetaminophen 325 mg Tablet 650 mg PO Q4H PRN (Reason: Fever Or Pain) RF: 0 nitroglycerin 400 mcg/spray Aerosol,[place] 1 spray sublingual DIRECTED PRN (Reason: Chest Pain) RF: 0 citalopram 10 mg tablet 5 mg PO QPM RF: 0 isosorbide mononitrate 30 mg tablet extended release 24 hr 30 mg PO QAM RF: 0 atorvastatin 40 mg tablet 40 mg PO HS RF: 0 levothyroxine 50 mcg tablet 50 mcg PO QAM RF: 0 olanzapine 5 mg tablet 5 mg PO HS RF: 0 Discharge Orders: Discharge Order (Routine); Ordered 06/02/20 Ordered By: Marc Thayer Admission Data Admit Date/Time: 05/27/20 21:53 Attending Provider: Marc Thayer Admit Provider: Jai Jones Primary Care Provider: [facility] Other Providers: Marc Thayer ; [employer] ; [facility] Other Interventions: Discharge Summary Assessment (RN) Last Done: 06/02/20 13:29 Coding Level of Care Code D/C Day Management >30 mins Diagnoses Pneumonia due to COVID-19 virus U07.1; J12.82 Acute respiratory failure with hypoxia J96.01 CAD (coronary artery disease) I25.10 Ischemic cardiomyopathy I25.5 Hypothyroidism (acquired) E03.9 Depression F32.9 Dementia F03.90 DVT (deep venous thrombosis) I82.409
== END 2020-06-02 14:58 | DRG 177 ==
LOC: ED 20:03 → SUATTDRO 21:53 → 2N 21:53 → 2W 05-28 16:59 → 3E 05-31 02:41